=== PATIENT | male | born 1950 | race Hispanic/Latino ===

== ENCOUNTER 2018-09-10 10:00 | Emergency (ER) | payer MEDICARE ==
[2018-09-10 10:32] LABS: Basophils # (Auto) 0.1 K/mm3 (0.0-0.1); Basophils % (Auto) 0.8 % (0.0-1.8); Eosinophils # (Auto) 0.2 K/mm3 (0.0-0.4); Eosinophils % (Auto) 2.1 % (0.0-4.3); Hematocrit 31.9 % (35.5-45.6); Hemoglobin 10.2 gm/dl (11.8-15.2); Lymphocytes # (Auto) 1.2 K/mm3 (1.2-5.4); Lymphocytes % (Auto) 15.4 % (13.4-35.0); Mean Corpuscular HGB Conc 32 % (32-34); Mean Corpuscular Volume 73 fl (84-94); Monocytes # (Auto) 0.8 K/mm3 (0.0-0.8); Monocytes % (Auto) 10.5 % (0.0-7.3); Platelet Count 169 K/mm3 (140-440); Red Blood Count 4.36 M/mm3 (3.65-5.03)
[2018-09-10 10:38] LABS: Red Cell Distribution Width 20.9 % (13.2-15.2)
[2018-09-10 10:56] LABS: Alanine Aminotransferase 19 units/L (7-56); Albumin 3.6 g/dL (3.9-5); BUN/Creatinine Ratio 17; Blood Urea Nitrogen 15 mg/dL (9-20); Calcium 8.8 mg/dL (8.4-10.2); Hemolysis Index 6
--- NOTE | 2018-09-10 11:41 | Emergency Department Report ---
ED General Adult HPI - General Chief complaint: Abdominal Pain Stated complaint: STOMACH PAIN/BACK PAIN Time Seen by Provider: 09/10/18 10:49 Source: patient Mode of arrival: Wheelchair Limitations: No Limitations - History of Present Illness Initial comments: This is a 68 year old man who states he's never been to the emergency department for abdominal pain before. He states that he has been at [facility] for one week and "they just had psychiatrists there". He states that he was sent to [facility] by an emergency department in [facility] because "I had no where to live". He denies having any mental health problems, depression, suicidal ideation or taking any psychiatric medication. He states he's never had any abdominal surgery. He denies nausea vomiting or diarrhea. He is moving his bowels normally. He's had no fever or chills. He states the pain is sharp and intermittent and diffusely involving his abdomen without being able to identify a point of maximum intensity. He states that his symptoms are essentially unchanged for one week. He states that his pain is exacerbated by eating. -: Gradual, week(s) Location: abdomen Quality: sharp Consistency: intermittent Improves with: none Worsens with: eating Associated Symptoms: denies other symptoms, nausea/vomiting Treatments Prior to Arrival: none - Related Data Allergies Allergy/AdvReac Type Severity Reaction Status Date / Time No Known Allergies Allergy Unverified 09/10/18 10:05 ED Review of Systems ROS: Stated complaint: STOMACH PAIN/BACK PAIN Other details as noted in HPI Constitutional: denies: chills, fever Eyes: denies: eye pain, eye discharge, vision change ENT: denies: ear pain, throat pain Respiratory: denies: cough, shortness of breath, wheezing Cardiovascular: denies: chest pain, palpitations Endocrine: no symptoms reported Gastrointestinal: as per HPI, abdominal pain. denies: nausea, vomiting, diarrhea Genitourinary: denies: urgency, dysuria Musculoskeletal: denies: back pain, joint swelling, arthralgia Skin: denies: rash, lesions Neurological: denies: headache, weakness, paresthesias Psychiatric: denies: anxiety, depression Hematological/Lymphatic: denies: easy bleeding, easy bruising ED Past Medical Hx - Past Medical History Previous Medical History?: Yes Hx Hypertension: Yes Hx CVA: Yes (2003) Hx Heart Attack/AMI: Yes Hx Congestive Heart Failure: Yes Hx Diabetes: Yes Hx Deep Vein Thrombosis: Yes Hx Arthritis: Yes Hx COPD: Yes - Surgical History Past Surgical History?: Yes Hx Open Heart Surgery: Yes Additional Surgical History: right hip replacment. bilateral knee replacement. States fusion of lumbar spine 3 months ago. - Social History Smoking Status: Current Every Day Smoker Substance Use Type: None ED Physical Exam - General Limitations: No Limitations General appearance: alert, in no apparent distress - Head Head exam: Present: atraumatic, normocephalic - Eye Eye exam: Present: normal appearance. Absent: scleral icterus - ENT ENT exam: Present: mucous membranes moist - Neck Neck exam: Present: normal inspection - Respiratory Respiratory exam: Present: normal lung sounds bilaterally. Absent: respiratory distress - Cardiovascular Cardiovascular Exam: Present: regular rate, normal rhythm. Absent: systolic murmur, diastolic murmur, rubs, gallop - GI/Abdominal GI/Abdominal exam: Present: soft, normal bowel sounds. Absent: distended, tenderness, guarding, rebound, rigid - Rectal Rectal exam: Present: deferred - Extremities Exam Extremities exam: Present: normal inspection - Back Exam Back exam: Present: normal inspection. Absent: CVA tenderness (R), CVA tenderness (L) - Neurological Exam Neurological exam: Present: alert, oriented X3, CN II-XII intact. Absent: motor sensory deficit - Psychiatric Psychiatric exam: Present: normal affect, normal mood - Skin Skin exam: Present: warm, dry, intact, normal color. Absent: rash ED Course Vital Signs 09/10/18 09/10/18 10:06 12:58 Temperature 98.3 F Pulse Rate 85 80 Respiratory 18 18 Rate Blood Pressure 122/68 Blood Pressure 115/63 [Left] O2 Sat by Pulse 97 96 Oximetry - Reevaluation(s) Reevaluation #1: Discussed with case management. manager part states she will look into the patient's situation. 09/10/18 11:46 Reevaluation #2: Patient was seen by case management. He did not have any appreciable abdominal pain here his exam was benign. He is released to a [facility]. 09/10/18 16:03 ED Medical Decision Making - Lab Data Result diagrams: 09/10/18 10:23 09/10/18 10:23 Laboratory Results - last 24 hr 09/10/18 09/10/18 09/10/18 10:12 10:23 10:23 WBC 7.7 RBC 4.36 Hgb 10.2 L Hct 31.9 L MCV 73 L MCH 23 L MCHC 32 RDW 20.9 H Plt Count 169 Lymph % (Auto) 15.4 [place] % (Auto) 10.5 H Eos % (Auto) 2.1 Baso % (Auto) 0.8 Lymph # 1.2 [place] # 0.8 Eos # 0.2 Baso # 0.1 Seg Neutrophils % 71.2 H Seg Neutrophils # 5.5 Sodium 140 Potassium 4.4 Chloride 102.4 Carbon Dioxide 25 Anion Gap 17 BUN 15 Creatinine 0.9 Estimated GFR > 60 BUN/Creatinine Ratio 17 Glucose 125 H POC Glucose 127 H Calcium 8.8 Total Bilirubin 0.40 AST 18 ALT 19 Alkaline Phosphatase 91 Total Protein 7.3 Albumin 3.6 L Albumin/Globulin Ratio 1.0 Lipase 25 Critical care attestation.: If time is entered above; I have spent that time in minutes in the direct care of this critically ill patient, excluding procedure time. ED Disposition Clinical Impression: Abdominal pain Qualifiers: Abdominal location: unspecified location Qualified Code(s): R10.9 - Unspecified abdominal pain Disposition: DC-01 TO HOME OR SELFCARE Is pt being admited?: No Does the pt Need Aspirin: No Condition: Stable Instructions: Abdominal Pain (ED) Additional Instructions: Return to the emergency department any acute change or problems. Referrals: FIDELINA PRATT MD [Primary Care Provider] - 3-5 Days [facility] [Provider Group] - 3-5 Days Time of Disposition: 16:03
[2018-09-10 16:03] LABS: Bilirubin,Urine NEG (Negative); Blood,Urine NEG (Negative); Color,Urine Yellow (Yellow); Protein,Urine <15 mg/dL mg/dL (Negative); WBC,Urine < 1.0 /HPF (0.0-6.0)
[2018-09-10 16:04] VITALS: BP 118/70
== END 2018-09-10 16:27 | disposition home or self-care (01) ==
LOC: ED 10:00
DX: R10.9 Unspecified abdominal pain (principal); I11.0 Hypertensive heart disease with heart failure; I50.9 Heart failure, unspecified; E11.9 Type 2 diabetes mellitus without complications; M19.90 Unspecified osteoarthritis, unspecified site; J44.9 Chronic obstructive pulmonary disease, unspecified; F17.200 Nicotine dependence, unspecified, uncomplicated; Z86.73 Personal history of transient ischemic attack (TIA), and cerebral infarction without residual deficits; Z86.718 Personal history of other venous thrombosis and embolism
CPT/HCPCS: 36415; 80053; 81001; 82962; 83690; 85025

== ENCOUNTER 2018-09-30 14:18 | Emergency (ER) | payer MEDICARE ==
[2018-09-30] MEDS ORDERED: NORCO 10/325 PO ONE (14:55)
[2018-09-30] MEDS ORDERED: ZOFRAN ODT PO ONE (14:55)
[2018-09-30] MEDS ORDERED: PROVENTIL IH ONE (14:56)
[2018-09-30] MEDS ORDERED: ATROVENT IH ONE (14:56)
[2018-09-30] MEDS ORDERED: SOLU-Medrol IV ONE (14:57)
--- NOTE | 2018-09-30 15:07 | Emergency Department Report ---
ED General Adult HPI - General Chief complaint: Dyspnea/Respdistress Stated complaint: CAESAR Time Seen by Provider: 09/30/18 14:47 Source: EMS Mode of arrival: Stretcher Limitations: No Limitations - History of Present Illness Initial comments: Patient presents to emergency department with chief complaint of increased shortness of breath over the last 4 days. Patient has a history of congestive heart failure and COPD. Patient also complains of worsening left hip pain that now radiates into his left leg. Patient states she's had this left hip pain for quite some time and denies any injury or trauma. Patient also denies chest pain, jaw pain, headache. -: Gradual Radiation: non-radiation Severity scale (0 -10): 0 Consistency: constant Improves with: none Worsens with: none Associated Symptoms: denies other symptoms Treatments Prior to Arrival: none - Related Data Previous Rx's Medication Instructions Recorded Last Taken Type ALBUTEROL Inhaler (OR & NICU) 2 puff IH Q4HR PRN #1 inhalation 09/30/18 Unknown Rx [ProAir HFA Inhaler] Azithromycin [Zithromax Z-ADAL] 250 mg PO DAILY #6 tablet 09/30/18 Unknown Rx Benzonatate [Tessalon Perles] 100 mg PO Q8HR PRN #20 capsule 09/30/18 Unknown Rx predniSONE [Deltasone] 20 mg PO DAILY #15 tablet 09/30/18 Unknown Rx traMADol [Ultram] 50 mg PO Q6HR PRN #24 tablet 09/30/18 Unknown Rx Allergies Allergy/AdvReac Type Severity Reaction Status Date / Time No Known Allergies Allergy Verified 09/30/18 14:34 ED Review of Systems ROS: Stated complaint: CAESAR Other details as noted in HPI Comment: All other systems reviewed and negative Constitutional: denies: chills, fever Eyes: denies: eye pain, eye discharge, vision change ENT: denies: ear pain, throat pain Respiratory: shortness of breath. denies: cough, wheezing Cardiovascular: denies: chest pain, palpitations Endocrine: no symptoms reported Gastrointestinal: denies: abdominal pain, nausea, diarrhea Genitourinary: denies: urgency, dysuria Musculoskeletal: denies: back pain, joint swelling, arthralgia Skin: denies: rash, lesions Neurological: denies: headache, weakness, paresthesias Psychiatric: denies: anxiety, depression Hematological/Lymphatic: denies: easy bleeding, easy bruising ED Past Medical Hx - Past Medical History Previous Medical History?: Yes Hx Hypertension: Yes Hx CVA: Yes (2003) Hx Heart Attack/AMI: Yes Hx Congestive Heart Failure: Yes Hx Diabetes: Yes Hx Deep Vein Thrombosis: Yes Hx Arthritis: Yes Hx COPD: Yes - Surgical History Past Surgical History?: Yes Hx Open Heart Surgery: Yes Additional Surgical History: right hip replacment. bilateral knee replacement. States fusion of lumbar spine 3 months ago. - Social History Smoking Status: Former Smoker Substance Use Type: None - Medications Home Medications: Home Medications Medication Instructions Recorded Confirmed Last Taken Type ALBUTEROL Inhaler (OR & NICU) 2 puff IH Q4HR PRN #1 inhalation 09/30/18 Unknown Rx [ProAir HFA Inhaler] Azithromycin [Zithromax Z-ADAL] 250 mg PO DAILY #6 tablet 09/30/18 Unknown Rx Benzonatate [Tessalon Perles] 100 mg PO Q8HR PRN #20 capsule 09/30/18 Unknown Rx predniSONE [Deltasone] 20 mg PO DAILY #15 tablet 09/30/18 Unknown Rx traMADol [Ultram] 50 mg PO Q6HR PRN #24 tablet 09/30/18 Unknown Rx ED Physical Exam - General Limitations: No Limitations General appearance: alert, in no apparent distress - Head Head exam: Present: atraumatic, normocephalic - Eye Eye exam: Present: normal appearance, PERRL, EOMI - ENT ENT exam: Present: mucous membranes moist - Neck Neck exam: Present: normal inspection - Respiratory Respiratory exam: Present: normal lung sounds bilaterally, wheezes. Absent: respiratory distress, rales, rhonchi - Cardiovascular Cardiovascular Exam: Present: regular rate, normal rhythm. Absent: systolic murmur, diastolic murmur, rubs, gallop - GI/Abdominal GI/Abdominal exam: Present: soft, normal bowel sounds. Absent: distended, tenderness - Rectal Rectal exam: Present: deferred - Extremities Exam Extremities exam: Present: normal inspection - Back Exam Back exam: Present: normal inspection - Neurological Exam Neurological exam: Present: alert, oriented X3, CN II-XII intact. Absent: motor sensory deficit - Psychiatric Psychiatric exam: Present: normal affect, normal mood - Skin Skin exam: Present: warm, dry, intact, normal color. Absent: rash ED Course Vital Signs 09/30/18 14:30 Temperature 97.6 F Pulse Rate 16 L Respiratory 16 Rate Blood Pressure 118/52 O2 Sat by Pulse 97 Oximetry ED Medical Decision Making - Lab Data Result diagrams: 09/30/18 15:01 09/30/18 15:01 Lab Results 09/30/18 09/30/18 Range/Units 15:01 15:01 WBC 6.9 (4.5-11.0) K/mm3 RBC 4.47 (3.65-5.03) M/mm3 Hgb 10.3 L (11.8-15.2) gm/dl Hct 32.1 L (35.5-45.6) % MCV 72 L (84-94) fl MCH 23 L (28-32) pg MCHC 32 (32-34) % RDW 21.4 H (13.2-15.2) % Plt Count 215 (140-440) K/mm3 Lymph % (Auto) 25.2 (13.4-35.0) % [place] % (Auto) 10.6 H (0.0-7.3) % Eos % (Auto) 1.1 (0.0-4.3) % Baso % (Auto) 0.7 (0.0-1.8) % Lymph # 1.7 (1.2-5.4) K/mm3 [place] # 0.7 (0.0-0.8) K/mm3 Eos # 0.1 (0.0-0.4) K/mm3 Baso # 0.0 (0.0-0.1) K/mm3 Seg Neutrophils % 62.4 (40.0-70.0) % Seg Neutrophils # 4.3 (1.8-7.7) K/mm3 Sodium 141 (137-145) mmol/L Potassium 3.5 L (3.6-5.0) mmol/L Chloride 103.4 (98-107) mmol/L Carbon Dioxide 24 (22-30) mmol/L Anion Gap 17 mmol/L BUN 20 (9-20) mg/dL Creatinine 1.0 (0.8-1.5) mg/dL Estimated GFR > 60 ml/min BUN/Creatinine Ratio 20 % Glucose 181 H (75-100) mg/dL Calcium 8.6 (8.4-10.2) mg/dL Total Bilirubin 0.30 (0.1-1.2) mg/dL AST 11 (5-40) units/L ALT 9 (7-56) units/L Alkaline Phosphatase 96 (35-129) units/L NT-Pro-B Natriuret Pep 2076 H (0-900) pg/mL Total Protein 7.3 (6.3-8.2) g/dL Albumin 3.7 L (3.9-5) g/dL Albumin/Globulin Ratio 1.0 % - Radiology Data Radiology results: report reviewed Critical Care Time: Yes Critical care time in (mins) excluding proc time.: 35 Critical care attestation.: If time is entered above; I have spent that time in minutes in the direct care of this critically ill patient, excluding procedure time. ED Disposition Clinical Impression: COPD exacerbation, CHF (congestive heart failure), Hip pain Disposition: TO HOME OR SELFCARE Is pt being admited?: No Does the pt Need Aspirin: No Condition: Stable Instructions: Chronic Obstructive Pulmonary Disease (ED), Heart Failure (ED) Additional Instructions: return if worse Referrals: PRIMARY MD TATIANA [Primary Care Provider] - 3-5 Days FIDELINA PRATT MD [Staff Physician] - 3-5 Days [facility] [Provider Group] - 3-5 Days [facility] [Provider Group] - 3-5 Days Time of Disposition: 16:35
--- NOTE | 2018-09-30 15:37 | XRay Report ---
PORTABLE CHEST INDICATION: Shortness of breath. COMPARISON: None similar. FINDINGS: Portable, frontal chest radiograph demonstrates normal cardiomediastinal silhouette. Post CABG changes. Mild aortic knob calcifications. Prominent/slight increased markings throughout both lungs. Biapical scarring/pleural thickening as well. No pleural effusions or CHF. Spinal spondylosis. Lumbar fusion hardware noted. CONCLUSION: No definite acute chest process with post CABG changes and nonspecific interstitial prominence, as described. Please also correlate clinically and with more remote chest imaging, if available. Thank you for the opportunity to participate in this patient's care.
--- NOTE | 2018-09-30 15:40 | XRay Report ---
PELVIS RADIOGRAPH INDICATION: Shortness of breath. COMPARISON: None similar at this institution. FINDINGS: Single, frontal pelvic radiograph demonstrates severe left hip joint space narrowing, greatest superiorly with adjacent sclerosis and subchondral cysts. Few surgical clips about the left hip also noted. Right hip replacement. Partially imaged lower lumbar fusion hardware. Extensive atherosclerotic vascular calcifications and right proximal thigh arterial stent. Intact SI joints. Nonobstructive bowel gas pattern. CONCLUSION: No acute pelvic radiographic abnormality with right hip and lower lumbar hardware and severe left hip osteoarthritis noted with few other findings, as above. Thank you for the opportunity to participate in this patient's care.
[2018-09-30 15:44] LABS: Basophils % (Auto) 0.7 % (0.0-1.8); Eosinophils # (Auto) 0.1 K/mm3 (0.0-0.4); Eosinophils % (Auto) 1.1 % (0.0-4.3); Hematocrit 32.1 % (35.5-45.6); Hemoglobin 10.3 gm/dl (11.8-15.2); Lymphocytes # (Auto) 1.7 K/mm3 (1.2-5.4); Lymphocytes % (Auto) 25.2 % (13.4-35.0); Mean Corpuscular HGB Conc 32 % (32-34); Mean Corpuscular Volume 72 fl (84-94); Monocytes # (Auto) 0.7 K/mm3 (0.0-0.8); Monocytes % (Auto) 10.6 % (0.0-7.3); Platelet Count 215 K/mm3 (140-440); Red Blood Count 4.47 M/mm3 (3.65-5.03)
[2018-09-30 16:01] LABS: Alanine Aminotransferase 9 units/L (7-56); Albumin 3.7 g/dL (3.9-5); BUN/Creatinine Ratio 20; Blood Urea Nitrogen 20 mg/dL (9-20); Calcium 8.6 mg/dL (8.4-10.2); Hemolysis Index 2
[2018-09-30 16:03] LABS: Red Cell Distribution Width 21.4 % (13.2-15.2)
[2018-09-30] MEDS ORDERED: LASIX IV ONE (16:32)
[2018-09-30 17:39] VITALS: BP 110/52
== END 2018-09-30 17:37 | disposition home or self-care (01) ==
LOC: ED 14:18
DX: J44.1 Chronic obstructive pulmonary disease with (acute) exacerbation (principal); I50.9 Heart failure, unspecified; M25.552 Pain in left hip; I11.0 Hypertensive heart disease with heart failure; I25.2 Old myocardial infarction; E11.9 Type 2 diabetes mellitus without complications; M19.90 Unspecified osteoarthritis, unspecified site; Z87.891 Personal history of nicotine dependence
CPT/HCPCS: 36415; 71045; 72170; 80053; 83880; 85025; 94640; 96374; 96375; 99291; J1940; J2930; Q0162

== ENCOUNTER 2018-10-02 06:51 | Inpatient (IN) | payer MEDICARE ==
[2018-10-02] MEDS ORDERED: DIPRIVAN 10 MG/ML 1,000 MG/100 ML BOTTLE IV ONE ×3 (07:04→15:50)
[2018-10-02] MEDS ORDERED: VASELINE LIP THERAPY TP PRN (07:05)
[2018-10-02] MEDS ORDERED: ARTIFICIAL TEARS OPHTH OINT OU PRN (07:05)
[2018-10-02] MEDS ORDERED: LASIX IV ONE (07:08)
--- NOTE | 2018-10-02 07:19 | Emergency Department Report ---
ED Shortness of Breath HPI - General Chief Complaint: Dyspnea/Respdistress Stated Complaint: CAESAR Time Seen by Provider: 10/02/18 07:05 Source: patient, EMS Mode of arrival: Stretcher Limitations: Physical Limitation - History of Present Illness Initial Comments: Mr. Brown is a 68 yo male with hx of COPD, chronic systolic CHF, CVA, atrial fibrillation, iron deficiency anemia and CAD s/p CABG who presents with severe respiratory distress. Hx obtained from EMS. Patient unable to give hx due to severe work of breathing and lethargy. Patient did appear to affirm that he has been on a ventilator on previous occasion. According to EMS, room air saturation 60%. Difficult to oxygenate even with CPAP. Patient received albuterol, Solu-Medrol and magnesium en route. Mr. Brown lives in retirement house. He has unfilled prescription from recent ED visit 2 days ago. Documentation Provided by EMS from [facility]. listed Dr. Mehran Quinn Medications Listed from Clinic Form Albuterol Apixaban (Eliquis) Symbicort DSS Metformin Metoprolol Ropinirole Cam Murrieta MD Complaint: shortness of breath -: Sudden, This morning Severity: severe Known History Of: COPD, congestive heart failure - Related Data Previous Rx's Medication Instructions Recorded Last Taken Type ALBUTEROL Inhaler (OR & NICU) 2 puff IH Q4HR PRN #1 inhalation 09/30/18 Unknown Rx [ProAir HFA Inhaler] Azithromycin [Zithromax Z-ADAL] 250 mg PO DAILY #6 tablet 09/30/18 Unknown Rx Benzonatate [Tessalon Perles] 100 mg PO Q8HR PRN #20 capsule 09/30/18 Unknown Rx predniSONE [Deltasone] 20 mg PO DAILY #15 tablet 09/30/18 Unknown Rx traMADol [Ultram] 50 mg PO Q6HR PRN #24 tablet 09/30/18 Unknown Rx Allergies Allergy/AdvReac Type Severity Reaction Status Date / Time No Known Allergies Allergy Verified 09/30/18 14:34 ED Review of Systems ROS: Stated complaint: CAESAR Other details as noted in HPI Comment: Unobtainable due to pts medical conditions (severe work of breathing, lethargy) ED Past Medical Hx - Past Medical History Previous Medical History?: Yes Hx Hypertension: Yes Hx CVA: Yes (2003) Hx Heart Attack/AMI: Yes Hx Congestive Heart Failure: Yes Hx Diabetes: Yes Hx Deep Vein Thrombosis: Yes Hx Arthritis: Yes Hx COPD: Yes - Surgical History Hx Open Heart Surgery: Yes Additional Surgical History: right hip replacment. bilateral knee replacement. States fusion of lumbar spine 3 months ago. - Social History Smoking Status: Unknown if ever smoked Other Social History: Unable to obtain - Medications Home Medications: Home Medications Medication Instructions Recorded Confirmed Last Taken Type ALBUTEROL Inhaler (OR & NICU) 2 puff IH Q4HR PRN #1 inhalation 09/30/18 Unknown Rx [ProAir HFA Inhaler] Azithromycin [Zithromax Z-ADAL] 250 mg PO DAILY #6 tablet 09/30/18 Unknown Rx Benzonatate [Tessalon Perles] 100 mg PO Q8HR PRN #20 capsule 09/30/18 Unknown Rx predniSONE [Deltasone] 20 mg PO DAILY #15 tablet 09/30/18 Unknown Rx traMADol [Ultram] 50 mg PO Q6HR PRN #24 tablet 09/30/18 Unknown Rx ED Physical Exam - General Limitations: Physical Limitation General appearance: lethargic, in distress, other (does not make eye contact, severe work of breathing) - Head Head exam: Present: atraumatic, normocephalic - Eye Eye exam: Absent: scleral icterus, conjunctival injection Pupils: Present: normal accommodation - ENT ENT exam: Present: mucous membranes dry, other (no oropharyngeal lesions or exudate) - Neck Neck exam: Present: full ROM. Absent: meningismus - Respiratory Respiratory exam: Present: respiratory distress, rales, accessory muscle use, decreased breath sounds, prolonged expiratory - Cardiovascular Cardiovascular Exam: Present: tachycardia, irregular rhythm, other (sternotomy scar present). Absent: systolic murmur, diastolic murmur - GI/Abdominal GI/Abdominal exam: Present: soft, other (abdominal retractions). Absent: distended, tenderness, guarding - Extremities Exam Extremities exam: Present: normal inspection - Neurological Exam Neurological exam: Present: other (lethargic speaking one-two word sentences) - Psychiatric Psychiatric exam: Present: other (lethargic) - Skin Skin exam: Present: pallor ED Course Vital Signs 10/02/18 10/02/18 10/02/18 06:52 07:00 07:06 Pulse Rate 106 H 105 H 88 Respiratory 31 H 22 20 Rate Blood Pressure 162/92 O2 Sat by Pulse 80 L 100 90 Oximetry 10/02/18 10/02/18 10/02/18 07:16 07:30 07:36 Pulse Rate 101 H 99 H 112 H Respiratory 28 H 22 Rate Blood Pressure 166/85 151/82 166/85 O2 Sat by Pulse 88 100 100 Oximetry 10/02/18 10/02/18 07:46 08:00 Pulse Rate 106 H 96 H Respiratory 29 H 31 H Rate Blood Pressure 164/102 173/92 O2 Sat by Pulse 99 98 Oximetry - Intubation Time Out Performed: Yes Sedative: Etomidate Mg Given: 20 Paralytic: Succinylcholine Mg Given: 150 Laryngoscope: Roxy Size: 4 ET Tube Size: 8 Tube Secured Depth (cm): 22 Tube Secured Location: lips Tube Placement Confirmation: visualized tube passing t, equal breath sounds bilat, no breath sounds over epi, confirmation by capnometr Patient Tolerated Procedure: well Intubation Complications: none ED Medical Decision Making - Lab Data Result diagrams: 10/02/18 07:20 10/02/18 07:13 - EKG Data 10/02/18 08:37 EKG obtained 0833 atrial fibrillation RVR rate 100 bpm left axis deviation no ST elevation lateral T wave inversions in 1 and aVL Q waves in inferior leads - Radiology Data Radiology results: report reviewed, image reviewed interpreted by me: Suspect RLL infiltrate with venous changes upon my review - Medical Decision Making Mr. Brown presented to the emergency Department severe respiratory distress. While respiratory therapy has applied BiPAP for preoxygenation I spoke to EMS at the bedside. Upon arrival with CPAP oxygen saturation 80%. With noninvasive positive pressure ventilation, 100% oxygen saturation was achieved. Patient was intubated without complication. Patient was given furosemide on arrival. 1. Acute respiratory failure with profound hypoxemia suspect COPD to be the predominant process. I also suspect superimposed pneumonia. Elevated WBC 19K present today rapidly increased from 6.9K 2 days ago, unknown recent steroid use. zosyn/levaquin provided in ED 2. Acute Systolic heart failure with elevated BNP, likely contributory process, IV furosemide provided 3. Rapid Atrial Fibrillation RVR due to critical illness, HR 105-115 bpm, with hypertension, no need for urgent treatment at this time Admitted to hospitalist service. I discussed case with Dr. Flores. Dr. Ortiz will be admitting physician. Critical Care Time: Yes Critical care time in (mins) excluding proc time.: 60 Critical care attestation.: If time is entered above; I have spent that time in minutes in the direct care of this critically ill patient, excluding procedure time. 60 minutes of critical care time excluding procedures were used in the care of the patient. Patient required multiple assessments and interventions. I reviewed the electronic medical record. I spoke with consultants involved in the care of the patient. ED Disposition Clinical Impression: Acute respiratory failure with hypoxia, HCAP (healthcare-associated pneumonia), COPD with acute exacerbation, Acute systolic (congestive) heart failure, Atrial fibrillation with rapid ventricular response Disposition: OP ADMIT IP TO THIS HOSP Is pt being admited?: Yes Does the pt Need Aspirin: No Condition: Stable
[2018-10-02] MEDS: DIPRIVAN 10 MG/ML 1,000 MG/100 ML BOTTLE IV SCH (07:20)
[2018-10-02] MEDS ORDERED: QUELICIN IV ONE (07:23)
[2018-10-02] MEDS ORDERED: AMIDATE IV ONE (07:23)
[2018-10-02 07:46] LABS: Hematocrit 35.7 % (35.5-45.6); Hemoglobin 10.9 gm/dl (11.8-15.2); Mean Corpuscular HGB Conc 31 % (32-34); Mean Corpuscular Volume 75 fl (84-94); Platelet Count 277 K/mm3 (140-440); Red Blood Count 4.79 M/mm3 (3.65-5.03)
[2018-10-02 07:57] LABS: INR 1.11 (0.87-1.13)
[2018-10-02 08:00] LABS: Alanine Aminotransferase 11 units/L (7-56); Albumin 3.9 g/dL (3.9-5); BUN/Creatinine Ratio 20; Blood Urea Nitrogen 20 mg/dL (9-20); Calcium 8.4 mg/dL (8.4-10.2); Hemolysis Index 20
[2018-10-02] MEDS ORDERED: DIPRIVAN 10 MG/ML 1,000 MG/100 ML BOTTLE IV SCH (08:00)
[2018-10-02 08:02] LABS: Red Cell Distribution Width 21.7 % (13.2-15.2)
--- NOTE | 2018-10-02 08:12 | XRay Report ---
AP CHEST: HISTORY: Endotracheal tube placement Compared to 09/30/18. The endotracheal tube terminates 4 cm superior to the mylene. Advanced underlying emphysematous changes are suspected. Previous CABG changes are also noted. Moderate cardiomegaly and pulmonary venous congestion are present. No large pleural fluid collection or pneumothorax. IMPRESSION: Adequate placement of the endotracheal tube. Emphysema. Moderate cardiomegaly and pulmonary venous congestion.
[2018-10-02] MEDS ORDERED: LEVAQUIN 750MG/150ML 750 MG/150 ML BAG IV ONE ×2 (08:26→12:05)
[2018-10-02] MEDS ORDERED: ZOSYN/NS 4.5GM/100ML 4.5 GM/100 ML VIAL IV ONE ×2 (08:26→10:01)
--- NOTE | 2018-10-02 08:37 | History and Physical Report ---
History of Present Illness Date of examination: 10/02/18 Date of admission: 10/02/18 Chief complaint: shortness of breath History of present illness: Patient is a 68-year-old male with past medical history from records shows COPD, chronic systolic CHF, CVA, atrial fibrillation, iron deficiency anemia and CAD s/p CABG who presents with severe respiratory distress. Patient was noted to be lethargic with severe increased work of breathing and was intubated in the ER and placed on mechanical ventilation. Review of records is also off HPI. The record shows that the patient has been in the ED about 2 days prior to this visit. He also had affirm that he has been on mechanical ventilation on previous occasions for currently follows at the [facility]. The ED documentation the medication list reveals the patient also lives in a alf house. On arrival he was noted to have a saturation of 60% and was difficult to oxygenate with CPAP despite Solu-Medrol and magnesium given enroute and mechanical ventilation in the ED. Medications Listed from Clinic Form Albuterol Apixaban (Eliquis) Symbicort DSS Metformin Metoprolol Ropinirole Senna Spiriva Past History Past Medical History: CAD, COPD, hypertension Past Surgical History: CABG Social history: full code Family history: no significant family history Medications and Allergies Allergies Allergy/AdvReac Type Severity Reaction Status Date / Time No Known Allergies Allergy Verified 09/30/18 14:34 Home Medications Medication Instructions Recorded Confirmed Last Taken Type ALBUTEROL Inhaler (OR & NICU) 2 puff IH Q4HR PRN #1 inhalation 09/30/18 Unknown Rx [ProAir HFA Inhaler] Azithromycin [Zithromax Z-ADAL] 250 mg PO DAILY #6 tablet 09/30/18 Unknown Rx Benzonatate [Tessalon Perles] 100 mg PO Q8HR PRN #20 capsule 09/30/18 Unknown Rx predniSONE [Deltasone] 20 mg PO DAILY #15 tablet 09/30/18 Unknown Rx traMADol [Ultram] 50 mg PO Q6HR PRN #24 tablet 09/30/18 Unknown Rx Active Meds: Active Medications Hydrophilic Ointment (Vaseline Lip Therapy) 1 applic TP Q2HR PRN PRN Reason: Dry Lips Propofol (Diprivan 10 Mg/Ml) 1,000 mg in 100 mls @ 2.439 mls/hr IV TITR KIANNA; Protocol Last Admin: 10/02/18 07:20 Dose: 15 mcg/kg/min, 7.317 mls/hr Documented by: Levofloxacin/Dextrose (Levaquin 750mg/150ml) 750 mg in 150 mls @ 100 mls/hr IV ONCE ONE Stop: 10/02/18 09:55 Piperacillin Sod/Tazobactam Sod (Zosyn/Ns 4.5gm/100ml) 4.5 gm in 100 mls @ 200 mls/hr IV ONCE ONE Stop: 10/02/18 08:55 Multi-Ingred Cream/Lotion/Oil/Oint (Artificial Tears Ophth Oint) 1 applic OU Q4HR PRN PRN Reason: Dry Eye(s) Review of Systems ROS unobtainable: due to endotracheal tube, due to mental status All systems: negative Exam - Physical Exam Narrative exam: VITAL SIGNS: Reviewed. GENERAL: The patient appeared well nourished and normally developed in mild to moderate distress. Vital signs as documented. HEAD: No signs of head trauma. EYES: Pupils are equal. Extraocular motions intact. EARS: Hearing grossly intact. MOUTH: ETT in place, otherwise no other visible pathology noted NECK: No adenopathy, no JVD. CHEST: Chest with Diminished breath sounds bilaterally. CARDIAC: Regular rate and rhythm. S1 and S2, without murmurs, gallops, or rubs. VASCULAR: No Edema. Peripheral pulses normal and equal in all extremities. ABDOMEN: Soft, without detectable tenderness. No sign of distention. No rebound or guarding, and no masses palpated. Bowel Sounds normal. MUSCULOSKELETAL: Good range of motion of all major joints. Extremities without clubbing, cyanosis or edema. NEUROLOGIC: unable to access SKIN: No rash or lesions. - Constitutional Vitals: Temp Pulse Resp BP Pulse Ox 96 H 31 H 173/92 98 10/02/18 08:00 10/02/18 08:00 10/02/18 08:00 10/02/18 08:00 Results - Labs CBC & Chem 7: 10/03/18 04:13 10/03/18 04:13 Labs: Laboratory Last Values WBC 19.7 K/mm3 (4.5-11.0) H 10/02/18 07:20 RBC 4.79 M/mm3 (3.65-5.03) 10/02/18 07:20 Hgb 10.9 gm/dl (11.8-15.2) L 10/02/18 07:20 Hct 35.7 % (35.5-45.6) 10/02/18 07:20 MCV 75 fl (84-94) L 10/02/18 07:20 MCH 23 pg (28-32) L 10/02/18 07:20 MCHC 31 % (32-34) L 10/02/18 07:20 RDW 21.7 % (13.2-15.2) H 10/02/18 07:20 Plt Count 277 K/mm3 (140-440) 10/02/18 07:20 Lymph # [employer] 10/02/18 07:20 PT 15.0 Sec. (12.2-14.9) H 10/02/18 07:22 INR 1.11 (0.87-1.13) 10/02/18 07:22 Sodium 138 mmol/L (137-145) 10/02/18 07:13 Potassium 5.2 mmol/L (3.6-5.0) H D 10/02/18 07:13 Chloride 101.0 mmol/L (98-107) 10/02/18 07:13 Carbon Dioxide 19 mmol/L (22-30) L 10/02/18 07:13 Anion Gap 23 mmol/L 10/02/18 07:13 BUN 20 mg/dL (9-20) 10/02/18 07:13 Creatinine 1.0 mg/dL (0.8-1.5) 10/02/18 07:13 Estimated GFR > 60 ml/min 10/02/18 07:13 BUN/Creatinine Ratio 20 % 10/02/18 07:13 Glucose 340 mg/dL (75-100) H 10/02/18 07:13 Calcium 8.4 mg/dL (8.4-10.2) 10/02/18 07:13 Total Bilirubin 0.50 mg/dL (0.1-1.2) 10/02/18 07:13 AST 20 units/L (5-40) 10/02/18 07:13 ALT 11 units/L (7-56) 10/02/18 07:13 Alkaline Phosphatase 100 units/L (35-129) 10/02/18 07:13 Troponin T < 0.010 ng/mL (0.00-0.029) 10/02/18 07:13 NT-Pro-B Natriuret Pep 3102 pg/mL (0-900) H 10/02/18 07:13 Total Protein 7.8 g/dL (6.3-8.2) 10/02/18 07:13 Albumin 3.9 g/dL (3.9-5) 10/02/18 07:13 Albumin/Globulin Ratio 1.0 % 10/02/18 07:13 - Imaging and Cardiology Chest x-ray: image reviewed (pneumonia) Assessment and Plan Assessment and plan: Patient is a 68-year-old male with past medical history from records shows COPD, chronic systolic CHF, CVA, atrial fibrillation, iron deficiency anemia and CAD s/p CABG who presents with severe respiratory distress. Patient was noted to be lethargic with severe increased work of breathing and was intubated in the ER and placed on mechanical ventilation. Review of records is also off HPI. The record shows that the patient has been in the ED about 2 days prior to this visit. He also had affirm that he has been on mechanical ventilation on previous occasions for currently follows at the [facility]. The ED documentation the medication list reveals the patient also lives in a alf house. On arrival he was noted to have a saturation of 60% and was difficult to oxygenate with CPAP despite Solu-Medrol and magnesium given enroute and mechanical ventilation in the ED. Acute Respiratory failure with Hypoxia ON Mechanical ventilation Hypertensive urgency Acute Systolic Congestive heart failure-Precluding fluids admisitration Sepsis-POA secondary PNA Pneumonia -presume gram negative. COPD with acute exacerbation secondary to above Atrial Fibrillation Leukocytosis Hyperkalemia DM with Hyperglycemia Plan Admit to ICU Sepsis Protocol [employer]ing [employer] and cardiology consult Hold further diuretic till above configuration consultant evaluation and also patient at high risk of shock syndrome with underlying infectious process Blood cultures Continue for HAP. IF no clear resolution will request ID support DVT/GI prophy Discussed with Nursing to obtain med Rec No family present. The high probability of a clinically significant, sudden or life threatening deterioration of the [CARDIAC, PULMONARY] system(s) required my full and direct attention, intervention and personal management. The aggregate critical care time was [75] minutes. This time is in addition to time spent performing reported procedures but includes the following: [X] Data Review and interpretation [X] Patient assessment and monitoring of vital signs [X] Documentation [X] Medication orders and management Advance Directives: Yes Plan of care discussed with patient/family: Yes
[2018-10-02] MEDS ORDERED: D50W (25GM) Syringe IV PRN (08:41)
[2018-10-02] MEDS ORDERED: PROVENTIL IH PRN (08:41)
[2018-10-02] MEDS ORDERED: SODIUM CHLORIDE FLUSH SYRINGE 10 ML IV PRN (08:41)
[2018-10-02] MEDS ORDERED: VANCOMYCIN PHARMACY TO DOSE IV SCH (09:00)
[2018-10-02] MEDS ORDERED: VANCOMYCIN 1,750 MG in NACL 0.9% 500 ML 500 ML IV ONE (09:30)
[2018-10-02 09:37] LABS: Band Neutrophils # (Manual) 0.2 K/mm3; Basophils % (Manual) 0 % (0.0-1.8); Eosinophils % (Manual) 0 % (0.0-4.3); Total Cells Counted 100
[2018-10-02 09:38] LABS: Anisocytosis 2+; Hypochromasia 1+; Ovalocytes 1+; Platelet Estimate Consistent w Auto
[2018-10-02 09:56] LABS: Bacteria,Urine 1+ /HPF (Negative); Bilirubin,Urine NEG (Negative); Blood,Urine NEG (Negative); Color,Urine Straw (Yellow); Urobilinogen,Urine < 2.0 mg/dL (<2.0)
[2018-10-02] MEDS: SODIUM CHLORIDE FLUSH SYRINGE 10 ML IV SCH ×2 (10:44→22:57)
--- NOTE | 2018-10-02 11:11 | Consultation ---
History of Present Illness Consult date: 10/02/18 Requesting physician: DWIGHT HERNANDEZ Consult reason: atrial fibrillation History of present illness: The pt is a 68 yo male who presented from longterm house with severe respiratory distress. The pt is intubated and sedated with no family members at bedside on evaluation and thus HPI obtained per the chart. Pt has reported history of COPD, HF, CVA, atrial fibrillation, iron deficiency anemia and CAD s/p CABG. Hx obtained from EMS. Upon initial arrival to ED, patient unable to give hx due to severe work of breathing and lethargy, pt did appear to affirm that he has been on a ventilator on previous occasion. According to EMS, room air saturation 60%. Upon arrival with CPAP oxygen saturation 80%. Pt was subsequently intubated in ED. Pt was found to be in AFib RVR on arrival. Pt in AFib with CVR on evaluation. Past History Past Medical History: atrial fib, CAD, COPD, heart failure, stroke Past Surgical History: CABG Medications and Allergies Allergies Allergy/AdvReac Type Severity Reaction Status Date / Time No Known Allergies Allergy Verified 09/30/18 14:34 Home Medications Medication Instructions Recorded Confirmed Last Taken Type ALBUTEROL Inhaler (OR & NICU) 2 puff IH Q4HR PRN #1 inhalation 09/30/18 Unknown Rx [ProAir HFA Inhaler] Azithromycin [Zithromax Z-ADAL] 250 mg PO DAILY #6 tablet 09/30/18 Unknown Rx Benzonatate [Tessalon Perles] 100 mg PO Q8HR PRN #20 capsule 09/30/18 Unknown Rx predniSONE [Deltasone] 20 mg PO DAILY #15 tablet 09/30/18 Unknown Rx traMADol [Ultram] 50 mg PO Q6HR PRN #24 tablet 09/30/18 Unknown Rx Active Meds: Active Medications Albuterol (Proventil) 2.5 mg IH Q3HRT PRN PRN Reason: Shortness Of Breath Albuterol/Ipratropium (Duoneb *Not For Prn Use*) 1 ampul IH Q6HRT KIANNA Dextrose (D50w (25gm) Syringe) 50 ml IV PRN PRN PRN Reason: Hypoglycemia Hydrophilic Ointment (Vaseline Lip Therapy) 1 applic TP Q2HR PRN PRN Reason: Dry Lips Propofol (Diprivan 10 Mg/Ml) 1,000 mg in 100 mls @ 2.439 mls/hr IV TITR KIANNA; Protocol Last Admin: 10/02/18 07:20 Dose: 15 mcg/kg/min, 7.317 mls/hr Documented by: Cefepime HCl (Maxipime/Ns 2 Gm/100 Ml) 2 gm in 100 mls @ 200 mls/hr IV Q8HR KIANNA; Protocol Multi-Ingred Cream/Lotion/Oil/Oint (Artificial Tears Ophth Oint) 1 applic OU Q4HR PRN PRN Reason: Dry Eye(s) Senna (Senokot) 8.6 mg PO BID KIANNA Sodium Chloride (Sodium Chloride Flush Syringe 10 Ml) 10 ml IV BID KIANNA Last Admin: 10/02/18 10:44 Dose: 10 ml Documented by: Sodium Chloride (Sodium Chloride Flush Syringe 10 Ml) 10 ml IV PRN PRN PRN Reason: LINE FLUSH Review of Systems ROS unobtainable: due to endotracheal tube, due to mental status Physical Examination Vital Signs Pulse Resp Pulse Ox 106 H 31 H 80 L 10/02/18 06:52 10/02/18 06:52 10/02/18 06:52 General appearance: other (intubated, sedated ) Neck: Positive: neck supple Cardiac: Positive: irregularly irregular, S1/S2 Lungs: Positive: Decreased Breath Sounds, Ventilated Respirations Neuro: Positive: Other (intubated, sedated) Skin: Negative: Rash Extremities: Absent: edema Results 10/02/18 07:20 10/02/18 07:13 Cardiac Enzymes 10/02/18 Range/Units 07:13 AST 20 (5-40) units/L Coagulation 10/02/18 Range/Units 07:22 PT 15.0 H (12.2-14.9) Sec. INR 1.11 (0.87-1.13) CBC 10/02/18 Range/Units 07:20 WBC 19.7 H (4.5-11.0) K/mm3 RBC 4.79 (3.65-5.03) M/mm3 Hgb 10.9 L (11.8-15.2) gm/dl Hct 35.7 (35.5-45.6) % Plt Count 277 (140-440) K/mm3 Lymph # [employer]aining Specialist Comprehensive Metabolic Panel 10/02/18 Range/Units 07:13 Sodium 138 (137-145) mmol/L Potassium 5.2 H D (3.6-5.0) mmol/L Chloride 101.0 (98-107) mmol/L Carbon Dioxide 19 L (22-30) mmol/L BUN 20 (9-20) mg/dL Creatinine 1.0 (0.8-1.5) mg/dL Glucose 340 H (75-100) mg/dL Calcium 8.4 (8.4-10.2) mg/dL AST 20 (5-40) units/L ALT 11 (7-56) units/L Alkaline Phosphatase 100 (35-129) units/L Total Protein 7.8 (6.3-8.2) g/dL Albumin 3.9 (3.9-5) g/dL - Imaging and Cardiology Echo: pending EKG: report reviewed, image reviewed EKG interpretations - Telemetry EKG Rhythm: Atrial Fibrillation - EKG Supraventricular dysrhythmia: atrial fibrillation Assessment and Plan Pt currently in AFib with HR 90s - 100s. Optimize BP and HR - initiate IV lopressor 5mg TID. Convert to PO medications once enteral intake is resumed. In regards to systemic AC, pt appears frail and lives in a longterm house. He may not be a good candidate for oil heaterman systemic AC for AFib. Will attempt to readdress with pt and/or pt's family members during hospitalization. Can consider heparin gtt in the interim if no contraindication. Initiate scheduled IV lasix. Obtain echo. The patient has been seen in conjunction with Dr. Keller who agrees with the assessment and plan of care. - Patient Problems (1) Acute respiratory failure Current Visit: Yes Status: Acute (2) Atrial fibrillation with rapid ventricular response Current Visit: Yes Status: Acute (3) Acute heart failure Current Visit: Yes Status: Acute (4) COPD with acute exacerbation Current Visit: Yes Status: Acute (5) Leukocytosis Current Visit: Yes Status: Acute (6) CAD (coronary artery disease) Current Visit: Yes Status: Chronic (7) S/P CABG (coronary artery bypass graft) Current Visit: Yes Status: Chronic
[2018-10-02] MEDS: fentaNYL DRIP Premix 2,000 MCG/100 ML BAG IV SCH (13:45)
[2018-10-02] MEDS ORDERED: fentaNYL DRIP Premix 2,000 MCG/100 ML BAG IV ONE ×2 (13:53→19:17)
[2018-10-02] MEDS ORDERED: SUBLIMAZE IV PRN (15:32)
[2018-10-02] MEDS ORDERED: SUBLIMAZE ONE ×2 (16:20→17:11)
[2018-10-02] MEDS ORDERED: DUONEB *Not for PRN Use IH ONE (16:21)
[2018-10-02] MEDS: DUONEB *Not for PRN Use IH SCH ×2 (16:22→19:19)
[2018-10-02] MEDS: SENOKOT PO SCH ×2 (17:12→22:55)
--- NOTE | 2018-10-02 18:44 | Consultation ---
History of Present Illness Consult date: 10/02/18 Requesting physician: DWIGHT HERNANDEZ Reason for consult: COPD, other (Acute Hypoxenmic Resp Failure on MVS) History of present illness: PULMONARY/CCM CONSULT NOTE (Full dictation # [id number]) Please see dictated notes for full details Past History Past Medical History: atrial fib, CAD, COPD, heart failure, stroke Past Surgical History: CABG Medications and Allergies Allergies Allergy/AdvReac Type Severity Reaction Status Date / Time No Known Allergies Allergy Verified 09/30/18 14:34 Home Medications Medication Instructions Recorded Confirmed Last Taken Type ALBUTEROL Inhaler (OR & NICU) 2 puff IH Q4HR PRN #1 inhalation 09/30/18 Unknown Rx [ProAir HFA Inhaler] Azithromycin [Zithromax Z-ADAL] 250 mg PO DAILY #6 tablet 09/30/18 Unknown Rx Benzonatate [Tessalon Perles] 100 mg PO Q8HR PRN #20 capsule 09/30/18 Unknown Rx predniSONE [Deltasone] 20 mg PO DAILY #15 tablet 09/30/18 Unknown Rx traMADol [Ultram] 50 mg PO Q6HR PRN #24 tablet 09/30/18 Unknown Rx Active Meds: Active Medications Albuterol (Proventil) 2.5 mg IH Q3HRT PRN PRN Reason: Shortness Of Breath Albuterol/Ipratropium (Duoneb *Not For Prn Use*) 1 ampul IH Q6HRT KIANNA Last Admin: 10/02/18 16:22 Dose: 1 ampul Documented by: Dextrose (D50w (25gm) Syringe) 50 ml IV PRN PRN PRN Reason: Hypoglycemia Fentanyl (Sublimaze) 50 mcg IV Q10MIN PRN PRN Reason: ANALGESIA Last Admin: 10/02/18 16:21 Dose: 50 mcg Documented by: Furosemide (Lasix) 20 mg IV 0600,1800 KIANNA Hydrophilic Ointment (Vaseline Lip Therapy) 1 applic TP Q2HR PRN PRN Reason: Dry Lips Propofol (Diprivan 10 Mg/Ml) 1,000 mg in 100 mls @ 2.439 mls/hr IV TITR KIANNA; Protocol Last Admin: 10/02/18 07:20 Dose: 15 mcg/kg/min, 7.317 mls/hr Documented by: Cefepime HCl (Maxipime/Ns 2 Gm/100 Ml) 2 gm in 100 mls @ 200 mls/hr IV Q8HR [facility]; Protocol Fentanyl Citrate (Fentanyl Drip Premix) 2,000 mcg in 100 mls @ 4.065 mls/hr IV TITR [facility]; Protocol Last Titration: 10/02/18 16:25 Dose: 3 mcg/kg/hr, 12.195 mls/hr Documented by: Vancomycin HCl 1,250 mg/ (Sodium Chloride) 275 mls @ 166.667 mls/hr IV Q12H [facility] Metoprolol Tartrate (Lopressor) 5 mg IV TID [facility] Multi-Ingred Cream/Lotion/Oil/Oint (Artificial Tears Ophth Oint) 1 applic OU Q4HR PRN PRN Reason: Dry Eye(s) Senna (Senokot) 8.6 mg PO BID [facility] Last Admin: 10/02/18 17:12 Dose: Not Given Documented by: Sodium Chloride (Sodium Chloride Flush Syringe 10 Ml) 10 ml IV BID [facility] Last Admin: 10/02/18 10:44 Dose: 10 ml Documented by: Sodium Chloride (Sodium Chloride Flush Syringe 10 Ml) 10 ml IV PRN PRN PRN Reason: LINE FLUSH Physical Examination Vital signs: Vital Signs Pulse Resp Pulse Ox 106 H 31 H 80 L 10/02/18 06:52 10/02/18 06:52 10/02/18 06:52 Results - Laboratory Findings CBC and BMP: 10/02/18 07:20 10/02/18 07:13 ABG POC ABG pH 7.254 (7.35-7.45) L 10/02/18 12:28 POC ABG pCO2 54.3 (35-45) H 10/02/18 12:28 POC ABG pO2 196 (80-105) H 10/02/18 12:28 POC ABG HCO3 24.0 10/02/18 12:28 POC ABG Total CO2 26 10/02/18 12:28 POC ABG O2 Sat 100 10/02/18 12:28 PT/INR, D-dimer PT 15.0 Sec. (12.2-14.9) H 10/02/18 07:22 INR 1.11 (0.87-1.13) 10/02/18 07:22 Abnormal lab findings: Abnormal Labs 10/02/18 10/02/18 10/02/18 07:13 07:20 07:22 WBC 19.7 H Hgb 10.9 L MCV 75 L MCH 23 L MCHC 31 L RDW 21.7 H Seg Neutrophils # Man 13.2 H Monocytes # (Manual) 1.2 H PT 15.0 H POC ABG pH POC ABG pCO2 POC ABG pO2 Potassium 5.2 H D Carbon Dioxide 19 L Glucose 340 H Lactic Acid NT-Pro-B Natriuret Pep 3102 H 10/02/18 10/02/18 10/02/18 08:32 09:26 12:28 WBC Hgb MCV MCH MCHC RDW Seg Neutrophils # Man Monocytes # (Manual) PT POC ABG pH 7.201 L 7.254 L POC ABG pCO2 61.2 H 54.3 H POC ABG pO2 150 H 196 H Potassium Carbon Dioxide Glucose Lactic Acid 3.00 H* NT-Pro-B Natriuret Pep
[2018-10-02] MEDS: LOPRESSOR IV SCH ×2 (20:22→21:37)
[2018-10-02] MEDS: LASIX IV SCH (20:32)
[2018-10-02] MEDS ORDERED: LASIX ONE ×3 (20:32→20:52)
[2018-10-02] MEDS: MAXIPIME/NS 2 GM/100 ML 2 GM/100 ML BAG IV SCH (22:30)
[2018-10-02] MEDS ORDERED: SEROquel 50 MG, SEROquel 100 MG PO SCH (23:00)
[2018-10-02] MEDS ORDERED: NACL 0.9% 1000 ML 1,000 ML IV SCH (23:00)
--- NOTE | 2018-10-03 00:01 | Consultation ---
PULMONARY CRITICAL CARE CONSULTATION NOTE CONSULTING PHYSICIAN: Lex Ortiz MD REASON FOR CONSULTATION: Acute hypoxemic respiratory failure, on mechanical ventilator support, acute chronic obstructive pulmonary disease exacerbation. CHIEF COMPLAINT AND HISTORY OF PRESENT ILLNESS: As follows, the patient is a 68-year-old male with past medical history significant in this context both for diagnoses of chronic obstructive lung disease, but also chronic systolic congestive heart failure, who presented to the Emergency Room with severe respiratory distress. He was unable to give a history due to his increased work of breathing. EMS, when they got to his apartment, found his room air oxygen saturations at about 60%. They tried to oxygenate him with CPAP, really did not improve much. He received albuterol, Solu-Medrol, magnesium en route. He reportedly lives in a senior living house and there is a question of medication noncompliance as he had some ____ prescriptions from a recent Emergency Room visit. Emergency Room physician, after evaluation, realized appropriately that the patient required endotracheal intubation and this was done. We are asked to assist with management. When I stopped by to see him, he had also gone into atrial fibrillation with rapid ventricular response. He was on propofol at about 10 mcg per minute, but he was also on fentanyl at 3 mcg/kg per hour, but was still easily agitated. I do not have any history of vomiting or overt aspiration. It is unclear if the patient complained of any chest pains at initial evaluation. This really is as much of the history of presentation as I have. Also, his tobacco use/abuse history is unknown. PAST MEDICAL HISTORY: According to the records, chronic obstructive lung disease, congestive heart failure, cerebrovascular accident, atrial fibrillation, iron deficiency anemia, coronary artery disease. PAST SURGICAL HISTORY: He has had coronary artery bypass graft in the past. MEDICATIONS: He was on at the time I stopped by to see him were reviewed. Pertinent medications included the following: DuoNeb nebulizer treatments nebulized q. 6 hours, cefepime 2 g IV 8 hours, fentanyl drip as mentioned above, Lasix 20 mg IV b.i.d., metoprolol 5 mg IV t.i.d. scheduled, propofol at the drip mentioned above, senna 8.6 mg p.o. b.i.d., and vancomycin 1.25 grams IV q.12 hours. ALLERGIES: No known drug allergies. DIET: Thin gentleman, acute weight loss or gain history is unknown. FAMILY AND SOCIAL HISTORY: Resident of a senior living house. Alcohol, tobacco, or illicit drug use or abuse history is unknown. FAMILY HISTORY: Family history unfortunately is unknown. REVIEW OF SYSTEMS: Review of systems is unobtainable secondary to the patient's medical and mental condition. Since he has been here, no gross hematochezia or melena. No gross hematuria, no hematemesis, no bloody tracheal secretions, no witnessed seizures. Review of systems otherwise is unobtainable or as in body of the history above. PHYSICAL EXAMINATION: VITAL SIGNS: On examination, at presentation in the Emergency Room, the first temperature I see on him was from about 3:00 p.m. today 96.3 degrees Fahrenheit. At that time, his pulse at presentation was 106, respiratory rate was 31 and blood pressure 162/92, O2 sats were 80%. Inspired oxygen concentration was not recorded. At the time that I stopped by to see him, his O2 sats were around 97% that was on the assist control mode of ventilation, tidal volumes at 450, rate I believe was 22, and PEEP was 6 with FiO2 of 75%. GENERAL: He is an elderly looking male, normocephalic, atraumatic, on the mechanical ventilator, intermittently agitated with mild to moderately increased respiratory effort even on the mechanical ventilator. HEENT: Examination of the head, eyes, ears, nose and throat, he is anicteric. No conjunctival erythema. Oropharynx is moist. He has endotracheal tube placed, taped in place around 23 cm at the lips. NECK: No gross jugular venous distention, no thyromegaly. Grossly, no palpable lymph nodes in the supraclavicular or submandibular lymph node chains. LUNGS: Auscultation of both lung kenney, diminished bilateral breath sounds, significantly prolonged expiratory phase, basilar rhonchi and faint expiratory wheezing. HEART: Heart sounds 1 and 2 are heard. Irregular rate and rhythm at the time of my evaluation without rubs or murmurs. ABDOMEN: Soft, full, bowel sounds are positive, nontender. No palpable hepatosplenomegaly. EXTREMITIES: Without overt digital clubbing or cyanosis. No pedal edema. Dorsalis pedis pulses are palpable bilaterally. NEUROLOGIC: Pupils are equal, round, about 2 mm, sluggishly reactive to light. Extraocular muscles and movements could not be assessed. He had spontaneous movements to all 4 extremities. SKIN: The skin was of normal turgor without overt cellulitis or rash in the areas I inspected LABORATORY DATA AND RADIOGRAPHIC STUDIES: From my review are as follows: Admission white cell count 19,700, hemoglobin 10.9, hematocrit 35.7, platelet count 277, no band forms reported. INR was 1.11. Arterial blood gas at presentation showed a pH of 7.20, pCO2 of 61 and a pO2 of 150 that was on 75% FiO2 and then another next gas I have is 7.25 with a pCO2 of 54 and pO2 of 196 that was on 50% FiO2. Serum sodium is 138, potassium 5.2, chloride 101, bicarbonate 19, BUN 20, creatinine 1.0, glucose 340. Lactic acid level was elevated at 3.0. Liver function tests were essentially within normal limits. BNP was elevated at 3102. Urinalysis was unremarkable. TSH is within normal limits. Microbiology studies: Two sets of blood cultures, tracheal aspirate, no growth to date. Chest x-ray was done. It shows chronic looking increased interstitial markings. It is severely rotated to the left, possible right lower lobe infiltrate, possible left mid lung infiltrate and median sternotomy wires in place and then gross cardiomegaly. Echocardiogram has also been done. I am able to review the report on the echocardiogram, essentially ejection fraction 25-30% with diastolic dysfunction. No mention of right ventricular systolic pressures. ASSESSMENT: 1. Acute likely on chronic hypoxemic and hypercapnic respiratory failure. 2. Acute chronic obstructive pulmonary disease exacerbation. 3. Acute congestive heart failure exacerbation. 4. History of cerebrovascular accident. 5. Atrial fibrillation with rapid ventricular response. 6. Anemia, iron deficiency. 7. Coronary artery disease. 8. Leukocytosis. 9. Hypokalemia, mild. 10. Hyperglycemia. 11. Lactic acidosis. 12. Elevated serum BNP. PLAN: I do feel that the chest x-ray picture is certainly compatible with pulmonary edema, but also I cannot rule out an occult pneumonia, atypical pneumonia, possibly even an aspiration event. From a respiratory standpoint, we will keep him on full mechanical ventilatory support. In the short time, I will increase the set minute ventilation. I will increase his rate to 30 with a plan to repeat ABGs and begin weaning him soon. We will continue DuoNeb treatments or short-acting bronchodilators as ordered. I will, however, go ahead and add long-acting bronchodilators as well as inhaled corticosteroids. I will hold on systemic steroids at this point. We will continue broad spectrum antibiotic therapy. I will get a CRP level and continue to trend the lactic acid level to nozzle cement sprayer helper antibiotic de-escalation and clinical decision making. We will continue diuresis, keeping an eye on his BUN and creatinine as well as his electrolytes. Magnesium level is within normal limits. I will be putting him on gastrointestinal prophylaxis, especially in this gentleman on full anticoagulation. We will be continuing his Xarelto. I see no contraindication to the Xarelto at this point. There is a possibility of venous thromboembolic event as a cause of this decompensation; however, the Xarelto treatment would be appropriate. If Cardiology has no intention to resume Xarelto, I will get a stat D-dimer and do a limited venosus thromboembolic disease workup. I will try and get by without contrast administration. I will get D-dimers and lower extremity Dopplers. Flu and pneumonia vaccination will be addressed per protocol. Oxygen will be weaned to keep sats greater than or equal to about 89% acutely. Thank you very much for the consult. We will follow along. We will make further recommendations as picture progresses/becomes clearer. He is critically ill, at high risk of deterioration in the respiratory and cardiovascular systems including risk of . At this time, I spent about 35-40 minutes of critical care with him without overlap and excluding any procedural time that may be necessary. JOB# [id number] LEONOR/COLIN KAUR
[2018-10-03] MEDS: MAXIPIME/NS 2 GM/100 ML 2 GM/100 ML BAG IV SCH ×4 (00:11→21:20)
[2018-10-03] MEDS: PULMICORT IH SCH ×3 (00:12→20:32)
[2018-10-03] MEDS: BROVANA NEBU IH SCH ×3 (00:12→20:32)
[2018-10-03] MEDS: fentaNYL DRIP Premix 2,000 MCG/100 ML BAG IV SCH ×2 (01:33→14:30)
[2018-10-03] MEDS: DIPRIVAN 10 MG/ML 1,000 MG/100 ML BOTTLE IV SCH ×2 (01:36→17:18)
[2018-10-03] MEDS: DUONEB *Not for PRN Use IH SCH ×4 (02:28→20:32)
[2018-10-03] MEDS: VANCOMYCIN 1,250 MG in NACL 0.9% 250ML 250 ML IV SCH ×2 (03:30→14:29)
[2018-10-03 05:15] LABS: Basophils % (Auto) 0.3 % (0.0-1.8); Hematocrit 34.5 % (35.5-45.6); Hemoglobin 10.6 gm/dl (11.8-15.2); Lymphocytes # (Auto) 0.8 K/mm3 (1.2-5.4); Mean Corpuscular HGB Conc 31 % (32-34); Mean Corpuscular Volume 74 fl (84-94); Monocytes # (Auto) 1.4 K/mm3 (0.0-0.8); Monocytes % (Auto) 10.6 % (0.0-7.3); Platelet Count 134 K/mm3 (140-440); Red Blood Count 4.64 M/mm3 (3.65-5.03)
[2018-10-03 05:18] LABS: Red Cell Distribution Width 21.3 % (13.2-15.2)
[2018-10-03 05:26] LABS: BUN/Creatinine Ratio 26; Blood Urea Nitrogen 29 mg/dL (9-20); Calcium 8.3 mg/dL (8.4-10.2); Hemolysis Index 29
--- NOTE | 2018-10-03 06:13 | XRay Report ---
FINAL REPORT PROCEDURE: XR CHEST 1V AP TECHNIQUE: Chest radiograph anteroposterior view. CPT 57464 HISTORY: follow up respiratory failure COMPARISON: No prior studies are available for comparison. FINDINGS: Heart: Normal. Mediastinum/Vessels: Normal. Lungs/Pleural space: There is moderate COPD. There are mild fibrotic changes. There are no acute infi ltrates.. Bony thorax: No acute osseous abnormality. Life support devices: Endotracheal tube is in the mid trachea. NG tube is in the stomach. IMPRESSION: The heart size is normal. There is moderate COPD. There are mild fibrotic changes. There are no acute infiltrates.. Endotracheal tube is in the mid trachea. NG tube is in the stomach.
[2018-10-03] MEDS: LASIX IV SCH ×2 (06:23→17:16)
[2018-10-03] MEDS: LOPRESSOR IV SCH ×3 (08:00→21:31)
--- NOTE | 2018-10-03 09:02 | Progress Note ---
Assessment and Plan Assessment and plan: Patient is a 68-year-old male with past medical history from records shows COPD, chronic systolic CHF, CVA, atrial fibrillation, iron deficiency anemia and CAD s/p CABG who presents with severe respiratory distress. Patient was noted to be lethargic with severe increased work of breathing and was intubated in the ER and placed on mechanical ventilation. Review of records is also off HPI. The record shows that the patient has been in the ED about 2 days prior to this visit. He also had affirm that he has been on mechanical ventilation on previous occasions for currently follows at the [facility]. The ED documentation the medication list reveals the patient also lives in a [facility] house. On arrival he was noted to have a saturation of 60% and was difficult to oxygenate with CPAP despite Solu-Medrol and magnesium given enroute and mechanical ventilation in the ED. Acute Respiratory failure with Hypoxia ON Mechanical ventilation Hypertensive urgency Acute Systolic Congestive heart failure with possible combined diastolic dysfunction-Precluding fluids administration Sepsis-POA secondary PNA Acute Bronchitis. CT scan not showing any infiltrates. COPD with acute exacerbation secondary to above Thrombocytopenia Cardiomyopathy with EF OF 25-30% Atrial Fibrillation Leukocytosis Hyperkalemia DM with Hyperglycemia Subjective Plan Continue supportive care Hypothermia still persist, Will continue warming blanket SCD. send HIT antibodies. 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 IF no clear resolution will request ID support DVT/GI prophy Discussed with Nursing to obtain med Rec No family present. The high probability of a clinically significant, sudden or life threatening deterioration of the [CARDIAC, PULMONARY] system(s) required my full and direct attention, intervention and personal management. The aggregate critical care time was [35] minutes. This time is in addition to time spent performing reported procedures but includes the following: [X] Data Review and interpretation [X] Patient assessment and monitoring of vital signs [X] Documentation [X] Medication orders and management History Interval history: Patient seen and examined, still with some shortness of breath and irregular heart beat, but reports some improvement. No other adverse event reported Hospitalist Physical - Physical exam Narrative exam: VITAL SIGNS: Reviewed. GENERAL: The patient appeared well nourished and normally developed in mild distress. Morbidly obese. Vital signs as documented. HEAD: No signs of head trauma. EYES: Pupils are equal. Extraocular motions intact. EARS: Hearing grossly intact. MOUTH: ETT in place, otherwise no other visible pathology noted NECK: No adenopathy, no JVD. CHEST: Chest with Diminished breath sounds bilaterally. CARDIAC: Regular rate and rhythm. S1 and S2, without murmurs, gallops, or rubs. VASCULAR: No Edema. Peripheral pulses normal and equal in all extremities. ABDOMEN: Soft, without detectable tenderness. No sign of distention. No rebound or guarding, and no masses palpated. Bowel Sounds normal. MUSCULOSKELETAL: Good range of motion of all major joints. Extremities without clubbing, cyanosis or edema. NEUROLOGIC: unable to access SKIN: No rash or lesions. - Constitutional Vitals: Temp Pulse Resp BP Pulse Ox 96.8 F L 72 28 H 91/61 99 10/03/18 08:00 10/03/18 08:30 10/03/18 08:30 10/03/18 08:30 10/03/18 08:30 General appearance: Present: other (intubated, sedated ) Results - Labs CBC & Chem 7: 10/03/18 04:13 10/03/18 04:13 Labs: Laboratory Last Values WBC 13.6 K/mm3 (4.5-11.0) H 10/03/18 04:13 RBC 4.64 M/mm3 (3.65-5.03) 10/03/18 04:13 Hgb 10.6 gm/dl (11.8-15.2) L 10/03/18 04:13 Hct 34.5 % (35.5-45.6) L 10/03/18 04:13 MCV 74 fl (84-94) L 10/03/18 04:13 MCH 23 pg (28-32) L 10/03/18 04:13 MCHC 31 % (32-34) L 10/03/18 04:13 RDW 21.3 % (13.2-15.2) H 10/03/18 04:13 Plt Count 134 K/mm3 (140-440) L 10/03/18 04:13 Lymph % (Auto) 6.0 % (13.4-35.0) L 10/03/18 04:13 [place] % (Auto) 10.6 % (0.0-7.3) H 10/03/18 04:13 Eos % (Auto) 0.0 % (0.0-4.3) 10/03/18 04:13 Baso % (Auto) 0.3 % (0.0-1.8) 10/03/18 04:13 Lymph # 0.8 K/mm3 (1.2-5.4) L 10/03/18 04:13 [place] # 1.4 K/mm3 (0.0-0.8) H 10/03/18 04:13 Eos # 0.0 K/mm3 (0.0-0.4) 10/03/18 04:13 Baso # 0.0 K/mm3 (0.0-0.1) 10/03/18 04:13 Add Manual Diff Complete 10/02/18 07:20 Total Counted 100 10/02/18 07:20 Seg Neutrophils % 83.1 % (40.0-70.0) H 10/03/18 04:13 Seg Neuts % (Manual) 67.0 % (40.0-70.0) 10/02/18 07:20 Band Neutrophils % 1.0 % 10/02/18 07:20 Lymphocytes % (Manual) 26.0 % (13.4-35.0) 10/02/18 07:20 Reactive Lymphs % (Man) 0 % 10/02/18 07:20 Monocytes % (Manual) 6.0 % (0.0-7.3) 10/02/18 07:20 Eosinophils % (Manual) 0 % (0.0-4.3) 10/02/18 07:20 Basophils % (Manual) 0 % (0.0-1.8) 10/02/18 07:20 Metamyelocytes % 0 % 10/02/18 07:20 Myelocytes % 0 % 10/02/18 07:20 Promyelocytes % 0 % 10/02/18 07:20 Blast Cells % 0 % 10/02/18 07:20 Nucleated RBC % Not Reportable 10/02/18 07:20 Seg Neutrophils # 11.3 K/mm3 (1.8-7.7) H 10/03/18 04:13 Seg Neutrophils # Man 13.2 K/mm3 (1.8-7.7) H 10/02/18 07:20 Band Neutrophils # 0.2 K/mm3 10/02/18 07:20 Lymphocytes # (Manual) 5.1 K/mm3 (1.2-5.4) 10/02/18 07:20 Abs React Lymphs (Man) 0.0 K/mm3 10/02/18 07:20 Monocytes # (Manual) 1.2 K/mm3 (0.0-0.8) H 10/02/18 07:20 Eosinophils # (Manual) 0.0 K/mm3 (0.0-0.4) 10/02/18 07:20 Basophils # (Manual) 0.0 K/mm3 (0.0-0.1) 10/02/18 07:20 Metamyelocytes # 0.0 K/mm3 10/02/18 07:20 Myelocytes # 0.0 K/mm3 10/02/18 07:20 Promyelocytes # 0.0 K/mm3 10/02/18 07:20 Blast Cells # 0.0 K/mm3 10/02/18 07:20 WBC Morphology Not Reportable 10/02/18 07:20 Hypersegmented Neuts Not Reportable 10/02/18 07:20 Hyposegmented Neuts Not Reportable 10/02/18 07:20 Hypogranular Neuts Not Reportable 10/02/18 07:20 Smudge Cells Not Reportable 10/02/18 07:20 Toxic Granulation Not Reportable 10/02/18 07:20 Toxic Vacuolation Not Reportable 10/02/18 07:20 Dohle Bodies Not Reportable 10/02/18 07:20 Pelger-Huet Anomaly Not Reportable 10/02/18 07:20 Markie Rods Not Reportable 10/02/18 07:20 Platelet Estimate Consistent w auto 10/02/18 07:20 Clumped Platelets Not Reportable 10/02/18 07:20 Plt Clumps, EDTA Not Reportable 10/02/18 07:20 Large Platelets Not Reportable 10/02/18 07:20 Giant Platelets Not Reportable 10/02/18 07:20 Platelet Satelliting Not Reportable 10/02/18 07:20 Plt Morphology Comment Not Reportable 10/02/18 07:20 RBC Morphology Not Reportable 10/02/18 07:20 Dimorphic RBCs Not Reportable 10/02/18 07:20 Polychromasia Not Reportable 10/02/18 07:20 Hypochromasia 1+ 10/02/18 07:20 Poikilocytosis Not Reportable 10/02/18 07:20 Anisocytosis 2+ 10/02/18 07:20 Microcytosis 2+ 10/02/18 07:20 Macrocytosis Not Reportable 10/02/18 07:20 Spherocytes Not Reportable 10/02/18 07:20 Pappenheimer Bodies Not Reportable 10/02/18 07:20 Sickle Cells Not Reportable 10/02/18 07:20 Target Cells Not Reportable 10/02/18 07:20 Tear Drop Cells Not Reportable 10/02/18 07:20 Ovalocytes 1+ 10/02/18 07:20 Helmet Cells Not Reportable 10/02/18 07:20 Triana-Bingen Bodies Not Reportable 10/02/18 07:20 [place] Rings Not Reportable 10/02/18 07:20 Sabin Cells Not Reportable 10/02/18 07:20 Bite Cells Not Reportable 10/02/18 07:20 Crenated Cell Not Reportable 10/02/18 07:20 Elliptocytes Not Reportable 10/02/18 07:20 Acanthocytes (Spur) Not Reportable 10/02/18 07:20 Rouleaux Not Reportable 10/02/18 07:20 Hemoglobin C Crystals Not Reportable 10/02/18 07:20 Schistocytes Not Reportable 10/02/18 07:20 Malaria parasites Not Reportable 10/02/18 07:20 Nicholas Bodies Not Reportable 10/02/18 07:20 Hem Pathologist Commnt No 10/02/18 07:20 PT 15.0 Sec. (12.2-14.9) H 10/02/18 07:22 INR 1.11 (0.87-1.13) 10/02/18 07:22 D-Dimer 1039.91 ng/mlDDU (0-234) H 10/02/18 21:01 POC ABG pH 7.314 (7.35-7.45) L 10/03/18 05:47 POC ABG pCO2 45.9 (35-45) H 10/03/18 05:47 POC ABG pO2 80 (80-105) 10/03/18 05:47 POC ABG HCO3 23.3 10/03/18 05:47 POC ABG Total CO2 25 10/03/18 05:47 POC ABG O2 Sat 94 10/03/18 05:47 POC ABG Base Excess -3 10/03/18 05:47 FiO2 30 % 10/03/18 05:47 Sodium 136 mmol/L (137-145) L 10/03/18 04:13 Potassium 5.0 mmol/L (3.6-5.0) 10/03/18 04:13 Chloride 101.6 mmol/L (98-107) 10/03/18 04:13 Carbon Dioxide 18 mmol/L (22-30) L 10/03/18 04:13 Anion Gap 21 mmol/L 10/03/18 04:13 BUN 29 mg/dL (9-20) H 10/03/18 04:13 Creatinine 1.1 mg/dL (0.8-1.5) 10/03/18 04:13 Estimated GFR > 60 ml/min 10/03/18 04:13 BUN/Creatinine Ratio 26 % 10/03/18 04:13 Glucose 168 mg/dL (75-100) H 10/03/18 04:13 POC Glucose 182 (70-105) H 10/03/18 04:47 Lactic Acid 2.60 mmol/L (0.7-2.0) H* 10/03/18 04:13 Calcium 8.3 mg/dL (8.4-10.2) L 10/03/18 04:13 Magnesium 2.30 mg/dL (1.7-2.3) 10/02/18 18:04 Total Bilirubin 0.50 mg/dL (0.1-1.2) 10/02/18 07:13 AST 20 units/L (5-40) 10/02/18 07:13 ALT 11 units/L (7-56) 10/02/18 07:13 Alkaline Phosphatase 100 units/L (35-129) 10/02/18 07:13 Troponin T < 0.010 ng/mL (0.00-0.029) 10/02/18 07:13 C-Reactive Protein 3.40 mg/dL (0.00-1.30) H 10/02/18 21:01 NT-Pro-B Natriuret Pep 3102 pg/mL (0-900) H 10/02/18 07:13 Total Protein 7.8 g/dL (6.3-8.2) 10/02/18 07:13 Albumin 3.9 g/dL (3.9-5) 10/02/18 07:13 Albumin/Globulin Ratio 1.0 % 10/02/18 07:13 TSH 0.417 mlU/mL (0.270-4.200) 10/02/18 18:04 Free T4 0.92 ng/dL (0.76-1.46) 10/02/18 18:04 Urine Color Straw (Yellow) 10/02/18 09:12 Urine Turbidity Clear (Clear) 10/02/18 09:12 Urine pH 5.0 (5.0-7.0) 10/02/18 09:12 Ur Specific [place] 1.006 (1.003-1.030) 10/02/18 09:12 Urine Protein 30 mg/dl mg/dL (Negative) 10/02/18 09:12 Urine Glucose (UA) 50 mg/dL (Negative) 10/02/18 09:12 Urine Ketones Neg mg/dL (Negative) 10/02/18 09:12 Urine Blood Neg (Negative) 10/02/18 09:12 Urine Nitrite Neg (Negative) 10/02/18 09:12 Urine Bilirubin Neg (Negative) 10/02/18 09:12 Urine Urobilinogen < 2.0 mg/dL (<2.0) 10/02/18 09:12 Ur Leukocyte Esterase Neg (Negative) 10/02/18 09:12 Urine WBC (Auto) 2.0 /HPF (0.0-6.0) 10/02/18 09:12 Urine RBC (Auto) 2.0 /HPF (0.0-6.0) 10/02/18 09:12 Urine Bacteria (Auto) 1+ /HPF (Negative) 10/02/18 09:12 Urine Yeast (Budding) Few /HPF 10/02/18 09:12 Blood Type A NEGATIVE 10/02/18 08:51 Antibody Screen Negative 10/02/18 08:51
--- NOTE | 2018-10-03 10:32 | Progress Note ---
Assessment and Plan hr better bp borderline r/o hit - Patient Problems (1) Acute respiratory failure with hypoxia Current Visit: Yes Status: Acute (2) Atrial fibrillation with rapid ventricular response Current Visit: Yes Status: Acute (3) COPD with acute exacerbation Current Visit: Yes Status: Acute (4) HCAP (healthcare-associated pneumonia) Current Visit: Yes Status: Acute (5) Leukocytosis Current Visit: Yes Status: Acute (6) CAD (coronary artery disease) Current Visit: Yes Status: Chronic (7) S/P CABG (coronary artery bypass graft) Current Visit: Yes Status: Chronic Subjective Date of service: 10/03/18 Interval history: intubated/sedated Objective Vital Signs Temp Pulse Pulse Resp Resp BP Pulse Ox 10/03/18 08:30 72 28 H 91/61 99 10/03/18 08:21 69 30 H 104/68 98 10/03/18 08:11 86 24 95/63 98 10/03/18 08:00 96.8 F L 77 30 H 95/63 97 10/03/18 07:52 78 30 H 10/03/18 07:51 80 30 H 105/65 98 10/03/18 07:47 75 30 H 10/03/18 07:41 78 14 105/66 95 10/03/18 07:30 78 25 H 105/66 95 10/03/18 07:21 70 23 114/65 95 10/03/18 07:19 80 98 10/03/18 07:10 74 21 118/89 10/03/18 07:01 77 13 118/89 96 10/03/18 06:51 62 27 H 95/64 98 10/03/18 06:41 72 19 97/67 100 10/03/18 06:30 79 21 97/67 97 10/03/18 06:21 79 25 H 94/64 98 10/03/18 06:11 68 20 107/62 99 10/03/18 06:00 74 21 107/62 98 10/03/18 05:51 80 13 112/69 100 10/03/18 05:41 77 24 109/60 98 10/03/18 05:31 76 14 109/60 99 10/03/18 05:21 79 19 106/66 98 10/03/18 05:11 75 19 108/67 99 10/03/18 05:00 76 15 108/67 98 10/03/18 04:51 75 20 111/64 97 10/03/18 04:41 73 12 107/69 98 10/03/18 04:30 76 11 L 107/69 10/03/18 04:21 81 11 L 110/66 98 10/03/18 04:11 75 13 104/67 99 10/03/18 04:00 70 24 104/67 98 10/03/18 03:51 74 13 107/64 96 10/03/18 03:41 67 19 101/63 97 10/03/18 03:30 73 16 101/63 96 10/03/18 03:21 67 20 97/63 96 10/03/18 03:11 75 17 122/73 97 10/03/18 03:01 74 11 L 122/73 90 10/03/18 02:51 62 24 97/63 96 10/03/18 02:41 62 30 H 105/60 97 10/03/18 02:36 66 31 H 10/03/18 02:30 63 24 105/60 96 10/03/18 02:29 65 33 H 10/03/18 02:25 98.4 F 10/03/18 02:21 65 30 H 98/66 97 10/03/18 02:11 67 22 98/64 96 10/03/18 02:00 70 24 98/64 98 10/03/18 01:51 63 24 99/60 98 10/03/18 01:41 72 30 H 99/60 97 10/03/18 01:30 61 31 H 99/60 97 10/03/18 01:21 61 30 H 93/64 98 10/03/18 01:11 63 30 H 92/66 97 10/03/18 01:00 72 30 H 92/66 97 10/03/18 00:51 67 30 H 94/64 97 10/03/18 00:41 67 30 H 90/60 97 10/03/18 00:30 70 30 H 90/60 97 10/03/18 00:21 80 30 H 90/55 96 10/03/18 00:11 72 30 H 80/57 96 10/03/18 00:05 72 30 H 80/57 96 10/03/18 00:00 73 30 H 80/57 96 10/02/18 23:59 66 100 10/02/18 23:51 70 30 H 84/55 96 10/02/18 23:49 68 30 H 90/55 96 10/02/18 23:41 68 30 H 84/55 96 10/02/18 23:30 76 30 H 84/55 97 10/02/18 23:23 97.8 F 10/02/18 23:21 73 30 H 113/73 99 10/02/18 23:11 63 30 H 94/53 95 10/02/18 23:01 72 30 H 94/53 96 10/02/18 22:51 71 14 128/69 99 10/02/18 22:41 75 23 102/69 99 10/02/18 22:30 72 30 H 102/69 98 10/02/18 22:21 62 30 H 93/66 98 10/02/18 22:11 64 30 H 89/59 98 10/02/18 22:00 71 30 H 89/59 95 10/02/18 21:51 70 30 H 93/66 96 10/02/18 21:45 32 H 10/02/18 21:40 68 24 101/75 94 10/02/18 21:30 73 13 80/53 95 10/02/18 21:21 69 30 H 64/43 94 10/02/18 21:15 70 30 H 93 10/02/18 21:06 73 30 H 121/68 95 10/02/18 21:00 97.5 F L 10/02/18 20:31 71 30 H 112/69 99 10/02/18 20:15 64 30 H 112/69 100 10/02/18 20:00 66 30 H 112/69 100 10/02/18 19:45 56 L 29 H 95/62 100 10/02/18 19:31 66 30 H 95/62 100 10/02/18 19:19 68 96 10/02/18 19:15 69 30 H 95/62 100 10/02/18 19:00 64 30 H 95/62 100 10/02/18 18:45 66 30 H 90/59 99 10/02/18 18:31 62 30 H 90/59 99 10/02/18 18:15 64 30 H 90/59 100 10/02/18 18:00 65 30 H 90/59 100 10/02/18 17:45 68 30 H 101/65 100 10/02/18 17:31 66 30 H 128/67 100 10/02/18 17:15 68 30 H 128/67 100 10/02/18 17:00 67 17 101/65 100 10/02/18 16:45 58 L 30 H 122/79 100 10/02/18 16:31 60 30 H 95/55 100 10/02/18 16:24 66 30 H 10/02/18 16:15 74 18 95/55 97 10/02/18 16:01 76 22 122/79 100 10/02/18 16:00 74 95/55 100 10/02/18 15:45 63 21 95/55 100 10/02/18 15:35 96.3 F L 10/02/18 15:30 71 18 86/54 100 10/02/18 15:15 72 18 104/59 100 10/02/18 15:00 72 23 93/52 100 10/02/18 14:45 88 30 H 131/74 100 10/02/18 14:31 83 27 H 105/61 100 10/02/18 14:15 85 26 H 105/61 100 10/02/18 14:00 88 26 H 131/74 100 10/02/18 13:45 87 16 108/65 99 10/02/18 13:31 100 H 33 H 120/73 100 10/02/18 13:15 93 H 21 111/67 100 10/02/18 13:00 94 H 27 H 111/67 100 10/02/18 12:45 94 H 30 H 119/60 10/02/18 12:31 97 H 25 H 115/58 100 10/02/18 12:28 84 115/58 100 10/02/18 12:15 95 H 17 107/60 100 10/02/18 12:00 80 26 H 107/60 97 10/02/18 11:45 96 H 27 H 98/63 99 10/02/18 11:31 90 29 H 85/52 99 10/02/18 11:15 83 25 H 111/72 99 10/02/18 11:01 103 H 21 90/60 99 10/02/18 10:45 87 31 H 80/51 99 - Physical Examination HEENT: Positive: PERRL, Normocephaly, Mucus Membranes Moist Neck: Positive: neck supple Neuro: Positive: Other (intubated, sedated) Skin: Negative: Rash Extremities: Absent: edema - Labs and Meds CBC 10/03/18 Range/Units 04:13 WBC 13.6 H (4.5-11.0) K/mm3 RBC 4.64 (3.65-5.03) M/mm3 Hgb 10.6 L (11.8-15.2) gm/dl Hct 34.5 L (35.5-45.6) % Plt Count 134 L (140-440) K/mm3 Lymph # 0.8 L (1.2-5.4) K/mm3 [place] # 1.4 H (0.0-0.8) K/mm3 Eos # 0.0 (0.0-0.4) K/mm3 Baso # 0.0 (0.0-0.1) K/mm3 Comprehensive Metabolic Panel 10/03/18 Range/Units 04:13 Sodium 136 L (137-145) mmol/L Potassium 5.0 (3.6-5.0) mmol/L Chloride 101.6 (98-107) mmol/L Carbon Dioxide 18 L (22-30) mmol/L BUN 29 H (9-20) mg/dL Creatinine 1.1 (0.8-1.5) mg/dL Glucose 168 H (75-100) mg/dL Calcium 8.3 L (8.4-10.2) mg/dL - Imaging and Cardiology EKG: report reviewed, image reviewed Echo: pending
[2018-10-03] MEDS ORDERED: AMIDATE IV ONE (11:00)
[2018-10-03] MEDS ORDERED: QUELICIN ONE (11:00)
[2018-10-03] MEDS: SENOKOT PO SCH ×2 (11:03→21:32)
[2018-10-03] MEDS: SODIUM CHLORIDE FLUSH SYRINGE 10 ML IV SCH ×2 (11:05→21:20)
--- NOTE | 2018-10-03 11:37 | Vascular Lab Report ---
FINAL REPORT EXAM: VL VENOUS DUPLEX LE BILAT HISTORY: pain swelling TECHNIQUE: Grayscale and color and spectral Doppler ultrasound imaging of the bilateral lower extrem ities was performed for the purposes of assessing for deep venous thrombosis. PRIORS: None. FINDINGS: No evidence of deep venous thrombosis is seen within the common femoral through the posterior tibial and peroneal veins. Normal compression and color flow is seen throughout the venous system of the jason ateral lower extremities. Normal augmentation. IMPRESSION: Negative for bilateral lower extremity deep venous thrombosis.
[2018-10-03] MEDS ORDERED: SODIUM BICARBONATE FEEDTUBE PRN (13:03)
[2018-10-03] MEDS ORDERED: SIMPLE SYRUP FEEDTUBE PRN ×2 (13:03)
[2018-10-03] MEDS ORDERED: PANCREAZE DR 10,500 UNIT FEEDTUBE PRN (13:03)
--- NOTE | 2018-10-03 14:21 | Progress Note ---
Assessment and Plan Acute likely on chronic hypoxemic and hypercapnic respiratory failure. Acute chronic obstructive pulmonary disease exacerbation. Acute congestive heart failure exacerbation. History of cerebrovascular accident. Atrial fibrillation with rapid ventricular response. Anemia, iron deficiency. Coronary artery disease. Leukocytosis. Hypokalemia, mild. Hyperglycemia. Lactic acidosis. Elevated serum BNP. - IVNS @ 75 mls/hr X 2 kliters for IVVD & pre-renal azotemia - continue supplemental oxygen to keep sats > 90% - continue bronchodilators with pulmonary hygiene per RT - VAP bundle addressed - reduced set rate to 25/min - repeat ABG after a few hours - continue empiric Cefipime and Vancomycin - growing gram negative rods - ID consult placed - daily SBT assessment - continue daily SAT's - begin enteral nutrition as tolerated - target sedation for RASS 0 to -1 - PT/OT/ROM exercises as tolerated - mobility protocol for pressure ulcer prophylaxis - continue GI & VTE prophylaxis - continue other care per attending / other consultants ...... re-evaluate in am & prn The high probability of a clinically significant, sudden or life threatening deterioration of the [cardiac & respiratory] system(s) required my full and direct attention, intervention and personal management. The aggregate critical care time was [35] minutes. This time is in addition to time spent performing reported procedures but includes the following: [x] Data Review and interpretation [x] Patient assessment and monitoring of vital signs [x] Documentation [x] Medication orders and management Subjective Date of service: 10/03/18 Principal diagnosis: Ac on Ch Hypoxemic Hypercapnic Resp failure; AECOPD; CHF exacerbation; Afib Interval history: Patient is seen today for: Acute likely on chronic hypoxemic and hypercapnic respiratory failure; Acute chronic obstructive pulmonary disease exacerbation; Acute congestive heart failure exacerbation; History of cerebrovascular accident; Atrial fibrillation with rapid ventricular response. Seen and examined at bedside; 24hour events reviewed; nursing and respiratory care staff consulted; no adverse overnight events reported to me; remains on MVS; required addition of Seroquel for agitation overnight; responded appropriately during SAT; no emesis or overt aspiration Objective Vital Signs - 12hr 10/03/18 10/03/18 10/03/18 02:21 02:25 02:29 Temperature 98.4 F Pulse Rate 65 Pulse Rate [ 65 Anterior Bilateral] Pulse Rate [ From Monitor] Respiratory 30 H Rate Respiratory 33 H Rate [Anterior Bilateral] Blood Pressure 98/66 O2 Sat by Pulse 97 Oximetry 10/03/18 10/03/18 10/03/18 02:30 02:36 02:41 Temperature Pulse Rate 63 62 Pulse Rate [ 66 Anterior Bilateral] Pulse Rate [ From Monitor] Respiratory 24 30 H Rate Respiratory 31 H Rate [Anterior Bilateral] Blood Pressure 105/60 105/60 O2 Sat by Pulse 96 97 Oximetry 10/03/18 10/03/18 10/03/18 02:51 03:01 03:11 Temperature Pulse Rate 62 74 75 Pulse Rate [ Anterior Bilateral] Pulse Rate [ From Monitor] Respiratory 24 11 L 17 Rate Respiratory Rate [Anterior Bilateral] Blood Pressure 97/63 122/73 122/73 O2 Sat by Pulse 96 90 97 Oximetry 10/03/18 10/03/18 10/03/18 03:21 03:30 03:41 Temperature Pulse Rate 67 73 67 Pulse Rate [ Anterior Bilateral] Pulse Rate [ From Monitor] Respiratory 20 16 19 Rate Respiratory Rate [Anterior Bilateral] Blood Pressure 97/63 101/63 101/63 O2 Sat by Pulse 96 96 97 Oximetry 10/03/18 10/03/18 10/03/18 03:51 04:00 04:11 Temperature Pulse Rate 74 70 75 Pulse Rate [ Anterior Bilateral] Pulse Rate [ From Monitor] Respiratory 13 24 13 Rate Respiratory Rate [Anterior Bilateral] Blood Pressure 107/64 104/67 104/67 O2 Sat by Pulse 96 98 99 Oximetry 10/03/18 10/03/18 10/03/18 04:21 04:30 04:41 Temperature Pulse Rate 81 76 73 Pulse Rate [ Anterior Bilateral] Pulse Rate [ From Monitor] Respiratory 11 L 11 L 12 Rate Respiratory Rate [Anterior Bilateral] Blood Pressure 110/66 107/69 107/69 O2 Sat by Pulse 98 98 Oximetry 10/03/18 10/03/18 10/03/18 04:51 05:00 05:11 Temperature Pulse Rate 75 76 75 Pulse Rate [ Anterior Bilateral] Pulse Rate [ From Monitor] Respiratory 20 15 19 Rate Respiratory Rate [Anterior Bilateral] Blood Pressure 111/64 108/67 108/67 O2 Sat by Pulse 97 98 99 Oximetry 10/03/18 10/03/18 10/03/18 05:21 05:31 05:41 Temperature Pulse Rate 79 76 77 Pulse Rate [ Anterior Bilateral] Pulse Rate [ From Monitor] Respiratory 19 14 24 Rate Respiratory Rate [Anterior Bilateral] Blood Pressure 106/66 109/60 109/60 O2 Sat by Pulse 98 99 98 Oximetry 10/03/18 10/03/18 10/03/18 05:51 06:00 06:11 Temperature Pulse Rate 80 74 68 Pulse Rate [ Anterior Bilateral] Pulse Rate [ From Monitor] Respiratory 13 21 20 Rate Respiratory Rate [Anterior Bilateral] Blood Pressure 112/69 107/62 107/62 O2 Sat by Pulse 100 98 99 Oximetry 10/03/18 10/03/18 10/03/18 06:21 06:30 06:41 Temperature Pulse Rate 79 79 72 Pulse Rate [ Anterior Bilateral] Pulse Rate [ From Monitor] Respiratory 25 H 21 19 Rate Respiratory Rate [Anterior Bilateral] Blood Pressure 94/64 97/67 97/67 O2 Sat by Pulse 98 97 100 Oximetry 10/03/18 10/03/18 10/03/18 06:51 07:01 07:10 Temperature Pulse Rate 62 77 74 Pulse Rate [ Anterior Bilateral] Pulse Rate [ From Monitor] Respiratory 27 H 13 21 Rate Respiratory Rate [Anterior Bilateral] Blood Pressure 95/64 118/89 118/89 O2 Sat by Pulse 98 96 Oximetry 10/03/18 10/03/18 10/03/18 07:19 07:21 07:30 Temperature Pulse Rate 80 70 78 Pulse Rate [ Anterior Bilateral] Pulse Rate [ From Monitor] Respiratory 23 25 H Rate Respiratory Rate [Anterior Bilateral] Blood Pressure 114/65 105/66 O2 Sat by Pulse 98 95 95 Oximetry 10/03/18 10/03/18 10/03/18 07:41 07:47 07:51 Temperature Pulse Rate 78 80 Pulse Rate [ 75 Anterior Bilateral] Pulse Rate [ From Monitor] Respiratory 14 30 H Rate Respiratory 30 H Rate [Anterior Bilateral] Blood Pressure 105/66 105/65 O2 Sat by Pulse 95 98 Oximetry 10/03/18 10/03/18 10/03/18 07:52 08:00 08:11 Temperature 96.8 F L Pulse Rate 74 86 Pulse Rate [ 78 Anterior Bilateral] Pulse Rate [ From Monitor] Respiratory 30 H 24 Rate Respiratory 30 H Rate [Anterior Bilateral] Blood Pressure 106/56 95/63 O2 Sat by Pulse 97 98 Oximetry 10/03/18 10/03/18 10/03/18 08:21 08:30 08:41 Temperature Pulse Rate 69 72 75 Pulse Rate [ Anterior Bilateral] Pulse Rate [ From Monitor] Respiratory 30 H 28 H 30 H Rate Respiratory Rate [Anterior Bilateral] Blood Pressure 104/68 91/61 91/61 O2 Sat by Pulse 98 99 98 Oximetry 10/03/18 10/03/18 10/03/18 08:51 09:00 09:11 Temperature Pulse Rate 75 79 91 H Pulse Rate [ Anterior Bilateral] Pulse Rate [ From Monitor] Respiratory 30 H 17 19 Rate Respiratory Rate [Anterior Bilateral] Blood Pressure 100/61 90/69 104/68 O2 Sat by Pulse 99 97 75 L Oximetry 10/03/18 10/03/18 10/03/18 09:21 09:31 09:41 Temperature Pulse Rate 73 86 84 Pulse Rate [ Anterior Bilateral] Pulse Rate [ From Monitor] Respiratory 27 H 17 14 Rate Respiratory Rate [Anterior Bilateral] Blood Pressure 98/74 105/78 105/78 O2 Sat by Pulse 97 96 96 Oximetry 10/03/18 10/03/18 10/03/18 09:51 10:00 10:11 Temperature Pulse Rate 70 76 82 Pulse Rate [ Anterior Bilateral] Pulse Rate [ From Monitor] Respiratory 28 H 30 H 30 H Rate Respiratory Rate [Anterior Bilateral] Blood Pressure 114/73 113/65 113/65 O2 Sat by Pulse 96 95 97 Oximetry 10/03/18 10/03/18 10/03/18 10:21 10:30 10:39 Temperature Pulse Rate 76 77 84 Pulse Rate [ Anterior Bilateral] Pulse Rate [ From Monitor] Respiratory 28 H 30 H Rate Respiratory Rate [Anterior Bilateral] Blood Pressure 106/58 103/63 O2 Sat by Pulse 97 97 96 Oximetry 10/03/18 10/03/18 10/03/18 10:41 10:51 11:00 Temperature Pulse Rate 79 88 77 Pulse Rate [ Anterior Bilateral] Pulse Rate [ From Monitor] Respiratory 30 H 19 30 H Rate Respiratory Rate [Anterior Bilateral] Blood Pressure 103/63 127/76 127/66 O2 Sat by Pulse 98 81 L 98 Oximetry 10/03/18 10/03/18 10/03/18 11:11 11:21 11:30 Temperature Pulse Rate 75 88 69 Pulse Rate [ Anterior Bilateral] Pulse Rate [ From Monitor] Respiratory 25 H 24 24 Rate Respiratory Rate [Anterior Bilateral] Blood Pressure 106/58 101/69 107/60 O2 Sat by Pulse 97 100 96 Oximetry 10/03/18 10/03/18 10/03/18 11:41 11:51 12:00 Temperature 97.4 F L Pulse Rate 85 87 79 Pulse Rate [ Anterior Bilateral] Pulse Rate [ 77 From Monitor] Respiratory 31 H 30 H 30 H Rate Respiratory Rate [Anterior Bilateral] Blood Pressure 107/60 103/64 100/65 O2 Sat by Pulse 95 97 97 Oximetry 10/03/18 10/03/18 10/03/18 12:11 12:21 12:30 Temperature Pulse Rate 82 81 78 Pulse Rate [ Anterior Bilateral] Pulse Rate [ From Monitor] Respiratory 30 H 30 H 29 H Rate Respiratory Rate [Anterior Bilateral] Blood Pressure 100/65 98/63 102/61 O2 Sat by Pulse 97 97 97 Oximetry 10/03/18 10/03/18 10/03/18 12:41 12:51 13:00 Temperature Pulse Rate 76 78 81 Pulse Rate [ Anterior Bilateral] Pulse Rate [ From Monitor] Respiratory 30 H 30 H 30 H Rate Respiratory Rate [Anterior Bilateral] Blood Pressure 98/63 95/56 103/65 O2 Sat by Pulse 98 98 98 Oximetry 10/03/18 10/03/18 10/03/18 13:11 13:14 13:20 Temperature Pulse Rate 79 Pulse Rate [ 85 88 Anterior Bilateral] Pulse Rate [ From Monitor] Respiratory 30 H Rate Respiratory 30 H 30 H Rate [Anterior Bilateral] Blood Pressure 103/65 O2 Sat by Pulse 98 Oximetry 10/03/18 10/03/18 13:21 13:30 Temperature Pulse Rate 79 87 Pulse Rate [ Anterior Bilateral] Pulse Rate [ From Monitor] Respiratory 30 H 30 H Rate Respiratory Rate [Anterior Bilateral] Blood Pressure 100/64 90/57 O2 Sat by Pulse 98 98 Oximetry Constitutional: appears uncomfortable, other (elderly looking CM, normocephalic and atraumatic with increased resp effort on MVS) Eyes: non-icteric ENT: oropharynx moist, other (ETT 23 cm KIEL) Neck: supple, no lymphadenopathy, no JVD Effort: mildly labored Ascultation: Bilateral: clear, diminished breath sounds, other (+ barrel chest) Percussion: Bilateral: not dull Cardiovascular: regular rate and rhythm Gastrointestinal: normoactive bowel sounds, soft, non-tender, non-distended Integumentary: normal, other (post CABG sternotomy scar) Extremities: no cyanosis, no edema, pink and warm, pulses normal, no ischemia or petechiae Neurologic: non-focal exam (grossly), pupils equal and round, unable to assess Psychiatric: other (sedated) CBC and BMP: 10/03/18 04:13 10/03/18 04:13 ABG, PT/INR, D-dimer: ABG POC ABG pH 7.314 (7.35-7.45) L 10/03/18 05:47 POC ABG pCO2 45.9 (35-45) H 10/03/18 05:47 POC ABG pO2 80 (80-105) 10/03/18 05:47 POC ABG HCO3 23.3 10/03/18 05:47 POC ABG Total CO2 25 10/03/18 05:47 POC ABG O2 Sat 94 10/03/18 05:47 PT/INR, D-dimer PT 15.0 Sec. (12.2-14.9) H 10/02/18 07:22 INR 1.11 (0.87-1.13) 10/02/18 07:22 D-Dimer 1039.91 ng/mlDDU (0-234) H 10/02/18 21:01 Abnormal lab findings: Abnormal Labs 10/02/18 10/02/18 10/02/18 07:13 07:20 07:22 WBC 19.7 H Hgb 10.9 L Hct MCV 75 L MCH 23 L MCHC 31 L RDW 21.7 H Plt Count Lymph % (Auto) [place] % (Auto) Lymph # [place] # Seg Neutrophils % Seg Neutrophils # Seg Neutrophils # Man 13.2 H Monocytes # (Manual) 1.2 H PT 15.0 H D-Dimer POC ABG pH POC ABG pCO2 POC ABG pO2 Sodium Potassium 5.2 H D Carbon Dioxide 19 L BUN Glucose 340 H POC Glucose Lactic Acid Calcium C-Reactive Protein NT-Pro-B Natriuret Pep 3102 H 10/02/18 10/02/18 10/02/18 08:32 09:26 12:28 WBC Hgb Hct MCV MCH MCHC RDW Plt Count Lymph % (Auto) [place] % (Auto) Lymph # [place] # Seg Neutrophils % Seg Neutrophils # Seg Neutrophils # Man Monocytes # (Manual) PT D-Dimer POC ABG pH 7.201 L 7.254 L POC ABG pCO2 61.2 H 54.3 H POC ABG pO2 150 H 196 H Sodium Potassium Carbon Dioxide BUN Glucose POC Glucose Lactic Acid 3.00 H* Calcium C-Reactive Protein NT-Pro-B Natriuret Pep 10/02/18 10/02/18 10/02/18 20:43 21:01 21:01 WBC Hgb Hct MCV MCH MCHC RDW Plt Count Lymph % (Auto) [place] % (Auto) Lymph # [place] # Seg Neutrophils % Seg Neutrophils # Seg Neutrophils # Man Monocytes # (Manual) PT D-Dimer 1039.91 H POC ABG pH 7.307 L POC ABG pCO2 45.6 H POC ABG pO2 107 H Sodium Potassium Carbon Dioxide BUN Glucose POC Glucose Lactic Acid Calcium C-Reactive Protein 3.40 H NT-Pro-B Natriuret Pep 10/02/18 10/03/18 10/03/18 21:01 00:14 04:13 WBC 13.6 H Hgb 10.6 L Hct 34.5 L MCV 74 L MCH 23 L MCHC 31 L RDW 21.3 H Plt Count 134 L Lymph % (Auto) 6.0 L [place] % (Auto) 10.6 H Lymph # 0.8 L [place] # 1.4 H Seg Neutrophils % 83.1 H Seg Neutrophils # 11.3 H Seg Neutrophils # Man Monocytes # (Manual) PT D-Dimer POC ABG pH POC ABG pCO2 POC ABG pO2 Sodium Potassium Carbon Dioxide BUN Glucose POC Glucose 164 H Lactic Acid 2.80 H* Calcium C-Reactive Protein NT-Pro-B Natriuret Pep 10/03/18 10/03/18 10/03/18 04:13 04:13 04:47 WBC Hgb Hct MCV MCH MCHC RDW Plt Count Lymph % (Auto) [place] % (Auto) Lymph # [place] # Seg Neutrophils % Seg Neutrophils # Seg Neutrophils # Man Monocytes # (Manual) PT D-Dimer POC ABG pH POC ABG pCO2 POC ABG pO2 Sodium 136 L Potassium Carbon Dioxide 18 L BUN 29 H Glucose 168 H POC Glucose 182 H Lactic Acid 2.60 H* Calcium 8.3 L C-Reactive Protein NT-Pro-B Natriuret Pep 10/03/18 10/03/18 05:47 11:39 WBC Hgb Hct MCV MCH MCHC RDW Plt Count Lymph % (Auto) [place] % (Auto) Lymph # [place] # Seg Neutrophils % Seg Neutrophils # Seg Neutrophils # Man Monocytes # (Manual) PT D-Dimer POC ABG pH 7.314 L POC ABG pCO2 45.9 H POC ABG pO2 Sodium Potassium Carbon Dioxide BUN Glucose POC Glucose 134 H Lactic Acid Calcium C-Reactive Protein NT-Pro-B Natriuret Pep Chest x-ray: image reviewed Allied health notes reviewed: nursing
[2018-10-03] MEDS: NACL 0.9% 1000 ML 1,000 ML IV SCH (17:17)
[2018-10-04] MEDS: fentaNYL DRIP Premix 2,000 MCG/100 ML BAG IV SCH (00:38)
[2018-10-04] MEDS: DUONEB *Not for PRN Use IH SCH ×4 (02:30→20:32)
[2018-10-04] MEDS: DIPRIVAN 10 MG/ML 1,000 MG/100 ML BOTTLE IV SCH ×2 (02:36→20:37)
[2018-10-04] MEDS: VANCOMYCIN 1,250 MG in NACL 0.9% 250ML 250 ML IV SCH ×2 (03:00→14:19)
[2018-10-04] MEDS: MAXIPIME/NS 2 GM/100 ML 2 GM/100 ML BAG IV SCH ×3 (05:20→21:24)
[2018-10-04] MEDS: LASIX IV SCH ×2 (05:22→17:57)
[2018-10-04] MEDS: BROVANA NEBU IH SCH ×2 (07:50→20:32)
[2018-10-04] MEDS: PULMICORT IH SCH ×2 (07:50→20:32)
[2018-10-04 10:10] LABS: Hematocrit 28.7 % (35.5-45.6); Hemoglobin 9.1 gm/dl (11.8-15.2); Red Blood Count 3.98 M/mm3 (3.65-5.03)
[2018-10-04 10:11] LABS: Mean Platelet Volume 9.3 fl (6-12); Red Cell Distribution Width 21.6 % (13.2-15.2)
[2018-10-04] MEDS: SENOKOT PO SCH ×2 (10:23→21:24)
[2018-10-04] MEDS: SODIUM CHLORIDE FLUSH SYRINGE 10 ML IV SCH ×2 (10:23→21:24)
[2018-10-04] MEDS: LOPRESSOR IV SCH ×3 (10:24→20:12)
[2018-10-04] MEDS: NACL 0.9% 1000 ML 1,000 ML IV SCH (10:32)
[2018-10-04 10:36] LABS: BUN/Creatinine Ratio 29; Blood Urea Nitrogen 26 mg/dL (9-20); Calcium 8.2 mg/dL (8.4-10.2); Hemolysis Index 3
--- NOTE | 2018-10-04 10:39 | XRay Report ---
FINAL REPORT EXAM: XR CHEST 1V AP HISTORY: follow up respiratory failure TECHNIQUE: Frontal chest x-ray. PRIORS: Chest x-ray October 02, 2018. FINDINGS: Stable cardiomegaly. Aortic calcifications. Surgical artifacts are unchanged. Prominent bilateral pulmonary markings with patchy airspace opacities. No pneumothorax. No significan t consolidation. No effusion. There are no suspicious osseous lesions. Endotracheal tube tip is approximately 5.1 cm above the mylene. Satisfactory. Enteric tube tip extends into stomach. IMPRESSION: Stable cardiomegaly. Pulmonary markings may represent acute pneumonitis, pulmonary vascular congestion with some edema, or pneumonia. Overall similar to prior.
--- NOTE | 2018-10-04 11:34 | Progress Note ---
Assessment and Plan hr better bp borderline cont iv lasix r/o hit - Patient Problems (1) Acute respiratory failure with hypoxia Current Visit: Yes Status: Acute (2) Atrial fibrillation with rapid ventricular response Current Visit: Yes Status: Acute (3) COPD with acute exacerbation Current Visit: Yes Status: Acute (4) HCAP (healthcare-associated pneumonia) Current Visit: Yes Status: Acute (5) Leukocytosis Current Visit: Yes Status: Acute (6) CAD (coronary artery disease) Current Visit: Yes Status: Chronic (7) S/P CABG (coronary artery bypass graft) Current Visit: Yes Status: Chronic Subjective Date of service: 10/04/18 Principal diagnosis: Ac on Ch Hypoxemic Hypercapnic Resp failure; AECOPD; CHF exacerbation; Afib Interval history: intubated/sedated Objective Vital Signs Temp Pulse Pulse Pulse Pulse Pulse Resp 10/04/18 11:21 97 H 16 10/04/18 11:11 98 H 16 10/04/18 11:01 93 H 16 10/04/18 10:51 95 H 15 10/04/18 10:41 87 14 10/04/18 10:31 80 18 10/04/18 10:24 90 10/04/18 10:21 94 H 21 10/04/18 10:11 92 H 14 10/04/18 10:00 92 H 16 10/04/18 09:51 88 16 10/04/18 09:41 88 21 10/04/18 09:31 86 22 10/04/18 09:21 91 H 14 10/04/18 09:11 86 16 10/04/18 09:01 90 22 10/04/18 08:51 98 H 21 10/04/18 08:41 87 18 10/04/18 08:31 100 H 19 10/04/18 08:21 85 13 10/04/18 08:11 89 13 10/04/18 08:00 98.5 F 90 88 88 13 10/04/18 07:51 94 H 13 10/04/18 07:50 87 10/04/18 07:41 79 14 10/04/18 07:30 77 14 10/04/18 07:21 89 14 10/04/18 07:11 79 12 10/04/18 07:01 83 11 L 10/04/18 06:51 81 12 10/04/18 06:41 72 14 10/04/18 06:30 76 11 L 10/04/18 06:21 82 13 10/04/18 06:11 86 13 10/04/18 06:00 83 12 10/04/18 05:51 79 13 10/04/18 05:48 79 10/04/18 05:41 82 23 10/04/18 05:30 78 22 10/04/18 05:21 83 26 H 10/04/18 05:11 74 26 H 10/04/18 05:01 86 23 10/04/18 04:51 78 24 10/04/18 04:41 95 H 12 10/04/18 04:39 82 10/04/18 04:30 78 25 H 10/04/18 04:21 81 23 10/04/18 04:11 77 23 10/04/18 04:00 87 86 24 10/04/18 03:51 81 23 10/04/18 03:41 79 13 10/04/18 03:31 99.8 F H 10/04/18 03:30 94 H 26 H 10/04/18 03:21 82 21 10/04/18 03:11 85 21 10/04/18 03:00 80 24 10/04/18 02:51 83 25 H 10/04/18 02:50 83 10/04/18 02:41 81 25 H 10/04/18 02:38 86 10/04/18 02:31 80 14 10/04/18 02:21 82 25 H 10/04/18 02:11 84 24 10/04/18 02:00 86 87 23 10/04/18 01:51 88 25 H 10/04/18 01:41 89 22 10/04/18 01:30 83 17 10/04/18 01:21 84 21 10/04/18 01:10 75 25 H 10/04/18 01:00 88 25 H 10/04/18 00:51 82 25 H 10/04/18 00:41 94 H 25 H 10/04/18 00:30 85 25 H 10/04/18 00:21 83 25 H 10/04/18 00:11 84 26 H 10/04/18 00:00 76 86 25 H 10/03/18 23:51 84 25 H 10/03/18 23:41 85 22 10/03/18 23:37 98.4 F 10/03/18 23:30 93 H 17 10/03/18 23:21 87 22 10/03/18 23:11 77 24 10/03/18 23:05 75 25 H 10/03/18 23:00 80 25 H 10/03/18 22:51 78 25 H 10/03/18 22:41 75 25 H 10/03/18 22:30 79 26 H 10/03/18 22:21 82 25 H 10/03/18 22:11 79 25 H 10/03/18 22:00 81 25 H 10/03/18 21:51 78 25 H 10/03/18 21:41 73 25 H 10/03/18 21:31 85 10/03/18 21:30 89 19 10/03/18 21:21 83 25 H 10/03/18 21:11 77 23 10/03/18 21:00 83 25 H 10/03/18 20:51 80 16 10/03/18 20:50 88 10/03/18 20:41 81 21 10/03/18 20:32 85 84 84 84 10/03/18 20:30 81 23 10/03/18 20:21 76 23 10/03/18 20:11 87 21 10/03/18 20:00 98.6 F 91 H 86 23 10/03/18 19:51 94 H 14 10/03/18 19:41 80 19 10/03/18 19:30 82 17 10/03/18 19:21 72 18 10/03/18 19:10 82 20 10/03/18 19:00 82 21 10/03/18 18:51 77 19 10/03/18 18:41 89 16 10/03/18 18:30 82 21 10/03/18 18:21 86 14 10/03/18 18:11 86 12 10/03/18 18:00 53 L 23 10/03/18 17:51 72 22 10/03/18 17:41 79 23 10/03/18 17:30 74 23 10/03/18 17:21 71 25 H 10/03/18 17:15 68 10/03/18 17:11 77 26 H 10/03/18 17:00 71 26 H 10/03/18 16:51 62 22 10/03/18 16:41 71 23 10/03/18 16:30 64 20 10/03/18 16:21 74 19 10/03/18 16:11 67 30 H 10/03/18 16:00 96.8 F L 72 31 H 10/03/18 15:51 71 31 H 10/03/18 15:41 63 30 H 10/03/18 15:30 61 30 H 10/03/18 15:25 90 10/03/18 15:21 68 30 H 10/03/18 15:11 72 30 H 10/03/18 15:00 81 31 H 10/03/18 14:51 67 30 H 10/03/18 14:41 80 30 H 10/03/18 14:31 74 10/03/18 14:30 80 30 H 10/03/18 14:21 76 30 H 10/03/18 14:11 77 30 H 10/03/18 14:00 72 30 H 10/03/18 13:51 78 30 H 10/03/18 13:41 73 30 H 10/03/18 13:30 87 30 H 10/03/18 13:21 79 30 H 10/03/18 13:20 88 10/03/18 13:14 85 10/03/18 13:11 79 30 H 10/03/18 13:00 81 30 H 10/03/18 12:51 78 30 H 10/03/18 12:41 76 30 H 10/03/18 12:30 78 29 H 10/03/18 12:21 81 30 H 10/03/18 12:11 82 30 H 10/03/18 12:00 97.4 F L 79 77 30 H 10/03/18 11:51 87 30 H 10/03/18 11:41 85 31 H Resp Resp Resp BP Pulse Ox 10/04/18 11:21 115/58 91 10/04/18 11:11 116/59 91 10/04/18 11:01 116/59 90 10/04/18 10:51 109/62 90 10/04/18 10:41 128/57 90 10/04/18 10:31 128/57 91 10/04/18 10:24 129/64 10/04/18 10:21 121/68 91 10/04/18 10:11 121/61 90 10/04/18 10:00 121/61 91 10/04/18 09:51 145/68 90 10/04/18 09:41 130/74 89 10/04/18 09:31 130/74 91 10/04/18 09:21 129/64 90 10/04/18 09:11 131/77 89 10/04/18 09:01 131/77 94 10/04/18 08:51 123/72 10/04/18 08:41 141/78 10/04/18 08:31 141/78 94 10/04/18 08:21 108/59 92 10/04/18 08:11 102/57 92 10/04/18 08:00 16 100/57 96 10/04/18 07:51 100/57 97 10/04/18 07:50 14 10/04/18 07:41 107/56 98 10/04/18 07:30 107/56 98 10/04/18 07:21 101/57 97 10/04/18 07:11 115/60 98 10/04/18 07:01 115/60 92 10/04/18 06:51 114/62 90 10/04/18 06:41 114/62 92 10/04/18 06:30 114/62 91 10/04/18 06:21 108/61 90 10/04/18 06:11 106/63 91 10/04/18 06:00 106/63 92 10/04/18 05:51 98/56 92 10/04/18 05:48 107/46 92 10/04/18 05:41 98/56 93 10/04/18 05:30 98/56 93 10/04/18 05:21 102/55 94 10/04/18 05:11 96/55 94 10/04/18 05:01 96/55 94 10/04/18 04:51 106/59 95 10/04/18 04:41 106/57 99 10/04/18 04:39 98/56 93 10/04/18 04:30 106/57 92 10/04/18 04:21 106/59 94 10/04/18 04:11 111/65 92 10/04/18 04:00 111/65 92 10/04/18 03:51 115/70 91 10/04/18 03:41 99/60 93 10/04/18 03:31 10/04/18 03:30 99/60 94 10/04/18 03:21 109/58 93 10/04/18 03:11 102/58 94 10/04/18 03:00 102/58 94 10/04/18 02:51 121/74 95 10/04/18 02:50 27 H 10/04/18 02:41 115/68 95 10/04/18 02:38 25 H 10/04/18 02:31 115/68 94 10/04/18 02:21 106/63 96 10/04/18 02:11 99/66 96 10/04/18 02:00 99/66 94 10/04/18 01:51 108/65 96 10/04/18 01:41 100/63 97 10/04/18 01:30 100/63 95 10/04/18 01:21 103/59 96 10/04/18 01:10 113/60 92 10/04/18 01:00 99/52 92 10/04/18 00:51 113/60 93 10/04/18 00:41 103/58 93 10/04/18 00:30 103/58 93 10/04/18 00:21 103/67 93 10/04/18 00:11 111/63 93 10/04/18 00:00 115/68 98 10/03/18 23:51 101/60 91 10/03/18 23:41 99/63 91 10/03/18 23:37 10/03/18 23:30 99/63 91 10/03/18 23:21 100/64 93 10/03/18 23:11 108/63 98 10/03/18 23:05 108/63 98 10/03/18 23:00 108/63 99 10/03/18 22:51 100/61 98 10/03/18 22:41 98/62 97 10/03/18 22:30 98/62 97 10/03/18 22:21 99/63 97 10/03/18 22:11 105/57 97 10/03/18 22:00 105/57 96 10/03/18 21:51 99/56 95 10/03/18 21:41 113/57 94 10/03/18 21:31 113/57 10/03/18 21:30 113/57 96 02/23/19 21:21 109/67 97 02/23/19 21:11 103/61 96 10/03/18 21:00 110/63 96 10/03/18 20:51 126/90 100 10/03/18 20:50 25 H 10/03/18 20:41 126/74 100 10/03/18 20:32 25 H 24 24 103/61 99 10/03/18 20:30 103/61 97 10/03/18 20:21 105/65 97 10/03/18 20:11 119/68 97 10/03/18 20:00 126/74 97 10/03/18 19:51 119/68 88 10/03/18 19:41 103/63 98 10/03/18 19:30 103/63 98 10/03/18 19:21 99 10/03/18 19:10 120/67 99 10/03/18 19:00 120/67 99 10/03/18 18:51 124/64 98 10/03/18 18:41 124/64 98 10/03/18 18:30 124/64 99 10/03/18 18:21 122/72 100 10/03/18 18:11 115/66 99 10/03/18 18:00 115/66 99 10/03/18 17:51 106/61 100 10/03/18 17:41 104/67 100 10/03/18 17:30 104/67 100 10/03/18 17:21 109/61 100 10/03/18 17:15 100 10/03/18 17:11 102/59 100 10/03/18 17:00 102/59 100 10/03/18 16:51 92/61 100 10/03/18 16:41 103/57 100 10/03/18 16:30 103/57 100 10/03/18 16:21 104/60 100 10/03/18 16:11 97/64 100 10/03/18 16:00 97/64 100 10/03/18 15:51 97/64 100 10/03/18 15:41 98/58 99 10/03/18 15:30 97/56 98 10/03/18 15:25 97 10/03/18 15:21 98/58 100 10/03/18 15:11 107/71 98 10/03/18 15:00 107/71 99 10/03/18 14:51 107/63 99 10/03/18 14:41 99/66 99 10/03/18 14:31 99/66 10/03/18 14:30 99/66 99 10/03/18 14:21 97/63 99 10/03/18 14:11 98/62 98 10/03/18 14:00 98/62 99 10/03/18 13:51 99/65 98 10/03/18 13:41 90/57 99 10/03/18 13:30 90/57 98 10/03/18 13:21 100/64 98 10/03/18 13:20 30 H 10/03/18 13:14 30 H 10/03/18 13:11 103/65 98 10/03/18 13:00 103/65 98 10/03/18 12:51 95/56 98 10/03/18 12:41 98/63 98 10/03/18 12:30 102/61 97 10/03/18 12:21 98/63 97 10/03/18 12:11 100/65 97 10/03/18 12:00 100/65 97 10/03/18 11:51 103/64 97 10/03/18 11:41 107/60 95 - Physical Examination HEENT: Positive: PERRL, Normocephaly, Mucus Membranes Moist Neck: Positive: neck supple Neuro: Positive: Other (intubated, sedated) Skin: Negative: Rash Extremities: Absent: edema - Labs and Meds CBC 10/04/18 Range/Units 08:04 WBC 10.0 (4.5-11.0) K/mm3 RBC 3.98 (3.65-5.03) M/mm3 Hgb 9.1 L (11.8-15.2) gm/dl Hct 28.7 L (35.5-45.6) % Plt Count 126 L (140-440) K/mm3 Comprehensive Metabolic Panel 10/04/18 Range/Units 08:04 Sodium 141 (137-145) mmol/L Potassium 3.7 D (3.6-5.0) mmol/L Chloride 103.6 (98-107) mmol/L Carbon Dioxide 24 (22-30) mmol/L BUN 26 H (9-20) mg/dL Creatinine 0.9 (0.8-1.5) mg/dL Glucose 167 H (75-100) mg/dL Calcium 8.2 L (8.4-10.2) mg/dL - Imaging and Cardiology EKG: report reviewed, image reviewed Echo: pending - Allied health notes Allied health notes reviewed: nursing
--- NOTE | 2018-10-04 12:18 | Progress Note ---
Assessment and Plan Assessment and plan: Patient is a 68-year-old male with past medical history from records shows COPD, chronic systolic CHF, CVA, atrial fibrillation, iron deficiency anemia and CAD s/p CABG who presents with severe respiratory distress. Patient was noted to be lethargic with severe increased work of breathing and was intubated in the ER and placed on mechanical ventilation. Review of records is also off HPI. The record shows that the patient has been in the ED about 2 days prior to this visit. He also had affirm that he has been on mechanical ventilation on previous occasions for currently follows at the [facility]. The ED documentation the medication list reveals the patient also lives in a alf house. On arrival he was noted to have a saturation of 60% and was difficult to oxygenate with CPAP despite Solu-Medrol and magnesium given enroute and mechanical ventilation in the ED. Acute Respiratory failure with Hypoxia ON Mechanical ventilation Hypertensive urgency Acute Systolic Congestive heart failure with possible combined diastolic dysfunction-Precluding fluids administration Sepsis-POA secondary PNA Acute Bronchitis. CT scan not showing any infiltrates. COPD with acute exacerbation secondary to above Thrombocytopenia Cardiomyopathy with EF OF 25-30% Atrial Fibrillation Leukocytosis Hyperkalemia DM with Hyperglycemia Subjective Plan Continue supportive care Hypothermia still persist, Will continue warming blanket SCD. send HIT antibodies. 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 IF no clear resolution will request ID support DVT/GI prophy Discussed with Nursing to obtain med Rec No family present. The high probability of a clinically significant, sudden or life threatening deterioration of the [CARDIAC, PULMONARY] system(s) required my full and direct attention, intervention and personal management. The aggregate critical care time was [35] minutes. This time is in addition to time spent performing reported procedures but includes the following: [X] Data Review and interpretation [X] Patient assessment and monitoring of vital signs [X] Documentation [X] Medication orders and management History Interval history: Patient seen and examined, still with some shortness of breath and irregular heart beat, but reports some improvement. No other adverse event reported Hospitalist Physical - Physical exam Narrative exam: VITAL SIGNS: Reviewed. GENERAL: The patient appeared well nourished and normally developed in mild distress. Morbidly obese. Vital signs as documented. HEAD: No signs of head trauma. EYES: Pupils are equal. Extraocular motions intact. EARS: Hearing grossly intact. MOUTH: ETT in place, otherwise no other visible pathology noted NECK: No adenopathy, no JVD. CHEST: Chest with Diminished breath sounds bilaterally. CARDIAC: Regular rate and rhythm. S1 and S2, without murmurs, gallops, or rubs. VASCULAR: No Edema. Peripheral pulses normal and equal in all extremities. ABDOMEN: Soft, without detectable tenderness. No sign of distention. No rebound or guarding, and no masses palpated. Bowel Sounds normal. MUSCULOSKELETAL: Good range of motion of all major joints. Extremities without clubbing, cyanosis or edema. NEUROLOGIC: unable to access SKIN: No rash or lesions. - Constitutional Vitals: Temp Pulse Resp BP Pulse Ox 98.5 F 88 16 121/73 91 10/04/18 12:00 10/04/18 12:11 10/04/18 12:11 10/04/18 12:11 10/04/18 12:11 General appearance: Present: other (intubated, sedated ) Results - Labs CBC & Chem 7: 10/04/18 08:04 10/04/18 08:04 Labs: Laboratory Last Values WBC 10.0 K/mm3 (4.5-11.0) 10/04/18 08:04 RBC 3.98 M/mm3 (3.65-5.03) 10/04/18 08:04 Hgb 9.1 gm/dl (11.8-15.2) L 10/04/18 08:04 Hct 28.7 % (35.5-45.6) L 10/04/18 08:04 MCV 72 fl (84-94) L 10/04/18 08:04 MCH 23 pg (28-32) L 10/04/18 08:04 MCHC 32 % (32-34) 10/04/18 08:04 RDW 21.6 % (13.2-15.2) H 10/04/18 08:04 Plt Count 126 K/mm3 (140-440) L 10/04/18 08:04 Lymph % (Auto) 6.0 % (13.4-35.0) L 10/03/18 04:13 [place] % (Auto) 10.6 % (0.0-7.3) H 10/03/18 04:13 Eos % (Auto) 0.0 % (0.0-4.3) 10/03/18 04:13 Baso % (Auto) 0.3 % (0.0-1.8) 10/03/18 04:13 Lymph # 0.8 K/mm3 (1.2-5.4) L 10/03/18 04:13 [place] # 1.4 K/mm3 (0.0-0.8) H 10/03/18 04:13 Eos # 0.0 K/mm3 (0.0-0.4) 10/03/18 04:13 Baso # 0.0 K/mm3 (0.0-0.1) 10/03/18 04:13 Add Manual Diff Complete 10/02/18 07:20 Total Counted 100 10/02/18 07:20 Seg Neutrophils % 83.1 % (40.0-70.0) H 10/03/18 04:13 Seg Neuts % (Manual) 67.0 % (40.0-70.0) 10/02/18 07:20 Band Neutrophils % 1.0 % 10/02/18 07:20 Lymphocytes % (Manual) 26.0 % (13.4-35.0) 10/02/18 07:20 Reactive Lymphs % (Man) 0 % 10/02/18 07:20 Monocytes % (Manual) 6.0 % (0.0-7.3) 10/02/18 07:20 Eosinophils % (Manual) 0 % (0.0-4.3) 10/02/18 07:20 Basophils % (Manual) 0 % (0.0-1.8) 10/02/18 07:20 Metamyelocytes % 0 % 10/02/18 07:20 Myelocytes % 0 % 10/02/18 07:20 Promyelocytes % 0 % 10/02/18 07:20 Blast Cells % 0 % 10/02/18 07:20 Nucleated RBC % Not Reportable 10/02/18 07:20 Seg Neutrophils # 11.3 K/mm3 (1.8-7.7) H 10/03/18 04:13 Seg Neutrophils # Man 13.2 K/mm3 (1.8-7.7) H 10/02/18 07:20 Band Neutrophils # 0.2 K/mm3 10/02/18 07:20 Lymphocytes # (Manual) 5.1 K/mm3 (1.2-5.4) 10/02/18 07:20 Abs React Lymphs (Man) 0.0 K/mm3 10/02/18 07:20 Monocytes # (Manual) 1.2 K/mm3 (0.0-0.8) H 10/02/18 07:20 Eosinophils # (Manual) 0.0 K/mm3 (0.0-0.4) 10/02/18 07:20 Basophils # (Manual) 0.0 K/mm3 (0.0-0.1) 10/02/18 07:20 Metamyelocytes # 0.0 K/mm3 10/02/18 07:20 Myelocytes # 0.0 K/mm3 10/02/18 07:20 Promyelocytes # 0.0 K/mm3 10/02/18 07:20 Blast Cells # 0.0 K/mm3 10/02/18 07:20 WBC Morphology Not Reportable 10/02/18 07:20 Hypersegmented Neuts Not Reportable 10/02/18 07:20 Hyposegmented Neuts Not Reportable 10/02/18 07:20 Hypogranular Neuts Not Reportable 10/02/18 07:20 Smudge Cells Not Reportable 10/02/18 07:20 Toxic Granulation Not Reportable 10/02/18 07:20 Toxic Vacuolation Not Reportable 10/02/18 07:20 Dohle Bodies Not Reportable 10/02/18 07:20 Pelger-Huet Anomaly Not Reportable 10/02/18 07:20 Markie Rods Not Reportable 10/02/18 07:20 Platelet Estimate Consistent w auto 10/02/18 07:20 Clumped Platelets Not Reportable 10/02/18 07:20 Plt Clumps, EDTA Not Reportable 10/02/18 07:20 Large Platelets Not Reportable 10/02/18 07:20 Giant Platelets Not Reportable 10/02/18 07:20 Platelet Satelliting Not Reportable 10/02/18 07:20 Plt Morphology Comment Not Reportable 10/02/18 07:20 RBC Morphology Not Reportable 10/02/18 07:20 Dimorphic RBCs Not Reportable 10/02/18 07:20 Polychromasia Not Reportable 10/02/18 07:20 Hypochromasia 1+ 10/02/18 07:20 Poikilocytosis Not Reportable 10/02/18 07:20 Anisocytosis 2+ 10/02/18 07:20 Microcytosis 2+ 10/02/18 07:20 Macrocytosis Not Reportable 10/02/18 07:20 Spherocytes Not Reportable 10/02/18 07:20 Pappenheimer Bodies Not Reportable 10/02/18 07:20 Sickle Cells Not Reportable 10/02/18 07:20 Target Cells Not Reportable 10/02/18 07:20 Tear Drop Cells Not Reportable 10/02/18 07:20 Ovalocytes 1+ 10/02/18 07:20 Helmet Cells Not Reportable 10/02/18 07:20 [place] Bodies Not Reportable 10/02/18 07:20 [place] Rings Not Reportable 10/02/18 07:20 [place] Cells Not Reportable 10/02/18 07:20 Bite Cells Not Reportable 10/02/18 07:20 Crenated Cell Not Reportable 10/02/18 07:20 Elliptocytes Not Reportable 10/02/18 07:20 Acanthocytes (Spur) Not Reportable 10/02/18 07:20 Rouleaux Not Reportable 10/02/18 07:20 Hemoglobin C Crystals Not Reportable 10/02/18 07:20 Schistocytes Not Reportable 10/02/18 07:20 Malaria parasites Not Reportable 10/02/18 07:20 [place] Bodies Not Reportable 10/02/18 07:20 Hem Pathologist Commnt No 10/02/18 07:20 PT 15.0 Sec. (12.2-14.9) H 10/02/18 07:22 INR 1.11 (0.87-1.13) 10/02/18 07:22 D-Dimer 1039.91 ng/mlDDU (0-234) H 10/02/18 21:01 POC ABG pH 7.387 (7.35-7.45) 10/04/18 05:44 POC ABG pCO2 41.1 (35-45) 10/04/18 05:44 POC ABG pO2 68 (80-105) L 10/04/18 05:44 POC ABG HCO3 24.7 10/04/18 05:44 POC ABG Total CO2 26 10/04/18 05:44 POC ABG O2 Sat 93 10/04/18 05:44 POC ABG Base Excess 0 10/04/18 05:44 FiO2 30 % 10/04/18 05:44 Sodium 141 mmol/L (137-145) 10/04/18 08:04 Potassium 3.7 mmol/L (3.6-5.0) D 10/04/18 08:04 Chloride 103.6 mmol/L (98-107) 10/04/18 08:04 Carbon Dioxide 24 mmol/L (22-30) 10/04/18 08:04 Anion Gap 17 mmol/L 10/04/18 08:04 BUN 26 mg/dL (9-20) H 10/04/18 08:04 Creatinine 0.9 mg/dL (0.8-1.5) 10/04/18 08:04 Estimated GFR > 60 ml/min 10/04/18 08:04 BUN/Creatinine Ratio 29 % 10/04/18 08:04 Glucose 167 mg/dL (75-100) H 10/04/18 08:04 POC Glucose 176 (70-105) H 10/04/18 11:56 Lactic Acid 2.60 mmol/L (0.7-2.0) H* 10/03/18 04:13 Calcium 8.2 mg/dL (8.4-10.2) L 10/04/18 08:04 Magnesium 2.30 mg/dL (1.7-2.3) 10/02/18 18:04 Total Bilirubin 0.50 mg/dL (0.1-1.2) 10/02/18 07:13 AST 20 units/L (5-40) 10/02/18 07:13 ALT 11 units/L (7-56) 10/02/18 07:13 Alkaline Phosphatase 100 units/L (35-129) 10/02/18 07:13 Troponin T < 0.010 ng/mL (0.00-0.029) 10/02/18 07:13 C-Reactive Protein 3.40 mg/dL (0.00-1.30) H 10/02/18 21:01 NT-Pro-B Natriuret Pep 3102 pg/mL (0-900) H 10/02/18 07:13 Total Protein 7.8 g/dL (6.3-8.2) 10/02/18 07:13 Albumin 3.9 g/dL (3.9-5) 10/02/18 07:13 Albumin/Globulin Ratio 1.0 % 10/02/18 07:13 TSH 0.417 mlU/mL (0.270-4.200) 10/02/18 18:04 Free T4 0.92 ng/dL (0.76-1.46) 10/02/18 18:04 Urine Color Straw (Yellow) 10/02/18 09:12 Urine Turbidity Clear (Clear) 10/02/18 09:12 Urine pH 5.0 (5.0-7.0) 10/02/18 09:12 Ur Specific [place] 1.006 (1.003-1.030) 10/02/18 09:12 Urine Protein 30 mg/dl mg/dL (Negative) 10/02/18 09:12 Urine Glucose (UA) 50 mg/dL (Negative) 10/02/18 09:12 Urine Ketones Neg mg/dL (Negative) 10/02/18 09:12 Urine Blood Neg (Negative) 10/02/18 09:12 Urine Nitrite Neg (Negative) 10/02/18 09:12 Urine Bilirubin Neg (Negative) 10/02/18 09:12 Urine Urobilinogen < 2.0 mg/dL (<2.0) 10/02/18 09:12 Ur Leukocyte Esterase Neg (Negative) 10/02/18 09:12 Urine WBC (Auto) 2.0 /HPF (0.0-6.0) 10/02/18 09:12 Urine RBC (Auto) 2.0 /HPF (0.0-6.0) 10/02/18 09:12 Urine Bacteria (Auto) 1+ /HPF (Negative) 10/02/18 09:12 Urine Yeast (Budding) Few /HPF 10/02/18 09:12 Blood Type A NEGATIVE 10/02/18 08:51 Antibody Screen Negative 10/02/18 08:51 Nutrition/Malnutrition Assess - Dietary Evaluation Nutrition/Malnutrition Findings: Nutrition Notes Start: 10/03/18 12:55 Freq: Status: Active Protocol: Document 10/03/18 12:55 CARMINE (Rec: 10/03/18 13:03 CARMINE [facility]- [email or web address]) Nutrition Notes Need for Assessment generated from: MD Order Initial or Follow up Assessment Current Diagnosis COPD Coronary Artery Disease Diabetes Sepsis Hypertension Heart Failure Respiratory Failure Stroke Other Pertinent Diagnosis Pneu Current Diet No diet ordered Labs/Tests BUN 29 BG 168 Pertinent Medications Lasix, Propofol at 7.317ml/hr (provides 193 kcal from fat), Senokot, NS at 50ml/hr Height 6 ft 2 in Weight 85 kg [place] Body Weight (kg) 86.36 BMI 24.0 Weight Status Appropriate Subjective/Other Information RD consulted to evaluate nutritional intake and TF. Pt on vent support. Burn Absent Trauma Absent #1 Nutrition Diagnosis Inadequate oral intake Etiology mech ventilation As Evidenced by Signs and Symptoms pt NPO Is patient on ventilator? Yes Is Patient Ambulatory and/or Out of Bed No [facility] 2020.400 Calculation Used for Recommendations [facility] Additional Notes Pro needs 1.2-2g/k-170g/ day Fluid needs per MD. Nutrition Intervention Nutrition Support: Vital AF 1.2 at 70ml/hr with 100ml water flush q4h. Kcal 2,016 Protein (gm) 1,266 Carbohydrates (gm) 186 Fat (gm) 91 Fluid (mL) 1,362 Fiber (gm) 9 Goal #1 TF tolerance Goal #2 TF to meet 80-100% energy and pro needs Anticipated Discharge Needs: Unable to identify at this time Follow-Up By: 10/05/18 Additional Comments F/U: new TF, vent status, propofol
--- NOTE | 2018-10-04 16:17 | Progress Note ---
Assessment and Plan Acute likely on chronic hypoxemic and hypercapnic respiratory failure. Acute chronic obstructive pulmonary disease exacerbation. Acute congestive heart failure exacerbation. History of cerebrovascular accident. Atrial fibrillation with rapid ventricular response. Anemia, iron deficiency. Coronary artery disease. Leukocytosis. Hypokalemia, mild. Hyperglycemia. Lactic acidosis. Elevated serum BNP. - complete IVNS @ 75 mls/hr X 2 liters for IVVD & pre-renal azotemia - continue SBT but reduce Psupp to 10 - tentative extubation in am if passes SBT - continue supplemental oxygen to keep sats > 90% - continue bronchodilators with pulmonary hygiene per RT - VAP bundle addressed - reduced set rate to 12/min - repeat ABG after a few hours - continue empiric Cefipime and Vancomycin - growing gram negative rods - ID consult placed - continue daily SAT's - begin enteral nutrition as tolerated - target sedation for RASS 0 to -1 - PT/OT/ROM exercises as tolerated - mobility protocol for pressure ulcer prophylaxis - continue GI & VTE prophylaxis - continue other care per attending / other consultants ...... re-evaluate in am & prn The high probability of a clinically significant, sudden or life threatening deterioration of the [cardiac & respiratory] system(s) required my full and direct attention, intervention and personal management. The aggregate critical care time was [32] minutes. This time is in addition to time spent performing reported procedures but includes the following: [x] Data Review and interpretation [x] Patient assessment and monitoring of vital signs [x] Documentation [x] Medication orders and management Subjective Date of service: 10/04/18 Principal diagnosis: Ac on Ch Hypoxemic Hypercapnic Resp failure; AECOPD; CHF exacerbation; Afib Interval history: Patient is seen today for: Acute likely on chronic hypoxemic and hypercapnic respiratory failure; Acute chronic obstructive pulmonary disease exacerbation; Acute congestive heart failure exacerbation; History of cerebrovascular accident; Atrial fibrillation with rapid ventricular response. Seen and examined at bedside; 24hour events reviewed; nursing and respiratory c are staff consulted; no adverse overnight events reported to me; remains on MVS; tolerating PSV trial well; more coherent; no emesis or overt aspiration; no N/V/F/C Objective Vital Signs - 12hr 10/04/18 10/04/18 10/04/18 04:21 04:30 04:39 Temperature Pulse Rate 81 78 82 Pulse Rate [ Anterior Bilateral] Pulse Rate [ From Monitor] Respiratory 23 25 H Rate Respiratory Rate [Anterior Bilateral] Blood Pressure 106/59 106/57 98/56 O2 Sat by Pulse 94 92 93 Oximetry 10/04/18 10/04/18 10/04/18 04:41 04:51 05:01 Temperature Pulse Rate 95 H 78 86 Pulse Rate [ Anterior Bilateral] Pulse Rate [ From Monitor] Respiratory 12 24 23 Rate Respiratory Rate [Anterior Bilateral] Blood Pressure 106/57 106/59 96/55 O2 Sat by Pulse 99 95 94 Oximetry 10/04/18 10/04/18 10/04/18 05:11 05:21 05:30 Temperature Pulse Rate 74 83 78 Pulse Rate [ Anterior Bilateral] Pulse Rate [ From Monitor] Respiratory 26 H 26 H 22 Rate Respiratory Rate [Anterior Bilateral] Blood Pressure 96/55 102/55 98/56 O2 Sat by Pulse 94 94 93 Oximetry 10/04/18 10/04/18 10/04/18 05:41 05:48 05:51 Temperature Pulse Rate 82 79 79 Pulse Rate [ Anterior Bilateral] Pulse Rate [ From Monitor] Respiratory 23 13 Rate Respiratory Rate [Anterior Bilateral] Blood Pressure 98/56 107/46 98/56 O2 Sat by Pulse 93 92 92 Oximetry 10/04/18 10/04/18 10/04/18 06:00 06:11 06:21 Temperature Pulse Rate 83 86 82 Pulse Rate [ Anterior Bilateral] Pulse Rate [ From Monitor] Respiratory 12 13 13 Rate Respiratory Rate [Anterior Bilateral] Blood Pressure 106/63 106/63 108/61 O2 Sat by Pulse 92 91 90 Oximetry 10/04/18 10/04/18 10/04/18 06:30 06:41 06:51 Temperature Pulse Rate 76 72 81 Pulse Rate [ Anterior Bilateral] Pulse Rate [ From Monitor] Respiratory 11 L 14 12 Rate Respiratory Rate [Anterior Bilateral] Blood Pressure 114/62 114/62 114/62 O2 Sat by Pulse 91 92 90 Oximetry 10/04/18 10/04/18 10/04/18 07:01 07:11 07:21 Temperature Pulse Rate 83 79 89 Pulse Rate [ Anterior Bilateral] Pulse Rate [ From Monitor] Respiratory 11 L 12 14 Rate Respiratory Rate [Anterior Bilateral] Blood Pressure 115/60 115/60 101/57 O2 Sat by Pulse 92 98 97 Oximetry 10/04/18 10/04/18 10/04/18 07:30 07:41 07:50 Temperature Pulse Rate 77 79 Pulse Rate [ 87 Anterior Bilateral] Pulse Rate [ From Monitor] Respiratory 14 14 Rate Respiratory 14 Rate [Anterior Bilateral] Blood Pressure 107/56 107/56 O2 Sat by Pulse 98 98 Oximetry 10/04/18 10/04/18 10/04/18 07:51 08:00 08:11 Temperature 98.5 F Pulse Rate 94 H 90 89 Pulse Rate [ 88 Anterior Bilateral] Pulse Rate [ 88 From Monitor] Respiratory 13 13 13 Rate Respiratory 16 Rate [Anterior Bilateral] Blood Pressure 100/57 100/57 102/57 O2 Sat by Pulse 97 96 92 Oximetry 10/04/18 10/04/18 10/04/18 08:21 08:31 08:41 Temperature Pulse Rate 85 100 H 87 Pulse Rate [ Anterior Bilateral] Pulse Rate [ From Monitor] Respiratory 13 19 18 Rate Respiratory Rate [Anterior Bilateral] Blood Pressure 108/59 141/78 141/78 O2 Sat by Pulse 92 94 Oximetry 10/04/18 10/04/18 10/04/18 08:51 09:01 09:11 Temperature Pulse Rate 98 H 90 86 Pulse Rate [ Anterior Bilateral] Pulse Rate [ From Monitor] Respiratory 21 22 16 Rate Respiratory Rate [Anterior Bilateral] Blood Pressure 123/72 131/77 131/77 O2 Sat by Pulse 94 89 Oximetry 10/04/18 10/04/18 10/04/18 09:21 09:31 09:41 Temperature Pulse Rate 91 H 86 88 Pulse Rate [ Anterior Bilateral] Pulse Rate [ From Monitor] Respiratory 14 22 21 Rate Respiratory Rate [Anterior Bilateral] Blood Pressure 129/64 130/74 130/74 O2 Sat by Pulse 90 91 89 Oximetry 10/04/18 10/04/18 10/04/18 09:51 10:00 10:11 Temperature Pulse Rate 88 92 H 92 H Pulse Rate [ Anterior Bilateral] Pulse Rate [ From Monitor] Respiratory 16 16 14 Rate Respiratory Rate [Anterior Bilateral] Blood Pressure 145/68 121/61 121/61 O2 Sat by Pulse 90 91 90 Oximetry 10/04/18 10/04/18 10/04/18 10:21 10:24 10:31 Temperature Pulse Rate 94 H 90 80 Pulse Rate [ Anterior Bilateral] Pulse Rate [ From Monitor] Respiratory 21 18 Rate Respiratory Rate [Anterior Bilateral] Blood Pressure 121/68 129/64 128/57 O2 Sat by Pulse 91 91 Oximetry 10/04/18 10/04/18 10/04/18 10:41 10:51 11:01 Temperature Pulse Rate 87 95 H 93 H Pulse Rate [ Anterior Bilateral] Pulse Rate [ From Monitor] Respiratory 14 15 16 Rate Respiratory Rate [Anterior Bilateral] Blood Pressure 128/57 109/62 116/59 O2 Sat by Pulse 90 90 90 Oximetry 10/04/18 10/04/18 10/04/18 11:11 11:21 11:30 Temperature Pulse Rate 98 H 97 H 88 Pulse Rate [ Anterior Bilateral] Pulse Rate [ From Monitor] Respiratory 16 16 17 Rate Respiratory Rate [Anterior Bilateral] Blood Pressure 116/59 115/58 112/60 O2 Sat by Pulse 91 91 91 Oximetry 10/04/18 10/04/18 10/04/18 11:41 11:51 12:00 Temperature 98.5 F Pulse Rate 90 90 89 Pulse Rate [ Anterior Bilateral] Pulse Rate [ From Monitor] Respiratory 15 18 18 Rate Respiratory Rate [Anterior Bilateral] Blood Pressure 112/60 121/63 121/73 O2 Sat by Pulse 92 93 91 Oximetry 10/04/18 10/04/18 10/04/18 12:11 12:21 12:30 Temperature Pulse Rate 88 97 H 88 Pulse Rate [ Anterior Bilateral] Pulse Rate [ From Monitor] Respiratory 16 15 17 Rate Respiratory Rate [Anterior Bilateral] Blood Pressure 121/73 120/63 125/62 O2 Sat by Pulse 91 92 90 Oximetry 10/04/18 10/04/18 10/04/18 12:36 12:41 12:51 Temperature Pulse Rate 93 H 88 89 Pulse Rate [ Anterior Bilateral] Pulse Rate [ From Monitor] Respiratory 16 16 Rate Respiratory Rate [Anterior Bilateral] Blood Pressure 120/68 125/62 127/60 O2 Sat by Pulse 92 91 91 Oximetry 10/04/18 10/04/18 10/04/18 13:01 13:11 13:21 Temperature Pulse Rate 91 H 97 H 92 H Pulse Rate [ Anterior Bilateral] Pulse Rate [ From Monitor] Respiratory 19 20 17 Rate Respiratory Rate [Anterior Bilateral] Blood Pressure 129/64 129/64 137/63 O2 Sat by Pulse 92 92 92 Oximetry 10/04/18 10/04/18 10/04/18 13:30 13:41 13:51 Temperature Pulse Rate 93 H 89 89 Pulse Rate [ Anterior Bilateral] Pulse Rate [ From Monitor] Respiratory 18 18 19 Rate Respiratory Rate [Anterior Bilateral] Blood Pressure 120/68 137/63 117/63 O2 Sat by Pulse 90 90 90 Oximetry 10/04/18 10/04/18 10/04/18 14:00 14:11 14:20 Temperature Pulse Rate 94 H 84 95 H Pulse Rate [ Anterior Bilateral] Pulse Rate [ From Monitor] Respiratory 19 18 Rate Respiratory Rate [Anterior Bilateral] Blood Pressure 120/64 120/68 117/66 O2 Sat by Pulse 90 91 Oximetry Constitutional: appears uncomfortable, other (elderly looking CM, normocephalic and atraumatic with increased resp effort on MVS) Eyes: non-icteric ENT: oropharynx moist, other (ETT 23 cm KIEL) Neck: supple, no lymphadenopathy, no JVD, other (no thyromegaly) Effort: mildly labored Ascultation: Bilateral: clear, diminished breath sounds, other (+ barrel chest) Percussion: Bilateral: not dull Cardiovascular: regular rate and rhythm Gastrointestinal: normoactive bowel sounds, soft, non-tender, non-distended Integumentary: normal, other (post CABG sternotomy scar) Extremities: no cyanosis, no edema, pink and warm, pulses normal, no ischemia or petechiae Neurologic: non-focal exam (grossly), pupils equal and round, unable to assess Psychiatric: other (sedated) CBC and BMP: 10/04/18 08:04 10/04/18 08:04 ABG, PT/INR, D-dimer: ABG POC ABG pH 7.462 (7.35-7.45) H 10/04/18 13:21 POC ABG pCO2 33.5 (35-45) L 10/04/18 13:21 POC ABG pO2 59 (80-105) L 10/04/18 13:21 POC ABG HCO3 23.9 10/04/18 13:21 POC ABG Total CO2 25 10/04/18 13:21 POC ABG O2 Sat 92 10/04/18 13:21 PT/INR, D-dimer PT 15.0 Sec. (12.2-14.9) H 10/02/18 07:22 INR 1.11 (0.87-1.13) 10/02/18 07:22 D-Dimer 1039.91 ng/mlDDU (0-234) H 10/02/18 21:01 Abnormal lab findings: Abnormal Labs 10/02/18 10/02/18 10/02/18 07:13 07:20 07:22 WBC 19.7 H Hgb 10.9 L Hct MCV 75 L MCH 23 L MCHC 31 L RDW 21.7 H Plt Count Lymph % (Auto) [place] % (Auto) Lymph # [place] # Seg Neutrophils % Seg Neutrophils # Seg Neutrophils # Man 13.2 H Monocytes # (Manual) 1.2 H PT 15.0 H D-Dimer POC ABG pH POC ABG pCO2 POC ABG pO2 Sodium Potassium 5.2 H D Carbon Dioxide 19 L BUN Glucose 340 H POC Glucose Lactic Acid Calcium C-Reactive Protein NT-Pro-B Natriuret Pep 3102 H 10/02/18 10/02/18 10/02/18 08:32 09:26 12:28 WBC Hgb Hct MCV MCH MCHC RDW Plt Count Lymph % (Auto) [place] % (Auto) Lymph # [place] # Seg Neutrophils % Seg Neutrophils # Seg Neutrophils # Man Monocytes # (Manual) PT D-Dimer POC ABG pH 7.201 L 7.254 L POC ABG pCO2 61.2 H 54.3 H POC ABG pO2 150 H 196 H Sodium Potassium Carbon Dioxide BUN Glucose POC Glucose Lactic Acid 3.00 H* Calcium C-Reactive Protein NT-Pro-B Natriuret Pep 10/02/18 10/02/18 10/02/18 20:43 21:01 21:01 WBC Hgb Hct MCV MCH MCHC RDW Plt Count Lymph % (Auto) [place] % (Auto) Lymph # [place] # Seg Neutrophils % Seg Neutrophils # Seg Neutrophils # Man Monocytes # (Manual) PT D-Dimer 1039.91 H POC ABG pH 7.307 L POC ABG pCO2 45.6 H POC ABG pO2 107 H Sodium Potassium Carbon Dioxide BUN Glucose POC Glucose Lactic Acid Calcium C-Reactive Protein 3.40 H NT-Pro-B Natriuret Pep 10/02/18 10/03/18 10/03/18 21:01 00:14 04:13 WBC 13.6 H Hgb 10.6 L Hct 34.5 L MCV 74 L MCH 23 L MCHC 31 L RDW 21.3 H Plt Count 134 L Lymph % (Auto) 6.0 L [place] % (Auto) 10.6 H Lymph # 0.8 L [place] # 1.4 H Seg Neutrophils % 83.1 H Seg Neutrophils # 11.3 H Seg Neutrophils # Man Monocytes # (Manual) PT D-Dimer POC ABG pH POC ABG pCO2 POC ABG pO2 Sodium Potassium Carbon Dioxide BUN Glucose POC Glucose 164 H Lactic Acid 2.80 H* Calcium C-Reactive Protein NT-Pro-B Natriuret Pep 10/03/18 10/03/18 10/03/18 04:13 04:13 04:47 WBC Hgb Hct MCV MCH MCHC RDW Plt Count Lymph % (Auto) [place] % (Auto) Lymph # [place] # Seg Neutrophils % Seg Neutrophils # Seg Neutrophils # Man Monocytes # (Manual) PT D-Dimer POC ABG pH POC ABG pCO2 POC ABG pO2 Sodium 136 L Potassium Carbon Dioxide 18 L BUN 29 H Glucose 168 H POC Glucose 182 H Lactic Acid 2.60 H* Calcium 8.3 L C-Reactive Protein NT-Pro-B Natriuret Pep 10/03/18 10/03/18 10/03/18 05:47 11:39 16:56 WBC Hgb Hct MCV MCH MCHC RDW Plt Count Lymph % (Auto) [place] % (Auto) Lymph # [place] # Seg Neutrophils % Seg Neutrophils # Seg Neutrophils # Man Monocytes # (Manual) PT D-Dimer POC ABG pH 7.314 L POC ABG pCO2 45.9 H POC ABG pO2 Sodium Potassium Carbon Dioxide BUN Glucose POC Glucose 134 H 118 H Lactic Acid Calcium C-Reactive Protein NT-Pro-B Natriuret Pep 10/03/18 10/04/18 10/04/18 23:13 05:20 05:44 WBC Hgb Hct MCV MCH MCHC RDW Plt Count Lymph % (Auto) [place] % (Auto) Lymph # [place] # Seg Neutrophils % Seg Neutrophils # Seg Neutrophils # Man Monocytes # (Manual) PT D-Dimer POC ABG pH POC ABG pCO2 POC ABG pO2 68 L Sodium Potassium Carbon Dioxide BUN Glucose POC Glucose 129 H 166 H Lactic Acid Calcium C-Reactive Protein NT-Pro-B Natriuret Pep 10/04/18 10/04/18 10/04/18 08:04 08:04 11:56 WBC Hgb 9.1 L Hct 28.7 L MCV 72 L MCH 23 L MCHC RDW 21.6 H Plt Count 126 L Lymph % (Auto) [place] % (Auto) Lymph # [place] # Seg Neutrophils % Seg Neutrophils # Seg Neutrophils # Man Monocytes # (Manual) PT D-Dimer POC ABG pH POC ABG pCO2 POC ABG pO2 Sodium Potassium Carbon Dioxide BUN 26 H Glucose 167 H POC Glucose 176 H Lactic Acid Calcium 8.2 L C-Reactive Protein NT-Pro-B Natriuret Pep 10/04/18 13:21 WBC Hgb Hct MCV MCH MCHC RDW Plt Count Lymph % (Auto) [place] % (Auto) Lymph # [place] # Seg Neutrophils % Seg Neutrophils # Seg Neutrophils # Man Monocytes # (Manual) PT D-Dimer POC ABG pH 7.462 H POC ABG pCO2 33.5 L POC ABG pO2 59 L Sodium Potassium Carbon Dioxide BUN Glucose POC Glucose Lactic Acid Calcium C-Reactive Protein NT-Pro-B Natriuret Pep Allied health notes reviewed: nursing
[2018-10-04] MEDS: HumaLOG SUB-Q SCH (17:56)
[2018-10-05] MEDS: HumaLOG SUB-Q SCH ×4 (00:21→18:42)
[2018-10-05] MEDS: VANCOMYCIN 1,250 MG in NACL 0.9% 250ML 250 ML IV SCH ×2 (01:37→14:42)
[2018-10-05] MEDS: fentaNYL DRIP Premix 2,000 MCG/100 ML BAG IV SCH (01:38)
[2018-10-05] MEDS: DUONEB *Not for PRN Use IH SCH ×4 (04:47→21:27)
--- NOTE | 2018-10-05 05:16 | XRay Report ---
FINAL REPORT PROCEDURE: XR CHEST 1V AP TECHNIQUE: Chest radiograph anteroposterior view. CPT 70110 HISTORY: follow up respiratory failure COMPARISON: 10/04/2018 FINDINGS: Heart: Normal. Mediastinum/Vessels: Normal. Lungs/Pleural space: Lungs are expanded. There is a nodular opacity at the right lung base not presen t previously which could be an infiltrate. There is no pleural effusion or pneumothorax.. Bony thorax: No acute osseous abnormality. Life support devices: The NG tube is in the stomach. Endotracheal tube is approximately 1 centimeter above the mylene.. IMPRESSION: The heart size is normal.. Lungs are expanded. There is a nodular opacity at the right lung base not present previously which co uld be an infiltrate. There is no pleural effusion or pneumothorax.. The NG tube is in the stomach. Endotracheal tube is approximately 1 centimeter above the mylene..
[2018-10-05] MEDS: LASIX IV SCH ×2 (05:49→18:42)
[2018-10-05] MEDS: BROVANA NEBU IH SCH ×3 (07:27→21:28)
[2018-10-05] MEDS: PULMICORT IH SCH ×2 (07:27→21:27)
[2018-10-05] MEDS: MAXIPIME/NS 2 GM/100 ML 2 GM/100 ML BAG IV SCH ×2 (08:19→14:42)
[2018-10-05] MEDS: LOPRESSOR IV SCH ×2 (09:15→14:42)
[2018-10-05] MEDS: PEPCID PO SCH ×2 (10:04→22:15)
[2018-10-05] MEDS: SENOKOT PO SCH ×2 (10:04→22:10)
[2018-10-05] MEDS: SODIUM CHLORIDE FLUSH SYRINGE 10 ML IV SCH ×2 (10:05→22:00)
--- NOTE | 2018-10-05 14:21 | Progress Note ---
Assessment and Plan Pt currently in AFib with CVR. D/c IV lopressor and convert to PO lopressor and lisinopril as enteral intake has been resumed. In regards to systemic AC, pt appears frail and lives in a fpc house. He may not be a good candidate for senior care systemic AC for AFib. Will attempt to readdress with pt and/or pt's family members during hospitalization. H&H and plt count noted to be trending downwards. Consider hematology and/or GI consultation per primary. Can consider heparin gtt or full dosage lovenox in the interim if no contraindication. The patient has been seen in conjunction with Dr. Wakefield who agrees with the assessment and plan of care. - Patient Problems (1) Acute respiratory failure Current Visit: Yes Status: Acute (2) Atrial fibrillation with rapid ventricular response Current Visit: Yes Status: Acute (3) Acute HFrEF (heart failure with reduced ejection fraction) Current Visit: Yes Status: Acute (4) Cardiomyopathy Current Visit: Yes Status: Chronic (5) COPD with acute exacerbation Current Visit: Yes Status: Acute (6) Pneumonia Current Visit: Yes Status: Suspected (7) CAD (coronary artery disease) Current Visit: Yes Status: Chronic (8) S/P CABG (coronary artery bypass graft) Current Visit: Yes Status: Chronic (9) Anemia Current Visit: Yes Status: Acute (10) Thrombocytopenia Current Visit: Yes Status: Acute Subjective Date of service: 10/05/18 Principal diagnosis: Ac on Ch Hypoxemic Hypercapnic Resp failure; AECOPD; CHF exacerbation; Afib Interval history: pt resting in bed, remains intubated, alert, in AFib on tele with HR in 90s. Objective Last Vital Signs Temp 99.0 F 10/05/18 04:00 Pulse 75 10/05/18 09:15 Resp 23 10/05/18 08:21 BP 135/62 10/05/18 09:15 Pulse Ox 92 10/05/18 08:21 - Physical Examination General: Other (intubated, alert) HEENT: Positive: PERRL, Normocephaly, Mucus Membranes Moist Neck: Positive: neck supple Cardiac: Positive: irregularly irregular, S1/S2 Lungs: Positive: Decreased Breath Sounds, Ventilated Respirations Neuro: Positive: Other (intubated, alert) Skin: Negative: Rash Extremities: Absent: edema - Imaging and Cardiology EKG: report reviewed, image reviewed Echo: report reviewed (09/2018: EF 25-30%, abnormal diastolic function, trace MR. ) - Telemetry EKG Rhythm: Atrial Fibrillation - Allied health notes Allied health notes reviewed: nursing
--- NOTE | 2018-10-05 14:30 | Progress Note ---
Assessment and Plan Acute likely on chronic hypoxemic and hypercapnic respiratory failure. Acute chronic obstructive pulmonary disease exacerbation. Acute congestive heart failure exacerbation. History of cerebrovascular accident. Atrial fibrillation with rapid ventricular response. Anemia, iron deficiency. Coronary artery disease. Leukocytosis. Hypokalemia, mild. Hyperglycemia. Lactic acidosis. Elevated serum BNP. - extubate - schedule BIPAP 12/6 qhs - continue supplemental oxygen to keep sats > 90% - continue bronchodilators with pulmonary hygiene per RT - continue empiric Cefipime and Vancomycin - growing MDRO PSAR - ID consult placed - ST evaluation post-extubation - PT/OT/ROM exercises as tolerated - mobility protocol for pressure ulcer prophylaxis - continue GI & VTE prophylaxis - continue other care per attending / other consultants ...... re-evaluate in am & prn The high probability of a clinically significant, sudden or life threatening deterioration of the [cardiac & respiratory] system(s) required my full and direct attention, intervention and personal management. The aggregate critical care time was [35] minutes. This time is in addition to time spent performing reported procedures but includes the following: [x] Data Review and interpretation [x] Patient assessment and monitoring of vital signs [x] Documentation [x] Medication orders and management Subjective Date of service: 10/05/18 Principal diagnosis: Ac on Ch Hypoxemic Hypercapnic Resp failure; AECOPD; CHF exacerbation; Afib Interval history: Patient is seen today for: Acute likely on chronic hypoxemic and hypercapnic respiratory failure; Acute chronic obstructive pulmonary disease exacerbation; Acute congestive heart failure exacerbation; History of cerebrovascular accident; Atrial fibrillation with rapid ventricular response. Seen and examined at bedside; 24hour events reviewed; nursing and respiratory care staff consulted; no adverse overnight events reported to me; remains on MVS; tolerating SBT very well; alert; denies acute chest pains; No N/V/F/C Objective Vital Signs - 12hr 10/05/18 10/05/18 10/05/18 02:31 02:40 02:51 Temperature Pulse Rate 92 H 88 92 H Pulse Rate [ Anterior Bilateral] Pulse Rate [ Bilateral] Pulse Rate [ From Monitor] Respiratory 28 H 29 H 26 H Rate Respiratory Rate [Anterior Bilateral] Respiratory Rate [Bilateral ] Blood Pressure 109/57 109/57 109/57 O2 Sat by Pulse 95 94 95 Oximetry 10/05/18 10/05/18 10/05/18 03:00 03:11 03:21 Temperature Pulse Rate 88 88 90 Pulse Rate [ Anterior Bilateral] Pulse Rate [ Bilateral] Pulse Rate [ From Monitor] Respiratory 26 H 26 H 26 H Rate Respiratory Rate [Anterior Bilateral] Respiratory Rate [Bilateral ] Blood Pressure 110/56 110/56 103/61 O2 Sat by Pulse 94 93 92 Oximetry 10/05/18 10/05/18 10/05/18 03:31 03:41 03:51 Temperature Pulse Rate 95 H 90 89 Pulse Rate [ Anterior Bilateral] Pulse Rate [ Bilateral] Pulse Rate [ From Monitor] Respiratory 27 H 25 H 25 H Rate Respiratory Rate [Anterior Bilateral] Respiratory Rate [Bilateral ] Blood Pressure 106/56 106/56 114/61 O2 Sat by Pulse 92 92 92 Oximetry 10/05/18 10/05/18 10/05/18 04:00 04:11 04:21 Temperature 99.0 F Pulse Rate 95 H 83 94 H Pulse Rate [ Anterior Bilateral] Pulse Rate [ Bilateral] Pulse Rate [ 98 H From Monitor] Respiratory 23 24 22 Rate Respiratory Rate [Anterior Bilateral] Respiratory Rate [Bilateral ] Blood Pressure 112/58 112/58 102/61 O2 Sat by Pulse 93 93 94 Oximetry 10/05/18 10/05/18 10/05/18 04:31 04:40 04:41 Temperature Pulse Rate 83 87 81 Pulse Rate [ 87 Anterior Bilateral] Pulse Rate [ Bilateral] Pulse Rate [ From Monitor] Respiratory 25 H 24 Rate Respiratory 23 Rate [Anterior Bilateral] Respiratory Rate [Bilateral ] Blood Pressure 113/53 113/53 O2 Sat by Pulse 93 95 93 Oximetry 10/05/18 10/05/18 10/05/18 04:50 04:51 05:01 Temperature Pulse Rate 82 100 H Pulse Rate [ 90 Anterior Bilateral] Pulse Rate [ Bilateral] Pulse Rate [ From Monitor] Respiratory 24 23 Rate Respiratory 20 Rate [Anterior Bilateral] Respiratory Rate [Bilateral ] Blood Pressure 109/62 170/85 O2 Sat by Pulse 100 98 Oximetry 10/05/18 10/05/18 10/05/18 05:11 05:21 05:31 Temperature Pulse Rate 91 H 83 86 Pulse Rate [ Anterior Bilateral] Pulse Rate [ Bilateral] Pulse Rate [ From Monitor] Respiratory 29 H 28 H 31 H Rate Respiratory Rate [Anterior Bilateral] Respiratory Rate [Bilateral ] Blood Pressure 148/74 138/64 140/68 O2 Sat by Pulse 93 92 93 Oximetry 10/05/18 10/05/18 10/05/18 05:41 05:51 06:00 Temperature Pulse Rate 89 85 94 H Pulse Rate [ Anterior Bilateral] Pulse Rate [ Bilateral] Pulse Rate [ From Monitor] Respiratory 28 H 30 H 30 H Rate Respiratory Rate [Anterior Bilateral] Respiratory Rate [Bilateral ] Blood Pressure 148/74 134/69 126/71 O2 Sat by Pulse 93 94 94 Oximetry 10/05/18 10/05/18 10/05/18 06:11 06:21 06:30 Temperature Pulse Rate 86 89 88 Pulse Rate [ Anterior Bilateral] Pulse Rate [ Bilateral] Pulse Rate [ From Monitor] Respiratory 30 H 28 H 27 H Rate Respiratory Rate [Anterior Bilateral] Respiratory Rate [Bilateral ] Blood Pressure 140/68 142/70 135/71 O2 Sat by Pulse 94 94 94 Oximetry 10/05/18 10/05/18 10/05/18 06:41 06:51 07:01 Temperature Pulse Rate 97 H 91 H 100 H Pulse Rate [ Anterior Bilateral] Pulse Rate [ Bilateral] Pulse Rate [ From Monitor] Respiratory 27 H 29 H 32 H Rate Respiratory Rate [Anterior Bilateral] Respiratory Rate [Bilateral ] Blood Pressure 135/71 129/66 150/82 O2 Sat by Pulse 94 94 97 Oximetry 10/05/18 10/05/18 10/05/18 07:11 07:21 07:28 Temperature Pulse Rate 90 87 Pulse Rate [ 88 Anterior Bilateral] Pulse Rate [ 90 Bilateral] Pulse Rate [ From Monitor] Respiratory 28 H 28 H Rate Respiratory 16 Rate [Anterior Bilateral] Respiratory 16 Rate [Bilateral ] Blood Pressure 142/70 141/79 O2 Sat by Pulse 94 94 Oximetry 10/05/18 10/05/18 10/05/18 07:30 07:41 07:51 Temperature Pulse Rate 82 83 87 Pulse Rate [ Anterior Bilateral] Pulse Rate [ Bilateral] Pulse Rate [ From Monitor] Respiratory 25 H 25 H 28 H Rate Respiratory Rate [Anterior Bilateral] Respiratory Rate [Bilateral ] Blood Pressure 131/67 141/79 121/67 O2 Sat by Pulse 99 99 95 Oximetry 10/05/18 10/05/18 10/05/18 08:00 08:11 08:21 Temperature Pulse Rate 75 90 75 Pulse Rate [ Anterior Bilateral] Pulse Rate [ Bilateral] Pulse Rate [ 81 From Monitor] Respiratory 28 H 26 H 23 Rate Respiratory Rate [Anterior Bilateral] Respiratory Rate [Bilateral ] Blood Pressure 104/74 122/64 104/74 O2 Sat by Pulse 96 93 92 Oximetry 10/05/18 09:15 Temperature Pulse Rate 75 Pulse Rate [ Anterior Bilateral] Pulse Rate [ Bilateral] Pulse Rate [ From Monitor] Respiratory Rate Respiratory Rate [Anterior Bilateral] Respiratory Rate [Bilateral ] Blood Pressure 135/62 O2 Sat by Pulse Oximetry Constitutional: appears uncomfortable, other (elderly looking CM, normocephalic and atraumatic with increased resp effort on MVS) Eyes: non-icteric ENT: oropharynx moist, other (ETT 23 cm KIEL) Neck: supple, no lymphadenopathy, no JVD, other (no thyromegaly) Effort: mildly labored Ascultation: Bilateral: clear, diminished breath sounds, other (+ barrel chest) Percussion: Bilateral: not dull Cardiovascular: regular rate and rhythm Gastrointestinal: normoactive bowel sounds, soft, non-tender, non-distended Integumentary: normal, other (post CABG sternotomy scar) Extremities: no cyanosis, no edema, pink and warm, pulses normal, no ischemia or petechiae Neurologic: non-focal exam (grossly), pupils equal and round, unable to assess Psychiatric: other (sedated) CBC and BMP: 10/04/18 08:04 10/04/18 08:04 ABG, PT/INR, D-dimer: ABG POC ABG pH 7.462 (7.35-7.45) H 10/05/18 12:06 POC ABG pCO2 35.8 (35-45) 10/05/18 12:06 POC ABG pO2 66 (80-105) L 10/05/18 12:06 POC ABG HCO3 25.6 10/05/18 12:06 POC ABG Total CO2 27 10/05/18 12:06 POC ABG O2 Sat 94 10/05/18 12:06 PT/INR, D-dimer PT 15.0 Sec. (12.2-14.9) H 10/02/18 07:22 INR 1.11 (0.87-1.13) 10/02/18 07:22 D-Dimer 1039.91 ng/mlDDU (0-234) H 10/02/18 21:01 Abnormal lab findings: Abnormal Labs 10/02/18 10/02/18 10/02/18 07:13 07:20 07:22 WBC 19.7 H Hgb 10.9 L Hct MCV 75 L MCH 23 L MCHC 31 L RDW 21.7 H Plt Count Lymph % (Auto) [place] % (Auto) Lymph # [place] # Seg Neutrophils % Seg Neutrophils # Seg Neutrophils # Man 13.2 H Monocytes # (Manual) 1.2 H PT 15.0 H D-Dimer POC ABG pH POC ABG pCO2 POC ABG pO2 Sodium Potassium 5.2 H D Carbon Dioxide 19 L BUN Glucose 340 H POC Glucose Lactic Acid Calcium C-Reactive Protein NT-Pro-B Natriuret Pep 3102 H 10/02/18 10/02/18 10/02/18 08:32 09:26 12:28 WBC Hgb Hct MCV MCH MCHC RDW Plt Count Lymph % (Auto) [place] % (Auto) Lymph # [place] # Seg Neutrophils % Seg Neutrophils # Seg Neutrophils # Man Monocytes # (Manual) PT D-Dimer POC ABG pH 7.201 L 7.254 L POC ABG pCO2 61.2 H 54.3 H POC ABG pO2 150 H 196 H Sodium Potassium Carbon Dioxide BUN Glucose POC Glucose Lactic Acid 3.00 H* Calcium C-Reactive Protein NT-Pro-B Natriuret Pep 10/02/18 10/02/18 10/02/18 20:43 21:01 21:01 WBC Hgb Hct MCV MCH MCHC RDW Plt Count Lymph % (Auto) [place] % (Auto) Lymph # [place] # Seg Neutrophils % Seg Neutrophils # Seg Neutrophils # Man Monocytes # (Manual) PT D-Dimer 1039.91 H POC ABG pH 7.307 L POC ABG pCO2 45.6 H POC ABG pO2 107 H Sodium Potassium Carbon Dioxide BUN Glucose POC Glucose Lactic Acid Calcium C-Reactive Protein 3.40 H NT-Pro-B Natriuret Pep 10/02/18 10/03/18 10/03/18 21:01 00:14 04:13 WBC 13.6 H Hgb 10.6 L Hct 34.5 L MCV 74 L MCH 23 L MCHC 31 L RDW 21.3 H Plt Count 134 L Lymph % (Auto) 6.0 L [place] % (Auto) 10.6 H Lymph # 0.8 L [place] # 1.4 H Seg Neutrophils % 83.1 H Seg Neutrophils # 11.3 H Seg Neutrophils # Man Monocytes # (Manual) PT D-Dimer POC ABG pH POC ABG pCO2 POC ABG pO2 Sodium Potassium Carbon Dioxide BUN Glucose POC Glucose 164 H Lactic Acid 2.80 H* Calcium C-Reactive Protein NT-Pro-B Natriuret Pep 10/03/18 10/03/18 10/03/18 04:13 04:13 04:47 WBC Hgb Hct MCV MCH MCHC RDW Plt Count Lymph % (Auto) [place] % (Auto) Lymph # [place] # Seg Neutrophils % Seg Neutrophils # Seg Neutrophils # Man Monocytes # (Manual) PT D-Dimer POC ABG pH POC ABG pCO2 POC ABG pO2 Sodium 136 L Potassium Carbon Dioxide 18 L BUN 29 H Glucose 168 H POC Glucose 182 H Lactic Acid 2.60 H* Calcium 8.3 L C-Reactive Protein NT-Pro-B Natriuret Pep 10/03/18 10/03/18 10/03/18 05:47 11:39 16:56 WBC Hgb Hct MCV MCH MCHC RDW Plt Count Lymph % (Auto) [place] % (Auto) Lymph # [place] # Seg Neutrophils % Seg Neutrophils # Seg Neutrophils # Man Monocytes # (Manual) PT D-Dimer POC ABG pH 7.314 L POC ABG pCO2 45.9 H POC ABG pO2 Sodium Potassium Carbon Dioxide BUN Glucose POC Glucose 134 H 118 H Lactic Acid Calcium C-Reactive Protein NT-Pro-B Natriuret Pep 10/03/18 10/04/18 10/04/18 23:13 05:20 05:44 WBC Hgb Hct MCV MCH MCHC RDW Plt Count Lymph % (Auto) [place] % (Auto) Lymph # [place] # Seg Neutrophils % Seg Neutrophils # Seg Neutrophils # Man Monocytes # (Manual) PT D-Dimer POC ABG pH POC ABG pCO2 POC ABG pO2 68 L Sodium Potassium Carbon Dioxide BUN Glucose POC Glucose 129 H 166 H Lactic Acid Calcium C-Reactive Protein NT-Pro-B Natriuret Pep 10/04/18 10/04/18 10/04/18 08:04 08:04 11:56 WBC Hgb 9.1 L Hct 28.7 L MCV 72 L MCH 23 L MCHC RDW 21.6 H Plt Count 126 L Lymph % (Auto) [place] % (Auto) Lymph # [place] # Seg Neutrophils % Seg Neutrophils # Seg Neutrophils # Man Monocytes # (Manual) PT D-Dimer POC ABG pH POC ABG pCO2 POC ABG pO2 Sodium Potassium Carbon Dioxide BUN 26 H Glucose 167 H POC Glucose 176 H Lactic Acid Calcium 8.2 L C-Reactive Protein NT-Pro-B Natriuret Pep 10/04/18 10/04/18 10/05/18 13:21 17:12 00:02 WBC Hgb Hct MCV MCH MCHC RDW Plt Count Lymph % (Auto) [place] % (Auto) Lymph # [place] # Seg Neutrophils % Seg Neutrophils # Seg Neutrophils # Man Monocytes # (Manual) PT D-Dimer POC ABG pH 7.462 H POC ABG pCO2 33.5 L POC ABG pO2 59 L Sodium Potassium Carbon Dioxide BUN Glucose POC Glucose 164 H 211 H Lactic Acid Calcium C-Reactive Protein NT-Pro-B Natriuret Pep 10/05/18 10/05/18 10/05/18 05:13 12:06 12:11 WBC Hgb Hct MCV MCH MCHC RDW Plt Count Lymph % (Auto) [place] % (Auto) Lymph # [place] # Seg Neutrophils % Seg Neutrophils # Seg Neutrophils # Man Monocytes # (Manual) PT D-Dimer POC ABG pH 7.462 H POC ABG pCO2 POC ABG pO2 66 L Sodium Potassium Carbon Dioxide BUN Glucose POC Glucose 190 H 185 H Lactic Acid Calcium C-Reactive Protein NT-Pro-B Natriuret Pep Allied health notes reviewed: nursing
--- NOTE | 2018-10-05 14:39 | Progress Note ---
Assessment and Plan Assessment and plan: Patient is a 68-year-old male with past medical history from records shows COPD, chronic systolic CHF, CVA, atrial fibrillation, iron deficiency anemia and CAD s/p CABG who presents with severe respiratory distress. Patient was noted to be lethargic with severe increased work of breathing and was intubated in the ER and placed on mechanical ventilation. Review of records is also off HPI. The record shows that the patient has been in the ED about 2 days prior to this visit. He also had affirm that he has been on mechanical ventilation on previous occasions for currently follows at the [facility]. The ED documentation the medication list reveals the patient also lives in a senior care house. On arrival he was noted to have a saturation of 60% and was difficult to oxygenate with CPAP despite Solu-Medrol and magnesium given enroute and mechanical ventilation in the ED. * Patient was intubated and placed on mechanical ventilation * Repeated ABG shows improvement and hypercapnia * X-ray was consistent with COPD also showed a right upper lobe nodular opacity * Echocardiogram revealed an EF of 20-25% with abnormal left ventricular diastolic function also observed * Cardiology acknowledged patient was in atrial fibrillation IV Lopressor was converted to by mouth Lopressor and lisinopril following extubation. Assessment the patient is frail and lives in a senior care house and is not a good candidate for long-term anticoagulation and will discuss with her family for this. Acute Respiratory failure with Hypoxia/hypercapneia ON Mechanical ventilation Hypertensive urgency Acute Systolic Congestive heart failure with possible combined diastolic dysfunction-Precluding fluids administration Sepsis-POA secondary PNA Acute Bronchitis. CT scan not showing any infiltrates. COPD with acute exacerbation secondary to above Thrombocytopenia Cardiomyopathy with EF OF 25-30% s/p CABG Atrial Fibrillation with RVR Leukocytosis Hyperkalemia DM with Hyperglycemia Iron deficiency anemia History of CVA Plan Continue supportive care Patient successfully extubated Blood cultures growing in to drug-resistant pseudomonas aeruginosa. Patient on isolation. ID consult SCD. send HIT antibodies results still pending. 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 IF no clear resolution will request ID support DVT/GI prophy Discussed with Nursing to obtain med Rec No family present. The high probability of a clinically significant, sudden or life threatening deterioration of the [CARDIAC, PULMONARY] system(s) required my full and direct attention, intervention and personal management. The aggregate critical care time was [35] minutes. This time is in addition to time spent performing reported procedures but includes the following: [X] Data Review and interpretation [X] Patient assessment and monitoring of vital signs [X] Documentation [X] Medication orders and management History Interval history: Patient seen and examined, was successfully extubated this afternoon to nasal cannula. A little bit agitated but following commands. Hospitalist Physical - Physical exam Narrative exam: VITAL SIGNS: Reviewed. GENERAL: The patient appeared well nourished and normally developed in mild distress. Morbidly obese. Vital signs as documented. HEAD: No signs of head trauma. EYES: Pupils are equal. Extraocular motions intact. EARS: Hearing grossly intact. MOUTH: Normal in appearance no acute pathology noted NECK: No adenopathy, no JVD. CHEST: Chest with Diminished breath sounds bilaterally. CARDIAC: Regular rate and rhythm. S1 and S2, without murmurs, gallops, or rubs. VASCULAR: No Edema. Peripheral pulses normal and equal in all extremities. ABDOMEN: Soft, without detectable tenderness. No sign of distention. No rebound or guarding, and no masses palpated. Bowel Sounds normal. MUSCULOSKELETAL: Good range of motion of all major joints. Extremities without clubbing, cyanosis or edema. NEUROLOGIC: Awake oriented moving all extremities. SKIN: No rash or lesions. - Constitutional Vitals: Temp Pulse Resp BP Pulse Ox 99.0 F 75 23 135/62 92 10/05/18 04:00 10/05/18 09:15 10/05/18 08:21 10/05/18 09:15 10/05/18 08:21 General appearance: Present: other (intubated, sedated ) Results - Labs CBC & Chem 7: 10/04/18 08:04 10/04/18 08:04 Labs: Laboratory Last Values WBC 10.0 K/mm3 (4.5-11.0) 10/04/18 08:04 RBC 3.98 M/mm3 (3.65-5.03) 10/04/18 08:04 Hgb 9.1 gm/dl (11.8-15.2) L 10/04/18 08:04 Hct 28.7 % (35.5-45.6) L 10/04/18 08:04 MCV 72 fl (84-94) L 10/04/18 08:04 MCH 23 pg (28-32) L 10/04/18 08:04 MCHC 32 % (32-34) 10/04/18 08:04 RDW 21.6 % (13.2-15.2) H 10/04/18 08:04 Plt Count 126 K/mm3 (140-440) L 10/04/18 08:04 Lymph % (Auto) 6.0 % (13.4-35.0) L 10/03/18 04:13 [place] % (Auto) 10.6 % (0.0-7.3) H 10/03/18 04:13 Eos % (Auto) 0.0 % (0.0-4.3) 10/03/18 04:13 Baso % (Auto) 0.3 % (0.0-1.8) 10/03/18 04:13 Lymph # 0.8 K/mm3 (1.2-5.4) L 10/03/18 04:13 [place] # 1.4 K/mm3 (0.0-0.8) H 10/03/18 04:13 Eos # 0.0 K/mm3 (0.0-0.4) 10/03/18 04:13 Baso # 0.0 K/mm3 (0.0-0.1) 10/03/18 04:13 Add Manual Diff Complete 10/02/18 07:20 Total Counted 100 10/02/18 07:20 Seg Neutrophils % 83.1 % (40.0-70.0) H 10/03/18 04:13 Seg Neuts % (Manual) 67.0 % (40.0-70.0) 10/02/18 07:20 Band Neutrophils % 1.0 % 10/02/18 07:20 Lymphocytes % (Manual) 26.0 % (13.4-35.0) 10/02/18 07:20 Reactive Lymphs % (Man) 0 % 10/02/18 07:20 Monocytes % (Manual) 6.0 % (0.0-7.3) 10/02/18 07:20 Eosinophils % (Manual) 0 % (0.0-4.3) 10/02/18 07:20 Basophils % (Manual) 0 % (0.0-1.8) 10/02/18 07:20 Metamyelocytes % 0 % 10/02/18 07:20 Myelocytes % 0 % 10/02/18 07:20 Promyelocytes % 0 % 10/02/18 07:20 Blast Cells % 0 % 10/02/18 07:20 Nucleated RBC % Not Reportable 10/02/18 07:20 Seg Neutrophils # 11.3 K/mm3 (1.8-7.7) H 10/03/18 04:13 Seg Neutrophils # Man 13.2 K/mm3 (1.8-7.7) H 10/02/18 07:20 Band Neutrophils # 0.2 K/mm3 10/02/18 07:20 Lymphocytes # (Manual) 5.1 K/mm3 (1.2-5.4) 10/02/18 07:20 Abs React Lymphs (Man) 0.0 K/mm3 10/02/18 07:20 Monocytes # (Manual) 1.2 K/mm3 (0.0-0.8) H 10/02/18 07:20 Eosinophils # (Manual) 0.0 K/mm3 (0.0-0.4) 10/02/18 07:20 Basophils # (Manual) 0.0 K/mm3 (0.0-0.1) 10/02/18 07:20 Metamyelocytes # 0.0 K/mm3 10/02/18 07:20 Myelocytes # 0.0 K/mm3 10/02/18 07:20 Promyelocytes # 0.0 K/mm3 10/02/18 07:20 Blast Cells # 0.0 K/mm3 10/02/18 07:20 WBC Morphology Not Reportable 10/02/18 07:20 Hypersegmented Neuts Not Reportable 10/02/18 07:20 Hyposegmented Neuts Not Reportable 10/02/18 07:20 Hypogranular Neuts Not Reportable 10/02/18 07:20 Smudge Cells Not Reportable 10/02/18 07:20 Toxic Granulation Not Reportable 10/02/18 07:20 Toxic Vacuolation Not Reportable 10/02/18 07:20 Dohle Bodies Not Reportable 10/02/18 07:20 Pelger-Huet Anomaly Not Reportable 10/02/18 07:20 Markie Rods Not Reportable 10/02/18 07:20 Platelet Estimate Consistent w auto 10/02/18 07:20 Clumped Platelets Not Reportable 10/02/18 07:20 Plt Clumps, EDTA Not Reportable 10/02/18 07:20 Large Platelets Not Reportable 10/02/18 07:20 Giant Platelets Not Reportable 10/02/18 07:20 Platelet Satelliting Not Reportable 10/02/18 07:20 Plt Morphology Comment Not Reportable 10/02/18 07:20 RBC Morphology Not Reportable 10/02/18 07:20 Dimorphic RBCs Not Reportable 10/02/18 07:20 Polychromasia Not Reportable 10/02/18 07:20 Hypochromasia 1+ 10/02/18 07:20 Poikilocytosis Not Reportable 10/02/18 07:20 Anisocytosis 2+ 10/02/18 07:20 Microcytosis 2+ 10/02/18 07:20 Macrocytosis Not Reportable 10/02/18 07:20 Spherocytes Not Reportable 10/02/18 07:20 Pappenheimer Bodies Not Reportable 10/02/18 07:20 Sickle Cells Not Reportable 10/02/18 07:20 Target Cells Not Reportable 10/02/18 07:20 Tear Drop Cells Not Reportable 10/02/18 07:20 Ovalocytes 1+ 10/02/18 07:20 Helmet Cells Not Reportable 10/02/18 07:20 [place] Bodies Not Reportable 10/02/18 07:20 [place] Rings Not Reportable 10/02/18 07:20 [place] Cells Not Reportable 10/02/18 07:20 Bite Cells Not Reportable 10/02/18 07:20 Crenated Cell Not Reportable 10/02/18 07:20 Elliptocytes Not Reportable 10/02/18 07:20 Acanthocytes (Spur) Not Reportable 10/02/18 07:20 Rouleaux Not Reportable 10/02/18 07:20 Hemoglobin C Crystals Not Reportable 10/02/18 07:20 Schistocytes Not Reportable 10/02/18 07:20 Malaria parasites Not Reportable 10/02/18 07:20 Nicholas Bodies Not Reportable 10/02/18 07:20 Hem Pathologist Commnt No 10/02/18 07:20 PT 15.0 Sec. (12.2-14.9) H 10/02/18 07:22 INR 1.11 (0.87-1.13) 10/02/18 07:22 D-Dimer 1039.91 ng/mlDDU (0-234) H 10/02/18 21:01 POC ABG pH 7.462 (7.35-7.45) H 10/05/18 12:06 POC ABG pCO2 35.8 (35-45) 10/05/18 12:06 POC ABG pO2 66 (80-105) L 10/05/18 12:06 POC ABG HCO3 25.6 10/05/18 12:06 POC ABG Total CO2 27 10/05/18 12:06 POC ABG O2 Sat 94 10/05/18 12:06 POC ABG Base Excess 2 10/05/18 12:06 FiO2 30 % 10/05/18 12:06 Sodium 141 mmol/L (137-145) 10/04/18 08:04 Potassium 3.7 mmol/L (3.6-5.0) D 10/04/18 08:04 Chloride 103.6 mmol/L (98-107) 10/04/18 08:04 Carbon Dioxide 24 mmol/L (22-30) 10/04/18 08:04 Anion Gap 17 mmol/L 10/04/18 08:04 BUN 26 mg/dL (9-20) H 10/04/18 08:04 Creatinine 0.9 mg/dL (0.8-1.5) 10/04/18 08:04 Estimated GFR > 60 ml/min 10/04/18 08:04 BUN/Creatinine Ratio 29 % 10/04/18 08:04 Glucose 167 mg/dL (75-100) H 10/04/18 08:04 POC Glucose 185 (70-105) H 10/05/18 12:11 Lactic Acid 2.60 mmol/L (0.7-2.0) H* 10/03/18 04:13 Calcium 8.2 mg/dL (8.4-10.2) L 10/04/18 08:04 Magnesium 2.30 mg/dL (1.7-2.3) 10/02/18 18:04 Total Bilirubin 0.50 mg/dL (0.1-1.2) 10/02/18 07:13 AST 20 units/L (5-40) 10/02/18 07:13 ALT 11 units/L (7-56) 10/02/18 07:13 Alkaline Phosphatase 100 units/L (35-129) 10/02/18 07:13 Troponin T < 0.010 ng/mL (0.00-0.029) 10/02/18 07:13 C-Reactive Protein 3.40 mg/dL (0.00-1.30) H 10/02/18 21:01 NT-Pro-B Natriuret Pep 3102 pg/mL (0-900) H 10/02/18 07:13 Total Protein 7.8 g/dL (6.3-8.2) 10/02/18 07:13 Albumin 3.9 g/dL (3.9-5) 10/02/18 07:13 Albumin/Globulin Ratio 1.0 % 10/02/18 07:13 TSH 0.417 mlU/mL (0.270-4.200) 10/02/18 18:04 Free T4 0.92 ng/dL (0.76-1.46) 10/02/18 18:04 Urine Color Straw (Yellow) 10/02/18 09:12 Urine Turbidity Clear (Clear) 10/02/18 09:12 Urine pH 5.0 (5.0-7.0) 10/02/18 09:12 Ur Specific [place] 1.006 (1.003-1.030) 10/02/18 09:12 Urine Protein 30 mg/dl mg/dL (Negative) 10/02/18 09:12 Urine Glucose (UA) 50 mg/dL (Negative) 10/02/18 09:12 Urine Ketones Neg mg/dL (Negative) 10/02/18 09:12 Urine Blood Neg (Negative) 10/02/18 09:12 Urine Nitrite Neg (Negative) 10/02/18 09:12 Urine Bilirubin Neg (Negative) 10/02/18 09:12 Urine Urobilinogen < 2.0 mg/dL (<2.0) 10/02/18 09:12 Ur Leukocyte Esterase Neg (Negative) 10/02/18 09:12 Urine WBC (Auto) 2.0 /HPF (0.0-6.0) 10/02/18 09:12 Urine RBC (Auto) 2.0 /HPF (0.0-6.0) 10/02/18 09:12 Urine Bacteria (Auto) 1+ /HPF (Negative) 10/02/18 09:12 Urine Yeast (Budding) Few /HPF 10/02/18 09:12 Blood Type A NEGATIVE 10/02/18 08:51 Antibody Screen Negative 10/02/18 08:51 Nutrition/Malnutrition Assess - Dietary Evaluation Nutrition/Malnutrition Findings: Nutrition Notes Start: 10/03/18 12:55 Freq: Status: Active Protocol: Document 10/05/18 11:35 [facility] (Rec: 10/05/18 11:41 [facility] [id number]) Nutrition Notes Initial or Follow up Reassessment Current Diagnosis COPD Sepsis Respiratory Failure Current Diet TF - Vital AF 1.2 at 70ml/hr Labs/Tests Reviewed Pertinent Medications Reviewed Height 6 ft 2 in Weight 76.7 kg [place] Body Weight (kg) 86.36 BMI 21.7 Weight change and time frame Current wt obtained from bed scale Weight Status Underweight Subjective/Other Information Observed Vital High Protein infusing at 50ml/hr. RN informed of correct TF and promptly switched formulas. No propofol infusing at time of visit (10:23). Pt remains on vent support. Percent of energy/protein needs met: 62% energy 100% pro Burn Absent Trauma Absent #1 Nutrition Diagnosis Inadequate oral intake Diagnosis Progress(for reassessment Continues documentation) Is patient on ventilator? Yes Is Patient Ambulatory and/or Out of Bed No REE-([facility]-confined to bed) 1921.896 Kcal/Kg value to use for calculation 29 Approximate Energy Requirements Using 2224 kcal/Kg Additional Notes Pro needs 1.2-2g/k-153g/ day Fluid needs 1ml/kcal Nutrition Intervention Nutrition Support: Vital AF 1.2 at 70ml/hr with 100ml water flush q4h. Kcal 2,016 Protein (gm) 1,266 Carbohydrates (gm) 186 Fat (gm) 91 Fluid (mL) 1,362 Fiber (gm) 9 Goal #1 TF tolerance Goal #2 TF to meet 90-100% energy and pro needs Goal #3 Wt maintenance Follow-Up By: 10/07/18 Additional Comments F/U: TF goal rate, vent status
[2018-10-05] MEDS: LOPRESSOR PO SCH (22:15)
[2018-10-06] MEDS: VANCOMYCIN 1,250 MG in NACL 0.9% 250ML 250 ML IV SCH (02:10)
[2018-10-06] MEDS: DUONEB *Not for PRN Use IH SCH ×3 (02:16→14:57)
[2018-10-06] MEDS: MAXIPIME/NS 2 GM/100 ML 2 GM/100 ML BAG IV SCH ×4 (04:41→22:00)
[2018-10-06 05:40] LABS: Hematocrit 30.5 % (35.5-45.6); Hemoglobin 9.8 gm/dl (11.8-15.2); Mean Corpuscular HGB Conc 32 % (32-34); Mean Corpuscular Volume 73 fl (84-94); Platelet Count 148 K/mm3 (140-440); Red Blood Count 4.19 M/mm3 (3.65-5.03)
[2018-10-06 05:59] LABS: BUN/Creatinine Ratio 30; Blood Urea Nitrogen 21 mg/dL (9-20); Calcium 8.6 mg/dL (8.4-10.2); Hemolysis Index 110
[2018-10-06] MEDS: HumaLOG SUB-Q SCH ×5 (06:08→21:20)
[2018-10-06] MEDS: LASIX IV SCH (06:15)
[2018-10-06] MEDS: BROVANA NEBU IH SCH (07:28)
[2018-10-06] MEDS: PULMICORT IH SCH (07:28)
--- NOTE | 2018-10-06 07:56 | XRay Report ---
AP CHEST: HISTORY: Followup respiratory failure Mild improvement in pulmonary venous congestion and heart size is demonstrated since yesterday's exam. Severe underlying emphysematous changes are noted. No evidence for pneumonia, large mass, pleural effusion or pneumothorax. IMPRESSION: Mild improvement in congestive changes as described. Severe emphysema.
[2018-10-06] MEDS ORDERED: POTASSIUM CHLORIDE FEEDTUBE ONE (08:00)
[2018-10-06] MEDS: LOPRESSOR PO SCH ×3 (08:06→21:03)
--- NOTE | 2018-10-06 09:32 | Progress Note ---
Assessment and Plan Assessment and plan: Patient is a 68-year-old male with past medical history from records shows COPD, chronic systolic CHF, CVA, atrial fibrillation, iron deficiency anemia and CAD s/p CABG who presents with severe respiratory distress. Patient was noted to be lethargic with severe increased work of breathing and was intubated in the ER and placed on mechanical ventilation. Review of records is also off HPI. The record shows that the patient has been in the ED about 2 days prior to this visit. He also had affirm that he has been on mechanical ventilation on previous occasions for currently follows at the [facility]. The ED documentation the medication list reveals the patient also lives [place] a detention house. On arrival he was noted to have a saturation of 60% and was difficult to oxygenate with CPAP despite Solu-Medrol and magnesium given enroute and mechanical ventilation in the ED. * Patient was intubated and placed on mechanical ventilation * Repeated ABG shows improvement and hypercapnia * X-ray was consistent with COPD also showed a right upper lobe nodular opacity * Echocardiogram revealed an EF of 20-25% with abnormal left ventricular diastolic function also observed * Cardiology acknowledged patient was in atrial fibrillation IV Lopressor was converted to by mouth Lopressor and lisinopril following extubation. Assessment the patient is frail and lives in a detention house and is not a good candidate for long-term anticoagulation and will discuss with her family for this. Acute Respiratory failure with Hypoxia/hypercapneia ON Mechanical ventilation, now extubated Hypertensive urgency Acute Systolic Congestive heart failure with possible combined diastolic dysfunction-Precluding fluids administration Sepsis-POA secondary PNA Acute Bronchitis. CT scan not showing any infiltrates. COPD with acute exacerbation secondary to above Thrombocytopenia Cardiomyopathy with EF OF 25-30% s/p CABG Atrial Fibrillation with RVR Leukocytosis Hyperkalemia DM with Hyperglycemia Iron deficiency anemia History of CVA Plan Continue supportive care Patient successfully extubated Blood cultures growing in to drug-resistant pseudomonas aeruginosa. Patient on isolation. ID consulted SCD. send HIT antibodies results still pending. Continue abx protocol Judicious use of lasix considering low BP Sepsis Protocol Assistant [employer] and cardiology consult INPUT NOTED Blood cultures NO GROWTH SO FAR DVT/GI prophylaxis No family present. The high probability of a clinically significant, sudden or life threatening deterioration of the [CARDIAC, PULMONARY] system(s) required my full and direct attention, intervention and personal management. The aggregate critical care time was [35] minutes. This time is in addition to time spent performing reported procedures but includes the following: [X] Data Review and interpretation [X] Patient assessment and monitoring of vital signs [X] Documentation [X] Medication orders and management Hospitalist Physical - Physical exam Narrative exam: GEN: Not in acute distress, lying in bed HEENT: Normocephalic, atraumatic, Neck: supple, No JVD Lungs: Clear to auscultation bilaterally, no crackles or wheeze Heart:S1 and S2 irreg, irreg, no rubs or gallop, Abd:soft, non tender, non distended, normal bowel sounds Ext: No edema, no clubbing or cyanosis Neuro: Lethargic, cannot give history - Constitutional Vitals: Temp Pulse Resp BP Pulse Ox 98.8 F 87 29 H 95/49 93 10/06/18 03:02 10/06/18 08:01 10/06/18 08:01 10/06/18 08:01 10/06/18 08:01 Results - Labs CBC & Chem 7: 10/06/18 04:19 10/06/18 04:19 Labs: Laboratory Last Values WBC 7.8 K/mm3 (4.5-11.0) 10/06/18 04:19 RBC 4.19 M/mm3 (3.65-5.03) 10/06/18 04:19 Hgb 9.8 gm/dl (11.8-15.2) L 10/06/18 04:19 Hct 30.5 % (35.5-45.6) L 10/06/18 04:19 MCV 73 fl (84-94) L 10/06/18 04:19 MCH 23 pg (28-32) L 10/06/18 04:19 MCHC 32 % (32-34) 10/06/18 04:19 RDW 21.0 % (13.2-15.2) H 10/06/18 04:19 Plt Count 148 K/mm3 (140-440) 10/06/18 04:19 Lymph % (Auto) 6.0 % (13.4-35.0) L 10/03/18 04:13 Bath % (Auto) 10.6 % (0.0-7.3) H 10/03/18 04:13 Eos % (Auto) 0.0 % (0.0-4.3) 10/03/18 04:13 Baso % (Auto) 0.3 % (0.0-1.8) 10/03/18 04:13 Lymph # 0.8 K/mm3 (1.2-5.4) L 10/03/18 04:13 Bath # 1.4 K/mm3 (0.0-0.8) H 10/03/18 04:13 Eos # 0.0 K/mm3 (0.0-0.4) 10/03/18 04:13 Baso # 0.0 K/mm3 (0.0-0.1) 10/03/18 04:13 Add Manual Diff Complete 10/02/18 07:20 Total Counted 100 10/02/18 07:20 Seg Neutrophils % 83.1 % (40.0-70.0) H 10/03/18 04:13 Seg Neuts % (Manual) 67.0 % (40.0-70.0) 10/02/18 07:20 Band Neutrophils % 1.0 % 10/02/18 07:20 Lymphocytes % (Manual) 26.0 % (13.4-35.0) 10/02/18 07:20 Reactive Lymphs % (Man) 0 % 10/02/18 07:20 Monocytes % (Manual) 6.0 % (0.0-7.3) 10/02/18 07:20 Eosinophils % (Manual) 0 % (0.0-4.3) 10/02/18 07:20 Basophils % (Manual) 0 % (0.0-1.8) 10/02/18 07:20 Metamyelocytes % 0 % 10/02/18 07:20 Myelocytes % 0 % 10/02/18 07:20 Promyelocytes % 0 % 10/02/18 07:20 Blast Cells % 0 % 10/02/18 07:20 Nucleated RBC % Not Reportable 10/02/18 07:20 Seg Neutrophils # 11.3 K/mm3 (1.8-7.7) H 10/03/18 04:13 Seg Neutrophils # Man 13.2 K/mm3 (1.8-7.7) H 10/02/18 07:20 Band Neutrophils # 0.2 K/mm3 10/02/18 07:20 Lymphocytes # (Manual) 5.1 K/mm3 (1.2-5.4) 10/02/18 07:20 Abs React Lymphs (Man) 0.0 K/mm3 10/02/18 07:20 Monocytes # (Manual) 1.2 K/mm3 (0.0-0.8) H 10/02/18 07:20 Eosinophils # (Manual) 0.0 K/mm3 (0.0-0.4) 10/02/18 07:20 Basophils # (Manual) 0.0 K/mm3 (0.0-0.1) 10/02/18 07:20 Metamyelocytes # 0.0 K/mm3 10/02/18 07:20 Myelocytes # 0.0 K/mm3 10/02/18 07:20 Promyelocytes # 0.0 K/mm3 10/02/18 07:20 Blast Cells # 0.0 K/mm3 10/02/18 07:20 WBC Morphology Not Reportable 10/02/18 07:20 Hypersegmented Neuts Not Reportable 10/02/18 07:20 Hyposegmented Neuts Not Reportable 10/02/18 07:20 Hypogranular Neuts Not Reportable 10/02/18 07:20 Smudge Cells Not Reportable 10/02/18 07:20 Toxic Granulation Not Reportable 10/02/18 07:20 Toxic Vacuolation Not Reportable 10/02/18 07:20 Dohle Bodies Not Reportable 10/02/18 07:20 Pelger-Huet Anomaly Not Reportable 10/02/18 07:20 Markie Rods Not Reportable 10/02/18 07:20 Platelet Estimate Consistent w auto 10/02/18 07:20 Clumped Platelets Not Reportable 10/02/18 07:20 Plt Clumps, EDTA Not Reportable 10/02/18 07:20 Large Platelets Not Reportable 10/02/18 07:20 Giant Platelets Not Reportable 10/02/18 07:20 Platelet Satelliting Not Reportable 10/02/18 07:20 Plt Morphology Comment Not Reportable 10/02/18 07:20 RBC Morphology Not Reportable 10/02/18 07:20 Dimorphic RBCs Not Reportable 10/02/18 07:20 Polychromasia Not Reportable 10/02/18 07:20 Hypochromasia 1+ 10/02/18 07:20 Poikilocytosis Not Reportable 10/02/18 07:20 Anisocytosis 2+ 10/02/18 07:20 Microcytosis 2+ 10/02/18 07:20 Macrocytosis Not Reportable 10/02/18 07:20 Spherocytes Not Reportable 10/02/18 07:20 Pappenheimer Bodies Not Reportable 10/02/18 07:20 Sickle Cells Not Reportable 10/02/18 07:20 Target Cells Not Reportable 10/02/18 07:20 Tear Drop Cells Not Reportable 10/02/18 07:20 Ovalocytes 1+ 10/02/18 07:20 Helmet Cells Not Reportable 10/02/18 07:20 [place] Bodies Not Reportable 10/02/18 07:20 Alton Rings Not Reportable 10/02/18 07:20 Anabela Cells Not Reportable 10/02/18 07:20 Bite Cells Not Reportable 10/02/18 07:20 Crenated Cell Not Reportable 10/02/18 07:20 Elliptocytes Not Reportable 10/02/18 07:20 Acanthocytes (Spur) Not Reportable 10/02/18 07:20 Rouleaux Not Reportable 10/02/18 07:20 Hemoglobin C Crystals Not Reportable 10/02/18 07:20 Schistocytes Not Reportable 10/02/18 07:20 Malaria parasites Not Reportable 10/02/18 07:20 Nicholas Bodies Not Reportable 10/02/18 07:20 Hem Pathologist Commnt No 10/02/18 07:20 PT 15.0 Sec. (12.2-14.9) H 10/02/18 07:22 INR 1.11 (0.87-1.13) 10/02/18 07:22 D-Dimer 1039.91 ng/mlDDU (0-234) H 10/02/18 21:01 POC ABG pH 7.462 (7.35-7.45) H 10/05/18 12:06 POC ABG pCO2 35.8 (35-45) 10/05/18 12:06 POC ABG pO2 66 (80-105) L 10/05/18 12:06 POC ABG HCO3 25.6 10/05/18 12:06 POC ABG Total CO2 27 10/05/18 12:06 POC ABG O2 Sat 94 10/05/18 12:06 POC ABG Base Excess 2 10/05/18 12:06 FiO2 30 % 10/05/18 12:06 Sodium 142 mmol/L (137-145) 10/06/18 04:19 Potassium 3.4 mmol/L (3.6-5.0) L 10/06/18 04:19 Chloride 103.8 mmol/L (98-107) 10/06/18 04:19 Carbon Dioxide 25 mmol/L (22-30) 10/06/18 04:19 Anion Gap 17 mmol/L 10/06/18 04:19 BUN 21 mg/dL (9-20) H 10/06/18 04:19 Creatinine 0.7 mg/dL (0.8-1.5) L 10/06/18 04:19 Estimated GFR > 60 ml/min 10/06/18 04:19 BUN/Creatinine Ratio 30 % 10/06/18 04:19 Glucose 133 mg/dL (75-100) H 10/06/18 04:19 POC Glucose 135 (70-105) H 10/06/18 05:00 Lactic Acid 2.60 mmol/L (0.7-2.0) H* 10/03/18 04:13 Calcium 8.6 mg/dL (8.4-10.2) 10/06/18 04:19 Magnesium 2.30 mg/dL (1.7-2.3) 10/02/18 18:04 Total Bilirubin 0.50 mg/dL (0.1-1.2) 10/02/18 07:13 AST 20 units/L (5-40) 10/02/18 07:13 ALT 11 units/L (7-56) 10/02/18 07:13 Alkaline Phosphatase 100 units/L (35-129) 10/02/18 07:13 Troponin T < 0.010 ng/mL (0.00-0.029) 10/02/18 07:13 C-Reactive Protein 3.40 mg/dL (0.00-1.30) H 10/02/18 21:01 NT-Pro-B Natriuret Pep 3102 pg/mL (0-900) H 10/02/18 07:13 Total Protein 7.8 g/dL (6.3-8.2) 10/02/18 07:13 Albumin 3.9 g/dL (3.9-5) 10/02/18 07:13 Albumin/Globulin Ratio 1.0 % 10/02/18 07:13 TSH 0.417 mlU/mL (0.270-4.200) 10/02/18 18:04 Free T4 0.92 ng/dL (0.76-1.46) 10/02/18 18:04 Urine Color Straw (Yellow) 10/02/18 09:12 Urine Turbidity Clear (Clear) 10/02/18 09:12 Urine pH 5.0 (5.0-7.0) 10/02/18 09:12 Ur Specific Palmer 1.006 (1.003-1.030) 10/02/18 09:12 Urine Protein 30 mg/dl mg/dL (Negative) 10/02/18 09:12 Urine Glucose (UA) 50 mg/dL (Negative) 10/02/18 09:12 Urine Ketones Neg mg/dL (Negative) 10/02/18 09:12 Urine Blood Neg (Negative) 10/02/18 09:12 Urine Nitrite Neg (Negative) 10/02/18 09:12 Urine Bilirubin Neg (Negative) 10/02/18 09:12 Urine Urobilinogen < 2.0 mg/dL (<2.0) 10/02/18 09:12 Ur Leukocyte Esterase Neg (Negative) 10/02/18 09:12 Urine WBC (Auto) 2.0 /HPF (0.0-6.0) 10/02/18 09:12 Urine RBC (Auto) 2.0 /HPF (0.0-6.0) 10/02/18 09:12 Urine Bacteria (Auto) 1+ /HPF (Negative) 10/02/18 09:12 Urine Yeast (Budding) Few /HPF 10/02/18 09:12 Blood Type A NEGATIVE 10/02/18 08:51 Antibody Screen Negative 10/02/18 08:51 Nutrition/Malnutrition Assess - Dietary Evaluation Nutrition/Malnutrition Findings: Nutrition Notes Start: 10/03/18 12:55 Freq: Status: Active Protocol: Document 10/05/18 11:35 CARMINE (Rec: 10/05/18 11:41 NJPATRICK SRW- [email or web address]) Nutrition Notes Initial or Follow up Reassessment Current Diagnosis COPD Sepsis Respiratory Failure Current Diet TF - Vital AF 1.2 at 70ml/hr Labs/Tests Reviewed Pertinent Medications Reviewed Height 6 ft 2 in Weight 76.7 kg [place] Body Weight (kg) 86.36 BMI 21.7 Weight change and time frame Current wt obtained from bed scale Weight Status Underweight Subjective/Other Information Observed Vital High Protein infusing at 50ml/hr. RN informed of correct TF and promptly switched formulas. No propofol infusing at time of visit (10:23). Pt remains on vent support. Percent of energy/protein needs met: 62% energy 100% pro Burn Absent Trauma Absent #1 Nutrition Diagnosis Inadequate oral intake Diagnosis Progress(for reassessment Continues documentation) Is patient on ventilator? Yes Is Patient Ambulatory and/or Out of Bed No REE-([place]-confined to bed) 1921.896 Kcal/Kg value to use for calculation 29 Approximate Energy Requirements Using 2224 kcal/Kg Additional Notes Pro needs 1.2-2g/k-153g/ day Fluid needs 1ml/kcal Nutrition Intervention Nutrition Support: Vital AF 1.2 at 70ml/hr with 100ml water flush q4h. Kcal 2,016 Protein (gm) 1,266 Carbohydrates (gm) 186 Fat (gm) 91 Fluid (mL) 1,362 Fiber (gm) 9 Goal #1 TF tolerance Goal #2 TF to meet 90-100% energy and pro needs Goal #3 Wt maintenance Follow-Up By: 10/07/18 Additional Comments F/U: TF goal rate, vent status
--- NOTE | 2018-10-06 09:43 | Consultation ---
History of Present Illness - Reason for Consult Consult date: 10/06/18 acute resp failure Requesting physician: PEEWEE MCINTOSH - History of Present Illness 68 y/o male with history of COPD, chronic systolic CHF, CVA, atrial fibrillation, anemia and CAD s/p CAB; admitted on 09/30/2018 due to worsening respiratory distress and AMS / lethargy. Patient has been in the ED about 2 days prior to this admission. Patient reports he has been with worsening SOB for 2 weeks. He reports coughing up, however he cannot give details of history as he was just extubated. Denies N/V/D, chest pain. In the ED, temp 97.6, HR 68, BP 118/52, R 16, O2 saturation 60%. WBC 19.7. Hg 10.9, pat 272. lactate 3. Creat 1. LFTs normal. BNP 3102. CRP 3.4. UA neg. In the ED he had difficult to oxygenate with CPAP despite Solu-Medrol and magnesium given enroute, requiring intubation. Blood culture 10/02/2018 negative. Tracheal asp 10/02/2018 showed Pseudomonas MDR sensitive to cefepime, resistant to FQ, AG and aztreonam. CXR initially with severe emphysema and no infiltrates, but r epeat CXR showed bilateral pneumonitis. Review of Systems: limited due to confusion General: no fever, chills, nightsweats, unintentional weight change, or change in appetite Cutaneous: no rash, pruritus Head: no headaches or injury Eyes: no changes in vision, eye pain, double vision Ears: no ear pain, ear discharge, ringing or hearing loss Nose: no nose bleeding, stuffiness Mouth & throat: no bleeding gums, no horseness, no dental problems, or swollen glands Neck: no pain, node enlargement/lumps, tyroid enlargement or tenderness Respiratory: +cough, +SOB, wheezing, sputum, hemoptysis, pleuritic chest pain Cardiovascular: no chest pain, leg edema, cyanosis, RICE, orthopnea Musculoskeletal: no decreased joint motion, bone or joint pain, joint swelling, muscle aches Gastrointestinal: no nausea, vomiting, hematemesis, diarrhea, constipation, melena, bright red blood in stools, fecal incontinence, jaundice Genitourinary/Reproductive: no frequent urination, dysuria, hematuria, incontinence Neurogical: no seizures, no headaches, no weakness, no paresthesias, no loss of speech or vision; no memory loss, no vertigo, no tremors, no numbness Psychiatric: stable mood; no excessive anxiety, sadness or moodiness Past History Past Medical History: CAD, COPD, hypertension Past Surgical History: CABG Social history: full code Family history: no significant family history Medications and Allergies Allergies Allergy/AdvReac Type Severity Reaction Status Date / Time No Known Allergies Allergy Verified 09/30/18 14:34 Home Medications Medication Instructions Recorded Confirmed Last Taken Type ALBUTEROL Inhaler (OR & NICU) 2 puff IH Q4HR PRN #1 inhalation 09/30/18 Unknown Rx [ProAir HFA Inhaler] Azithromycin [Zithromax Z-ADAL] 250 mg PO DAILY #6 tablet 09/30/18 Unknown Rx Benzonatate [Tessalon Perles] 100 mg PO Q8HR PRN #20 capsule 09/30/18 Unknown Rx predniSONE [Deltasone] 20 mg PO DAILY #15 tablet 09/30/18 Unknown Rx traMADol [Ultram] 50 mg PO Q6HR PRN #24 tablet 09/30/18 Unknown Rx Active Meds: Active Medications Albuterol (Proventil) 2.5 mg IH Q3HRT PRN PRN Reason: Shortness Of Breath Albuterol/Ipratropium (Duoneb *Not For Prn Use*) 1 ampul IH Q6HRT [facility] Last Admin: 10/06/18 07:28 Dose: Not Given Documented by: Arformoterol Tartrate (Brovana Nebu) 15 mcg IH Q12HRT [facility] Last Admin: 10/06/18 07:28 Dose: Not Given Documented by: Budesonide (Pulmicort) 0.5 mg IH Q12HRT [facility] Last Admin: 10/06/18 07:28 Dose: Not Given Documented by: Dextrose (D50w (25gm) Syringe) 50 ml IV PRN PRN PRN Reason: Hypoglycemia Famotidine (Pepcid) 20 mg PO BID [facility] Last Admin: 10/05/18 22:15 Dose: 20 mg Documented by: Furosemide (Lasix) 20 mg IV 0600,1800 [facility] Last Admin: 10/06/18 06:15 Dose: 20 mg Documented by: Hydrophilic Ointment (Vaseline Lip Therapy) 1 applic TP Q2HR PRN PRN Reason: Dry Lips Cefepime HCl (Maxipime/Ns 2 Gm/100 Ml) 2 gm in 100 mls @ 200 mls/hr IV Q8HR [facility]; Protocol Last Admin: 10/06/18 06:12 Dose: 200 mls/hr Documented by: Vancomycin HCl 1,250 mg/ (Sodium Chloride) 275 mls @ 166.667 mls/hr IV Q12H [facility] Last Admin: 10/06/18 02:10 Dose: 166.667 mls/hr Documented by: Insulin Human Lispro (Humalog) 0 unit SUB-Q ACHS [facility]; Protocol Lisinopril (Zestril) 20 mg PO QDAY [facility] Metoprolol Tartrate (Lopressor) 25 mg PO TID [facility] Last Admin: 10/05/18 22:15 Dose: 25 mg Documented by: Multi-Ingred Cream/Lotion/Oil/Oint (Artificial Tears Ophth Oint) 1 applic OU Q4HR PRN PRN Reason: Dry Eye(s) Quetiapine Fumarate (Seroquel) 100 mg PO BID [facility] Last Admin: 10/05/18 22:15 Dose: 100 mg Documented by: Quetiapine Fumarate (Seroquel) 50 mg PO BID [facility] Last Admin: 10/05/18 22:15 Dose: 50 mg Documented by: Senna (Senokot) 8.6 mg PO BID [facility] Last Admin: 10/05/18 22:10 Dose: 8.6 mg Documented by: Sodium Chloride (Sodium Chloride Flush Syringe 10 Ml) 10 ml IV BID [facility] Last Admin: 10/05/18 22:00 Dose: 10 ml Documented by: Sodium Chloride (Sodium Chloride Flush Syringe 10 Ml) 10 ml IV PRN PRN PRN Reason: LINE FLUSH Physical Examination - Physical Exam Narrative exam: [facility] - Constitutional Vitals: Vital Signs Temp Pulse Resp BP Pulse Ox 98.8 F 87 29 H 95/49 93 10/06/18 03:02 10/06/18 08:01 10/06/18 08:01 10/06/18 08:01 10/06/18 08:01 Temperature -Last 24 Hours Temperature 98.8 F Temperature 98.3 F Temperature 99.2 F Temperature 99.6 F Temperature 99.1 F Results - Labs CBC & Chem 7: 10/06/18 04:19 10/06/18 04:19 Labs: Abnormal lab results 10/05/18 10/05/18 10/05/18 Range/Units 12:06 12:11 18:13 Hgb (11.8-15.2) gm/dl Hct (35.5-45.6) % MCV (84-94) fl MCH (28-32) pg RDW (13.2-15.2) % POC ABG pH 7.462 H (7.35-7.45) POC ABG pO2 66 L (80-105) Potassium (3.6-5.0) mmol/L BUN (9-20) mg/dL Creatinine (0.8-1.5) mg/dL Glucose (75-100) mg/dL POC Glucose 185 H 177 H (70-105) 10/05/18 10/06/18 10/06/18 Range/Units 23:49 04:19 04:19 Hgb 9.8 L (11.8-15.2) gm/dl Hct 30.5 L (35.5-45.6) % MCV 73 L (84-94) fl MCH 23 L (28-32) pg RDW 21.0 H (13.2-15.2) % POC ABG pH (7.35-7.45) POC ABG pO2 (80-105) Potassium 3.4 L (3.6-5.0) mmol/L BUN 21 H (9-20) mg/dL Creatinine 0.7 L (0.8-1.5) mg/dL Glucose 133 H (75-100) mg/dL POC Glucose 192 H (70-105) 10/06/18 Range/Units 05:00 Hgb (11.8-15.2) gm/dl Hct (35.5-45.6) % MCV (84-94) fl MCH (28-32) pg RDW (13.2-15.2) % POC ABG pH (7.35-7.45) POC ABG pO2 (80-105) Potassium (3.6-5.0) mmol/L BUN (9-20) mg/dL Creatinine (0.8-1.5) mg/dL Glucose (75-100) mg/dL POC Glucose 135 H (70-105) Assessment and Plan Cultures: Blood culture 10/02/2018 negative Tracheal asp 10/02/2018 Pseudomonas MDR sensitive to cefepime, resistant to FQ, AG and aztreonam. Urine culture 10/02/2018 no growth Assessment: 68 y/o male with history of COPD, chronic systolic CHF, CVA, atrial fibrillation, anemia and CAD s/p CAB; admitted on 09/30/2018 due to worsening respiratory distress and AMS / lethargy: 1) SIRS versus Sepsis: present on admission with leukocytosis and elevated lactate; likely from COPD exacerbation with presumed pneumonia +/- heart failure. CRP 3.4. UA neg. Blood cultures negative so far. 2) COPD exacerbation with presumed pneumonia: CXR initially with severe emphysema and no infiltrates, but repeat CXR showed bilateral pneumonitis. 3) Acute on chronic respiratory failure: from COPD/pneumonia/CHF, extubated 4) Acute encephalopathy: improving Recommendations: - contact isolation due to MDR Pseudomonas - Chest CT eval for consolidation/mass - continue cefepime 2 gm IV q8h D5 - will do probably 2-3 weeks IV cefepime depending of CT results Will follow. Alie Becker MD Infectious Diseases [employer] [facility] M [phone] O [phone]
[2018-10-06] MEDS: SENOKOT PO SCH ×2 (09:58→21:03)
[2018-10-06] MEDS: PEPCID PO SCH ×2 (09:59→21:04)
[2018-10-06] MEDS ORDERED: ZESTRIL PO SCH (10:00)
[2018-10-06] MEDS: SODIUM CHLORIDE FLUSH SYRINGE 10 ML IV SCH ×2 (10:00→21:04)
--- NOTE | 2018-10-06 11:44 | Progress Note ---
Assessment and Plan Acute likely on chronic hypoxemic and hypercapnic respiratory failure. Acute chronic obstructive pulmonary disease exacerbation. Acute congestive heart failure exacerbation. History of cerebrovascular accident. Atrial fibrillation with rapid ventricular response. Anemia, iron deficiency. Coronary artery disease. Leukocytosis. Hypokalemia, mild. Hyperglycemia. Lactic acidosis. Elevated serum BNP. - bolus 250 mls IVNS over 1 hour re: CHF - reduce lisinopril to 5mg qd - reduce metoprolol to 12.5 mg bid - reduce lasik to 20 mg qd - continue scheduled BIPAP 07/16 qhs - change CT chest with IV contrast to CTA to also evaluate for P.E. - Add incentive spirometry - continue supplemental oxygen to keep sats > 90% - continue bronchodilators with pulmonary hygiene per RT - continue AB's and de-escalate per ID recs (input appreciated) - continue aspiration precautions - PT/OT/ROM exercises as tolerated - mobility protocol for pressure ulcer prophylaxis - continue GI & VTE prophylaxis - continue other care per attending / other consultants ...... re-evaluate in am & prn The high probability of a clinically significant, sudden or life threatening deterioration of the [cardiac & respiratory] system(s) required my full and direct attention, intervention and personal management. The aggregate critical care time was [32] minutes. This time is in addition to time spent performing reported procedures but includes the following: [x] Data Review and interpretation [x] Patient assessment and monitoring of vital signs [x] Documentation [x] Medication orders and management Subjective Date of service: 10/06/18 Principal diagnosis: Ac on Ch Hypoxemic Hypercapnic Resp failure; AECOPD; CHF exacerbation; Afib Interval history: Patient is seen today for: Acute likely on chronic hypoxemic and hypercapnic respiratory failure; Acute chronic obstructive pulmonary disease exacerbation; Acute congestive heart failure exacerbation; History of cerebrovascular accident; Atrial fibrillation with rapid ventricular response. Seen and examined at bedside; 24hour events reviewed; nursing and respiratory care staff consulted; no adverse overnight events reported to me; resting peacefully in bed; MAP's running low; denies acute chest pains or palpitations; tolerating extubation well so far; No N/V/F/C Objective Vital Signs - 12hr 10/05/18 10/05/18 10/06/18 23:41 23:51 00:01 Temperature Pulse Rate 93 H 101 H 105 H Respiratory 32 H 30 H 20 Rate Blood Pressure 112/61 107/59 94/61 O2 Sat by Pulse Oximetry 10/06/18 10/06/18 10/06/18 00:11 00:21 00:31 Temperature Pulse Rate 107 H 99 H 96 H Respiratory 27 H 30 H 26 H Rate Blood Pressure 94/61 95/54 105/60 O2 Sat by Pulse Oximetry 10/06/18 10/06/18 10/06/18 00:41 00:51 01:01 Temperature Pulse Rate 93 H 99 H 107 H Respiratory 30 H 35 H 21 Rate Blood Pressure 105/60 106/48 119/61 O2 Sat by Pulse Oximetry 10/06/18 10/06/18 10/06/18 01:11 01:21 01:30 Temperature Pulse Rate 99 H 103 H 104 H Respiratory 35 H 33 H 36 H Rate Blood Pressure 119/61 113/61 111/57 O2 Sat by Pulse Oximetry 10/06/18 10/06/18 10/06/18 01:41 01:51 02:00 Temperature Pulse Rate 108 H 100 H 100 H Respiratory 26 H 34 H 38 H Rate Blood Pressure 111/57 115/62 104/68 O2 Sat by Pulse Oximetry 10/06/18 10/06/18 10/06/18 02:11 02:17 02:21 Temperature Pulse Rate 104 H 101 H 96 H Respiratory 15 35 H 30 H Rate Blood Pressure 104/68 102/68 97/62 O2 Sat by Pulse 93 Oximetry 10/06/18 10/06/18 10/06/18 02:31 02:41 02:51 Temperature Pulse Rate 99 H 94 H 93 H Respiratory 29 H 25 H 19 Rate Blood Pressure 116/63 97/62 102/69 O2 Sat by Pulse Oximetry 10/06/18 10/06/18 10/06/18 03:01 03:02 03:11 Temperature 98.8 F Pulse Rate 100 H 95 H Respiratory 26 H 25 H Rate Blood Pressure 110/71 110/71 O2 Sat by Pulse Oximetry 10/06/18 10/06/18 10/06/18 03:21 03:31 03:40 Temperature Pulse Rate 96 H 89 101 H Respiratory 28 H 30 H 28 H Rate Blood Pressure 76/38 88/36 97/62 O2 Sat by Pulse Oximetry 10/06/18 10/06/18 10/06/18 03:51 04:00 04:10 Temperature Pulse Rate 97 H 96 H 91 H Respiratory 27 H 29 H 25 H Rate Blood Pressure 94/47 94/50 94/50 O2 Sat by Pulse Oximetry 10/06/18 10/06/18 10/06/18 04:21 04:31 04:41 Temperature Pulse Rate 97 H 89 93 H Respiratory 28 H 24 31 H Rate Blood Pressure 86/49 87/47 86/49 O2 Sat by Pulse Oximetry 10/06/18 10/06/18 10/06/18 04:51 05:00 05:11 Temperature Pulse Rate 84 95 H 85 Respiratory 29 H 28 H 25 H Rate Blood Pressure 83/47 92/49 86/50 O2 Sat by Pulse Oximetry 10/06/18 10/06/18 10/06/18 05:21 05:30 05:41 Temperature Pulse Rate 78 92 H 87 Respiratory 26 H 25 H 24 Rate Blood Pressure 85/37 79/42 96/48 O2 Sat by Pulse Oximetry 10/06/18 10/06/18 10/06/18 05:51 06:00 06:11 Temperature Pulse Rate 88 83 84 Respiratory 23 26 H 25 H Rate Blood Pressure 82/50 88/52 82/50 O2 Sat by Pulse Oximetry 10/06/18 10/06/18 10/06/18 06:21 06:31 06:41 Temperature Pulse Rate 90 83 87 Respiratory 26 H 24 20 Rate Blood Pressure 105/50 97/46 97/46 O2 Sat by Pulse Oximetry 10/06/18 10/06/18 10/06/18 06:51 07:01 07:11 Temperature Pulse Rate 87 82 77 Respiratory 25 H 25 H 25 H Rate Blood Pressure 97/35 85/37 97/35 O2 Sat by Pulse Oximetry 10/06/18 10/06/18 10/06/18 07:21 07:27 07:31 Temperature Pulse Rate 83 81 Respiratory 24 27 H Rate Blood Pressure 80/45 76/37 O2 Sat by Pulse 96 99 Oximetry 10/06/18 10/06/18 10/06/18 07:41 07:51 08:01 Temperature Pulse Rate 87 87 87 Respiratory 29 H 20 29 H Rate Blood Pressure 76/37 90/39 95/49 O2 Sat by Pulse 94 93 93 Oximetry 10/06/18 10/06/18 09:59 10:00 Temperature Pulse Rate 88 99 H Respiratory Rate Blood Pressure 83/41 90/39 O2 Sat by Pulse Oximetry Constitutional: appears uncomfortable, other (elderly looking CM, normocephalic and atraumatic with increased resp effort on MVS) Eyes: non-icteric ENT: oropharynx moist Neck: supple, no lymphadenopathy, no JVD, other (no thyromegaly) Effort: mildly labored Ascultation: Bilateral: diminished breath sounds, rhonchi, other (+ barrel chest) Percussion: Bilateral: not dull Cardiovascular: regular rate and rhythm Gastrointestinal: normoactive bowel sounds, soft, non-tender, non-distended Integumentary: normal, other (post CABG sternotomy scar) Extremities: no cyanosis, no edema, pink and warm, pulses normal, no ischemia or petechiae Neurologic: normal mental status, non-focal exam (grossly), pupils equal and round, CN II-XII normal, motor strength normal and Psychiatric: mood appropriate, affect normal CBC and BMP: 10/06/18 04:19 10/06/18 04:19 ABG, PT/INR, D-dimer: ABG POC ABG pH 7.462 (7.35-7.45) H 10/05/18 12:06 POC ABG pCO2 35.8 (35-45) 10/05/18 12:06 POC ABG pO2 66 (80-105) L 10/05/18 12:06 POC ABG HCO3 25.6 10/05/18 12:06 POC ABG Total CO2 27 10/05/18 12:06 POC ABG O2 Sat 94 10/05/18 12:06 PT/INR, D-dimer PT 15.0 Sec. (12.2-14.9) H 10/02/18 07:22 INR 1.11 (0.87-1.13) 10/02/18 07:22 D-Dimer 1039.91 ng/mlDDU (0-234) H 10/02/18 21:01 Abnormal lab findings: Abnormal Labs 10/02/18 10/02/18 10/02/18 07:13 07:20 07:22 WBC 19.7 H Hgb 10.9 L Hct MCV 75 L MCH 23 L MCHC 31 L RDW 21.7 H Plt Count Lymph % (Auto) [place] % (Auto) Lymph # [place] # Seg Neutrophils % Seg Neutrophils # Seg Neutrophils # Man 13.2 H Monocytes # (Manual) 1.2 H PT 15.0 H D-Dimer POC ABG pH POC ABG pCO2 POC ABG pO2 Sodium Potassium 5.2 H D Carbon Dioxide 19 L BUN Creatinine Glucose 340 H POC Glucose Lactic Acid Calcium C-Reactive Protein NT-Pro-B Natriuret Pep 3102 H 10/02/18 10/02/18 10/02/18 08:32 09:26 12:28 WBC Hgb Hct MCV MCH MCHC RDW Plt Count Lymph % (Auto) [place] % (Auto) Lymph # [place] # Seg Neutrophils % Seg Neutrophils # Seg Neutrophils # Man Monocytes # (Manual) PT D-Dimer POC ABG pH 7.201 L 7.254 L POC ABG pCO2 61.2 H 54.3 H POC ABG pO2 150 H 196 H Sodium Potassium Carbon Dioxide BUN Creatinine Glucose POC Glucose Lactic Acid 3.00 H* Calcium C-Reactive Protein NT-Pro-B Natriuret Pep 10/02/18 10/02/18 10/02/18 20:43 21:01 21:01 WBC Hgb Hct MCV MCH MCHC RDW Plt Count Lymph % (Auto) [place] % (Auto) Lymph # [place] # Seg Neutrophils % Seg Neutrophils # Seg Neutrophils # Man Monocytes # (Manual) PT D-Dimer 1039.91 H POC ABG pH 7.307 L POC ABG pCO2 45.6 H POC ABG pO2 107 H Sodium Potassium Carbon Dioxide BUN Creatinine Glucose POC Glucose Lactic Acid Calcium C-Reactive Protein 3.40 H NT-Pro-B Natriuret Pep 10/02/18 10/03/18 10/03/18 21:01 00:14 04:13 WBC 13.6 H Hgb 10.6 L Hct 34.5 L MCV 74 L MCH 23 L MCHC 31 L RDW 21.3 H Plt Count 134 L Lymph % (Auto) 6.0 L [place] % (Auto) 10.6 H Lymph # 0.8 L [place] # 1.4 H Seg Neutrophils % 83.1 H Seg Neutrophils # 11.3 H Seg Neutrophils # Man Monocytes # (Manual) PT D-Dimer POC ABG pH POC ABG pCO2 POC ABG pO2 Sodium Potassium Carbon Dioxide BUN Creatinine Glucose POC Glucose 164 H Lactic Acid 2.80 H* Calcium C-Reactive Protein NT-Pro-B Natriuret Pep 10/03/18 10/03/1810/03/19 04:13 04:13 04:47 WBC Hgb Hct MCV MCH MCHC RDW Plt Count Lymph % (Auto) [place] % (Auto) Lymph # [place] # Seg Neutrophils % Seg Neutrophils # Seg Neutrophils # Man Monocytes # (Manual) PT D-Dimer POC ABG pH POC ABG pCO2 POC ABG pO2 Sodium 136 L Potassium Carbon Dioxide 18 L BUN 29 H Creatinine Glucose 168 H POC Glucose 182 H Lactic Acid 2.60 H* Calcium 8.3 L C-Reactive Protein NT-Pro-B Natriuret Pep 10/03/18 10/03/18 10/03/18 05:47 11:39 16:56 WBC Hgb Hct MCV MCH MCHC RDW Plt Count Lymph % (Auto) [place] % (Auto) Lymph # [place] # Seg Neutrophils % Seg Neutrophils # Seg Neutrophils # Man Monocytes # (Manual) PT D-Dimer POC ABG pH 7.314 L POC ABG pCO2 45.9 H POC ABG pO2 Sodium Potassium Carbon Dioxide BUN Creatinine Glucose POC Glucose 134 H 118 H Lactic Acid Calcium C-Reactive Protein NT-Pro-B Natriuret Pep 10/03/18 10/04/18 10/04/18 23:13 05:20 05:44 WBC Hgb Hct MCV MCH MCHC RDW Plt Count Lymph % (Auto) [place] % (Auto) Lymph # [place] # Seg Neutrophils % Seg Neutrophils # Seg Neutrophils # Man Monocytes # (Manual) PT D-Dimer POC ABG pH POC ABG pCO2 POC ABG pO2 68 L Sodium Potassium Carbon Dioxide BUN Creatinine Glucose POC Glucose 129 H 166 H Lactic Acid Calcium C-Reactive Protein NT-Pro-B Natriuret Pep 10/04/18 10/04/18 10/04/18 08:04 08:04 11:56 WBC Hgb 9.1 L Hct 28.7 L MCV 72 L MCH 23 L MCHC RDW 21.6 H Plt Count 126 L Lymph % (Auto) [place] % (Auto) Lymph # [place] # Seg Neutrophils % Seg Neutrophils # Seg Neutrophils # Man Monocytes # (Manual) PT D-Dimer POC ABG pH POC ABG pCO2 POC ABG pO2 Sodium Potassium Carbon Dioxide BUN 26 H Creatinine Glucose 167 H POC Glucose 176 H Lactic Acid Calcium 8.2 L C-Reactive Protein NT-Pro-B Natriuret Pep 02/24/19 02/24/19 02/25/19 13:21 17:12 00:02 WBC Hgb Hct MCV MCH MCHC RDW Plt Count Lymph % (Auto) [place] % (Auto) Lymph # [place] # Seg Neutrophils % Seg Neutrophils # Seg Neutrophils # Man Monocytes # (Manual) PT D-Dimer POC ABG pH 7.462 H POC ABG pCO2 33.5 L POC ABG pO2 59 L Sodium Potassium Carbon Dioxide BUN Creatinine Glucose POC Glucose 164 H 211 H Lactic Acid Calcium C-Reactive Protein NT-Pro-B Natriuret Pep 10/05/18 10/05/18 10/05/18 05:13 12:06 12:11 WBC Hgb Hct MCV MCH MCHC RDW Plt Count Lymph % (Auto) [place] % (Auto) Lymph # [place] # Seg Neutrophils % Seg Neutrophils # Seg Neutrophils # Man Monocytes # (Manual) PT D-Dimer POC ABG pH 7.462 H POC ABG pCO2 POC ABG pO2 66 L Sodium Potassium Carbon Dioxide BUN Creatinine Glucose POC Glucose 190 H 185 H Lactic Acid Calcium C-Reactive Protein NT-Pro-B Natriuret Pep 10/05/18 10/05/18 10/06/18 18:13 23:49 04:19 WBC Hgb 9.8 L Hct 30.5 L MCV 73 L MCH 23 L MCHC RDW 21.0 H Plt Count Lymph % (Auto) [place] % (Auto) Lymph # [place] # Seg Neutrophils % Seg Neutrophils # Seg Neutrophils # Man Monocytes # (Manual) PT D-Dimer POC ABG pH POC ABG pCO2 POC ABG pO2 Sodium Potassium Carbon Dioxide BUN Creatinine Glucose POC Glucose 177 H 192 H Lactic Acid Calcium C-Reactive Protein NT-Pro-B Natriuret Pep 10/06/18 10/06/18 04:19 05:00 WBC Hgb Hct MCV MCH MCHC RDW Plt Count Lymph % (Auto) [place] % (Auto) Lymph # [place] # Seg Neutrophils % Seg Neutrophils # Seg Neutrophils # Man Monocytes # (Manual) PT D-Dimer POC ABG pH POC ABG pCO2 POC ABG pO2 Sodium Potassium 3.4 L Carbon Dioxide BUN 21 H Creatinine 0.7 L Glucose 133 H POC Glucose 135 H Lactic Acid Calcium C-Reactive Protein NT-Pro-B Natriuret Pep Chest x-ray: image reviewed (chronic looking interstitial markings +/- occult pneumonia) Allied health notes reviewed: nursing
--- NOTE | 2018-10-06 13:09 | Progress Note ---
Assessment and Plan Pt currently in AFib with CVR. Cont current cardiac regimen. In regards to systemic AC, pt appears frail and lives in a correction house. 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 Will attempt to readdress with pt and/or pt's family members during hospitalization. Pt noted to have anemia and thrombocytopenia. Consider hematology and/or GI consultation per primary. Can consider heparin gtt or full dosage lovenox in the interim if no contraindication. The patient has been seen in conjunction with Dr. Wakefield who agrees with the assessment and plan of care. - Patient Problems (1) Acute respiratory failure Current Visit: Yes Status: Acute (2) Atrial fibrillation with rapid ventricular response Current Visit: Yes Status: Acute (3) Acute HFrEF (heart failure with reduced ejection fraction) Current Visit: Yes Status: Acute (4) Cardiomyopathy Current Visit: Yes Status: Chronic (5) COPD with acute exacerbation Current Visit: Yes Status: Acute (6) Pneumonia Current Visit: Yes Status: Suspected (7) CAD (coronary artery disease) Current Visit: Yes Status: Chronic (8) S/P CABG (coronary artery bypass graft) Current Visit: Yes Status: Chronic (9) Anemia Current Visit: Yes Status: Acute (10) Thrombocytopenia Current Visit: Yes Status: Acute Subjective Date of service: 10/06/18 Principal diagnosis: Ac on Ch Hypoxemic Hypercapnic Resp failure; AECOPD; CHF exacerbation; Afib Interval history: pt resting in bed, has been extubated, lethargic. in AFib on tele with HR in 90s. Objective Last Vital Signs Temp 98.8 F 10/06/18 03:02 Pulse 99 H 10/06/18 10:00 Resp 29 H 10/06/18 08:01 BP 90/39 10/06/18 10:00 Pulse Ox 93 10/06/18 08:01 - Physical Examination General: No Apparent Distress HEENT: Positive: PERRL, Normocephaly, Mucus Membranes Moist Neck: Positive: neck supple Cardiac: Positive: irregularly irregular, S1/S2 Lungs: Positive: Decreased Breath Sounds Neuro: Positive: Grossly Intact Abdomen: Negative: Tender Skin: Negative: Rash Extremities: Absent: edema - Labs and Meds CBC 10/06/18 Range/Units 04:19 WBC 7.8 (4.5-11.0) K/mm3 RBC 4.19 (3.65-5.03) M/mm3 Hgb 9.8 L (11.8-15.2) gm/dl Hct 30.5 L (35.5-45.6) % Plt Count 148 (140-440) K/mm3 Comprehensive Metabolic Panel 10/06/18 Range/Units 04:19 Sodium 142 (137-145) mmol/L Potassium 3.4 L (3.6-5.0) mmol/L Chloride 103.8 (98-107) mmol/L Carbon Dioxide 25 (22-30) mmol/L BUN 21 H (9-20) mg/dL Creatinine 0.7 L (0.8-1.5) mg/dL Glucose 133 H (75-100) mg/dL Calcium 8.6 (8.4-10.2) mg/dL - Imaging and Cardiology EKG: report reviewed, image reviewed Echo: report reviewed (09/2018: EF 25-30%, abnormal diastolic function, trace MR. ) - Allied health notes Allied health notes reviewed: nursing
[2018-10-06] MEDS ORDERED: NACL 0.9% 250ML 250 ML IV ONE (13:30)
[2018-10-06 16:58] LABS: Heparin-Induced Platelet Antib Negative (Negative); Unfractionated Heparin Negative (Negative)
--- NOTE | 2018-10-07 02:08 | Cat Scan Report ---
FINAL REPORT PROCEDURE: CT ANGIO CHEST TECHNIQUE: Computerized tomographic angiography of the chest was performed after the IV injection of iodinated nonionic contrast including image processing. The image data was postprocessed using 2-dim ensional multiplanar reformatted (MPR) and 3-dimensional (MIP and/or volume rendered) techniques. HISTORY: hypoxemia; pneumonia COMPARISON: No prior studies are available for comparison. FINDINGS: Heart and pericardium: Heart size is normal. There is extensive coronary artery atherosclerosis.. Thoracic aorta: Moderate atherosclerosis of the aorta. No aneurysm.. Pulmonary vasculature: There is no evidence of pulmonary arterial emboli.. Lymph nodes: Lymph nodes in the mediastinum measure up to 12 millimeters.. Lungs: Moderate infiltrates identified in both lower lungs. This is more prominent on the right. Mild bilateral effusions. Central airway is patent.. Pleural space: Mild bilateral effusions. No pneumothorax. Musculoskeletal structures: Moderate degenerative changes of the spine. Patient previous midline ster notomy.. Upper abdominal structures: No significant abnormality. IMPRESSION: There is no evidence of pulmonary arterial emboli. Bilateral lower lung infiltrates are identified, this is more pronounced on the right. Mild bilateral effusions.
[2018-10-07] MEDS: MAXIPIME/NS 2 GM/100 ML 2 GM/100 ML BAG IV SCH ×3 (06:35→21:28)
[2018-10-07] MEDS: DUONEB *Not for PRN Use IH SCH ×3 (07:52→20:30)
[2018-10-07] MEDS: BROVANA NEBU IH SCH ×2 (07:53→20:24)
[2018-10-07] MEDS: PULMICORT IH SCH ×2 (07:53→20:24)
[2018-10-07] MEDS: HumaLOG SUB-Q SCH ×4 (08:30→21:28)
--- NOTE | 2018-10-07 09:42 | Progress Note ---
Assessment and Plan Assessment and plan: Patient is a 68-year-old male with past medical history from records shows COPD, chronic systolic CHF, CVA, atrial fibrillation, iron deficiency anemia and CAD s/p CABG who presents with severe respiratory distress. Patient was noted to be lethargic with severe increased work of breathing and was intubated in the ER and placed on mechanical ventilation. Review of records is also off HPI. The record shows that the patient has been in the ED about 2 days prior to this visit. He also had affirm that he has been on mechanical ventilation on previous occasions for currently follows at the [facility]. The ED documentation the medication list reveals the patient also lives in a detention house. On arrival he was noted to have a saturation of 60% and was difficult to oxygenate with CPAP despite Solu-Medrol and magnesium given enroute and mechanical ventilation in the ED. * Patient was intubated and placed on mechanical ventilation * Repeated ABG shows improvement and hypercapnia * X-ray was consistent with COPD also showed a right upper lobe nodular opacity * Echocardiogram revealed an EF of 20-25% with abnormal left ventricular diastolic function also observed * Cardiology acknowledged patient was in atrial fibrillation IV Lopressor was converted to by mouth Lopressor and lisinopril following extubation. Assessment the patient is frail and lives in a detention house and is not a good candidate for long-term anticoagulation and will discuss with her family for this. Acute Respiratory failure with Hypoxia/hypercapneia ON Mechanical ventilation, now extubated Hypertensive urgency Acute Systolic Congestive heart failure with possible combined diastolic dysfunction-Precluding fluids administration Sepsis-POA secondary PNA Acute Bronchitis. CT scan not showing any infiltrates. COPD with acute exacerbation secondary to above Thrombocytopenia Cardiomyopathy with EF OF 25-30% s/p CABG Atrial Fibrillation with RVR Leukocytosis Hyperkalemia DM with Hyperglycemia Iron deficiency anemia History of CVA Plan Continue supportive care Patient successfully extubated Blood cultures growing in to drug-resistant pseudomonas aeruginosa. Patient on isolation. ID consulted SCD. send HIT antibodies results still pending. 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[employer] Supervisor and cardiology consult INPUT NOTED Blood cultures NO GROWTH SO FAR DVT/GI prophylaxis T History Interval history: feels better, No chest pain No SOB Hospitalist Physical - Physical exam Narrative exam: GEN: Not in acute distress, lying in bed HEENT: Normocephalic, atraumatic, Neck: supple, No JVD Lungs: Clear to auscultation bilaterally, no crackles or wheeze Heart:S1 and S2 irreg, irreg, no rubs or gallop, Abd:soft, non tender, non distended, normal bowel sounds Ext: No edema, no clubbing or cyanosis Neuro: awake,alert,oriented, no focal signs - Constitutional Vitals: Temp Pulse Resp BP Pulse Ox 99.9 F H 97 H 35 H 119/77 93 10/07/18 04:00 10/07/18 08:00 10/07/18 08:00 10/07/18 08:00 10/07/18 08:00 General appearance: Present: other (intubated, sedated ) Results - Labs CBC & Chem 7: 10/06/18 04:19 10/06/18 04:19 Labs: Laboratory Last Values WBC 7.8 K/mm3 (4.5-11.0) 10/06/18 04:19 RBC 4.19 M/mm3 (3.65-5.03) 10/06/18 04:19 Hgb 9.8 gm/dl (11.8-15.2) L 10/06/18 04:19 Hct 30.5 % (35.5-45.6) L 10/06/18 04:19 MCV 73 fl (84-94) L 10/06/18 04:19 MCH 23 pg (28-32) L 10/06/18 04:19 MCHC 32 % (32-34) 10/06/18 04:19 RDW 21.0 % (13.2-15.2) H 10/06/18 04:19 Plt Count 148 K/mm3 (140-440) 10/06/18 04:19 Lymph % (Auto) 6.0 % (13.4-35.0) L 10/03/18 04:13 [place] % (Auto) 10.6 % (0.0-7.3) H 10/03/18 04:13 Eos % (Auto) 0.0 % (0.0-4.3) 10/03/18 04:13 Baso % (Auto) 0.3 % (0.0-1.8) 10/03/18 04:13 Lymph # 0.8 K/mm3 (1.2-5.4) L 10/03/18 04:13 [place] # 1.4 K/mm3 (0.0-0.8) H 10/03/18 04:13 Eos # 0.0 K/mm3 (0.0-0.4) 10/03/18 04:13 Baso # 0.0 K/mm3 (0.0-0.1) 10/03/18 04:13 Add Manual Diff Complete 10/02/18 07:20 Total Counted 100 10/02/18 07:20 Seg Neutrophils % 83.1 % (40.0-70.0) H 10/03/18 04:13 Seg Neuts % (Manual) 67.0 % (40.0-70.0) 10/02/18 07:20 Band Neutrophils % 1.0 % 10/02/18 07:20 Lymphocytes % (Manual) 26.0 % (13.4-35.0) 10/02/18 07:20 Reactive Lymphs % (Man) 0 % 10/02/18 07:20 Monocytes % (Manual) 6.0 % (0.0-7.3) 10/02/18 07:20 Eosinophils % (Manual) 0 % (0.0-4.3) 10/02/18 07:20 Basophils % (Manual) 0 % (0.0-1.8) 10/02/18 07:20 Metamyelocytes % 0 % 10/02/18 07:20 Myelocytes % 0 % 10/02/18 07:20 Promyelocytes % 0 % 10/02/18 07:20 Blast Cells % 0 % 10/02/18 07:20 Nucleated RBC % Not Reportable 10/02/18 07:20 Seg Neutrophils # 11.3 K/mm3 (1.8-7.7) H 10/03/18 04:13 Seg Neutrophils # Man 13.2 K/mm3 (1.8-7.7) H 10/02/18 07:20 Band Neutrophils # 0.2 K/mm3 10/02/18 07:20 Lymphocytes # (Manual) 5.1 K/mm3 (1.2-5.4) 10/02/18 07:20 Abs React Lymphs (Man) 0.0 K/mm3 10/02/18 07:20 Monocytes # (Manual) 1.2 K/mm3 (0.0-0.8) H 10/02/18 07:20 Eosinophils # (Manual) 0.0 K/mm3 (0.0-0.4) 10/02/18 07:20 Basophils # (Manual) 0.0 K/mm3 (0.0-0.1) 10/02/18 07:20 Metamyelocytes # 0.0 K/mm3 10/02/18 07:20 Myelocytes # 0.0 K/mm3 10/02/18 07:20 Promyelocytes # 0.0 K/mm3 10/02/18 07:20 Blast Cells # 0.0 K/mm3 10/02/18 07:20 WBC Morphology Not Reportable 10/02/18 07:20 Hypersegmented Neuts Not Reportable 10/02/18 07:20 Hyposegmented Neuts Not Reportable 10/02/18 07:20 Hypogranular Neuts Not Reportable 10/02/18 07:20 Smudge Cells Not Reportable 10/02/18 07:20 Toxic Granulation Not Reportable 10/02/18 07:20 Toxic Vacuolation Not Reportable 10/02/18 07:20 Dohle Bodies Not Reportable 10/02/18 07:20 Pelger-Huet Anomaly Not Reportable 10/02/18 07:20 Markie Rods Not Reportable 10/02/18 07:20 Platelet Estimate Consistent w auto 10/02/18 07:20 Clumped Platelets Not Reportable 10/02/18 07:20 Plt Clumps, EDTA Not Reportable 10/02/18 07:20 Large Platelets Not Reportable 10/02/18 07:20 Giant Platelets Not Reportable 10/02/18 07:20 Platelet Satelliting Not Reportable 10/02/18 07:20 Plt Morphology Comment Not Reportable 10/02/18 07:20 RBC Morphology Not Reportable 10/02/18 07:20 Dimorphic RBCs Not Reportable 10/02/18 07:20 Polychromasia Not Reportable 10/02/18 07:20 Hypochromasia 1+ 10/02/18 07:20 Poikilocytosis Not Reportable 10/02/18 07:20 Anisocytosis 2+ 10/02/18 07:20 Microcytosis 2+ 10/02/18 07:20 Macrocytosis Not Reportable 10/02/18 07:20 Spherocytes Not Reportable 10/02/18 07:20 Pappenheimer Bodies Not Reportable 10/02/18 07:20 Sickle Cells Not Reportable 10/02/18 07:20 Target Cells Not Reportable 10/02/18 07:20 Tear Drop Cells Not Reportable 10/02/18 07:20 Ovalocytes 1+ 10/02/18 07:20 Helmet Cells Not Reportable 10/02/18 07:20 [place] Bodies Not Reportable 10/02/18 07:20 [place] Rings Not Reportable 10/02/18 07:20 [place] Cells Not Reportable 10/02/18 07:20 Bite Cells Not Reportable 10/02/18 07:20 Crenated Cell Not Reportable 10/02/18 07:20 Elliptocytes Not Reportable 10/02/18 07:20 Acanthocytes (Spur) Not Reportable 10/02/18 07:20 Rouleaux Not Reportable 10/02/18 07:20 Hemoglobin C Crystals Not Reportable 10/02/18 07:20 Schistocytes Not Reportable 10/02/18 07:20 Malaria parasites Not Reportable 10/02/18 07:20 [place] Bodies Not Reportable 10/02/18 07:20 Hem Pathologist Commnt No 10/02/18 07:20 PT 15.0 Sec. (12.2-14.9) H 10/02/18 07:22 INR 1.11 (0.87-1.13) 10/02/18 07:22 D-Dimer 1039.91 ng/mlDDU (0-234) H 10/02/18 21:01 Heparin Anti-Xa, Unfract Negative (Negative) 10/03/18 09:36 POC ABG pH 7.462 (7.35-7.45) H 10/05/18 12:06 POC ABG pCO2 35.8 (35-45) 10/05/18 12:06 POC ABG pO2 66 (80-105) L 10/05/18 12:06 POC ABG HCO3 25.6 10/05/18 12:06 POC ABG Total CO2 27 10/05/18 12:06 POC ABG O2 Sat 94 10/05/18 12:06 POC ABG Base Excess 2 10/05/18 12:06 FiO2 30 % 10/05/18 12:06 Sodium 142 mmol/L (137-145) 10/06/18 04:19 Potassium 3.4 mmol/L (3.6-5.0) L 10/06/18 04:19 Chloride 103.8 mmol/L (98-107) 10/06/18 04:19 Carbon Dioxide 25 mmol/L (22-30) 10/06/18 04:19 Anion Gap 17 mmol/L 10/06/18 04:19 BUN 21 mg/dL (9-20) H 10/06/18 04:19 Creatinine 0.7 mg/dL (0.8-1.5) L 10/06/18 04:19 Estimated GFR > 60 ml/min 10/06/18 04:19 BUN/Creatinine Ratio 30 % 10/06/18 04:19 Glucose 133 mg/dL (75-100) H 10/06/18 04:19 POC Glucose 308 (70-105) H 10/06/18 21:13 Lactic Acid 2.60 mmol/L (0.7-2.0) H* 10/03/18 04:13 Calcium 8.6 mg/dL (8.4-10.2) 10/06/18 04:19 Magnesium 2.30 mg/dL (1.7-2.3) 10/02/18 18:04 Total Bilirubin 0.50 mg/dL (0.1-1.2) 10/02/18 07:13 AST 20 units/L (5-40) 10/02/18 07:13 ALT 11 units/L (7-56) 10/02/18 07:13 Alkaline Phosphatase 100 units/L (35-129) 10/02/18 07:13 Troponin T < 0.010 ng/mL (0.00-0.029) 10/02/18 07:13 C-Reactive Protein 3.40 mg/dL (0.00-1.30) H 10/02/18 21:01 NT-Pro-B Natriuret Pep 3102 pg/mL (0-900) H 10/02/18 07:13 Total Protein 7.8 g/dL (6.3-8.2) 10/02/18 07:13 Albumin 3.9 g/dL (3.9-5) 10/02/18 07:13 Albumin/Globulin Ratio 1.0 % 10/02/18 07:13 TSH 0.417 mlU/mL (0.270-4.200) 10/02/18 18:04 Free T4 0.92 ng/dL (0.76-1.46) 10/02/18 18:04 Urine Color Straw (Yellow) 10/02/18 09:12 Urine Turbidity Clear (Clear) 10/02/18 09:12 Urine pH 5.0 (5.0-7.0) 10/02/18 09:12 Ur Specific [place] 1.006 (1.003-1.030) 10/02/18 09:12 Urine Protein 30 mg/dl mg/dL (Negative) 10/02/18 09:12 Urine Glucose (UA) 50 mg/dL (Negative) 10/02/18 09:12 Urine Ketones Neg mg/dL (Negative) 10/02/18 09:12 Urine Blood Neg (Negative) 10/02/18 09:12 Urine Nitrite Neg (Negative) 10/02/18 09:12 Urine Bilirubin Neg (Negative) 10/02/18 09:12 Urine Urobilinogen < 2.0 mg/dL (<2.0) 10/02/18 09:12 Ur Leukocyte Esterase Neg (Negative) 10/02/18 09:12 Urine WBC (Auto) 2.0 /HPF (0.0-6.0) 10/02/18 09:12 Urine RBC (Auto) 2.0 /HPF (0.0-6.0) 10/02/18 09:12 Urine Bacteria (Auto) 1+ /HPF (Negative) 10/02/18 09:12 Urine Yeast (Budding) Few /HPF 10/02/18 09:12 Heparin-induced Plt Ab Negative (Negative) 10/03/18 09:36 UF Heparin High Dose 0 % Release 10/03/18 09:36 JULES UFH Low Dose 0.1 0 % Release 10/03/18 09:36 JULES UFH Low Dose 0.5 0 % Release 10/03/18 09:36 Blood Type A NEGATIVE 10/02/18 08:51 Antibody Screen Negative 10/02/18 08:51 Nutrition/Malnutrition Assess - Dietary Evaluation Nutrition/Malnutrition Findings: Nutrition Notes Start: 10/03/18 12:55 Freq: Status: Active Protocol: Document 10/05/18 11:35 NHALL (Rec: 10/05/18 11:41 [facility]- [email or web address]) Nutrition Notes Initial or Follow up Reassessment Current Diagnosis COPD Sepsis Respiratory Failure Current Diet TF - Vital AF 1.2 at 70ml/hr Labs/Tests Reviewed Pertinent Medications Reviewed Height 6 ft 2 in Weight 76.7 kg [place] Body Weight (kg) 86.36 BMI 21.7 Weight change and time frame Current wt obtained from bed scale Weight Status Underweight Subjective/Other Information Observed Vital High Protein infusing at 50ml/hr. RN informed of correct TF and promptly switched formulas. No propofol infusing at time of visit (10:23). Pt remains on vent support. Percent of energy/protein needs met: 62% energy 100% pro Burn Absent Trauma Absent #1 Nutrition Diagnosis Inadequate oral intake Diagnosis Progress(for reassessment Continues documentation) Is patient on ventilator? Yes Is Patient Ambulatory and/or Out of Bed No REE-([facility]-confined to bed) 1921.896 Kcal/Kg value to use for calculation 29 Approximate Energy Requirements Using 2224 kcal/Kg Additional Notes Pro needs 1.2-2g/k-153g/ day Fluid needs 1ml/kcal Nutrition Intervention Nutrition Support: Vital AF 1.2 at 70ml/hr with 100ml water flush q4h. Kcal 2,016 Protein (gm) 1,266 Carbohydrates (gm) 186 Fat (gm) 91 Fluid (mL) 1,362 Fiber (gm) 9 Goal #1 TF tolerance Goal #2 TF to meet 90-100% energy and pro needs Goal #3 Wt maintenance Follow-Up By: 10/07/18 Additional Comments F/U: TF goal rate, vent status
[2018-10-07] MEDS: LASIX PO SCH (11:02)
[2018-10-07] MEDS: PEPCID PO SCH ×2 (11:03→21:28)
[2018-10-07] MEDS: SENOKOT PO SCH ×2 (11:03→21:24)
[2018-10-07] MEDS: SODIUM CHLORIDE FLUSH SYRINGE 10 ML IV SCH ×2 (11:05→21:28)
[2018-10-07] MEDS: ZESTRIL PO SCH (11:05)
[2018-10-07] MEDS: LOPRESSOR PO SCH ×2 (11:06→21:24)
--- NOTE | 2018-10-07 11:46 | Progress Note ---
Assessment and Plan Pt currently in AFib with CVR. Cont current cardiac regimen. Pt is more alert today. He denies any prior history of AFib and has not required systemic AC in the past to his knowledge. Systemic AC in regards to atrial fibrillation is recommended. Indications, potential risks and benefits of systemic AC reviewed with pt and he is agreeable. Pt noted to have anemia and thrombocytopenia. If no contraindications, recommend Eliquis 5mg BID. Will plan for lexiscan MPI stress test in AM in setting of CMP and apparently new AFib. NPO after MN. The patient has been seen in conjunction with Dr. Wakefield who agrees with the assessment and plan of care. - Patient Problems (1) Acute respiratory failure Current Visit: Yes Status: Acute (2) Atrial fibrillation with rapid ventricular response Current Visit: Yes Status: Acute (3) Acute HFrEF (heart failure with reduced ejection fraction) Current Visit: Yes Status: Acute (4) Cardiomyopathy Current Visit: Yes Status: Chronic (5) COPD with acute exacerbation Current Visit: Yes Status: Acute (6) Pneumonia Current Visit: Yes Status: Suspected (7) CAD (coronary artery disease) Current Visit: Yes Status: Chronic (8) S/P CABG (coronary artery bypass graft) Current Visit: Yes Status: Chronic (9) Anemia Current Visit: Yes Status: Acute (10) Thrombocytopenia Current Visit: Yes Status: Acute Subjective Date of service: 10/07/18 Principal diagnosis: Ac on Ch Hypoxemic Hypercapnic Resp failure; AECOPD; CHF exacerbation; Afib Interval history: pt resting in bed, more alert today, no current complaints. in AFib on tele with CVR. Objective Last Vital Signs Temp 98.7 F 10/07/18 08:00 Pulse 96 H 10/07/18 11:06 Resp 35 H 10/07/18 08:00 BP 111/53 10/07/18 11:06 Pulse Ox 93 10/07/18 08:00 - Physical Examination General: No Apparent Distress HEENT: Positive: PERRL, Normocephaly, Mucus Membranes Moist Neck: Positive: neck supple Cardiac: Positive: irregularly irregular, S1/S2 Lungs: Positive: Decreased Breath Sounds Neuro: Positive: Grossly Intact Abdomen: Negative: Tender Skin: Negative: Rash Extremities: Absent: edema - Imaging and Cardiology EKG: report reviewed, image reviewed Echo: report reviewed (09/2018: EF 25-30%, abnormal diastolic function, trace MR. ) - Allied health notes Allied health notes reviewed: nursing
--- NOTE | 2018-10-07 16:14 | Progress Note ---
Assessment and Plan Acute Respiratory failure with Hypoxia/hypercapnea s/p MVS Hypertensive urgency Acute Systolic Congestive heart failure with possible combined diastolic dysfunction Sepsis COPD with acute exacerbation Thrombocytopenia, improved Cardiomyopathy with EF OF 25-30% s/p CABG Atrial Fibrillation with RVR Leukocytosis Hyperkalemia DM with Hyperglycemia Iron deficiency anemia History of CVA -Continue with supplemental oxygen to keep O2 sats 88-90% -Bronchodilators -VTE prophylaxis( SCDs) -PT/OT -Heart failure measures -Glycemic control to keep blood glucose 140-180mg/dL -Complete antibiotics per ID recommendations -Scheduled for stress testing -Bowel regimen -Aspiration precautions -Needs GI evaluation--colonoscopy/upper GI endoscopy prior to full anticoagulation since he has a microcytic anemia -Send stolol for FOBT Subjective Date of service: 10/07/18 Principal diagnosis: Ac on Ch Hypoxemic Hypercapnic Resp failure; AECOPD; CHF exacerbation; Afib Interval history: Patient is seen today for: Acute on chronic hypoxemic and hypercapnic respiratory failure; Acute chronic obstructive pulmonary disease exacerbation; Acute congestive heart failure exacerbation; History of cerebrovascular accident; Atrial fibrillation with rapid ventricular response. Seen and examined at bedside; 24hour events reviewed; nursing and respiratory care staff consulted; no adverse overnight events reported to me; resting peacefully in bed; denies acute chest pains or palpitations;No N/V/F/C; has ongoing shortness of breath, continues to require suppleental oxygen at 3L/min. Had constipation, one bowel movement this afternoon Objective Vital Signs - 12hr 10/07/18 10/07/18 10/07/18 05:01 06:00 07:00 Temperature Pulse Rate 89 89 91 H Pulse Rate [ Anterior Bilateral] Pulse Rate [ From Monitor] Respiratory 35 H 34 H 33 H Rate Respiratory Rate [Anterior Bilateral] Blood Pressure 101/50 107/62 105/68 O2 Sat by Pulse 96 94 97 Oximetry 10/07/18 10/07/18 10/07/18 07:54 07:55 08:00 Temperature 98.7 F Pulse Rate 97 H Pulse Rate [ 90 Anterior Bilateral] Pulse Rate [ 88 From Monitor] Respiratory 16 Rate Respiratory 31 H Rate [Anterior Bilateral] Blood Pressure 119/77 O2 Sat by Pulse 94 94 Oximetry 10/07/18 10/07/18 10/07/18 09:01 10:00 11:01 Temperature Pulse Rate 103 H 93 H 100 H Pulse Rate [ Anterior Bilateral] Pulse Rate [ From Monitor] Respiratory 28 H 35 H 20 Rate Respiratory Rate [Anterior Bilateral] Blood Pressure 116/58 107/59 111/67 O2 Sat by Pulse 93 93 98 Oximetry 10/07/18 10/07/18 10/07/18 11:05 11:06 12:00 Temperature 98.4 F Pulse Rate 91 H 96 H Pulse Rate [ Anterior Bilateral] Pulse Rate [ 89 From Monitor] Respiratory 15 Rate Respiratory Rate [Anterior Bilateral] Blood Pressure 111/53 111/53 O2 Sat by Pulse 95 Oximetry 10/07/18 10/07/18 10/07/18 12:01 14:00 15:17 Temperature Pulse Rate 94 H Pulse Rate [ 81 92 H Anterior Bilateral] Pulse Rate [ From Monitor] Respiratory 39 H Rate Respiratory 22 27 H Rate [Anterior Bilateral] Blood Pressure 107/62 O2 Sat by Pulse 97 Oximetry Constitutional: appears uncomfortable, other (elderly looking CM, normocephalic and atraumatic with increased resp effort) Eyes: non-icteric ENT: oropharynx moist Neck: supple, no lymphadenopathy, no JVD, other (no thyromegaly) Effort: mildly labored Ascultation: Bilateral: clear, diminished breath sounds, rhonchi, other (+ barrel chest) Percussion: Bilateral: not dull Cardiovascular: irregular rhythm, other (S1,S2) Gastrointestinal: normoactive bowel sounds, soft, non-tender, non-distended Integumentary: normal, other (post CABG sternotomy scar) Extremities: no cyanosis, no edema, pink and warm, pulses normal, no ischemia or petechiae Neurologic: normal mental status, non-focal exam (grossly), pupils equal and round, motor strength normal and Psychiatric: mood appropriate, affect normal CBC and BMP: 10/06/18 04:19 10/06/18 04:19 ABG, PT/INR, D-dimer: ABG POC ABG pH 7.462 (7.35-7.45) H 10/05/18 12:06 POC ABG pCO2 35.8 (35-45) 10/05/18 12:06 POC ABG pO2 66 (80-105) L 10/05/18 12:06 POC ABG HCO3 25.6 10/05/18 12:06 POC ABG Total CO2 27 10/05/18 12:06 POC ABG O2 Sat 94 10/05/18 12:06 PT/INR, D-dimer PT 15.0 Sec. (12.2-14.9) H 10/02/18 07:22 INR 1.11 (0.87-1.13) 10/02/18 07:22 D-Dimer 1039.91 ng/mlDDU (0-234) H 10/02/18 21:01 Abnormal lab findings: Abnormal Labs 10/02/18 10/02/18 10/02/18 07:13 07:20 07:22 WBC 19.7 H Hgb 10.9 L Hct MCV 75 L MCH 23 L MCHC 31 L RDW 21.7 H Plt Count Lymph % (Auto) [place] % (Auto) Lymph # [place] # Seg Neutrophils % Seg Neutrophils # Seg Neutrophils # Man 13.2 H Monocytes # (Manual) 1.2 H PT 15.0 H D-Dimer POC ABG pH POC ABG pCO2 POC ABG pO2 Sodium Potassium 5.2 H D Carbon Dioxide 19 L BUN Creatinine Glucose 340 H POC Glucose Lactic Acid Calcium C-Reactive Protein NT-Pro-B Natriuret Pep 3102 H 10/02/18 10/02/18 10/02/18 08:32 09:26 12:28 WBC Hgb Hct MCV MCH MCHC RDW Plt Count Lymph % (Auto) [place] % (Auto) Lymph # [place] # Seg Neutrophils % Seg Neutrophils # Seg Neutrophils # Man Monocytes # (Manual) PT D-Dimer POC ABG pH 7.201 L 7.254 L POC ABG pCO2 61.2 H 54.3 H POC ABG pO2 150 H 196 H Sodium Potassium Carbon Dioxide BUN Creatinine Glucose POC Glucose Lactic Acid 3.00 H* Calcium C-Reactive Protein NT-Pro-B Natriuret Pep 10/02/18 10/02/18 10/02/18 20:43 21:01 21:01 WBC Hgb Hct MCV MCH MCHC RDW Plt Count Lymph % (Auto) [place] % (Auto) Lymph # [place] # Seg Neutrophils % Seg Neutrophils # Seg Neutrophils # Man Monocytes # (Manual) PT D-Dimer 1039.91 H POC ABG pH 7.307 L POC ABG pCO2 45.6 H POC ABG pO2 107 H Sodium Potassium Carbon Dioxide BUN Creatinine Glucose POC Glucose Lactic Acid Calcium C-Reactive Protein 3.40 H NT-Pro-B Natriuret Pep 10/02/18 10/03/18 10/03/18 21:01 00:14 04:13 WBC 13.6 H Hgb 10.6 L Hct 34.5 L MCV 74 L MCH 23 L MCHC 31 L RDW 21.3 H Plt Count 134 L Lymph % (Auto) 6.0 L [place] % (Auto) 10.6 H Lymph # 0.8 L [place] # 1.4 H Seg Neutrophils % 83.1 H Seg Neutrophils # 11.3 H Seg Neutrophils # Man Monocytes # (Manual) PT D-Dimer POC ABG pH POC ABG pCO2 POC ABG pO2 Sodium Potassium Carbon Dioxide BUN Creatinine Glucose POC Glucose 164 H Lactic Acid 2.80 H* Calcium C-Reactive Protein NT-Pro-B Natriuret Pep 10/03/18 10/03/18 10/03/18 04:13 04:13 04:47 WBC Hgb Hct MCV MCH MCHC RDW Plt Count Lymph % (Auto) [place] % (Auto) Lymph # [place] # Seg Neutrophils % Seg Neutrophils # Seg Neutrophils # Man Monocytes # (Manual) PT D-Dimer POC ABG pH POC ABG pCO2 POC ABG pO2 Sodium 136 L Potassium Carbon Dioxide 18 L BUN 29 H Creatinine Glucose 168 H POC Glucose 182 H Lactic Acid 2.60 H* Calcium 8.3 L C-Reactive Protein NT-Pro-B Natriuret Pep 10/03/18 10/03/18 10/03/18 05:47 11:39 16:56 WBC Hgb Hct MCV MCH MCHC RDW Plt Count Lymph % (Auto) [place] % (Auto) Lymph # [place] # Seg Neutrophils % Seg Neutrophils # Seg Neutrophils # Man Monocytes # (Manual) PT D-Dimer POC ABG pH 7.314 L POC ABG pCO2 45.9 H POC ABG pO2 Sodium Potassium Carbon Dioxide BUN Creatinine Glucose POC Glucose 134 H 118 H Lactic Acid Calcium C-Reactive Protein NT-Pro-B Natriuret Pep 10/03/18 10/04/18 10/04/18 23:13 05:20 05:44 WBC Hgb Hct MCV MCH MCHC RDW Plt Count Lymph % (Auto) [place] % (Auto) Lymph # [place] # Seg Neutrophils % Seg Neutrophils # Seg Neutrophils # Man Monocytes # (Manual) PT D-Dimer POC ABG pH POC ABG pCO2 POC ABG pO2 68 L Sodium Potassium Carbon Dioxide BUN Creatinine Glucose POC Glucose 129 H 166 H Lactic Acid Calcium C-Reactive Protein NT-Pro-B Natriuret Pep 10/04/18 10/04/18 10/04/18 08:04 08:04 11:56 WBC Hgb 9.1 L Hct 28.7 L MCV 72 L MCH 23 L MCHC RDW 21.6 H Plt Count 126 L Lymph % (Auto) [place] % (Auto) Lymph # [place] # Seg Neutrophils % Seg Neutrophils # Seg Neutrophils # Man Monocytes # (Manual) PT D-Dimer POC ABG pH POC ABG pCO2 POC ABG pO2 Sodium Potassium Carbon Dioxide BUN 26 H Creatinine Glucose 167 H POC Glucose 176 H Lactic Acid Calcium 8.2 L C-Reactive Protein NT-Pro-B Natriuret Pep 10/04/18 10/04/18 10/05/18 13:21 17:12 00:02 WBC Hgb Hct MCV MCH MCHC RDW Plt Count Lymph % (Auto) [place] % (Auto) Lymph # [place] # Seg Neutrophils % Seg Neutrophils # Seg Neutrophils # Man Monocytes # (Manual) PT D-Dimer POC ABG pH 7.462 H POC ABG pCO2 33.5 L POC ABG pO2 59 L Sodium Potassium Carbon Dioxide BUN Creatinine Glucose POC Glucose 164 H 211 H Lactic Acid Calcium C-Reactive Protein NT-Pro-B Natriuret Pep 10/05/18 10/05/18 10/05/18 05:13 12:06 12:11 WBC Hgb Hct MCV MCH MCHC RDW Plt Count Lymph % (Auto) [place] % (Auto) Lymph # [place] # Seg Neutrophils % Seg Neutrophils # Seg Neutrophils # Man Monocytes # (Manual) PT D-Dimer POC ABG pH 7.462 H POC ABG pCO2 POC ABG pO2 66 L Sodium Potassium Carbon Dioxide BUN Creatinine Glucose POC Glucose 190 H 185 H Lactic Acid Calcium C-Reactive Protein NT-Pro-B Natriuret Pep 10/05/18 10/05/18 10/06/18 18:13 23:49 04:19 WBC Hgb 9.8 L Hct 30.5 L MCV 73 L MCH 23 L MCHC RDW 21.0 H Plt Count Lymph % (Auto) [place] % (Auto) Lymph # [place] # Seg Neutrophils % Seg Neutrophils # Seg Neutrophils # Man Monocytes # (Manual) PT D-Dimer POC ABG pH POC ABG pCO2 POC ABG pO2 Sodium Potassium Carbon Dioxide BUN Creatinine Glucose POC Glucose 177 H 192 H Lactic Acid Calcium C-Reactive Protein NT-Pro-B Natriuret Pep 10/06/18 10/06/18 10/06/18 04:19 05:00 12:05 WBC Hgb Hct MCV MCH MCHC RDW Plt Count Lymph % (Auto) [place] % (Auto) Lymph # [place] # Seg Neutrophils % Seg Neutrophils # Seg Neutrophils # Man Monocytes # (Manual) PT D-Dimer POC ABG pH POC ABG pCO2 POC ABG pO2 Sodium Potassium 3.4 L Carbon Dioxide BUN 21 H Creatinine 0.7 L Glucose 133 H POC Glucose 135 H 206 H Lactic Acid Calcium C-Reactive Protein NT-Pro-B Natriuret Pep 10/06/18 10/06/18 10/06/18 12:12 16:31 21:13 WBC Hgb Hct MCV MCH MCHC RDW Plt Count Lymph % (Auto) [place] % (Auto) Lymph # [place] # Seg Neutrophils % Seg Neutrophils # Seg Neutrophils # Man Monocytes # (Manual) PT D-Dimer POC ABG pH POC ABG pCO2 POC ABG pO2 Sodium Potassium Carbon Dioxide BUN Creatinine Glucose POC Glucose 216 H 141 H 308 H Lactic Acid Calcium C-Reactive Protein NT-Pro-B Natriuret Pep 10/07/18 11:32 WBC Hgb Hct MCV MCH MCHC RDW Plt Count Lymph % (Auto) [place] % (Auto) Lymph # [place] # Seg Neutrophils % Seg Neutrophils # Seg Neutrophils # Man Monocytes # (Manual) PT D-Dimer POC ABG pH POC ABG pCO2 POC ABG pO2 Sodium Potassium Carbon Dioxide BUN Creatinine Glucose POC Glucose 220 H Lactic Acid Calcium C-Reactive Protein NT-Pro-B Natriuret Pep Chest x-ray: image reviewed Allied health notes reviewed: nursing
--- NOTE | 2018-10-07 16:34 | Progress Note ---
Assessment and Plan Cultures: Blood culture 10/02/2018 negative Tracheal asp 10/02/2018 Pseudomonas MDR sensitive to cefepime, resistant to FQ, AG and aztreonam. Urine culture 10/02/2018 no growth Assessment: 68 y/o male with history of COPD, chronic systolic CHF, CVA, atrial fibrillation, anemia and CAD s/p CAB; admitted on 09/30/2018 due to worsening respiratory distress and AMS / lethargy: 1) SIRS versus Sepsis: Improved, still fevers; likely from COPD exacerbation with presumed pneumonia +/- heart failure. CRP 3.4. UA neg. Blood cultures negative so far. 2) COPD exacerbation with presumed pneumonia: CXR initially with severe emphysema and no infiltrates, but repeat CXR showed bilateral pneumonitis CT chest: No evidence of pulmonary arterial emboli. Bilateral lower lung infiltrates are identified, more pronounced on the right. Mild bilateral effusions. 3) Acute on chronic respiratory failure: from COPD/pneumonia/CHF, extubated 4) Acute encephalopathy: improving Recommendations: - contact isolation due to MDR Pseudomonas - continue cefepime 2 gm IV q8h D6 - will do probably 2-3 weeks IV cefepime, will place order with case management [facility] M: [phone] O:[phone] Subjective Date of service: 10/07/18 Principal diagnosis: Ac on Ch Hypoxemic Hypercapnic Resp failure; AECOPD; CHF exacerbation; Afib Interval history: Patient seen and examined. no acute distress observed. no family at bedside Objective - Exam Narrative Exam: Constitutional: Asleep, easily arousable . No acute distress Head, Ears, Nose: Normocephalic, atraumatic. External ears, nose normal Eyes: Conjunctivae/corneas clear. No icterus. No ptosis. Neck: Supple, no meningeal signs Oral: no thrush Cardiovascular: S1, S2 normal. Respiratory: Good air entry, clear to auscultation bilaterally GI: Soft, non-tender; bowel sounds normal. No peritoneal signs Musculoskeletal: No pedal edema, no cyanosis. Skin: No rash or abscess. Hem/Lymphatic: No palpable cervical or supraclavicular nodes. No lymphangitis Psych: asleep, easily arousable Neurological: Asleep, easily arousable - Constitutional Vitals: Vital Signs Temp Pulse Resp BP Pulse Ox 98.4 F 92 H 27 H 107/62 97 10/07/18 12:00 10/07/18 15:17 10/07/18 15:17 10/07/18 12:01 10/07/18 12:01 Temperature -Last 24 Hours Temperature 98.4 F Temperature 98.7 F Temperature 99.9 F Temperature 100.2 F Temperature 99.3 F - Labs CBC & Chem 7: 10/06/18 04:19 10/06/18 04:19 Labs: Abnormal lab results 10/06/18 10/07/18 Range/Units 21:13 11:32 POC Glucose 308 H 220 H (70-105)
[2018-10-08] MEDS: DUONEB *Not for PRN Use IH SCH ×6 (01:55→19:52)
[2018-10-08] MEDS: BROVANA NEBU IH SCH ×3 (01:56→19:14)
[2018-10-08] MEDS: PULMICORT IH SCH ×3 (01:56→19:14)
[2018-10-08] MEDS: HABITROL TD SCH ×2 (03:25→17:14)
[2018-10-08 04:50] LABS: Hematocrit 29.4 % (35.5-45.6); Hemoglobin 9.3 gm/dl (11.8-15.2); Mean Corpuscular HGB Conc 32 % (32-34); Mean Corpuscular Volume 72 fl (84-94); Platelet Count 147 K/mm3 (140-440); Red Blood Count 4.06 M/mm3 (3.65-5.03)
[2018-10-08 04:58] LABS: Red Cell Distribution Width 20.9 % (13.2-15.2)
[2018-10-08 05:11] LABS: BUN/Creatinine Ratio 30; Blood Urea Nitrogen 21 mg/dL (9-20); Hemolysis Index 31
[2018-10-08] MEDS: MAXIPIME/NS 2 GM/100 ML 2 GM/100 ML BAG IV SCH (06:35)
[2018-10-08] MEDS: HumaLOG SUB-Q SCH ×4 (07:30→21:16)
[2018-10-08] MEDS ORDERED: LEXISCAN IV ONE ×2 (08:53→09:46)
--- NOTE | 2018-10-08 09:49 | Progress Note ---
Assessment and Plan Acute Respiratory failure with Hypoxia/hypercapnea s/p MVS Hypertensive urgency Acute Systolic Congestive heart failure with possible combined diastolic dysfunction Sepsis COPD with acute exacerbation Thrombocytopenia, improved Cardiomyopathy with EF OF 25-30% s/p CABG Atrial Fibrillation with RVR Leukocytosis Hyperkalemia DM with Hyperglycemia Iron deficiency anemia History of CVA -Continue with supplemental oxygen to keep O2 sats 88-90% -Bronchodilators -VTE prophylaxis( SCDs) -PT/OT -Heart failure measures -Glycemic control to keep blood glucose 140-180mg/dL -Complete antibiotics per ID recommendations -Follow up stress testing results -Bowel regimen -Aspiration precautions -Needs GI evaluation--colonoscopy/upper GI endoscopy prior to full anticoagulation since he has a microcytic anemia Discussed with hospitalist service today -Send stool for FOBT -Out patient pulmonary follow up on discharge Subjective Date of service: 10/08/18 Principal diagnosis: Ac on Ch Hypoxemic Hypercapnic Resp failure; AECOPD; CHF exacerbation; Afib Interval history: Patient is seen today for: Acute on chronic hypoxemic and hypercapnic respiratory failure; Acute chronic obstructive pulmonary disease exacerbation; Acute congestive heart failure exacerbation; History of cerebrovascular accident; Atrial fibrillation with rapid ventricular response. Seen and examined at bedside; 24hour events reviewed; nursing and respiratory care staff consulted; no adverse overnight events reported to me; resting peace fully in bed; denies acute chest pains or palpitations;No N/V/F/C; has ongoing shortness of breath, continues to require supplemental oxygen at 3L/min.Stress test this morning as part of cardiac evaluation Objective Vital Signs - 12hr 10/07/18 10/07/18 10/07/18 22:00 23:01 23:58 Temperature Pulse Rate 94 H 89 79 Pulse Rate [ Anterior Bilateral] Pulse Rate [ From Monitor] Respiratory 38 H 31 H 18 Rate Respiratory Rate [Anterior Bilateral] Blood Pressure 116/67 116/67 99/50 O2 Sat by Pulse 91 88 Oximetry 10/08/18 10/08/18 10/08/18 00:00 00:01 00:11 Temperature 98.5 F Pulse Rate 81 81 Pulse Rate [ Anterior Bilateral] Pulse Rate [ 87 From Monitor] Respiratory 19 16 16 Rate Respiratory Rate [Anterior Bilateral] Blood Pressure 99/50 106/60 O2 Sat by Pulse 94 94 Oximetry 10/08/18 10/08/18 10/08/18 01:01 02:00 02:01 Temperature Pulse Rate 86 90 89 Pulse Rate [ Anterior Bilateral] Pulse Rate [ From Monitor] Respiratory 16 30 H 14 Rate Respiratory Rate [Anterior Bilateral] Blood Pressure 110/63 111/48 O2 Sat by Pulse 96 84 Oximetry 10/08/18 10/08/18 10/08/18 03:01 04:00 05:00 Temperature 98.4 F Pulse Rate 86 84 90 Pulse Rate [ Anterior Bilateral] Pulse Rate [ 74 From Monitor] Respiratory 22 18 17 Rate Respiratory Rate [Anterior Bilateral] Blood Pressure 111/48 96/48 118/75 O2 Sat by Pulse 96 94 89 Oximetry 10/08/18 10/08/18 10/08/18 06:00 07:38 07:48 Temperature Pulse Rate 94 H Pulse Rate [ 94 H 96 H Anterior Bilateral] Pulse Rate [ From Monitor] Respiratory 32 H Rate Respiratory 24 22 Rate [Anterior Bilateral] Blood Pressure 119/60 O2 Sat by Pulse 89 Oximetry 10/08/18 09:22 Temperature Pulse Rate Pulse Rate [ Anterior Bilateral] Pulse Rate [ From Monitor] Respiratory Rate Respiratory Rate [Anterior Bilateral] Blood Pressure O2 Sat by Pulse 95 Oximetry Constitutional: appears uncomfortable, other (elderly looking CM, normocephalic and atraumatic with increased resp effort) Eyes: non-icteric ENT: oropharynx moist Neck: supple, no lymphadenopathy, no JVD, other (no thyromegaly) Effort: mildly labored Ascultation: Bilateral: clear, diminished breath sounds, rhonchi, other (+ barrel chest) Percussion: Bilateral: not dull Cardiovascular: irregular rhythm, other (S1,S2) Gastrointestinal: normoactive bowel sounds, soft, non-tender, non-distended Integumentary: normal, other (post CABG sternotomy scar) Extremities: no cyanosis, no edema, pink and warm, pulses normal, no ischemia or petechiae Neurologic: normal mental status, non-focal exam (grossly), pupils equal and round, motor strength normal and Psychiatric: mood appropriate, affect normal CBC and BMP: 10/09/18 05:09 10/08/18 04:11 ABG, PT/INR, D-dimer: ABG POC ABG pH 7.462 (7.35-7.45) H 10/05/18 12:06 POC ABG pCO2 35.8 (35-45) 10/05/18 12:06 POC ABG pO2 66 (80-105) L 10/05/18 12:06 POC ABG HCO3 25.6 10/05/18 12:06 POC ABG Total CO2 27 10/05/18 12:06 POC ABG O2 Sat 94 10/05/18 12:06 PT/INR, D-dimer PT 15.0 Sec. (12.2-14.9) H 10/02/18 07:22 INR 1.11 (0.87-1.13) 10/02/18 07:22 D-Dimer 1039.91 ng/mlDDU (0-234) H 10/02/18 21:01 Abnormal lab findings: Abnormal Labs 10/02/18 10/02/18 10/02/18 07:13 07:20 07:22 WBC 19.7 H Hgb 10.9 L Hct MCV 75 L MCH 23 L MCHC 31 L RDW 21.7 H Plt Count Lymph % (Auto) [place] % (Auto) Lymph # [place] # Seg Neutrophils % Seg Neutrophils # Seg Neutrophils # Man 13.2 H Monocytes # (Manual) 1.2 H PT 15.0 H D-Dimer POC ABG pH POC ABG pCO2 POC ABG pO2 Sodium Potassium 5.2 H D Carbon Dioxide 19 L BUN Creatinine Glucose 340 H POC Glucose Lactic Acid Calcium C-Reactive Protein NT-Pro-B Natriuret Pep 3102 H 10/02/18 10/02/18 10/02/18 08:32 09:26 12:28 WBC Hgb Hct MCV MCH MCHC RDW Plt Count Lymph % (Auto) [place] % (Auto) Lymph # [place] # Seg Neutrophils % Seg Neutrophils # Seg Neutrophils # Man Monocytes # (Manual) PT D-Dimer POC ABG pH 7.201 L 7.254 L POC ABG pCO2 61.2 H 54.3 H POC ABG pO2 150 H 196 H Sodium Potassium Carbon Dioxide BUN Creatinine Glucose POC Glucose Lactic Acid 3.00 H* Calcium C-Reactive Protein NT-Pro-B Natriuret Pep 10/02/18 10/02/18 10/02/18 20:43 21:01 21:01 WBC Hgb Hct MCV MCH MCHC RDW Plt Count Lymph % (Auto) [place] % (Auto) Lymph # [place] # Seg Neutrophils % Seg Neutrophils # Seg Neutrophils # Man Monocytes # (Manual) PT D-Dimer 1039.91 H POC ABG pH 7.307 L POC ABG pCO2 45.6 H POC ABG pO2 107 H Sodium Potassium Carbon Dioxide BUN Creatinine Glucose POC Glucose Lactic Acid Calcium C-Reactive Protein 3.40 H NT-Pro-B Natriuret Pep 10/02/18 10/03/18 10/03/18 21:01 00:14 04:13 WBC 13.6 H Hgb 10.6 L Hct 34.5 L MCV 74 L MCH 23 L MCHC 31 L RDW 21.3 H Plt Count 134 L Lymph % (Auto) 6.0 L [place] % (Auto) 10.6 H Lymph # 0.8 L [place] # 1.4 H Seg Neutrophils % 83.1 H Seg Neutrophils # 11.3 H Seg Neutrophils # Man Monocytes # (Manual) PT D-Dimer POC ABG pH POC ABG pCO2 POC ABG pO2 Sodium Potassium Carbon Dioxide BUN Creatinine Glucose POC Glucose 164 H Lactic Acid 2.80 H* Calcium C-Reactive Protein NT-Pro-B Natriuret Pep 10/03/18 10/03/18 10/03/18 04:13 04:13 04:47 WBC Hgb Hct MCV MCH MCHC RDW Plt Count Lymph % (Auto) [place] % (Auto) Lymph # [place] # Seg Neutrophils % Seg Neutrophils # Seg Neutrophils # Man Monocytes # (Manual) PT D-Dimer POC ABG pH POC ABG pCO2 POC ABG pO2 Sodium 136 L Potassium Carbon Dioxide 18 L BUN 29 H Creatinine Glucose 168 H POC Glucose 182 H Lactic Acid 2.60 H* Calcium 8.3 L C-Reactive Protein NT-Pro-B Natriuret Pep 10/03/18 10/03/18 10/03/18 05:47 11:39 16:56 WBC Hgb Hct MCV MCH MCHC RDW Plt Count Lymph % (Auto) [place] % (Auto) Lymph # [place] # Seg Neutrophils % Seg Neutrophils # Seg Neutrophils # Man Monocytes # (Manual) PT D-Dimer POC ABG pH 7.314 L POC ABG pCO2 45.9 H POC ABG pO2 Sodium Potassium Carbon Dioxide BUN Creatinine Glucose POC Glucose 134 H 118 H Lactic Acid Calcium C-Reactive Protein NT-Pro-B Natriuret Pep 10/03/18 10/04/18 10/04/18 23:13 05:20 05:44 WBC Hgb Hct MCV MCH MCHC RDW Plt Count Lymph % (Auto) [place] % (Auto) Lymph # [place] # Seg Neutrophils % Seg Neutrophils # Seg Neutrophils # Man Monocytes # (Manual) PT D-Dimer POC ABG pH POC ABG pCO2 POC ABG pO2 68 L Sodium Potassium Carbon Dioxide BUN Creatinine Glucose POC Glucose 129 H 166 H Lactic Acid Calcium C-Reactive Protein NT-Pro-B Natriuret Pep 10/04/18 10/04/18 10/04/18 08:04 08:04 11:56 WBC Hgb 9.1 L Hct 28.7 L MCV 72 L MCH 23 L MCHC RDW 21.6 H Plt Count 126 L Lymph % (Auto) [place] % (Auto) Lymph # [place] # Seg Neutrophils % Seg Neutrophils # Seg Neutrophils # Man Monocytes # (Manual) PT D-Dimer POC ABG pH POC ABG pCO2 POC ABG pO2 Sodium Potassium Carbon Dioxide BUN 26 H Creatinine Glucose 167 H POC Glucose 176 H Lactic Acid Calcium 8.2 L C-Reactive Protein NT-Pro-B Natriuret Pep 10/04/18 10/04/18 10/05/18 13:21 17:12 00:02 WBC Hgb Hct MCV MCH MCHC RDW Plt Count Lymph % (Auto) [place] % (Auto) Lymph # [place] # Seg Neutrophils % Seg Neutrophils # Seg Neutrophils # Man Monocytes # (Manual) PT D-Dimer POC ABG pH 7.462 H POC ABG pCO2 33.5 L POC ABG pO2 59 L Sodium Potassium Carbon Dioxide BUN Creatinine Glucose POC Glucose 164 H 211 H Lactic Acid Calcium C-Reactive Protein NT-Pro-B Natriuret Pep 10/05/18 10/05/18 10/05/18 05:13 12:06 12:11 WBC Hgb Hct MCV MCH MCHC RDW Plt Count Lymph % (Auto) [place] % (Auto) Lymph # [place] # Seg Neutrophils % Seg Neutrophils # Seg Neutrophils # Man Monocytes # (Manual) PT D-Dimer POC ABG pH 7.462 H POC ABG pCO2 POC ABG pO2 66 L Sodium Potassium Carbon Dioxide BUN Creatinine Glucose POC Glucose 190 H 185 H Lactic Acid Calcium C-Reactive Protein NT-Pro-B Natriuret Pep 10/05/18 10/05/18 10/06/18 18:13 23:49 04:19 WBC Hgb 9.8 L Hct 30.5 L MCV 73 L MCH 23 L MCHC RDW 21.0 H Plt Count Lymph % (Auto) [place] % (Auto) Lymph # [place] # Seg Neutrophils % Seg Neutrophils # Seg Neutrophils # Man Monocytes # (Manual) PT D-Dimer POC ABG pH POC ABG pCO2 POC ABG pO2 Sodium Potassium Carbon Dioxide BUN Creatinine Glucose POC Glucose 177 H 192 H Lactic Acid Calcium C-Reactive Protein NT-Pro-B Natriuret Pep 10/06/18 10/06/18 10/06/18 04:19 05:00 12:05 WBC Hgb Hct MCV MCH MCHC RDW Plt Count Lymph % (Auto) [place] % (Auto) Lymph # [place] # Seg Neutrophils % Seg Neutrophils # Seg Neutrophils # Man Monocytes # (Manual) PT D-Dimer POC ABG pH POC ABG pCO2 POC ABG pO2 Sodium Potassium 3.4 L Carbon Dioxide BUN 21 H Creatinine 0.7 L Glucose 133 H POC Glucose 135 H 206 H Lactic Acid Calcium C-Reactive Protein NT-Pro-B Natriuret Pep 10/06/18 10/06/18 10/06/18 12:12 16:31 21:13 WBC Hgb Hct MCV MCH MCHC RDW Plt Count Lymph % (Auto) [place] % (Auto) Lymph # [place] # Seg Neutrophils % Seg Neutrophils # Seg Neutrophils # Man Monocytes # (Manual) PT D-Dimer POC ABG pH POC ABG pCO2 POC ABG pO2 Sodium Potassium Carbon Dioxide BUN Creatinine Glucose POC Glucose 216 H 141 H 308 H Lactic Acid Calcium C-Reactive Protein NT-Pro-B Natriuret Pep 10/07/18 10/07/18 10/08/18 08:37 11:32 04:11 WBC Hgb 9.3 L Hct 29.4 L MCV 72 L MCH 23 L MCHC RDW 20.9 H Plt Count Lymph % (Auto) [place] % (Auto) Lymph # [place] # Seg Neutrophils % Seg Neutrophils # Seg Neutrophils # Man Monocytes # (Manual) PT D-Dimer POC ABG pH POC ABG pCO2 POC ABG pO2 Sodium Potassium Carbon Dioxide BUN Creatinine Glucose POC Glucose 233 H 220 H Lactic Acid Calcium C-Reactive Protein NT-Pro-B Natriuret Pep 10/08/18 04:11 WBC Hgb Hct MCV MCH MCHC RDW Plt Count Lymph % (Auto) [place] % (Auto) Lymph # [place] # Seg Neutrophils % Seg Neutrophils # Seg Neutrophils # Man Monocytes # (Manual) PT D-Dimer POC ABG pH POC ABG pCO2 POC ABG pO2 Sodium Potassium 3.5 L Carbon Dioxide 21 L BUN 21 H Creatinine 0.7 L Glucose 123 H POC Glucose Lactic Acid Calcium 8.0 L C-Reactive Protein NT-Pro-B Natriuret Pep Allied health notes reviewed: nursing
--- NOTE | 2018-10-08 10:29 | Progress Note ---
Assessment and Plan Assessment and plan: Patient is a 68-year-old male with past medical history from records shows COPD, chronic systolic CHF, CVA, atrial fibrillation, iron deficiency anemia and CAD s/p CABG who presents with severe respiratory distress. Patient was noted to be lethargic with severe increased work of breathing and was intubated in the ER and placed on mechanical ventilation. Review of records is also off HPI. The record shows that the patient has been in the ED about 2 days prior to this visit. He also had affirm that he has been on mechanical ventilation on previous occasions for currently follows at the [facility]. The ED documentation the medication list reveals the patient also lives in a senior living house. On arrival he was noted to have a saturation of 60% and was difficult to oxygenate with CPAP despite Solu-Medrol and magnesium given enroute and mechanical ventilation in the ED. * Patient was intubated and placed on mechanical ventilation * Repeated ABG shows improvement and hypercapnia * X-ray was consistent with COPD also showed a right upper lobe nodular opacity * Echocardiogram revealed an EF of 20-25% with abnormal left ventricular diastolic function also observed * Cardiology acknowledged patient was in atrial fibrillation IV Lopressor was converted to by mouth Lopressor and lisinopril following extubation. Assessment the patient is frail and lives in a senior living house. Acute Respiratory failure with Hypoxia/hypercapneia ON Mechanical ventilation, now extubated Hypertensive urgency Acute Systolic Congestive heart failure with possible combined diastolic dysfunction-Precluding fluids administration Sepsis-POA secondary PNA Acute Bronchitis. CT scan not showing any infiltrates. COPD with acute exacerbation secondary to above Thrombocytopenia, resolved Cardiomyopathy with EF OF 25-30% s/p CABG Atrial Fibrillation with RVR Leukocytosis Hyperkalemia,resolved DM with Hyperglycemia Iron deficiency anemia History of CVA Plan Continue supportive care Patient successfully extubated Blood cultures growing in to drug-resistant pseudomonas aeruginosa. Patient on isolation. ID consulted SCD. HIT Antibodies neg. Continue abx protocol Judicious use of lasix considering low BP Sepsis Protocol [employer]ch[employer] Lead and cardiology consult INPUT NOTED Blood cultures NO GROWTH SO FAR DVT/GI prophylaxis Discussed with Pulm , GI, cardiology. Patient needs systemic anticoag for afib. For Endoscopy. T History Interval history: feels better, No chest pain No SOB Hospitalist Physical - Physical exam Narrative exam: GEN: Not in acute distress, lying in bed HEENT: Normocephalic, atraumatic, Neck: supple, No JVD Lungs: Clear to auscultation bilaterally, no crackles or wheeze Heart:S1 and S2 irreg, irreg, no rubs or gallop, Abd:soft, non tender, non distended, normal bowel sounds Ext: No edema, no clubbing or cyanosis Neuro: awake,alert,oriented, no focal signs - Constitutional Vitals: Temp Pulse Resp BP Pulse Ox 98.4 F 96 H 22 119/60 95 10/08/18 04:00 10/08/18 07:48 10/08/18 07:48 10/08/18 06:00 10/08/18 09:22 General appearance: Present: other (intubated, sedated ) Results - Labs CBC & Chem 7: 10/08/18 04:11 10/08/18 04:11 Labs: Laboratory Last Values WBC 7.0 K/mm3 (4.5-11.0) 10/08/18 04:11 RBC 4.06 M/mm3 (3.65-5.03) 10/08/18 04:11 Hgb 9.3 gm/dl (11.8-15.2) L 10/08/18 04:11 Hct 29.4 % (35.5-45.6) L 10/08/18 04:11 MCV 72 fl (84-94) L 10/08/18 04:11 MCH 23 pg (28-32) L 10/08/18 04:11 MCHC 32 % (32-34) 10/08/18 04:11 RDW 20.9 % (13.2-15.2) H 10/08/18 04:11 Plt Count 147 K/mm3 (140-440) 10/08/18 04:11 Lymph % (Auto) 6.0 % (13.4-35.0) L 10/03/18 04:13 [place] % (Auto) 10.6 % (0.0-7.3) H 10/03/18 04:13 Eos % (Auto) 0.0 % (0.0-4.3) 10/03/18 04:13 Baso % (Auto) 0.3 % (0.0-1.8) 10/03/18 04:13 Lymph # 0.8 K/mm3 (1.2-5.4) L 10/03/18 04:13 [place] # 1.4 K/mm3 (0.0-0.8) H 10/03/18 04:13 Eos # 0.0 K/mm3 (0.0-0.4) 10/03/18 04:13 Baso # 0.0 K/mm3 (0.0-0.1) 10/03/18 04:13 Add Manual Diff Complete 10/02/18 07:20 Total Counted 100 10/02/18 07:20 Seg Neutrophils % 83.1 % (40.0-70.0) H 10/03/18 04:13 Seg Neuts % (Manual) 67.0 % (40.0-70.0) 10/02/18 07:20 Band Neutrophils % 1.0 % 10/02/18 07:20 Lymphocytes % (Manual) 26.0 % (13.4-35.0) 10/02/18 07:20 Reactive Lymphs % (Man) 0 % 10/02/18 07:20 Monocytes % (Manual) 6.0 % (0.0-7.3) 10/02/18 07:20 Eosinophils % (Manual) 0 % (0.0-4.3) 10/02/18 07:20 Basophils % (Manual) 0 % (0.0-1.8) 10/02/18 07:20 Metamyelocytes % 0 % 10/02/18 07:20 Myelocytes % 0 % 10/02/18 07:20 Promyelocytes % 0 % 10/02/18 07:20 Blast Cells % 0 % 10/02/18 07:20 Nucleated RBC % Not Reportable 10/02/18 07:20 Seg Neutrophils # 11.3 K/mm3 (1.8-7.7) H 10/03/18 04:13 Seg Neutrophils # Man 13.2 K/mm3 (1.8-7.7) H 10/02/18 07:20 Band Neutrophils # 0.2 K/mm3 10/02/18 07:20 Lymphocytes # (Manual) 5.1 K/mm3 (1.2-5.4) 10/02/18 07:20 Abs React Lymphs (Man) 0.0 K/mm3 10/02/18 07:20 Monocytes # (Manual) 1.2 K/mm3 (0.0-0.8) H 10/02/18 07:20 Eosinophils # (Manual) 0.0 K/mm3 (0.0-0.4) 10/02/18 07:20 Basophils # (Manual) 0.0 K/mm3 (0.0-0.1) 10/02/18 07:20 Metamyelocytes # 0.0 K/mm3 10/02/18 07:20 Myelocytes # 0.0 K/mm3 10/02/18 07:20 Promyelocytes # 0.0 K/mm3 10/02/18 07:20 Blast Cells # 0.0 K/mm3 10/02/18 07:20 WBC Morphology Not Reportable 10/02/18 07:20 Hypersegmented Neuts Not Reportable 10/02/18 07:20 Hyposegmented Neuts Not Reportable 10/02/18 07:20 Hypogranular Neuts Not Reportable 10/02/18 07:20 Smudge Cells Not Reportable 10/02/18 07:20 Toxic Granulation Not Reportable 10/02/18 07:20 Toxic Vacuolation Not Reportable 10/02/18 07:20 Dohle Bodies Not Reportable 10/02/18 07:20 Pelger-Huet Anomaly Not Reportable 10/02/18 07:20 Markie Rods Not Reportable 10/02/18 07:20 Platelet Estimate Consistent w auto 10/02/18 07:20 Clumped Platelets Not Reportable 10/02/18 07:20 Plt Clumps, EDTA Not Reportable 10/02/18 07:20 Large Platelets Not Reportable 10/02/18 07:20 Giant Platelets Not Reportable 10/02/18 07:20 Platelet Satelliting Not Reportable 10/02/18 07:20 Plt Morphology Comment Not Reportable 10/02/18 07:20 RBC Morphology Not Reportable 10/02/18 07:20 Dimorphic RBCs Not Reportable 10/02/18 07:20 Polychromasia Not Reportable 10/02/18 07:20 Hypochromasia 1+ 10/02/18 07:20 Poikilocytosis Not Reportable 10/02/18 07:20 Anisocytosis 2+ 10/02/18 07:20 Microcytosis 2+ 10/02/18 07:20 Macrocytosis Not Reportable 10/02/18 07:20 Spherocytes Not Reportable 10/02/18 07:20 Pappenheimer Bodies Not Reportable 10/02/18 07:20 Sickle Cells Not Reportable 10/02/18 07:20 Target Cells Not Reportable 10/02/18 07:20 Tear Drop Cells Not Reportable 10/02/18 07:20 Ovalocytes 1+ 10/02/18 07:20 Helmet Cells Not Reportable 10/02/18 07:20 [place] Bodies Not Reportable 10/02/18 07:20 [place] Rings Not Reportable 10/02/18 07:20 [place] Cells Not Reportable 10/02/18 07:20 Bite Cells Not Reportable 10/02/18 07:20 Crenated Cell Not Reportable 10/02/18 07:20 Elliptocytes Not Reportable 10/02/18 07:20 Acanthocytes (Spur) Not Reportable 10/02/18 07:20 Rouleaux Not Reportable 10/02/18 07:20 Hemoglobin C Crystals Not Reportable 10/02/18 07:20 Schistocytes Not Reportable 10/02/18 07:20 Malaria parasites Not Reportable 10/02/18 07:20 [place] Bodies Not Reportable 10/02/18 07:20 Hem Pathologist Commnt No 10/02/18 07:20 PT 15.0 Sec. (12.2-14.9) H 10/02/18 07:22 INR 1.11 (0.87-1.13) 10/02/18 07:22 D-Dimer 1039.91 ng/mlDDU (0-234) H 10/02/18 21:01 Heparin Anti-Xa, Unfract Negative (Negative) 10/03/18 09:36 POC ABG pH 7.462 (7.35-7.45) H 10/05/18 12:06 POC ABG pCO2 35.8 (35-45) 10/05/18 12:06 POC ABG pO2 66 (80-105) L 10/05/18 12:06 POC ABG HCO3 25.6 10/05/18 12:06 POC ABG Total CO2 27 10/05/18 12:06 POC ABG O2 Sat 94 10/05/18 12:06 POC ABG Base Excess 2 10/05/18 12:06 FiO2 30 % 10/05/18 12:06 Sodium 142 mmol/L (137-145) 10/08/18 04:11 Potassium 3.5 mmol/L (3.6-5.0) L 10/08/18 04:11 Chloride 106.4 mmol/L (98-107) 10/08/18 04:11 Carbon Dioxide 21 mmol/L (22-30) L 10/08/18 04:11 Anion Gap 18 mmol/L 10/08/18 04:11 BUN 21 mg/dL (9-20) H 10/08/18 04:11 Creatinine 0.7 mg/dL (0.8-1.5) L 10/08/18 04:11 Estimated GFR > 60 ml/min 10/08/18 04:11 BUN/Creatinine Ratio 30 % 10/08/18 04:11 Glucose 123 mg/dL (75-100) H 10/08/18 04:11 POC Glucose 91 (70-105) 10/07/18 16:45 Lactic Acid 2.60 mmol/L (0.7-2.0) H* 10/03/18 04:13 Calcium 8.0 mg/dL (8.4-10.2) L 10/08/18 04:11 Magnesium 2.30 mg/dL (1.7-2.3) 10/02/18 18:04 Total Bilirubin 0.50 mg/dL (0.1-1.2) 10/02/18 07:13 AST 20 units/L (5-40) 10/02/18 07:13 ALT 11 units/L (7-56) 10/02/18 07:13 Alkaline Phosphatase 100 units/L (35-129) 10/02/18 07:13 Troponin T < 0.010 ng/mL (0.00-0.029) 10/02/18 07:13 C-Reactive Protein 3.40 mg/dL (0.00-1.30) H 10/02/18 21:01 NT-Pro-B Natriuret Pep 3102 pg/mL (0-900) H 10/02/18 07:13 Total Protein 7.8 g/dL (6.3-8.2) 10/02/18 07:13 Albumin 3.9 g/dL (3.9-5) 10/02/18 07:13 Albumin/Globulin Ratio 1.0 % 10/02/18 07:13 TSH 0.417 mlU/mL (0.270-4.200) 10/02/18 18:04 Free T4 0.92 ng/dL (0.76-1.46) 10/02/18 18:04 Urine Color Straw (Yellow) 10/02/18 09:12 Urine Turbidity Clear (Clear) 10/02/18 09:12 Urine pH 5.0 (5.0-7.0) 10/02/18 09:12 Ur Specific [place] 1.006 (1.003-1.030) 10/02/18 09:12 Urine Protein 30 mg/dl mg/dL (Negative) 10/02/18 09:12 Urine Glucose (UA) 50 mg/dL (Negative) 10/02/18 09:12 Urine Ketones Neg mg/dL (Negative) 10/02/18 09:12 Urine Blood Neg (Negative) 10/02/18 09:12 Urine Nitrite Neg (Negative) 10/02/18 09:12 Urine Bilirubin Neg (Negative) 10/02/18 09:12 Urine Urobilinogen < 2.0 mg/dL (<2.0) 10/02/18 09:12 Ur Leukocyte Esterase Neg (Negative) 10/02/18 09:12 Urine WBC (Auto) 2.0 /HPF (0.0-6.0) 10/02/18 09:12 Urine RBC (Auto) 2.0 /HPF (0.0-6.0) 10/02/18 09:12 Urine Bacteria (Auto) 1+ /HPF (Negative) 10/02/18 09:12 Urine Yeast (Budding) Few /HPF 10/02/18 09:12 Heparin-induced Plt Ab Negative (Negative) 10/03/18 09:36 UF Heparin High Dose 0 % Release 10/03/18 09:36 JULES UFH Low Dose 0.1 0 % Release 10/03/18 09:36 JULES UFH Low Dose 0.5 0 % Release 10/03/18 09:36 Urine Legionella Ag Not detected (Not Detected) 10/03/18 14:32 Blood Type A NEGATIVE 10/02/18 08:51 Antibody Screen Negative 10/02/18 08:51 Nutrition/Malnutrition Assess - Dietary Evaluation Nutrition/Malnutrition Findings: Nutrition Notes Start: 10/03/18 12:55 Freq: Status: Active Protocol: Document 10/07/18 12:04 SA (Rec: 10/07/18 13:12 SA [id number]) Co-Sign 10/07/18 12:04 OL Nutrition Notes Initial or Follow up Reassessment Current Diagnosis COPD Coronary Artery Disease Diabetes Sepsis Hypertension Heart Failure Respiratory Failure Stroke Other Pertinent Diagnosis Pneu Current Diet Consistent Carbohydrate Labs/Tests Reviewed Pertinent Medications Reviewed Height 6 ft 2 in Weight 76.7 kg [place] Body Weight (kg) 86.36 BMI 21.7 Subjective/Other Information Patient passed bedside swallow and was advanced to consistent CHO. Patient states appetite is normal. He reports eating 2/3 of his trays. Patient reports no N/V/ D. Patient states UBW being 185#. Patient showed interest in ONS. Percent of energy/protein needs met: 62%/65% Burn Absent Trauma Absent #1 Nutrition Diagnosis Inadequate oral intake Diagnosis Progress(for reassessment Continues documentation) Is patient on ventilator? No Is Patient Ambulatory and/or Out of Bed No REE-([facility]-confined to bed) 1921.896 Kcal/Kg value to use for calculation 29 Approximate Energy Requirements Using 2224 kcal/Kg Additional Notes Pro needs 1.2-2g/k-153g/ day Fluid needs 1ml/kcal Nutrition Intervention Change Diet Order: Continue Current Nutrition Support: D/C Add Supplement/Snack (indicate name/kcal Glucerna one daily /protein ) Provides kCal: 220 Provides Protein (gm) 10 Goal #1 Meet at least 80% of kcal and pro needs via PO and ONS intakes Goal #2 Wt maintenance Anticipated Discharge Needs: Consistent CHO Follow-Up By: 10/09/18 Additional Comments F/U: PO and ONS intakes
--- NOTE | 2018-10-08 12:49 | Progress Note ---
Assessment and Plan S/p lexiscan MPI stress test this AM which showed fixed defects, no significant ischemia. Systemic AC in regards to atrial fibrillation is recommended. Pt noted to have anemia and thrombocytopenia. If no contraindications, recommend Eliquis 5mg BID. GI w/u in progress, plans for endoscopy. Pt is currently at moderate cardiovascular risk for endoscopy. There are no immediate cardiac contraindications to proceeding with endoscopy at this time. The patient has been seen in conjunction with Dr. Wakefield who agrees with the assessment and plan of care. - Patient Problems (1) Acute respiratory failure Current Visit: Yes Status: Acute (2) Atrial fibrillation with rapid ventricular response Current Visit: Yes Status: Acute (3) Acute HFrEF (heart failure with reduced ejection fraction) Current Visit: Yes Status: Acute (4) Cardiomyopathy Current Visit: Yes Status: Chronic (5) COPD with acute exacerbation Current Visit: Yes Status: Acute (6) Pneumonia Current Visit: Yes Status: Suspected (7) CAD (coronary artery disease) Current Visit: Yes Status: Chronic (8) S/P CABG (coronary artery bypass graft) Current Visit: Yes Status: Chronic (9) Anemia Current Visit: Yes Status: Acute (10) Thrombocytopenia Current Visit: Yes Status: Acute Subjective Date of service: 10/08/18 Principal diagnosis: Ac on Ch Hypoxemic Hypercapnic Resp failure; AECOPD; CHF exacerbation; Afib Interval history: pt for stress test Objective Last Vital Signs Temp 98.4 F 10/08/18 04:00 Pulse 95 H 10/08/18 09:47 Resp 22 10/08/18 07:48 BP 120/57 10/08/18 09:47 Pulse Ox 95 10/08/18 09:22 - Physical Examination General: No Apparent Distress HEENT: Positive: PERRL, Normocephaly, Mucus Membranes Moist Neck: Positive: neck supple Cardiac: Positive: irregularly irregular, S1/S2 Lungs: Positive: Decreased Breath Sounds Neuro: Positive: Grossly Intact Abdomen: Negative: Tender Skin: Negative: Rash Extremities: Absent: edema - Labs and Meds CBC 10/08/18 Range/Units 04:11 WBC 7.0 (4.5-11.0) K/mm3 RBC 4.06 (3.65-5.03) M/mm3 Hgb 9.3 L (11.8-15.2) gm/dl Hct 29.4 L (35.5-45.6) % Plt Count 147 (140-440) K/mm3 Comprehensive Metabolic Panel 10/08/18 Range/Units 04:11 Sodium 142 (137-145) mmol/L Potassium 3.5 L (3.6-5.0) mmol/L Chloride 106.4 (98-107) mmol/L Carbon Dioxide 21 L (22-30) mmol/L BUN 21 H (9-20) mg/dL Creatinine 0.7 L (0.8-1.5) mg/dL Glucose 123 H (75-100) mg/dL Calcium 8.0 L (8.4-10.2) mg/dL - Imaging and Cardiology EKG: report reviewed, image reviewed Echo: report reviewed (09/2018: EF 25-30%, abnormal diastolic function, trace MR. ) - Allied health notes Allied health notes reviewed: nursing
--- NOTE | 2018-10-08 14:13 | Gastroenterology Consultation ---
<JANE CARPENTER - Last Filed: 10/08/18 15:46> History of Present Illness - Reason for Consult Consult date: 10/08/18 anemia Requesting physician: MEIR HANDLEY - History of Present Illness Patient is a 68 y/o male with PMH of COPD, CHF, CVA, Afib, CAD (s/p CABG), and iron deficiency anemia who presented to ED with respiratory distress and was admitted with acute respiratory failure likely from exacerbation of COPD with pneumonia (due to Pseudomonas MDR) +/- heart failure (s/p extubation). GI has been consulted for evaluation of anemia per cardiology request prior to starting on systemic AC for Afib. This afternoon patient was resting in bed w/o acute distress. No active signs of bleeding such as hematemesis, melena, or hem atochezia. Has no current abd pain but states he was having some abd discomfort associated with constipation which has now resolved after having a BM this am. Denies CP, SOB, wt loss, or diarrhea. Had a colonoscopy approximately 20 years ago that revealed multiple polyps per pt report. No previous EGD. No known Fhx of GI cancers. Past History Past Medical History: other (as per HPI) Past Surgical History: CABG, Other (jail house resident) Social history: full code Family history: no significant family history Medications and Allergies Allergies Allergy/AdvReac Type Severity Reaction Status Date / Time No Known Allergies Allergy Verified 09/30/18 14:34 Home Medications Medication Instructions Recorded Confirmed Last Taken Type ALBUTEROL Inhaler (OR & NICU) 2 puff IH Q4HR PRN #1 inhalation 09/30/18 Unknown Rx [ProAir HFA Inhaler] Azithromycin [Zithromax Z-ADAL] 250 mg PO DAILY #6 tablet 09/30/18 Unknown Rx Benzonatate [Tessalon Perles] 100 mg PO Q8HR PRN #20 capsule 09/30/18 Unknown Rx predniSONE [Deltasone] 20 mg PO DAILY #15 tablet 09/30/18 Unknown Rx traMADol [Ultram] 50 mg PO Q6HR PRN #24 tablet 09/30/18 Unknown Rx Active Meds: Active Medications Albuterol (Proventil) 2.5 mg IH Q3HRT PRN PRN Reason: Shortness Of Breath Albuterol/Ipratropium (Duoneb *Not For Prn Use*) 1 ampul IH Q6HRT [facility] Last Admin: 10/08/18 07:41 Dose: Not Given Documented by: Arformoterol Tartrate (Brovana Nebu) 15 mcg IH Q12HRT [facility] Last Admin: 10/08/18 07:38 Dose: 15 mcg Documented by: Budesonide (Pulmicort) 0.5 mg IH Q12HRT [facility] Last Admin: 10/08/18 07:38 Dose: 0.5 mg Documented by: Dextrose (D50w (25gm) Syringe) 50 ml IV PRN PRN PRN Reason: Hypoglycemia Famotidine (Pepcid) 20 mg PO BID [facility] Last Admin: 10/07/18 21:28 Dose: 20 mg Documented by: Furosemide (Lasix) 20 mg PO QAM [facility] Last Admin: 10/07/18 11:02 Dose: 20 mg Documented by: Hydrophilic Ointment (Vaseline Lip Therapy) 1 applic TP Q2HR PRN PRN Reason: Dry Lips Insulin Human Lispro (Humalog) 0 unit SUB-Q ACHS [facility]; Protocol Last Admin: 10/07/18 21:28 Dose: Not Given Documented by: Lisinopril (Zestril) 5 mg PO QDAY [facility] Last Admin: 10/07/18 11:05 Dose: 5 mg Documented by: Metoprolol Tartrate (Lopressor) 12.5 mg PO BID [facility] Last Admin: 10/07/18 21:24 Dose: 12.5 mg Documented by: Multi-Ingred Cream/Lotion/Oil/Oint (Artificial Tears Ophth Oint) 1 applic OU Q4HR PRN PRN Reason: Dry Eye(s) Nicotine (Habitrol) 14 mg TD QDAY [facility] Last Admin: 10/08/18 03:25 Dose: 14 mg Documented by: Quetiapine Fumarate (Seroquel) 100 mg PO BID [facility] Last Admin: 10/07/18 21:28 Dose: 100 mg Documented by: Quetiapine Fumarate (Seroquel) 50 mg PO BID [facility] Last Admin: 10/07/18 23:52 Dose: 50 mg Documented by: Senna (Senokot) 8.6 mg PO BID [facility] Last Admin: 10/07/18 21:24 Dose: 8.6 mg Documented by: Sodium Chloride (Sodium Chloride Flush Syringe 10 Ml) 10 ml IV BID [facility] Last Admin: 10/07/18 21:28 Dose: 10 ml Documented by: Sodium Chloride (Sodium Chloride Flush Syringe 10 Ml) 10 ml IV PRN PRN PRN Reason: LINE FLUSH medications reviewed/updated as required Review of Systems - Review of Systems All systems: negative Gastrointestinal: constipation (resolved), other (anemia), no abdominal pain, no nausea, no vomiting Exam - Constitutional Vital Signs: Temp Pulse Resp BP Pulse Ox 98.4 F 95 H 22 120/57 95 10/08/18 04:00 10/08/18 09:47 10/08/18 07:48 10/08/18 09:47 10/08/18 09:22 General appearance: no acute distress - Respiratory Respiratory: bilateral: diminished - Cardiovascular Rhythm: other (irregular) - Gastrointestinal General gastrointestinal: Present: soft, non-tender, non-distended, normal bowel sounds - Labs CBC & Chem 7: 10/08/18 04:11 10/08/18 04:11 Lab Results: Laboratory Results - last 24 hr 10/03/18 10/07/18 10/07/18 14:32 08:37 16:45 WBC RBC Hgb Hct MCV MCH MCHC RDW Plt Count Sodium Potassium Chloride Carbon Dioxide Anion Gap BUN Creatinine Estimated GFR BUN/Creatinine Ratio Glucose POC Glucose 233 H 91 Calcium Urine Legionella Ag Not detected 10/08/18 10/08/18 04:11 04:11 WBC 7.0 RBC 4.06 Hgb 9.3 L Hct 29.4 L MCV 72 L MCH 23 L MCHC 32 RDW 20.9 H Plt Count 147 Sodium 142 Potassium 3.5 L Chloride 106.4 Carbon Dioxide 21 L Anion Gap 18 BUN 21 H Creatinine 0.7 L Estimated GFR > 60 BUN/Creatinine Ratio 30 Glucose 123 H POC Glucose Calcium 8.0 L Urine Legionella Ag Assessment and Plan 1.anemia -stool occult pending -H/H 9.8/30.5-stable -continue to monitor H/H and transfuse as needed -no active signs of bleeding -last colonoscopy approximately 20 years ago that revealed multiple polyps per pt report -etiology unclear -will schedule for EGD/colonoscopy tomorrow for further evaluation given need for systemic AC for A-fib per cardiology -clear liquid diet now, then NPO after MN -iron studies and INR in am -continue PPI and supportive care -will follow <ELOISE BAKER - Last Filed: 10/08/18 19:13> Medications and Allergies Active Meds: Active Medications Albuterol (Proventil) 2.5 mg IH Q3HRT PRN PRN Reason: Shortness Of Breath Albuterol/Ipratropium (Duoneb *Not For Prn Use*) 1 ampul IH Q6HRT [facility] Last Admin: 10/08/18 14:42 Dose: 1 ampul Documented by: Arformoterol Tartrate (Brovana Nebu) 15 mcg IH Q12HRT [facility] Last Admin: 10/08/18 07:38 Dose: 15 mcg Documented by: Budesonide (Pulmicort) 0.5 mg IH Q12HRT [facility] Last Admin: 10/08/18 07:38 Dose: 0.5 mg Documented by: Dextrose (D50w (25gm) Syringe) 50 ml IV PRN PRN PRN Reason: Hypoglycemia Famotidine (Pepcid) 20 mg PO BID [facility] Last Admin: 10/08/18 17:15 Dose: 20 mg Documented by: Furosemide (Lasix) 20 mg PO QAM [facility] Last Admin: 10/08/18 17:15 Dose: 20 mg Documented by: Hydrophilic Ointment (Vaseline Lip Therapy) 1 applic TP Q2HR PRN PRN Reason: Dry Lips Insulin Human Lispro (Humalog) 0 unit SUB-Q [facility]; Protocol Last Admin: 10/08/18 17:11 Dose: 1 unit Documented by: Lisinopril (Zestril) 5 mg PO QDAY [facility] Last Admin: 10/08/18 17:18 Dose: 5 mg Documented by: Metoprolol Tartrate (Lopressor) 12.5 mg PO BID [facility] Last Admin: 10/08/18 17:19 Dose: 12.5 mg Documented by: Multi-Ingred Cream/Lotion/Oil/Oint (Artificial Tears Ophth Oint) 1 applic OU Q4HR PRN PRN Reason: Dry Eye(s) Nicotine (Habitrol) 14 mg TD QDAY [facility] Last Admin: 10/08/18 17:14 Dose: 14 mg Documented by: Pantoprazole Sodium (Protonix) 40 mg PO QDAY [facility] Quetiapine Fumarate (Seroquel) 100 mg PO BID [facility] Last Admin: 10/08/18 17:17 Dose: 100 mg Documented by: Quetiapine Fumarate (Seroquel) 50 mg PO BID [facility] Last Admin: 10/08/18 17:17 Dose: 50 mg Documented by: Cam (Arlyn) 8.6 mg PO BID [facility] Last Admin: 10/08/18 17:16 Dose: 8.6 mg Documented by: Sodium Chloride (Sodium Chloride Flush Syringe 10 Ml) 10 ml IV BID [facility] Last Admin: 10/08/18 17:19 Dose: 10 ml Documented by: Sodium Chloride (Sodium Chloride Flush Syringe 10 Ml) 10 ml IV PRN PRN PRN Reason: LINE FLUSH Exam - Constitutional Vital Signs: Temp Pulse Resp BP Pulse Ox 98.4 F 85 32 H 125/58 95 10/08/18 04:00 10/08/18 17:19 10/08/18 14:52 10/08/18 17:19 10/08/18 09:22 - Labs CBC & Chem 7: 10/08/18 04:11 10/08/18 04:11 Lab Results: Laboratory Results - last 24 hr 10/03/18 10/08/18 10/08/18 14:32 04:11 04:11 WBC 7.0 RBC 4.06 Hgb 9.3 L Hct 29.4 L MCV 72 L MCH 23 L MCHC 32 RDW 20.9 H Plt Count 147 Sodium 142 Potassium 3.5 L Chloride 106.4 Carbon Dioxide 21 L Anion Gap 18 BUN 21 H Creatinine 0.7 L Estimated GFR > 60 BUN/Creatinine Ratio 30 Glucose 123 H POC Glucose Calcium 8.0 L Urine Legionella Ag Not detected 10/08/18 16:20 WBC RBC Hgb Hct MCV MCH MCHC RDW Plt Count Sodium Potassium Chloride Carbon Dioxide Anion Gap BUN Creatinine Estimated GFR BUN/Creatinine Ratio Glucose POC Glucose 157 H Calcium Urine Legionella Ag Assessment and Plan Pt seen and examined. Agree with note above.
[2018-10-08] MEDS ORDERED: GOLYTELY PO ONE (14:14)
--- NOTE | 2018-10-08 14:52 | Progress Note ---
Assessment and Plan Cultures: Blood culture 10/02/2018 negative Tracheal asp 10/02/2018 Pseudomonas MDR sensitive to cefepime, resistant to FQ, AG and aztreonam. Urine culture 10/02/2018 no growth Assessment: 68 y/o male with history of COPD, chronic systolic CHF, CVA, atrial fibrillation, anemia and CAD s/p CAB; admitted on 09/30/2018 due to worsening respiratory distress and AMS / lethargy: 1) SIRS versus Sepsis: present on admission with leukocytosis and elevated lactate; likely from COPD exacerbation with presumed pneumonia +/- heart failure. CRP 3.4. UA neg. Blood cultures negative so far. 2) COPD exacerbation with presumed pneumonia: due to Pseudomonas MDR - CXR initially with severe emphysema and no infiltrates, but repeat CXR showed bilateral pneumonitis. - Legionella urine ag negative. - CT chest No evidence of pulmonary arterial emboli. Bilateral lower lung infiltrates are identified, more pronounced on the right. Mild bilateral effusions. 3) Acute on chronic respiratory failure: from COPD/pneumonia/CHF, extubated 4) Acute encephalopathy: improving 5) Afib / CHF - EF of 20-25% with abnormal left ventricular diastolic function also observed Recommendations: - contact isolation due to MDR Pseudomonas - continue cefepime 2 gm IV q8h D7 of 14 - at discharge will do cefepime 2 gm IV q8h until 10/15/2018 Will follow. Alie Becker MD Infectious Diseases House [employer] [facility] M [phone] O [phone] Subjective Date of service: 10/08/18 Principal diagnosis: Ac on Ch Hypoxemic Hypercapnic Resp failure; AECOPD; CHF exacerbation; Afib Interval history: Feels ok but c/o body aches. No fever x 24h. Objective - Exam Narrative Exam: General appearance:alert talking in NAD, conversant Eyes: anicteric sclerae, moist conjunctivae; no lid-lag; PERRLA HENT: Atraumatic; oropharynx clear with moist mucous membranes and no mucosal ulcerations/no oral thrush; normal hard and soft palate. Normal external ears. Neck: Trachea midline; supple, no thyromegaly or lymphadenopathy Lungs: jason distant BS CV: Irreg Abdomen: Soft, non-tender; no masses or hepatosplenomegaly Extremities: No peripheral edema or extremity lymphadenopathy Skin: Normal temperature, turgor and texture; no rash, ulcers or subcutaneous nodules Psych: no agitated verbal Neuro: alert moving all ext - Constitutional Vitals: Vital Signs Temp Pulse Resp BP Pulse Ox 98.4 F 80 22 120/57 95 10/08/18 04:00 10/08/18 14:42 10/08/18 14:42 10/08/18 09:47 10/08/18 09:22 Temperature -Last 24 Hours Temperature 98.4 F Temperature 98.5 F Temperature 98.1 F - Labs CBC & Chem 7: 10/08/18 04:11 10/08/18 04:11 Labs: Abnormal lab results 10/07/18 10/08/18 10/08/18 Range/Units 08:37 04:11 04:11 Hgb 9.3 L (11.8-15.2) gm/dl Hct 29.4 L (35.5-45.6) % MCV 72 L (84-94) fl MCH 23 L (28-32) pg RDW 20.9 H (13.2-15.2) % Potassium 3.5 L (3.6-5.0) mmol/L Carbon Dioxide 21 L (22-30) mmol/L BUN 21 H (9-20) mg/dL Creatinine 0.7 L (0.8-1.5) mg/dL Glucose 123 H (75-100) mg/dL POC Glucose 233 H (70-105) Calcium 8.0 L (8.4-10.2) mg/dL
[2018-10-08] MEDS: PEPCID PO SCH ×2 (17:15→21:17)
[2018-10-08] MEDS: LASIX PO SCH (17:15)
[2018-10-08] MEDS: SENOKOT PO SCH ×2 (17:16→21:18)
[2018-10-08] MEDS: ZESTRIL PO SCH (17:18)
[2018-10-08] MEDS: SODIUM CHLORIDE FLUSH SYRINGE 10 ML IV SCH (17:19)
[2018-10-08] MEDS: LOPRESSOR PO SCH ×2 (17:19→21:17)
--- NOTE | 2018-10-08 19:38 | Treadmill Report ---
CARDIAC IMAGING REPORT INDICATION FOR PROCEDURE: Congestive heart failure and coronary artery disease. DESCRIPTION OF PROCEDURE: Informed consent was obtained. Vasodilator stress was achieved with the intravenous administration of 0.4 mg of Lexiscan. Rest and stress nuclear cardiac imaging was performed following the intravenous administration of 10.23 and 30.61 mCi of technetium-99m Myoview respectively. Images were obtained per protocol. Gated SPECT imaging was not performed due to the presence of atrial fibrillation and a markedly irregular ventricular rate. Myocardial perfusion imaging demonstrates no significant cavity change between stress and rest. A large inferior and apical perfusion abnormality is present on the stress images. The defects are severe and essentially persistent. There is a minimal degree of reversibility in the apical territory. There is also a large severe persistent anterolateral perfusion defect. Nuclear cardiac imaging demonstrates evidence of prior inferior apical and anterolateral wall myocardial necrosis. A significant degree of ischemia is not seen. JOB# [id number] [place]
[2018-10-09] MEDS: DUONEB *Not for PRN Use IH SCH ×2 (02:43→07:48)
[2018-10-09 05:57] LABS: Basophils % (Auto) 0.6 % (0.0-1.8); Eosinophils # (Auto) 0.5 K/mm3 (0.0-0.4); Eosinophils % (Auto) 6.7 % (0.0-4.3); Hematocrit 28.6 % (35.5-45.6); Hemoglobin 9.1 gm/dl (11.8-15.2); Lymphocytes # (Auto) 1.6 K/mm3 (1.2-5.4); Lymphocytes % (Auto) 21.9 % (13.4-35.0); Mean Corpuscular HGB Conc 32 % (32-34); Mean Corpuscular Volume 71 fl (84-94); Monocytes # (Auto) 0.8 K/mm3 (0.0-0.8); Monocytes % (Auto) 10.2 % (0.0-7.3); Platelet Count 154 K/mm3 (140-440)
[2018-10-09 05:59] LABS: Red Cell Distribution Width 20.2 % (13.2-15.2)
[2018-10-09 06:10] LABS: INR 1.12 (0.87-1.13)
[2018-10-09 06:48] LABS: Iron 29 ug/dL (49-181); Total Iron Binding Capacity 240 mcg/dL (250-450)
[2018-10-09] MEDS: PULMICORT IH SCH (07:45)
[2018-10-09] MEDS: BROVANA NEBU IH SCH (07:45)
[2018-10-09] MEDS ORDERED: WATER FOR IRRIG STERILE IR ONE (08:45)
--- NOTE | 2018-10-09 09:16 | Progress Note ---
Assessment and Plan Assessment and plan: Patient is a 68-year-old male with past medical history from records shows COPD, chronic systolic CHF, CVA, atrial fibrillation, iron deficiency anemia and CAD s/p CABG who presents with severe respiratory distress. Patient was noted to be lethargic with severe increased work of breathing and was intubated in the ER and placed on mechanical ventilation. Review of records is also off HPI. The record shows that the patient has been in the ED about 2 days prior to this visit. He also had affirm that he has been on mechanical ventilation on previous occasions for currently follows at the [facility]. The ED documentation the medication list reveals the patient also lives in a custodial house. On arrival he was noted to have a saturation of 60% and was difficult to oxygenate with CPAP despite Solu-Medrol and magnesium given enroute and mechanical ventilation in the ED. * Patient was intubated and placed on mechanical ventilation * Repeated ABG shows improvement and hypercapnia * X-ray was consistent with COPD also showed a right upper lobe nodular opacity * Echocardiogram revealed an EF of 20-25% with abnormal left ventricular diastolic function also observed * Cardiology acknowledged patient was in atrial fibrillation IV Lopressor was converted to by mouth Lopressor and lisinopril following extubation. Assessment the patient is frail and lives in a custodial house. Acute Respiratory failure with Hypoxia/hypercapneia ON Mechanical ventilation, now extubated Hypertensive urgency Acute Systolic Congestive heart failure with possible combined diastolic dysfunction-Precluding fluids administration Sepsis-POA secondary PNA Acute Bronchitis. CT scan not showing any infiltrates. COPD with acute exacerbation secondary to above Thrombocytopenia, resolved Cardiomyopathy with EF OF 25-30% s/p CABG Atrial Fibrillation with RVR Leukocytosis Hyperkalemia,resolved DM with Hyperglycemia Iron deficiency anemia History of CVA Plan Continue supportive care Patient successfully extubated Blood cultures growing in to drug-resistant pseudomonas aeruginosa. Patient on isolation. ID consulted SCD. HIT Antibodies neg. Continue abx protocol Judicious use of lasix considering low BP Sepsis Protocol Silk Snapper and cardiology consult INPUT NOTED Blood cultures NO GROWTH SO FAR DVT/GI prophylaxis Discussed with Pulm , GI, cardiology. Patient needs systemic anticoag for afib. For Endoscopy today T History Interval history: feels better, No chest pain No SOB Hospitalist Physical - Physical exam Narrative exam: GEN: Not in acute distress, lying in bed HEENT: Normocephalic, atraumatic, Neck: supple, No JVD Lungs: Clear to auscultation bilaterally, no crackles or wheeze Heart:S1 and S2 irreg, irreg, no rubs or gallop, Abd:soft, non tender, non distended, normal bowel sounds Ext: No edema, no clubbing or cyanosis Neuro: awake,alert,oriented, no focal signs - Constitutional Vitals: Temp Pulse Resp BP Pulse Ox 98.5 F 75 28 H 118/58 95 10/09/18 04:00 10/09/18 07:46 10/09/18 07:46 10/09/18 05:01 10/09/18 07:47 General appearance: Present: other (intubated, sedated ) Results - Labs CBC & Chem 7: 10/09/18 05:09 10/08/18 04:11 Labs: Laboratory Last Values WBC 7.4 K/mm3 (4.5-11.0) 10/09/18 05:09 RBC 4.00 M/mm3 (3.65-5.03) 10/09/18 05:09 Hgb 9.1 gm/dl (11.8-15.2) L 10/09/18 05:09 Hct 28.6 % (35.5-45.6) L 10/09/18 05:09 MCV 71 fl (84-94) L 10/09/18 05:09 MCH 23 pg (28-32) L 10/09/18 05:09 MCHC 32 % (32-34) 10/09/18 05:09 RDW 20.2 % (13.2-15.2) H 10/09/18 05:09 Plt Count 154 K/mm3 (140-440) 10/09/18 05:09 Lymph % (Auto) 21.9 % (13.4-35.0) 10/09/18 05:09 [place] % (Auto) 10.2 % (0.0-7.3) H 10/09/18 05:09 Eos % (Auto) 6.7 % (0.0-4.3) H 10/09/18 05:09 Baso % (Auto) 0.6 % (0.0-1.8) 10/09/18 05:09 Lymph # 1.6 K/mm3 (1.2-5.4) 10/09/18 05:09 [place]ack[place] # 0.8 K/mm3 (0.0-0.8) 10/09/18 05:09 Eos # 0.5 K/mm3 (0.0-0.4) H 10/09/18 05:09 Baso # 0.0 K/mm3 (0.0-0.1) 10/09/18 05:09 Add Manual Diff Complete 10/02/18 07:20 Total Counted 100 10/02/18 07:20 Seg Neutrophils % 60.6 % (40.0-70.0) 10/09/18 05:09 Seg Neuts % (Manual) 67.0 % (40.0-70.0) 10/02/18 07:20 Band Neutrophils % 1.0 % 10/02/18 07:20 Lymphocytes % (Manual) 26.0 % (13.4-35.0) 10/02/18 07:20 Reactive Lymphs % (Man) 0 % 10/02/18 07:20 Monocytes % (Manual) 6.0 % (0.0-7.3) 10/02/18 07:20 Eosinophils % (Manual) 0 % (0.0-4.3) 10/02/18 07:20 Basophils % (Manual) 0 % (0.0-1.8) 10/02/18 07:20 Metamyelocytes % 0 % 10/02/18 07:20 Myelocytes % 0 % 10/02/18 07:20 Promyelocytes % 0 % 10/02/18 07:20 Blast Cells % 0 % 10/02/18 07:20 Nucleated RBC % Not Reportable 10/02/18 07:20 Seg Neutrophils # 4.5 K/mm3 (1.8-7.7) 10/09/18 05:09 Seg Neutrophils # Man 13.2 K/mm3 (1.8-7.7) H 10/02/18 07:20 Band Neutrophils # 0.2 K/mm3 10/02/18 07:20 Lymphocytes # (Manual) 5.1 K/mm3 (1.2-5.4) 10/02/18 07:20 Abs React Lymphs (Man) 0.0 K/mm3 10/02/18 07:20 Monocytes # (Manual) 1.2 K/mm3 (0.0-0.8) H 10/02/18 07:20 Eosinophils # (Manual) 0.0 K/mm3 (0.0-0.4) 10/02/18 07:20 Basophils # (Manual) 0.0 K/mm3 (0.0-0.1) 10/02/18 07:20 Metamyelocytes # 0.0 K/mm3 10/02/18 07:20 Myelocytes # 0.0 K/mm3 10/02/18 07:20 Promyelocytes # 0.0 K/mm3 10/02/18 07:20 Blast Cells # 0.0 K/mm3 10/02/18 07:20 WBC Morphology Not Reportable 10/02/18 07:20 Hypersegmented Neuts Not Reportable 10/02/18 07:20 Hyposegmented Neuts Not Reportable 10/02/18 07:20 Hypogranular Neuts Not Reportable 10/02/18 07:20 Smudge Cells Not Reportable 10/02/18 07:20 Toxic Granulation Not Reportable 10/02/18 07:20 Toxic Vacuolation Not Reportable 10/02/18 07:20 Dohle Bodies Not Reportable 10/02/18 07:20 Pelger-Huet Anomaly Not Reportable 10/02/18 07:20 Markie Rods Not Reportable 10/02/18 07:20 Platelet Estimate Consistent w auto 10/02/18 07:20 Clumped Platelets Not Reportable 10/02/18 07:20 Plt Clumps, EDTA Not Reportable 10/02/18 07:20 Large Platelets Not Reportable 10/02/18 07:20 Giant Platelets Not Reportable 10/02/18 07:20 Platelet Satelliting Not Reportable 10/02/18 07:20 Plt Morphology Comment Not Reportable 10/02/18 07:20 RBC Morphology Not Reportable 10/02/18 07:20 Dimorphic RBCs Not Reportable 10/02/18 07:20 Polychromasia Not Reportable 10/02/18 07:20 Hypochromasia 1+ 10/02/18 07:20 Poikilocytosis Not Reportable 10/02/18 07:20 Anisocytosis 2+ 10/02/18 07:20 Microcytosis 2+ 10/02/18 07:20 Macrocytosis Not Reportable 10/02/18 07:20 Spherocytes Not Reportable 10/02/18 07:20 Pappenheimer Bodies Not Reportable 10/02/18 07:20 Sickle Cells Not Reportable 10/02/18 07:20 Target Cells Not Reportable 10/02/18 07:20 Tear Drop Cells Not Reportable 10/02/18 07:20 Ovalocytes 1+ 10/02/18 07:20 Helmet Cells Not Reportable 10/02/18 07:20 [place] Bodies Not Reportable 10/02/18 07:20 [place] Rings Not Reportable 10/02/18 07:20 [place] Cells Not Reportable 10/02/18 07:20 Bite Cells Not Reportable 10/02/18 07:20 Crenated Cell Not Reportable 10/02/18 07:20 Elliptocytes Not Reportable 10/02/18 07:20 Acanthocytes (Spur) Not Reportable 10/02/18 07:20 Rouleaux Not Reportable 10/02/18 07:20 Hemoglobin C Crystals Not Reportable 10/02/18 07:20 Schistocytes Not Reportable 10/02/18 07:20 Malaria parasites Not Reportable 10/02/18 07:20 Nicholas Bodies Not Reportable 10/02/18 07:20 Hem Pathologist Commnt No 10/02/18 07:20 PT 15.1 Sec. (12.2-14.9) H 10/09/18 05:09 INR 1.12 (0.87-1.13) 10/09/18 05:09 D-Dimer 1039.91 ng/mlDDU (0-234) H 10/02/18 21:01 Heparin Anti-Xa, Unfract Negative (Negative) 10/03/18 09:36 POC ABG pH 7.462 (7.35-7.45) H 10/05/18 12:06 POC ABG pCO2 35.8 (35-45) 10/05/18 12:06 POC ABG pO2 66 (80-105) L 10/05/18 12:06 POC ABG HCO3 25.6 10/05/18 12:06 POC ABG Total CO2 27 10/05/18 12:06 POC ABG O2 Sat 94 10/05/18 12:06 POC ABG Base Excess 2 10/05/18 12:06 FiO2 30 % 10/05/18 12:06 Sodium 142 mmol/L (137-145) 10/08/18 04:11 Potassium 3.5 mmol/L (3.6-5.0) L 10/08/18 04:11 Chloride 106.4 mmol/L (98-107) 10/08/18 04:11 Carbon Dioxide 21 mmol/L (22-30) L 10/08/18 04:11 Anion Gap 18 mmol/L 10/08/18 04:11 BUN 21 mg/dL (9-20) H 10/08/18 04:11 Creatinine 0.7 mg/dL (0.8-1.5) L 10/08/18 04:11 Estimated GFR > 60 ml/min 10/08/18 04:11 BUN/Creatinine Ratio 30 % 10/08/18 04:11 Glucose 123 mg/dL (75-100) H 10/08/18 04:11 POC Glucose 120 (70-105) H 10/09/18 08:22 Lactic Acid 2.60 mmol/L (0.7-2.0) H* 10/03/18 04:13 Calcium 8.0 mg/dL (8.4-10.2) L 10/08/18 04:11 Magnesium 2.30 mg/dL (1.7-2.3) 10/02/18 18:04 Iron 29 ug/dL (49-181) L 10/09/18 05:09 TIBC 240 mcg/dL (250-450) L 10/09/18 05:09 Ferritin 124.9 ng/mL (13.0-400.0) 10/09/18 05:09 Total Bilirubin 0.50 mg/dL (0.1-1.2) 10/02/18 07:13 AST 20 units/L (5-40) 10/02/18 07:13 ALT 11 units/L (7-56) 10/02/18 07:13 Alkaline Phosphatase 100 units/L (35-129) 10/02/18 07:13 Troponin T < 0.010 ng/mL (0.00-0.029) 10/02/18 07:13 C-Reactive Protein 3.40 mg/dL (0.00-1.30) H 10/02/18 21:01 NT-Pro-B Natriuret Pep 3102 pg/mL (0-900) H 10/02/18 07:13 Total Protein 7.8 g/dL (6.3-8.2) 10/02/18 07:13 Albumin 3.9 g/dL (3.9-5) 10/02/18 07:13 Albumin/Globulin Ratio 1.0 % 10/02/18 07:13 TSH 0.417 mlU/mL (0.270-4.200) 10/02/18 18:04 Free T4 0.92 ng/dL (0.76-1.46) 10/02/18 18:04 Urine Color Straw (Yellow) 10/02/18 09:12 Urine Turbidity Clear (Clear) 10/02/18 09:12 Urine pH 5.0 (5.0-7.0) 10/02/18 09:12 Ur Specific [place] 1.006 (1.003-1.030) 10/02/18 09:12 Urine Protein 30 mg/dl mg/dL (Negative) 10/02/18 09:12 Urine Glucose (UA) 50 mg/dL (Negative) 10/02/18 09:12 Urine Ketones Neg mg/dL (Negative) 10/02/18 09:12 Urine Blood Neg (Negative) 10/02/18 09:12 Urine Nitrite Neg (Negative) 10/02/18 09:12 Urine Bilirubin Neg (Negative) 10/02/18 09:12 Urine Urobilinogen < 2.0 mg/dL (<2.0) 10/02/18 09:12 Ur Leukocyte Esterase Neg (Negative) 10/02/18 09:12 Urine WBC (Auto) 2.0 /HPF (0.0-6.0) 10/02/18 09:12 Urine RBC (Auto) 2.0 /HPF (0.0-6.0) 10/02/18 09:12 Urine Bacteria (Auto) 1+ /HPF (Negative) 10/02/18 09:12 Urine Yeast (Budding) Few /HPF 10/02/18 09:12 Heparin-induced Plt Ab Negative (Negative) 10/03/18 09:36 UF Heparin High Dose 0 % Release 10/03/18 09:36 JULES UFH Low Dose 0.1 0 % Release 10/03/18 09:36 JULES UFH Low Dose 0.5 0 % Release 10/03/18 09:36 Urine Legionella Ag Not detected (Not Detected) 10/03/18 14:32 Blood Type A NEGATIVE 10/02/18 08:51 Antibody Screen Negative 10/02/18 08:51 Nutrition/Malnutrition Assess - Dietary Evaluation Nutrition/Malnutrition Findings: Nutrition Notes Start: 10/03/18 12:55 Freq: Status: Active Protocol: Document 10/07/18 12:04 SA (Rec: 10/07/18 13:12 SA [id number]) Co-Sign 10/07/18 12:04 OL Nutrition Notes Initial or Follow up Reassessment Current Diagnosis COPD Coronary Artery Disease Diabetes Sepsis Hypertension Heart Failure Respiratory Failure Stroke Other Pertinent Diagnosis Pneu Current Diet Consistent Carbohydrate Labs/Tests Reviewed Pertinent Medications Reviewed Height 6 ft 2 in Weight 76.7 kg [place] Body Weight (kg) 86.36 BMI 21.7 Subjective/Other Information Patient passed bedside swallow and was advanced to consistent CHO. Patient states appetite is normal. He reports eating 2/3 of his trays. Patient reports no N/V/ D. Patient states UBW being 185#. Patient showed interest in ONS. Percent of energy/protein needs met: 62%/65% Burn Absent Trauma Absent #1 Nutrition Diagnosis Inadequate oral intake Diagnosis Progress(for reassessment Continues documentation) Is patient on ventilator? No Is Patient Ambulatory and/or Out of Bed No REE-([facility]-confined to bed) 1921.896 Kcal/Kg value to use for calculation 29 Approximate Energy Requirements Using 2224 kcal/Kg Additional Notes Pro needs 1.2-2g/k-153g/ day Fluid needs 1ml/kcal Nutrition Intervention Change Diet Order: Continue Current Nutrition Support: D/C Add Supplement/Snack (indicate name/kcal Glucerna one daily /protein ) Provides kCal: 220 Provides Protein (gm) 10 Goal #1 Meet at least 80% of kcal and pro needs via PO and ONS intakes Goal #2 Wt maintenance Anticipated Discharge Needs: Consistent CHO Follow-Up By: 10/09/18 Additional Comments F/U: PO and ONS intakes
[2018-10-09] MEDS: LOPRESSOR PO SCH ×2 (09:34→22:54)
[2018-10-09] MEDS: PROTONIX PO SCH (09:34)
[2018-10-09] MEDS: SENOKOT PO SCH ×2 (09:34→22:52)
[2018-10-09] MEDS: LASIX PO SCH (09:34)
[2018-10-09] MEDS: PEPCID PO SCH ×2 (09:34→22:54)
[2018-10-09] MEDS: SODIUM CHLORIDE FLUSH SYRINGE 10 ML IV SCH ×3 (09:37→22:55)
--- NOTE | 2018-10-09 09:46 | Progress Note ---
Assessment and Plan Acute Respiratory failure with Hypoxia/hypercapnea s/p MVS Hypertensive urgency Acute Systolic Congestive heart failure with possible combined diastolic dysfunction Sepsis COPD with acute exacerbation Thrombocytopenia, improved Cardiomyopathy with EF OF 25-30% s/p CABG Atrial Fibrillation with RVR Leukocytosis Hyperkalemia DM with Hyperglycemia Iron deficiency anemia History of CVA -Continue with supplemental oxygen to keep O2 sats 88-90% -Bronchodilators -VTE prophylaxis( SCDs) -PT/OT -Heart failure measures -Glycemic control to keep blood glucose 140-180mg/dL -Complete antibiotics per ID recommendations -Follow up stress testing results -Bowel regimen -Aspiration precautions -Needs GI evaluation--colonoscopy/upper GI endoscopy prior to full anticoagulation since he has a microcytic anemia Discussed with hospitalist service today -Send stool for FOBT -Out patient pulmonary follow up on discharge Subjective Date of service: 10/09/18 Principal diagnosis: Ac on Ch Hypoxemic Hypercapnic Resp failure; AECOPD; CHF exacerbation; Afib Interval history: Patient is seen today for: Acute on chronic hypoxemic and hypercapnic respiratory failure; Acute chronic obstructive pulmonary disease exacerbation; Acute congestive heart failure exacerbation; History of cerebrovascular accident; Atrial fibrillation with rapid ventricular response. Seen and examined at bedside; 24hour events reviewed; nursing and respiratory care staff consulted; no adverse overnight events reported to me; resting peace fully in bed; denies acute chest pains or palpitations;No N/V/F/C; has ongoing shortness of breath, continues to require supplemental oxygen at 3L/min.Stress test this morning as part of cardiac evaluation Objective Vital Signs - 12hr 10/08/18 10/08/18 10/08/18 22:00 22:45 23:00 Temperature Pulse Rate 82 86 80 Pulse Rate [ Anterior Bilateral] Pulse Rate [ From Monitor] Respiratory 24 21 26 H Rate Respiratory Rate [Anterior Bilateral] Blood Pressure 89/49 106/61 98/52 O2 Sat by Pulse 99 94 Oximetry 10/09/18 10/09/18 10/09/18 00:00 00:01 01:01 Temperature 98.1 F Pulse Rate 75 68 Pulse Rate [ Anterior Bilateral] Pulse Rate [ 89 From Monitor] Respiratory 21 13 30 H Rate Respiratory Rate [Anterior Bilateral] Blood Pressure 90/52 77/33 O2 Sat by Pulse 95 97 97 Oximetry 10/09/18 10/09/18 10/09/18 02:00 03:00 03:50 Temperature Pulse Rate 80 80 Pulse Rate [ Anterior Bilateral] Pulse Rate [ 89 From Monitor] Respiratory 16 22 21 Rate Respiratory Rate [Anterior Bilateral] Blood Pressure 94/48 119/46 O2 Sat by Pulse 96 92 94 Oximetry 10/09/18 10/09/18 10/09/18 04:00 05:01 07:45 Temperature 98.5 F Pulse Rate 79 83 Pulse Rate [ 75 Anterior Bilateral] Pulse Rate [ From Monitor] Respiratory 13 12 Rate Respiratory 32 H Rate [Anterior Bilateral] Blood Pressure 118/58 118/58 O2 Sat by Pulse 95 96 Oximetry 10/09/18 10/09/18 10/09/18 07:46 07:47 09:34 Temperature Pulse Rate 79 Pulse Rate [ 75 Anterior Bilateral] Pulse Rate [ From Monitor] Respiratory Rate Respiratory 28 H Rate [Anterior Bilateral] Blood Pressure 119/58 O2 Sat by Pulse 95 Oximetry Constitutional: appears uncomfortable, other (elderly looking CM, normocephalic and atraumatic with increased resp effort) Eyes: non-icteric ENT: oropharynx moist Neck: supple, no lymphadenopathy, no JVD, other (no thyromegaly) Effort: mildly labored Ascultation: Bilateral: clear, diminished breath sounds, rhonchi, other (+ barrel chest) Percussion: Bilateral: not dull Cardiovascular: irregular rhythm, other (S1,S2) Gastrointestinal: normoactive bowel sounds, soft, non-tender, non-distended Integumentary: normal, other (post CABG sternotomy scar) Extremities: no cyanosis, no edema, pink and warm, pulses normal, no ischemia or petechiae Neurologic: normal mental status, non-focal exam (grossly), pupils equal and round, motor strength normal and Psychiatric: mood appropriate, affect normal CBC and BMP: 10/09/18 05:09 10/08/18 04:11 ABG, PT/INR, D-dimer: ABG POC ABG pH 7.462 (7.35-7.45) H 10/05/18 12:06 POC ABG pCO2 35.8 (35-45) 10/05/18 12:06 POC ABG pO2 66 (80-105) L 10/05/18 12:06 POC ABG HCO3 25.6 10/05/18 12:06 POC ABG Total CO2 27 10/05/18 12:06 POC ABG O2 Sat 94 10/05/18 12:06 PT/INR, D-dimer PT 15.1 Sec. (12.2-14.9) H 10/09/18 05:09 INR 1.12 (0.87-1.13) 10/09/18 05:09 D-Dimer 1039.91 ng/mlDDU (0-234) H 10/02/18 21:01 Abnormal lab findings: Abnormal Labs 10/02/18 10/02/18 10/02/18 07:13 07:20 07:22 WBC 19.7 H Hgb 10.9 L Hct MCV 75 L MCH 23 L MCHC 31 L RDW 21.7 H Plt Count Lymph % (Auto) [place] % (Auto) Eos % (Auto) Lymph # [place] # Eos # Seg Neutrophils % Seg Neutrophils # Seg Neutrophils # Man 13.2 H Monocytes # (Manual) 1.2 H PT 15.0 H D-Dimer POC ABG pH POC ABG pCO2 POC ABG pO2 Sodium Potassium 5.2 H D Carbon Dioxide 19 L BUN Creatinine Glucose 340 H POC Glucose Lactic Acid Calcium Iron TIBC C-Reactive Protein NT-Pro-B Natriuret Pep 3102 H 10/02/18 10/02/18 10/02/18 08:32 09:26 12:28 WBC Hgb Hct MCV MCH MCHC RDW Plt Count Lymph % (Auto) [place] % (Auto) Eos % (Auto) Lymph # [place] # Eos # Seg Neutrophils % Seg Neutrophils # Seg Neutrophils # Man Monocytes # (Manual) PT D-Dimer POC ABG pH 7.201 L 7.254 L POC ABG pCO2 61.2 H 54.3 H POC ABG pO2 150 H 196 H Sodium Potassium Carbon Dioxide BUN Creatinine Glucose POC Glucose Lactic Acid 3.00 H* Calcium Iron TIBC C-Reactive Protein NT-Pro-B Natriuret Pep 10/02/18 10/02/18 10/02/18 20:43 21:01 21:01 WBC Hgb Hct MCV MCH MCHC RDW Plt Count Lymph % (Auto) [place] % (Auto) Eos % (Auto) Lymph # [place] # Eos # Seg Neutrophils % Seg Neutrophils # Seg Neutrophils # Man Monocytes # (Manual) PT D-Dimer 1039.91 H POC ABG pH 7.307 L POC ABG pCO2 45.6 H POC ABG pO2 107 H Sodium Potassium Carbon Dioxide BUN Creatinine Glucose POC Glucose Lactic Acid Calcium Iron TIBC C-Reactive Protein 3.40 H NT-Pro-B Natriuret Pep 10/02/18 10/03/18 10/03/18 21:01 00:14 04:13 WBC 13.6 H Hgb 10.6 L Hct 34.5 L MCV 74 L MCH 23 L MCHC 31 L RDW 21.3 H Plt Count 134 L Lymph % (Auto) 6.0 L [place] % (Auto) 10.6 H Eos % (Auto) Lymph # 0.8 L [place] # 1.4 H Eos # Seg Neutrophils % 83.1 H Seg Neutrophils # 11.3 H Seg Neutrophils # Man Monocytes # (Manual) PT D-Dimer POC ABG pH POC ABG pCO2 POC ABG pO2 Sodium Potassium Carbon Dioxide BUN Creatinine Glucose POC Glucose 164 H Lactic Acid 2.80 H* Calcium Iron TIBC C-Reactive Protein NT-Pro-B Natriuret Pep 10/03/18 10/03/18 10/03/18 04:13 04:13 04:47 WBC Hgb Hct MCV MCH MCHC RDW Plt Count Lymph % (Auto) [place] % (Auto) Eos % (Auto) Lymph # [place] # Eos # Seg Neutrophils % Seg Neutrophils # Seg Neutrophils # Man Monocytes # (Manual) PT D-Dimer POC ABG pH POC ABG pCO2 POC ABG pO2 Sodium 136 L Potassium Carbon Dioxide 18 L BUN 29 H Creatinine Glucose 168 H POC Glucose 182 H Lactic Acid 2.60 H* Calcium 8.3 L Iron TIBC C-Reactive Protein NT-Pro-B Natriuret Pep 10/03/18 10/03/18 10/03/18 05:47 11:39 16:56 WBC Hgb Hct MCV MCH MCHC RDW Plt Count Lymph % (Auto) [place] % (Auto) Eos % (Auto) Lymph # [place] # Eos # Seg Neutrophils % Seg Neutrophils # Seg Neutrophils # Man Monocytes # (Manual) PT D-Dimer POC ABG pH 7.314 L POC ABG pCO2 45.9 H POC ABG pO2 Sodium Potassium Carbon Dioxide BUN Creatinine Glucose POC Glucose 134 H 118 H Lactic Acid Calcium Iron TIBC C-Reactive Protein NT-Pro-B Natriuret Pep 10/03/18 10/04/18 10/04/18 23:13 05:20 05:44 WBC Hgb Hct MCV MCH MCHC RDW Plt Count Lymph % (Auto) [place] % (Auto) Eos % (Auto) Lymph # [place] # Eos # Seg Neutrophils % Seg Neutrophils # Seg Neutrophils # Man Monocytes # (Manual) PT D-Dimer POC ABG pH POC ABG pCO2 POC ABG pO2 68 L Sodium Potassium Carbon Dioxide BUN Creatinine Glucose POC Glucose 129 H 166 H Lactic Acid Calcium Iron TIBC C-Reactive Protein NT-Pro-B Natriuret Pep 10/04/18 10/04/18 10/04/18 08:04 08:04 11:56 WBC Hgb 9.1 L Hct 28.7 L MCV 72 L MCH 23 L MCHC RDW 21.6 H Plt Count 126 L Lymph % (Auto) [place] % (Auto) Eos % (Auto) Lymph # [place] # Eos # Seg Neutrophils % Seg Neutrophils # Seg Neutrophils # Man Monocytes # (Manual) PT D-Dimer POC ABG pH POC ABG pCO2 POC ABG pO2 Sodium Potassium Carbon Dioxide BUN 26 H Creatinine Glucose 167 H POC Glucose 176 H Lactic Acid Calcium 8.2 L Iron TIBC C-Reactive Protein NT-Pro-B Natriuret Pep 10/04/18 10/04/18 10/05/18 13:21 17:12 00:02 WBC Hgb Hct MCV MCH MCHC RDW Plt Count Lymph % (Auto) [place] % (Auto) Eos % (Auto) Lymph # [place] # Eos # Seg Neutrophils % Seg Neutrophils # Seg Neutrophils # Man Monocytes # (Manual) PT D-Dimer POC ABG pH 7.462 H POC ABG pCO2 33.5 L POC ABG pO2 59 L Sodium Potassium Carbon Dioxide BUN Creatinine Glucose POC Glucose 164 H 211 H Lactic Acid Calcium Iron TIBC C-Reactive Protein NT-Pro-B Natriuret Pep 10/05/18 10/05/18 10/05/18 05:13 12:06 12:11 WBC Hgb Hct MCV MCH MCHC RDW Plt Count Lymph % (Auto) [place] % (Auto) Eos % (Auto) Lymph # [place] # Eos # Seg Neutrophils % Seg Neutrophils # Seg Neutrophils # Man Monocytes # (Manual) PT D-Dimer POC ABG pH 7.462 H POC ABG pCO2 POC ABG pO2 66 L Sodium Potassium Carbon Dioxide BUN Creatinine Glucose POC Glucose 190 H 185 H Lactic Acid Calcium Iron TIBC C-Reactive Protein NT-Pro-B Natriuret Pep 10/05/18 10/05/1810/06/19 18:13 23:49 04:19 WBC Hgb 9.8 L Hct 30.5 L MCV 73 L MCH 23 L MCHC RDW 21.0 H Plt Count Lymph % (Auto) [place] % (Auto) Eos % (Auto) Lymph # [place] # Eos # Seg Neutrophils % Seg Neutrophils # Seg Neutrophils # Man Monocytes # (Manual) PT D-Dimer POC ABG pH POC ABG pCO2 POC ABG pO2 Sodium Potassium Carbon Dioxide BUN Creatinine Glucose POC Glucose 177 H 192 H Lactic Acid Calcium Iron TIBC C-Reactive Protein NT-Pro-B Natriuret Pep 10/06/18 10/06/18 10/06/18 04:19 05:00 12:05 WBC Hgb Hct MCV MCH MCHC RDW Plt Count Lymph % (Auto) [place] % (Auto) Eos % (Auto) Lymph # [place] # Eos # Seg Neutrophils % Seg Neutrophils # Seg Neutrophils # Man Monocytes # (Manual) PT D-Dimer POC ABG pH POC ABG pCO2 POC ABG pO2 Sodium Potassium 3.4 L Carbon Dioxide BUN 21 H Creatinine 0.7 L Glucose 133 H POC Glucose 135 H 206 H Lactic Acid Calcium Iron TIBC C-Reactive Protein NT-Pro-B Natriuret Pep 10/06/18 10/06/18 10/06/18 12:12 16:31 21:13 WBC Hgb Hct MCV MCH MCHC RDW Plt Count Lymph % (Auto) [place] % (Auto) Eos % (Auto) Lymph # [place] # Eos # Seg Neutrophils % Seg Neutrophils # Seg Neutrophils # Man Monocytes # (Manual) PT D-Dimer POC ABG pH POC ABG pCO2 POC ABG pO2 Sodium Potassium Carbon Dioxide BUN Creatinine Glucose POC Glucose 216 H 141 H 308 H Lactic Acid Calcium Iron TIBC C-Reactive Protein NT-Pro-B Natriuret Pep 10/07/18 10/07/18 10/08/18 08:37 11:32 04:11 WBC Hgb 9.3 L Hct 29.4 L MCV 72 L MCH 23 L MCHC RDW 20.9 H Plt Count Lymph % (Auto) [place] % (Auto) Eos % (Auto) Lymph # [place] # Eos # Seg Neutrophils % Seg Neutrophils # Seg Neutrophils # Man Monocytes # (Manual) PT D-Dimer POC ABG pH POC ABG pCO2 POC ABG pO2 Sodium Potassium Carbon Dioxide BUN Creatinine Glucose POC Glucose 233 H 220 H Lactic Acid Calcium Iron TIBC C-Reactive Protein NT-Pro-B Natriuret Pep 10/08/18 10/08/18 10/08/18 04:11 16:20 20:28 WBC Hgb Hct MCV MCH MCHC RDW Plt Count Lymph % (Auto) [place] % (Auto) Eos % (Auto) Lymph # [place] # Eos # Seg Neutrophils % Seg Neutrophils # Seg Neutrophils # Man Monocytes # (Manual) PT D-Dimer POC ABG pH POC ABG pCO2 POC ABG pO2 Sodium Potassium 3.5 L Carbon Dioxide 21 L BUN 21 H Creatinine 0.7 L Glucose 123 H POC Glucose 157 H 210 H Lactic Acid Calcium 8.0 L Iron TIBC C-Reactive Protein NT-Pro-B Natriuret Pep 10/09/18 10/09/18 10/09/18 05:09 05:09 05:09 WBC Hgb 9.1 L Hct 28.6 L MCV 71 L MCH 23 L MCHC RDW 20.2 H Plt Count Lymph % (Auto) [place] % (Auto) 10.2 H Eos % (Auto) 6.7 H Lymph # [place] # Eos # 0.5 H Seg Neutrophils % Seg Neutrophils # Seg Neutrophils # Man Monocytes # (Manual) PT 15.1 H D-Dimer POC ABG pH POC ABG pCO2 POC ABG pO2 Sodium Potassium Carbon Dioxide BUN Creatinine Glucose POC Glucose Lactic Acid Calcium Iron 29 L TIBC 240 L C-Reactive Protein NT-Pro-B Natriuret Pep 10/09/18 08:22 WBC Hgb Hct MCV MCH MCHC RDW Plt Count Lymph % (Auto) [place] % (Auto) Eos % (Auto) Lymph # [place] # Eos # Seg Neutrophils % Seg Neutrophils # Seg Neutrophils # Man Monocytes # (Manual) PT D-Dimer POC ABG pH POC ABG pCO2 POC ABG pO2 Sodium Potassium Carbon Dioxide BUN Creatinine Glucose POC Glucose 120 H Lactic Acid Calcium Iron TIBC C-Reactive Protein NT-Pro-B Natriuret Pep Allied health notes reviewed: nursing
[2018-10-09] MEDS: HABITROL TD SCH (10:00)
[2018-10-09] MEDS ORDERED: NACL 0.9% 1000 ML 1,000 ML IV SCH (10:00)
[2018-10-09] MEDS: ZESTRIL PO SCH (10:00)
--- NOTE | 2018-10-09 10:14 | Progress Note ---
Assessment and Plan Currently stable cardiac status. Pt for endoscopy today. Systemic AC in regards to atrial fibrillation is recommended. Pt noted to have anemia and thrombocytopenia. If no contraindications, recommend Eliquis 5mg BID. The patient has been seen in conjunction with Dr. Wakefield who agrees with the assessment and plan of care. - Patient Problems (1) Acute respiratory failure Current Visit: Yes Status: Acute (2) Atrial fibrillation with rapid ventricular response Current Visit: Yes Status: Acute (3) Acute HFrEF (heart failure with reduced ejection fraction) Current Visit: Yes Status: Acute (4) Cardiomyopathy Current Visit: Yes Status: Chronic (5) COPD with acute exacerbation Current Visit: Yes Status: Acute (6) Pneumonia Current Visit: Yes Status: Suspected (7) CAD (coronary artery disease) Current Visit: Yes Status: Chronic (8) S/P CABG (coronary artery bypass graft) Current Visit: Yes Status: Chronic (9) Anemia Current Visit: Yes Status: Acute (10) Thrombocytopenia Current Visit: Yes Status: Acute Subjective Date of service: 10/09/18 Principal diagnosis: Ac on Ch Hypoxemic Hypercapnic Resp failure; AECOPD; CHF exacerbation; Afib Interval history: pt resting in bed, no current cardiac complaints. in AFib with CVR. Objective Last Vital Signs Temp 98.5 F 10/09/18 04:00 Pulse 79 10/09/18 09:34 Resp 28 H 10/09/18 07:46 BP 119/58 10/09/18 09:34 Pulse Ox 95 10/09/18 07:47 - Physical Examination General: No Apparent Distress HEENT: Positive: PERRL, Normocephaly, Mucus Membranes Moist Neck: Positive: neck supple Cardiac: Positive: irregularly irregular, S1/S2 Lungs: Positive: Decreased Breath Sounds Neuro: Positive: Grossly Intact Abdomen: Negative: Tender Skin: Negative: Rash Extremities: Absent: edema - Labs and Meds Coagulation 10/09/18 Range/Units 05:09 PT 15.1 H (12.2-14.9) Sec. INR 1.12 (0.87-1.13) CBC 10/09/18 Range/Units 05:09 WBC 7.4 (4.5-11.0) K/mm3 RBC 4.00 (3.65-5.03) M/mm3 Hgb 9.1 L (11.8-15.2) gm/dl Hct 28.6 L (35.5-45.6) % Plt Count 154 (140-440) K/mm3 Lymph # 1.6 (1.2-5.4) K/mm3 [place] # 0.8 (0.0-0.8) K/mm3 Eos # 0.5 H (0.0-0.4) K/mm3 Baso # 0.0 (0.0-0.1) K/mm3 - Imaging and Cardiology EKG: report reviewed, image reviewed Echo: report reviewed (09/2018: EF 25-30%, abnormal diastolic function, trace MR. ) - Allied health notes Allied health notes reviewed: nursing
[2018-10-09] MEDS ORDERED: DIPRIVAN 10 MG/ML IV ONE ×2 (10:22→10:23)
[2018-10-09] MEDS ORDERED: XYLOCAINE 2% INFILTRATI ONE (10:23)
--- NOTE | 2018-10-09 10:28 | Anesthesia Consultation ---
Anesthesia Consult and Med Hx Date of service: 10/09/18 - Airway Anesthetic Teeth Evaluation: Edentulous ROM Head & Neck: Adequate Mental/Hyoid Distance: Adequate Mallampati Class: Class III Intubation Access Assessment: Possibly Difficult - Pre-Operative Health Status ASA Pre-Surgery Classification: ASA4 Proposed Anesthetic Plan: MAC - Pulmonary COPD: Yes Hx Pneumonia: Yes - Cardiovascular System Hx Hypertension: Yes Hx Heart Attack/AMI: Yes Hx Cardia Arrhythmia: Yes (Afiv with RVR) - Central Nervous System CVA: Yes - Hematic Hx Anemia: Yes - Additional Comments Anesthesia Medical History Comments: DM; EF 25-30%; H/H 91/28.6, PLT 154 - Cardiology requested colonoscopy to r/o sources of anemia before starting pt on anticoagulant medications.
--- NOTE | 2018-10-09 10:29 | Anesthesia Day of Surgery ---
Anesthesia Day of Surgery - Day of Surgery Patient Examined: Yes Patient H&P Reviewed: Yes Patient is NPO: Yes
--- NOTE | 2018-10-09 10:31 | Progress Note ---
Assessment and Plan Cultures: Blood culture 10/02/2018 negative Tracheal asp 10/02/2018 Pseudomonas MDR sensitive to cefepime, resistant to FQ, AG and aztreonam. Urine culture 10/02/2018 no growth Assessment: 68 y/o male with history of COPD, chronic systolic CHF, CVA, atrial fibrillation, anemia and CAD s/p CAB; admitted on 09/30/2018 due to worsening respiratory distress and AMS / lethargy: 1) SIRS versus Sepsis: present on admission with leukocytosis and elevated lactate; likely from COPD exacerbation with presumed pneumonia +/- heart failure. CRP 3.4. UA neg. Blood cultures negative so far. 2) COPD exacerbation with presumed pneumonia: due to Pseudomonas MDR - CXR initially with severe emphysema and no infiltrates, but repeat CXR showed bilateral pneumonitis. - Legionella urine ag negative. - CT chest No evidence of pulmonary arterial emboli. Bilateral lower lung infiltrates are identified, more pronounced on the right. Mild bilateral effusions. 3) Acute on chronic respiratory failure: from COPD/pneumonia/CHF, extubated 4) Acute encephalopathy: improving 5) Afib / CHF - EF of 20-25% with abnormal left ventricular diastolic function also observed Recommendations: - contact isolation due to MDR Pseudomonas - continue cefepime 2 gm IV q8h D8 of 14 - at discharge will do cefepime 2 gm IV q8h until 10/15/2018. 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 - for colonoscopy today. Will follow. Alie Becker MD Infectious Diseases [employer] [facility] ([facility]) M [phone] O [phone] Subjective Date of service: 10/09/18 Principal diagnosis: Ac on Ch Hypoxemic Hypercapnic Resp failure; AECOPD; CHF exacerbation; Afib Interval history: Feels better, drinking prep for colonoscopy. No fever x 24h. Objective - Exam Narrative Exam: General appearance:alert talking in NAD, conversant Eyes: anicteric sclerae, moist conjunctivae; no lid-lag; PERRLA HENT: Atraumatic; oropharynx clear with moist mucous membranes and no mucosal ulcerations/no oral thrush; normal hard and soft palate. Normal external ears. Neck: Trachea midline; supple, no thyromegaly or lymphadenopathy Lungs: jason distant BS CV: Irreg Abdomen: Soft, non-tender; no masses or hepatosplenomegaly Extremities: No peripheral edema or extremity lymphadenopathy Skin: Normal temperature, turgor and texture; no rash, ulcers or subcutaneous nodules Psych: no agitated verbal Neuro: alert moving all ext - Constitutional Vitals: Vital Signs Temp Pulse Resp BP Pulse Ox 98.5 F 79 28 H 119/58 95 10/09/18 04:00 10/09/18 09:34 10/09/18 07:46 10/09/18 09:34 10/09/18 07:47 Temperature -Last 24 Hours Temperature 98.5 F Temperature 98.1 F Temperature 98.1 F Temperature 99.1 F Temperature 98.8 F - Labs CBC & Chem 7: 10/09/18 05:09 10/08/18 04:11 Labs: Abnormal lab results 10/08/18 10/08/18 10/09/18 Range/Units 16:20 20:28 05:09 Hgb 9.1 L (11.8-15.2) gm/dl Hct 28.6 L (35.5-45.6) % MCV 71 L (84-94) fl MCH 23 L (28-32) pg RDW 20.2 H (13.2-15.2) % [place] % (Auto) 10.2 H (0.0-7.3) % Eos % (Auto) 6.7 H (0.0-4.3) % Eos # 0.5 H (0.0-0.4) K/mm3 PT (12.2-14.9) Sec. POC Glucose 157 H 210 H (70-105) Iron (49-181) ug/dL TIBC (250-450) mcg/dL 10/09/18 10/09/18 10/09/18 Range/Units 05:09 05:09 08:22 Hgb (11.8-15.2) gm/dl Hct (35.5-45.6) % MCV (84-94) fl MCH (28-32) pg RDW (13.2-15.2) % [place] % (Auto) (0.0-7.3) % Eos % (Auto) (0.0-4.3) % Eos # (0.0-0.4) K/mm3 PT 15.1 H (12.2-14.9) Sec. POC Glucose 120 H (70-105) Iron 29 L (49-181) ug/dL TIBC 240 L (250-450) mcg/dL
--- NOTE | 2018-10-09 10:49 | Event Note ---
Date: 10/09/18 pt did not complete prep for colonoscopy; suspect his anemia source is from colon and explained to pt in detail. he agrees to complete prep today/overnight and will reschedule egd/colonoscopy for tomorrow morning.
[2018-10-09] MEDS: HumaLOG SUB-Q SCH ×3 (12:00→22:52)
--- NOTE | 2018-10-09 12:59 | Progress Note ---
Assessment and Plan Acute Respiratory failure with Hypoxia/hypercapnea s/p MVS Hypertensive urgency Acute Systolic Congestive heart failure with possible combined diastolic dysfunction Sepsis COPD with acute exacerbation Thrombocytopenia, improved Cardiomyopathy with EF OF 25-30% s/p CABG Atrial Fibrillation with RVR Leukocytosis Hyperkalemia DM with Hyperglycemia Iron deficiency anemia History of CVA -Continue with supplemental oxygen to keep O2 sats 88-90% -Bronchodilators -VTE prophylaxis( SCDs) -PT/OT -Heart failure measures -Glycemic control to keep blood glucose 140-180mg/dL -Complete antibiotics per ID recommendations -Follow up stress testing results -Bowel regimen -Aspiration precautions -Colonoscopy rescheduled for tomorrow -Updated POA at the bedside -Out patient pulmonary follow up on discharge Subjective Date of service: 10/09/18 Principal diagnosis: Ac on Ch Hypoxemic Hypercapnic Resp failure; AECOPD; CHF exacerbation; Afib Interval history: Patient is seen today for: Acute on chronic hypoxemic and hypercapnic respirato ry failure; Acute chronic obstructive pulmonary disease exacerbation; Acute congestive heart failure exacerbation; History of cerebrovascular accident; Atrial fibrillation with rapid ventricular response. Seen and examined at bedside; 24hour events reviewed; nursing and respiratory care staff consulted; no adverse overnight events reported to me; resting peacefully in bed; denies acute chest pains or palpitations;No N/V/F/C; has ongoing shortness of breath, continues to require supplemental oxygen at 3L/min.Unable to get colonoscopy this morning, secondary to poor bowel prep. POA at the bedside Objective Vital Signs - 12hr 10/09/18 10/09/18 10/09/18 01:01 02:00 03:00 Temperature Pulse Rate 68 80 80 Pulse Rate [ Anterior Bilateral] Pulse Rate [ From Monitor] Respiratory 30 H 16 22 Rate Respiratory Rate [Anterior Bilateral] Blood Pressure 77/33 94/48 119/46 O2 Sat by Pulse 97 96 92 Oximetry 10/09/18 10/09/18 10/09/18 03:50 04:00 05:01 Temperature 98.5 F Pulse Rate 79 83 Pulse Rate [ Anterior Bilateral] Pulse Rate [ 89 From Monitor] Respiratory 21 13 12 Rate Respiratory Rate [Anterior Bilateral] Blood Pressure 118/58 118/58 O2 Sat by Pulse 94 95 96 Oximetry 10/09/18 10/09/18 10/09/18 07:45 07:46 07:47 Temperature Pulse Rate Pulse Rate [ 75 75 Anterior Bilateral] Pulse Rate [ From Monitor] Respiratory Rate Respiratory 32 H 28 H Rate [Anterior Bilateral] Blood Pressure O2 Sat by Pulse 95 Oximetry 10/09/18 10/09/18 10/09/18 09:34 10:32 10:38 Temperature 98.1 F 98.1 F Pulse Rate 79 77 77 Pulse Rate [ Anterior Bilateral] Pulse Rate [ From Monitor] Respiratory 11 L 11 L Rate Respiratory Rate [Anterior Bilateral] Blood Pressure 119/58 106/67 106/67 O2 Sat by Pulse 94 94 Oximetry Constitutional: appears uncomfortable, other (elderly looking CM, normocephalic and atraumatic with increased resp effort) Eyes: non-icteric ENT: oropharynx moist Neck: supple, no lymphadenopathy, no JVD, other (no thyromegaly) Effort: mildly labored Ascultation: Bilateral: clear, diminished breath sounds, rhonchi, other (+ barrel chest) Percussion: Bilateral: not dull Cardiovascular: irregular rhythm, other (S1,S2) Gastrointestinal: normoactive bowel sounds, soft, non-tender, non-distended Integumentary: normal, other (post CABG sternotomy scar) Extremities: no cyanosis, no edema, pink and warm, pulses normal, no ischemia or petechiae Neurologic: normal mental status, non-focal exam (grossly), pupils equal and round, motor strength normal and Psychiatric: mood appropriate, affect normal CBC and BMP: 10/09/18 05:09 10/08/18 04:11 ABG, PT/INR, D-dimer: ABG POC ABG pH 7.462 (7.35-7.45) H 10/05/18 12:06 POC ABG pCO2 35.8 (35-45) 10/05/18 12:06 POC ABG pO2 66 (80-105) L 10/05/18 12:06 POC ABG HCO3 25.6 10/05/18 12:06 POC ABG Total CO2 27 10/05/18 12:06 POC ABG O2 Sat 94 10/05/18 12:06 PT/INR, D-dimer PT 15.1 Sec. (12.2-14.9) H 10/09/18 05:09 INR 1.12 (0.87-1.13) 10/09/18 05:09 D-Dimer 1039.91 ng/mlDDU (0-234) H 10/02/18 21:01 Abnormal lab findings: Abnormal Labs 10/02/18 10/02/18 10/02/18 07:13 07:20 07:22 WBC 19.7 H Hgb 10.9 L Hct MCV 75 L MCH 23 L MCHC 31 L RDW 21.7 H Plt Count Lymph % (Auto) [place] % (Auto) Eos % (Auto) Lymph # [place] # Eos # Seg Neutrophils % Seg Neutrophils # Seg Neutrophils # Man 13.2 H Monocytes # (Manual) 1.2 H PT 15.0 H D-Dimer POC ABG pH POC ABG pCO2 POC ABG pO2 Sodium Potassium 5.2 H D Carbon Dioxide 19 L BUN Creatinine Glucose 340 H POC Glucose Lactic Acid Calcium Iron TIBC C-Reactive Protein NT-Pro-B Natriuret Pep 3102 H 10/02/18 10/02/18 10/02/18 08:32 09:26 12:28 WBC Hgb Hct MCV MCH MCHC RDW Plt Count Lymph % (Auto) [place] % (Auto) Eos % (Auto) Lymph # [place] # Eos # Seg Neutrophils % Seg Neutrophils # Seg Neutrophils # Man Monocytes # (Manual) PT D-Dimer POC ABG pH 7.201 L 7.254 L POC ABG pCO2 61.2 H 54.3 H POC ABG pO2 150 H 196 H Sodium Potassium Carbon Dioxide BUN Creatinine Glucose POC Glucose Lactic Acid 3.00 H* Calcium Iron TIBC C-Reactive Protein NT-Pro-B Natriuret Pep 10/02/18 10/02/18 10/02/18 20:43 21:01 21:01 WBC Hgb Hct MCV MCH MCHC RDW Plt Count Lymph % (Auto) [place] % (Auto) Eos % (Auto) Lymph # [place] # Eos # Seg Neutrophils % Seg Neutrophils # Seg Neutrophils # Man Monocytes # (Manual) PT D-Dimer 1039.91 H POC ABG pH 7.307 L POC ABG pCO2 45.6 H POC ABG pO2 107 H Sodium Potassium Carbon Dioxide BUN Creatinine Glucose POC Glucose Lactic Acid Calcium Iron TIBC C-Reactive Protein 3.40 H NT-Pro-B Natriuret Pep 10/02/18 10/03/18 10/03/18 21:01 00:14 04:13 WBC 13.6 H Hgb 10.6 L Hct 34.5 L MCV 74 L MCH 23 L MCHC 31 L RDW 21.3 H Plt Count 134 L Lymph % (Auto) 6.0 L [place] % (Auto) 10.6 H Eos % (Auto) Lymph # 0.8 L [place] # 1.4 H Eos # Seg Neutrophils % 83.1 H Seg Neutrophils # 11.3 H Seg Neutrophils # Man Monocytes # (Manual) PT D-Dimer POC ABG pH POC ABG pCO2 POC ABG pO2 Sodium Potassium Carbon Dioxide BUN Creatinine Glucose POC Glucose 164 H Lactic Acid 2.80 H* Calcium Iron TIBC C-Reactive Protein NT-Pro-B Natriuret Pep 10/03/18 10/03/18 10/03/18 04:13 04:13 04:47 WBC Hgb Hct MCV MCH MCHC RDW Plt Count Lymph % (Auto) [place] % (Auto) Eos % (Auto) Lymph # [place] # Eos # Seg Neutrophils % Seg Neutrophils # Seg Neutrophils # Man Monocytes # (Manual) PT D-Dimer POC ABG pH POC ABG pCO2 POC ABG pO2 Sodium 136 L Potassium Carbon Dioxide 18 L BUN 29 H Creatinine Glucose 168 H POC Glucose 182 H Lactic Acid 2.60 H* Calcium 8.3 L Iron TIBC C-Reactive Protein NT-Pro-B Natriuret Pep 10/03/18 10/03/18 10/03/18 05:47 11:39 16:56 WBC Hgb Hct MCV MCH MCHC RDW Plt Count Lymph % (Auto) [place] % (Auto) Eos % (Auto) Lymph # [place] # Eos # Seg Neutrophils % Seg Neutrophils # Seg Neutrophils # Man Monocytes # (Manual) PT D-Dimer POC ABG pH 7.314 L POC ABG pCO2 45.9 H POC ABG pO2 Sodium Potassium Carbon Dioxide BUN Creatinine Glucose POC Glucose 134 H 118 H Lactic Acid Calcium Iron TIBC C-Reactive Protein NT-Pro-B Natriuret Pep 10/03/18 10/04/18 10/04/18 23:13 05:20 05:44 WBC Hgb Hct MCV MCH MCHC RDW Plt Count Lymph % (Auto) [place] % (Auto) Eos % (Auto) Lymph # [place] # Eos # Seg Neutrophils % Seg Neutrophils # Seg Neutrophils # Man Monocytes # (Manual) PT D-Dimer POC ABG pH POC ABG pCO2 POC ABG pO2 68 L Sodium Potassium Carbon Dioxide BUN Creatinine Glucose POC Glucose 129 H 166 H Lactic Acid Calcium Iron TIBC C-Reactive Protein NT-Pro-B Natriuret Pep 10/04/18 10/04/18 10/04/18 08:04 08:04 11:56 WBC Hgb 9.1 L Hct 28.7 L MCV 72 L MCH 23 L MCHC RDW 21.6 H Plt Count 126 L Lymph % (Auto) [place] % (Auto) Eos % (Auto) Lymph # [place] # Eos # Seg Neutrophils % Seg Neutrophils # Seg Neutrophils # Man Monocytes # (Manual) PT D-Dimer POC ABG pH POC ABG pCO2 POC ABG pO2 Sodium Potassium Carbon Dioxide BUN 26 H Creatinine Glucose 167 H POC Glucose 176 H Lactic Acid Calcium 8.2 L Iron TIBC C-Reactive Protein NT-Pro-B Natriuret Pep 10/04/18 10/04/18 10/05/18 13:21 17:12 00:02 WBC Hgb Hct MCV MCH MCHC RDW Plt Count Lymph % (Auto) [place] % (Auto) Eos % (Auto) Lymph # [place] # Eos # Seg Neutrophils % Seg Neutrophils # Seg Neutrophils # Man Monocytes # (Manual) PT D-Dimer POC ABG pH 7.462 H POC ABG pCO2 33.5 L POC ABG pO2 59 L Sodium Potassium Carbon Dioxide BUN Creatinine Glucose POC Glucose 164 H 211 H Lactic Acid Calcium Iron TIBC C-Reactive Protein NT-Pro-B Natriuret Pep 10/05/18 10/05/18 10/05/18 05:13 12:06 12:11 WBC Hgb Hct MCV MCH MCHC RDW Plt Count Lymph % (Auto) [place] % (Auto) Eos % (Auto) Lymph # [place] # Eos # Seg Neutrophils % Seg Neutrophils # Seg Neutrophils # Man Monocytes # (Manual) PT D-Dimer POC ABG pH 7.462 H POC ABG pCO2 POC ABG pO2 66 L Sodium Potassium Carbon Dioxide BUN Creatinine Glucose POC Glucose 190 H 185 H Lactic Acid Calcium Iron TIBC C-Reactive Protein NT-Pro-B Natriuret Pep 10/05/18 10/05/18 10/06/18 18:13 23:49 04:19 WBC Hgb 9.8 L Hct 30.5 L MCV 73 L MCH 23 L MCHC RDW 21.0 H Plt Count Lymph % (Auto) [place] % (Auto) Eos % (Auto) Lymph # [place] # Eos # Seg Neutrophils % Seg Neutrophils # Seg Neutrophils # Man Monocytes # (Manual) PT D-Dimer POC ABG pH POC ABG pCO2 POC ABG pO2 Sodium Potassium Carbon Dioxide BUN Creatinine Glucose POC Glucose 177 H 192 H Lactic Acid Calcium Iron TIBC C-Reactive Protein NT-Pro-B Natriuret Pep 10/06/18 10/06/18 10/06/18 04:19 05:00 12:05 WBC Hgb Hct MCV MCH MCHC RDW Plt Count Lymph % (Auto) [place] % (Auto) Eos % (Auto) Lymph # [place] # Eos # Seg Neutrophils % Seg Neutrophils # Seg Neutrophils # Man Monocytes # (Manual) PT D-Dimer POC ABG pH POC ABG pCO2 POC ABG pO2 Sodium Potassium 3.4 L Carbon Dioxide BUN 21 H Creatinine 0.7 L Glucose 133 H POC Glucose 135 H 206 H Lactic Acid Calcium Iron TIBC C-Reactive Protein NT-Pro-B Natriuret Pep 10/06/18 10/06/18 10/06/18 12:12 16:31 21:13 WBC Hgb Hct MCV MCH MCHC RDW Plt Count Lymph % (Auto) [place] % (Auto) Eos % (Auto) Lymph # [place] # Eos # Seg Neutrophils % Seg Neutrophils # Seg Neutrophils # Man Monocytes # (Manual) PT D-Dimer POC ABG pH POC ABG pCO2 POC ABG pO2 Sodium Potassium Carbon Dioxide BUN Creatinine Glucose POC Glucose 216 H 141 H 308 H Lactic Acid Calcium Iron TIBC C-Reactive Protein NT-Pro-B Natriuret Pep 10/07/18 10/07/18 10/08/18 08:37 11:32 04:11 WBC Hgb 9.3 L Hct 29.4 L MCV 72 L MCH 23 L MCHC RDW 20.9 H Plt Count Lymph % (Auto) [place] % (Auto) Eos % (Auto) Lymph # [place] # Eos # Seg Neutrophils % Seg Neutrophils # Seg Neutrophils # Man Monocytes # (Manual) PT D-Dimer POC ABG pH POC ABG pCO2 POC ABG pO2 Sodium Potassium Carbon Dioxide BUN Creatinine Glucose POC Glucose 233 H 220 H Lactic Acid Calcium Iron TIBC C-Reactive Protein NT-Pro-B Natriuret Pep 10/08/18 10/08/18 10/08/18 04:11 16:20 20:28 WBC Hgb Hct MCV MCH MCHC RDW Plt Count Lymph % (Auto) [place] % (Auto) Eos % (Auto) Lymph # [place] # Eos # Seg Neutrophils % Seg Neutrophils # Seg Neutrophils # Man Monocytes # (Manual) PT D-Dimer POC ABG pH POC ABG pCO2 POC ABG pO2 Sodium Potassium 3.5 L Carbon Dioxide 21 L BUN 21 H Creatinine 0.7 L Glucose 123 H POC Glucose 157 H 210 H Lactic Acid Calcium 8.0 L Iron TIBC C-Reactive Protein NT-Pro-B Natriuret Pep 10/09/18 10/09/18 10/09/18 05:09 05:09 05:09 WBC Hgb 9.1 L Hct 28.6 L MCV 71 L MCH 23 L MCHC RDW 20.2 H Plt Count Lymph % (Auto) [place] % (Auto) 10.2 H Eos % (Auto) 6.7 H Lymph # [place] # Eos # 0.5 H Seg Neutrophils % Seg Neutrophils # Seg Neutrophils # Man Monocytes # (Manual) PT 15.1 H D-Dimer POC ABG pH POC ABG pCO2 POC ABG pO2 Sodium Potassium Carbon Dioxide BUN Creatinine Glucose POC Glucose Lactic Acid Calcium Iron 29 L TIBC 240 L C-Reactive Protein NT-Pro-B Natriuret Pep 10/09/18 10/09/18 08:22 12:26 WBC Hgb Hct MCV MCH MCHC RDW Plt Count Lymph % (Auto) [place] % (Auto) Eos % (Auto) Lymph # [place] # Eos # Seg Neutrophils % Seg Neutrophils # Seg Neutrophils # Man Monocytes # (Manual) PT D-Dimer POC ABG pH POC ABG pCO2 POC ABG pO2 Sodium Potassium Carbon Dioxide BUN Creatinine Glucose POC Glucose 120 H 319 H Lactic Acid Calcium Iron TIBC C-Reactive Protein NT-Pro-B Natriuret Pep Allied health notes reviewed: nursing
[2018-10-10] MEDS: DUONEB *Not for PRN Use IH SCH ×5 (08:57→20:51)
[2018-10-10] MEDS: PULMICORT IH SCH ×3 (08:57→21:09)
[2018-10-10] MEDS: BROVANA NEBU IH SCH ×3 (08:57→21:09)
--- NOTE | 2018-10-10 08:57 | Progress Note ---
Assessment and Plan Assessment and plan: Patient is a 68-year-old male with past medical history from records shows COPD, chronic systolic CHF, CVA, atrial fibrillation, iron deficiency anemia and CAD s/p CABG who presents with severe respiratory distress. Patient was noted to be lethargic with severe increased work of breathing and was intubated in the ER and placed on mechanical ventilation. Review of records is also off HPI. The record shows that the patient has been in the ED about 2 days prior to this visit. He also had affirm that he has been on mechanical ventilation on previous occasions for currently follows at the [facility]. The ED documentation the medication list reveals the patient also lives in a custodial house. On arrival he was noted to have a saturation of 60% and was difficult to oxygenate with CPAP despite Solu-Medrol and magnesium given enroute and mechanical ventilation in the ED. * Patient was intubated and placed on mechanical ventilation, now extubated * X-ray was consistent with COPD also showed a right upper lobe nodular opacity * Echocardiogram revealed an EF of 20-25% with abnormal left ventricular diastolic function also observed * Cardiology acknowledged patient was in atrial fibrillation IV Lopressor was converted to by mouth Lopressor and lisinopril following extubation. The patient is frail and lives in a custodial house. Acute Respiratory failure with Hypoxia/hypercapneia ON Mechanical ventilation, now extubated Hypertensive urgency Acute Systolic Congestive heart failure with possible combined diastolic dysfunction-Precluding fluids administration Sepsis-POA secondary PNA Acute Bronchitis. CT scan not showing any infiltrates. COPD with acute exacerbation secondary to above Thrombocytopenia, resolved Cardiomyopathy with EF OF 25-30% s/p CABG Atrial Fibrillation with RVR Leukocytosis Hyperkalemia,resolved DM with Hyperglycemia Iron deficiency anemia History of CVA Plan Continue supportive care Patient successfully extubated Blood cultures growing in to drug-resistant pseudomonas aeruginosa. Patient on isolation. ID consulted SCD. HIT Antibodies neg. Continue abx protocol Judicious use of lasix considering low BP Sepsis Protocol Handbag Frames Inspector and cardiology consult INPUT NOTED Blood cultures NO GROWTH SO FAR DVT/GI prophylaxis Discussed with Pulm , GI, cardiology. Patient needs systemic anticoag for afib. Patient refused colonoscopy but agreed to EGD, so procedures not done Discussed with Dr. Segovia, GI T History Interval history: Refuses colonoscopy No chest pain No SOB Hospitalist Physical - Physical exam Narrative exam: GEN: Not in acute distress, lying in bed HEENT: Normocephalic, atraumatic, Neck: supple, No JVD Lungs: Clear to auscultation bilaterally, no crackles or wheeze Heart:S1 and S2 irreg, irreg, no rubs or gallop, Abd:soft, non tender, non distended, normal bowel sounds Ext: No edema, no clubbing or cyanosis Neuro: awake,alert,oriented, no focal signs - Constitutional Vitals: Temp Pulse Resp BP Pulse Ox 98.2 F 73 23 136/73 100 10/10/18 04:34 10/10/18 08:00 10/10/18 08:00 10/10/18 06:01 10/10/18 08:54 General appearance: Present: other (intubated, sedated ) Results - Labs CBC & Chem 7: 10/09/18 05:09 10/08/18 04:11 Labs: Laboratory Last Values WBC 7.4 K/mm3 (4.5-11.0) 10/09/18 05:09 RBC 4.00 M/mm3 (3.65-5.03) 10/09/18 05:09 Hgb 9.1 gm/dl (11.8-15.2) L 10/09/18 05:09 Hct 28.6 % (35.5-45.6) L 10/09/18 05:09 MCV 71 fl (84-94) L 10/09/18 05:09 MCH 23 pg (28-32) L 10/09/18 05:09 MCHC 32 % (32-34) 10/09/18 05:09 RDW 20.2 % (13.2-15.2) H 10/09/18 05:09 Plt Count 154 K/mm3 (140-440) 10/09/18 05:09 Lymph % (Auto) 21.9 % (13.4-35.0) 10/09/18 05:09 [place] % (Auto) 10.2 % (0.0-7.3) H 10/09/18 05:09 Eos % (Auto) 6.7 % (0.0-4.3) H 10/09/18 05:09 Baso % (Auto) 0.6 % (0.0-1.8) 10/09/18 05:09 Lymph # 1.6 K/mm3 (1.2-5.4) 10/09/18 05:09 [place] # 0.8 K/mm3 (0.0-0.8) 10/09/18 05:09 Eos # 0.5 K/mm3 (0.0-0.4) H 10/09/18 05:09 Baso # 0.0 K/mm3 (0.0-0.1) 10/09/18 05:09 Add Manual Diff Complete 10/02/18 07:20 Total Counted 100 10/02/18 07:20 Seg Neutrophils % 60.6 % (40.0-70.0) 10/09/18 05:09 Seg Neuts % (Manual) 67.0 % (40.0-70.0) 10/02/18 07:20 Band Neutrophils % 1.0 % 10/02/18 07:20 Lymphocytes % (Manual) 26.0 % (13.4-35.0) 10/02/18 07:20 Reactive Lymphs % (Man) 0 % 10/02/18 07:20 Monocytes % (Manual) 6.0 % (0.0-7.3) 10/02/18 07:20 Eosinophils % (Manual) 0 % (0.0-4.3) 10/02/18 07:20 Basophils % (Manual) 0 % (0.0-1.8) 10/02/18 07:20 Metamyelocytes % 0 % 10/02/18 07:20 Myelocytes % 0 % 10/02/18 07:20 Promyelocytes % 0 % 10/02/18 07:20 Blast Cells % 0 % 10/02/18 07:20 Nucleated RBC % Not Reportable 10/02/18 07:20 Seg Neutrophils # 4.5 K/mm3 (1.8-7.7) 10/09/18 05:09 Seg Neutrophils # Man 13.2 K/mm3 (1.8-7.7) H 10/02/18 07:20 Band Neutrophils # 0.2 K/mm3 10/02/18 07:20 Lymphocytes # (Manual) 5.1 K/mm3 (1.2-5.4) 10/02/18 07:20 Abs React Lymphs (Man) 0.0 K/mm3 10/02/18 07:20 Monocytes # (Manual) 1.2 K/mm3 (0.0-0.8) H 10/02/18 07:20 Eosinophils # (Manual) 0.0 K/mm3 (0.0-0.4) 10/02/18 07:20 Basophils # (Manual) 0.0 K/mm3 (0.0-0.1) 10/02/18 07:20 Metamyelocytes # 0.0 K/mm3 10/02/18 07:20 Myelocytes # 0.0 K/mm3 10/02/18 07:20 Promyelocytes # 0.0 K/mm3 10/02/18 07:20 Blast Cells # 0.0 K/mm3 10/02/18 07:20 WBC Morphology Not Reportable 10/02/18 07:20 Hypersegmented Neuts Not Reportable 10/02/18 07:20 Hyposegmented Neuts Not Reportable 10/02/18 07:20 Hypogranular Neuts Not Reportable 10/02/18 07:20 Smudge Cells Not Reportable 10/02/18 07:20 Toxic Granulation Not Reportable 10/02/18 07:20 Toxic Vacuolation Not Reportable 10/02/18 07:20 Dohle Bodies Not Reportable 10/02/18 07:20 Pelger-Huet Anomaly Not Reportable 10/02/18 07:20 Markie Rods Not Reportable 10/02/18 07:20 Platelet Estimate Consistent w auto 10/02/18 07:20 Clumped Platelets Not Reportable 10/02/18 07:20 Plt Clumps, EDTA Not Reportable 10/02/18 07:20 Large Platelets Not Reportable 10/02/18 07:20 Giant Platelets Not Reportable 10/02/18 07:20 Platelet Satelliting Not Reportable 10/02/18 07:20 Plt Morphology Comment Not Reportable 10/02/18 07:20 RBC Morphology Not Reportable 10/02/18 07:20 Dimorphic RBCs Not Reportable 10/02/18 07:20 Polychromasia Not Reportable 10/02/18 07:20 Hypochromasia 1+ 10/02/18 07:20 Poikilocytosis Not Reportable 10/02/18 07:20 Anisocytosis 2+ 10/02/18 07:20 Microcytosis 2+ 10/02/18 07:20 Macrocytosis Not Reportable 10/02/18 07:20 Spherocytes Not Reportable 10/02/18 07:20 Pappenheimer Bodies Not Reportable 10/02/18 07:20 Sickle Cells Not Reportable 10/02/18 07:20 Target Cells Not Reportable 10/02/18 07:20 Tear Drop Cells Not Reportable 10/02/18 07:20 Ovalocytes 1+ 10/02/18 07:20 Helmet Cells Not Reportable 10/02/18 07:20 [place] Bodies Not Reportable 10/02/18 07:20 [place] Rings Not Reportable 10/02/18 07:20 [place] Cells Not Reportable 10/02/18 07:20 Bite Cells Not Reportable 10/02/18 07:20 Crenated Cell Not Reportable 10/02/18 07:20 Elliptocytes Not Reportable 10/02/18 07:20 Acanthocytes (Spur) Not Reportable 10/02/18 07:20 Rouleaux Not Reportable 10/02/18 07:20 Hemoglobin C Crystals Not Reportable 10/02/18 07:20 Schistocytes Not Reportable 10/02/18 07:20 Malaria parasites Not Reportable 10/02/18 07:20 [place] Bodies Not Reportable 10/02/18 07:20 Hem Pathologist Commnt No 10/02/18 07:20 PT 15.1 Sec. (12.2-14.9) H 10/09/18 05:09 INR 1.12 (0.87-1.13) 10/09/18 05:09 D-Dimer 1039.91 ng/mlDDU (0-234) H 10/02/18 21:01 Heparin Anti-Xa, Unfract Negative (Negative) 10/03/18 09:36 POC ABG pH 7.462 (7.35-7.45) H 10/05/18 12:06 POC ABG pCO2 35.8 (35-45) 10/05/18 12:06 POC ABG pO2 66 (80-105) L 10/05/18 12:06 POC ABG HCO3 25.6 10/05/18 12:06 POC ABG Total CO2 27 10/05/18 12:06 POC ABG O2 Sat 94 10/05/18 12:06 POC ABG Base Excess 2 10/05/18 12:06 FiO2 30 % 10/05/18 12:06 Sodium 142 mmol/L (137-145) 10/08/18 04:11 Potassium 3.5 mmol/L (3.6-5.0) L 10/08/18 04:11 Chloride 106.4 mmol/L (98-107) 10/08/18 04:11 Carbon Dioxide 21 mmol/L (22-30) L 10/08/18 04:11 Anion Gap 18 mmol/L 10/08/18 04:11 BUN 21 mg/dL (9-20) H 10/08/18 04:11 Creatinine 0.7 mg/dL (0.8-1.5) L 10/08/18 04:11 Estimated GFR > 60 ml/min 10/08/18 04:11 BUN/Creatinine Ratio 30 % 10/08/18 04:11 Glucose 123 mg/dL (75-100) H 10/08/18 04:11 POC Glucose 130 (70-105) H 10/09/18 22:49 Lactic Acid 2.60 mmol/L (0.7-2.0) H* 10/03/18 04:13 Calcium 8.0 mg/dL (8.4-10.2) L 10/08/18 04:11 Magnesium 2.30 mg/dL (1.7-2.3) 10/02/18 18:04 Iron 29 ug/dL (49-181) L 10/09/18 05:09 TIBC 240 mcg/dL (250-450) L 10/09/18 05:09 Ferritin 124.9 ng/mL (13.0-400.0) 10/09/18 05:09 Total Bilirubin 0.50 mg/dL (0.1-1.2) 10/02/18 07:13 AST 20 units/L (5-40) 10/02/18 07:13 ALT 11 units/L (7-56) 10/02/18 07:13 Alkaline Phosphatase 100 units/L (35-129) 10/02/18 07:13 Troponin T < 0.010 ng/mL (0.00-0.029) 10/02/18 07:13 C-Reactive Protein 3.40 mg/dL (0.00-1.30) H 10/02/18 21:01 NT-Pro-B Natriuret Pep 3102 pg/mL (0-900) H 10/02/18 07:13 Total Protein 7.8 g/dL (6.3-8.2) 10/02/18 07:13 Albumin 3.9 g/dL (3.9-5) 10/02/18 07:13 Albumin/Globulin Ratio 1.0 % 10/02/18 07:13 TSH 0.417 mlU/mL (0.270-4.200) 10/02/18 18:04 Free T4 0.92 ng/dL (0.76-1.46) 10/02/18 18:04 Urine Color Straw (Yellow) 10/02/18 09:12 Urine Turbidity Clear (Clear) 10/02/18 09:12 Urine pH 5.0 (5.0-7.0) 10/02/18 09:12 Ur Specific [place] 1.006 (1.003-1.030) 10/02/18 09:12 Urine Protein 30 mg/dl mg/dL (Negative) 10/02/18 09:12 Urine Glucose (UA) 50 mg/dL (Negative) 10/02/18 09:12 Urine Ketones Neg mg/dL (Negative) 10/02/18 09:12 Urine Blood Neg (Negative) 10/02/18 09:12 Urine Nitrite Neg (Negative) 10/02/18 09:12 Urine Bilirubin Neg (Negative) 10/02/18 09:12 Urine Urobilinogen < 2.0 mg/dL (<2.0) 10/02/18 09:12 Ur Leukocyte Esterase Neg (Negative) 10/02/18 09:12 Urine WBC (Auto) 2.0 /HPF (0.0-6.0) 10/02/18 09:12 Urine RBC (Auto) 2.0 /HPF (0.0-6.0) 10/02/18 09:12 Urine Bacteria (Auto) 1+ /HPF (Negative) 10/02/18 09:12 Urine Yeast (Budding) Few /HPF 10/02/18 09:12 Heparin-induced Plt Ab Negative (Negative) 10/03/18 09:36 UF Heparin High Dose 0 % Release 10/03/18 09:36 JULES UFH Low Dose 0.1 0 % Release 10/03/18 09:36 JULES UFH Low Dose 0.5 0 % Release 10/03/18 09:36 Urine Legionella Ag Not detected (Not Detected) 10/03/18 14:32 Blood Type A NEGATIVE 10/02/18 08:51 Antibody Screen Negative 10/02/18 08:51 Nutrition/Malnutrition Assess - Dietary Evaluation Nutrition/Malnutrition Findings: Nutrition Notes Start: 10/03/18 12:55 Freq: Status: Active Protocol: Document 10/09/18 15:42 RM (Rec: 10/09/18 15:50 RM [email or web address]) Nutrition Notes Initial or Follow up Reassessment Current Diagnosis COPD Coronary Artery Disease Diabetes Sepsis Hypertension Heart Failure Respiratory Failure Stroke Other Pertinent Diagnosis Pneu Current Diet Consistent Carbohydrate Labs/Tests Reviewed Pertinent Medications Lasix Height 6 ft 2 in Weight 76.7 kg [place] Body Weight (kg) 86.36 BMI 21.7 Subjective/Other Information Pt NPO for upper endoscopy and colonoscopy. Pt confused at time of visit. Per tech pt ate 100% of meals before NPO status. Percent of energy/protein needs met: 31%/17% Burn Absent Trauma Absent #1 Nutrition Diagnosis Inadequate oral intake Diagnosis Progress(for reassessment Continues documentation) Is patient on ventilator? No Is Patient Ambulatory and/or Out of Bed No REE-([place]-[facility] Jeor-confined to bed) [phone] [facility]culation [facility] Additional Notes Pro needs 1.2-2g/k-153g/ day Fluid needs 1ml/kcal Nutrition Intervention Change Diet Order: Advance when medically able Add Supplement/Snack (indicate name/kcal Was not added previously. /protein ) Glucerna 1 daily Provides kCal: 220 Provides Protein (gm) 10 Goal #1 Meet at least 75% of kcal and pro needs via PO and ONS intakes Goal #2 Wt maintenance Anticipated Discharge Needs: Consistent CHO Follow-Up By: 10/13/18 Additional Comments F/U: PO and ONS intakes
--- NOTE | 2018-10-10 09:24 | Progress Note ---
Assessment and Plan Acute Respiratory failure with Hypoxia/hypercapnea s/p MVS Hypertensive urgency Acute Systolic Congestive heart failure with possible combined diastolic dysfunction Sepsis COPD with acute exacerbation Thrombocytopenia, improved Cardiomyopathy with EF OF 25-30% s/p CABG Atrial Fibrillation with RVR Leukocytosis Hyperkalemia DM with Hyperglycemia Iron deficiency anemia History of CVA Tobacco use disorder -Continue with supplemental oxygen to keep O2 sats 88-90% -Bronchodilators -VTE prophylaxis( SCDs) -PT/OT -Heart failure measures -Glycemic control to keep blood glucose 140-180mg/dL -Complete antibiotics per ID recommendations -Bowel regimen -Aspiration precautions -Colonoscopy rescheduled for Friday, prior to initiation of therapeutic anticoagulation. Ainsley has microcytic anemia -Smoking cessation counseling done at the bedside -Out patient pulmonary follow up on discharge Subjective Date of service: 10/10/18 Principal diagnosis: Ac on Ch Hypoxemic Hypercapnic Resp failure; AECOPD; CHF exacerbation; Afib Interval history: Patient is seen today for: Acute on chronic hypoxemic and hypercapnic respiratory failure; Acute chronic obstructive pulmonary disease exacerbation; Acute congestive heart failure exacerbation; History of cerebrovascular accident; Atrial fibrillation with rapid ventricular response. Seen and examined at bedside; 24hour events reviewed; nursing and respiratory care staff consulted; no adverse overnight events reported to me; resting pe acefully in bed; denies acute chest pains or palpitations;No N/V/F/C; has ongoing shortness of breath, continues to require supplemental oxygen at 3L/min.Unable to get colonoscopy this morning, patient refused. wants to eat and does not believe he needs it. Objective Vital Signs - 12hr 10/09/18 10/09/18 10/09/18 22:00 22:54 23:01 Temperature Pulse Rate 79 74 78 Pulse Rate [ Anterior Bilateral] Pulse Rate [ From Monitor] Respiratory 34 H 15 Rate Respiratory Rate [Anterior Bilateral] Blood Pressure 113/46 119/59 O2 Sat by Pulse 97 96 Oximetry 10/09/18 10/10/18 10/10/18 23:42 00:00 00:01 Temperature 98.4 F Pulse Rate 69 75 Pulse Rate [ Anterior Bilateral] Pulse Rate [ 69 From Monitor] Respiratory 29 H 25 H 30 H Rate Respiratory Rate [Anterior Bilateral] Blood Pressure 119/59 82/41 O2 Sat by Pulse 98 98 97 Oximetry 10/10/18 10/10/18 10/10/18 01:01 01:07 02:00 Temperature Pulse Rate 64 63 74 Pulse Rate [ Anterior Bilateral] Pulse Rate [ From Monitor] Respiratory 11 L 32 H 18 Rate Respiratory Rate [Anterior Bilateral] Blood Pressure 86/47 86/47 93/42 O2 Sat by Pulse 99 98 99 Oximetry 10/10/18 10/10/18 10/10/18 03:00 04:00 04:34 Temperature 98.2 F Pulse Rate 66 67 Pulse Rate [ Anterior Bilateral] Pulse Rate [ 72 From Monitor] Respiratory 24 27 H Rate Respiratory Rate [Anterior Bilateral] Blood Pressure 110/58 95/44 O2 Sat by Pulse 98 98 Oximetry 10/10/18 10/10/18 10/10/18 05:00 06:01 08:00 Temperature Pulse Rate 69 87 Pulse Rate [ 73 Anterior Bilateral] Pulse Rate [ From Monitor] Respiratory 23 16 Rate Respiratory 23 Rate [Anterior Bilateral] Blood Pressure 95/44 136/73 O2 Sat by Pulse 97 93 Oximetry 10/10/18 10/10/18 08:54 09:10 Temperature Pulse Rate Pulse Rate [ 75 Anterior Bilateral] Pulse Rate [ From Monitor] Respiratory Rate Respiratory 22 Rate [Anterior Bilateral] Blood Pressure O2 Sat by Pulse 100 Oximetry Constitutional: appears uncomfortable, other (elderly looking CM, normocephalic and atraumatic with increased resp effort) Eyes: non-icteric ENT: oropharynx moist Neck: supple, no lymphadenopathy, no JVD, other (no thyromegaly) Effort: mildly labored Ascultation: Bilateral: clear, diminished breath sounds, rhonchi, other (+ barrel chest) Percussion: Bilateral: not dull Cardiovascular: irregular rhythm, other (S1,S2) Gastrointestinal: normoactive bowel sounds, soft, non-tender, non-distended Integumentary: normal, other (post CABG sternotomy scar) Extremities: no cyanosis, no edema, pink and warm, pulses normal, no ischemia or petechiae Neurologic: normal mental status, non-focal exam (grossly), pupils equal and round, motor strength normal and Psychiatric: mood appropriate, affect normal CBC and BMP: 10/09/18 05:09 10/08/18 04:11 ABG, PT/INR, D-dimer: ABG POC ABG pH 7.462 (7.35-7.45) H 10/05/18 12:06 POC ABG pCO2 35.8 (35-45) 10/05/18 12:06 POC ABG pO2 66 (80-105) L 10/05/18 12:06 POC ABG HCO3 25.6 10/05/18 12:06 POC ABG Total CO2 27 10/05/18 12:06 POC ABG O2 Sat 94 10/05/18 12:06 PT/INR, D-dimer PT 15.1 Sec. (12.2-14.9) H 10/09/18 05:09 INR 1.12 (0.87-1.13) 10/09/18 05:09 D-Dimer 1039.91 ng/mlDDU (0-234) H 10/02/18 21:01 Abnormal lab findings: Abnormal Labs 10/02/18 10/02/18 10/02/18 07:13 07:20 07:22 WBC 19.7 H Hgb 10.9 L Hct MCV 75 L MCH 23 L MCHC 31 L RDW 21.7 H Plt Count Lymph % (Auto) [place] % (Auto) Eos % (Auto) Lymph # [place] # Eos # Seg Neutrophils % Seg Neutrophils # Seg Neutrophils # Man 13.2 H Monocytes # (Manual) 1.2 H PT 15.0 H D-Dimer POC ABG pH POC ABG pCO2 POC ABG pO2 Sodium Potassium 5.2 H D Carbon Dioxide 19 L BUN Creatinine Glucose 340 H POC Glucose Lactic Acid Calcium Iron TIBC C-Reactive Protein NT-Pro-B Natriuret Pep 3102 H 10/02/18 10/02/18 10/02/18 08:32 09:26 12:28 WBC Hgb Hct MCV MCH MCHC RDW Plt Count Lymph % (Auto) [place] % (Auto) Eos % (Auto) Lymph # [place] # Eos # Seg Neutrophils % Seg Neutrophils # Seg Neutrophils # Man Monocytes # (Manual) PT D-Dimer POC ABG pH 7.201 L 7.254 L POC ABG pCO2 61.2 H 54.3 H POC ABG pO2 150 H 196 H Sodium Potassium Carbon Dioxide BUN Creatinine Glucose POC Glucose Lactic Acid 3.00 H* Calcium Iron TIBC C-Reactive Protein NT-Pro-B Natriuret Pep 10/02/18 10/02/18 10/02/18 20:43 21:01 21:01 WBC Hgb Hct MCV MCH MCHC RDW Plt Count Lymph % (Auto) [place] % (Auto) Eos % (Auto) Lymph # [place] # Eos # Seg Neutrophils % Seg Neutrophils # Seg Neutrophils # Man Monocytes # (Manual) PT D-Dimer 1039.91 H POC ABG pH 7.307 L POC ABG pCO2 45.6 H POC ABG pO2 107 H Sodium Potassium Carbon Dioxide BUN Creatinine Glucose POC Glucose Lactic Acid Calcium Iron TIBC C-Reactive Protein 3.40 H NT-Pro-B Natriuret Pep 10/02/18 10/03/18 10/03/18 21:01 00:14 04:13 WBC 13.6 H Hgb 10.6 L Hct 34.5 L MCV 74 L MCH 23 L MCHC 31 L RDW 21.3 H Plt Count 134 L Lymph % (Auto) 6.0 L [place] % (Auto) 10.6 H Eos % (Auto) Lymph # 0.8 L [place] # 1.4 H Eos # Seg Neutrophils % 83.1 H Seg Neutrophils # 11.3 H Seg Neutrophils # Man Monocytes # (Manual) PT D-Dimer POC ABG pH POC ABG pCO2 POC ABG pO2 Sodium Potassium Carbon Dioxide BUN Creatinine Glucose POC Glucose 164 H Lactic Acid 2.80 H* Calcium Iron TIBC C-Reactive Protein NT-Pro-B Natriuret Pep 10/03/18 10/03/18 10/03/18 04:13 04:13 04:47 WBC Hgb Hct MCV MCH MCHC RDW Plt Count Lymph % (Auto) [place] % (Auto) Eos % (Auto) Lymph # [place] # Eos # Seg Neutrophils % Seg Neutrophils # Seg Neutrophils # Man Monocytes # (Manual) PT D-Dimer POC ABG pH POC ABG pCO2 POC ABG pO2 Sodium 136 L Potassium Carbon Dioxide 18 L BUN 29 H Creatinine Glucose 168 H POC Glucose 182 H Lactic Acid 2.60 H* Calcium 8.3 L Iron TIBC C-Reactive Protein NT-Pro-B Natriuret Pep 10/03/18 10/03/18 10/03/18 05:47 11:39 16:56 WBC Hgb Hct MCV MCH MCHC RDW Plt Count Lymph % (Auto) [place] % (Auto) Eos % (Auto) Lymph # [place] # Eos # Seg Neutrophils % Seg Neutrophils # Seg Neutrophils # Man Monocytes # (Manual) PT D-Dimer POC ABG pH 7.314 L POC ABG pCO2 45.9 H POC ABG pO2 Sodium Potassium Carbon Dioxide BUN Creatinine Glucose POC Glucose 134 H 118 H Lactic Acid Calcium Iron TIBC C-Reactive Protein NT-Pro-B Natriuret Pep 10/03/18 10/04/18 10/04/18 23:13 05:20 05:44 WBC Hgb Hct MCV MCH MCHC RDW Plt Count Lymph % (Auto) [place] % (Auto) Eos % (Auto) Lymph # [place] # Eos # Seg Neutrophils % Seg Neutrophils # Seg Neutrophils # Man Monocytes # (Manual) PT D-Dimer POC ABG pH POC ABG pCO2 POC ABG pO2 68 L Sodium Potassium Carbon Dioxide BUN Creatinine Glucose POC Glucose 129 H 166 H Lactic Acid Calcium Iron TIBC C-Reactive Protein NT-Pro-B Natriuret Pep 10/04/18 10/04/18 10/04/18 08:04 08:04 11:56 WBC Hgb 9.1 L Hct 28.7 L MCV 72 L MCH 23 L MCHC RDW 21.6 H Plt Count 126 L Lymph % (Auto) [place] % (Auto) Eos % (Auto) Lymph # [place] # Eos # Seg Neutrophils % Seg Neutrophils # Seg Neutrophils # Man Monocytes # (Manual) PT D-Dimer POC ABG pH POC ABG pCO2 POC ABG pO2 Sodium Potassium Carbon Dioxide BUN 26 H Creatinine Glucose 167 H POC Glucose 176 H Lactic Acid Calcium 8.2 L Iron TIBC C-Reactive Protein NT-Pro-B Natriuret Pep 10/04/18 10/04/18 10/05/18 13:21 17:12 00:02 WBC Hgb Hct MCV MCH MCHC RDW Plt Count Lymph % (Auto) [place] % (Auto) Eos % (Auto) Lymph # [place] # Eos # Seg Neutrophils % Seg Neutrophils # Seg Neutrophils # Man Monocytes # (Manual) PT D-Dimer POC ABG pH 7.462 H POC ABG pCO2 33.5 L POC ABG pO2 59 L Sodium Potassium Carbon Dioxide BUN Creatinine Glucose POC Glucose 164 H 211 H Lactic Acid Calcium Iron TIBC C-Reactive Protein NT-Pro-B Natriuret Pep 10/05/18 10/05/18 10/05/18 05:13 12:06 12:11 WBC Hgb Hct MCV MCH MCHC RDW Plt Count Lymph % (Auto) [place] % (Auto) Eos % (Auto) Lymph # [place] # Eos # Seg Neutrophils % Seg Neutrophils # Seg Neutrophils # Man Monocytes # (Manual) PT D-Dimer POC ABG pH 7.462 H POC ABG pCO2 POC ABG pO2 66 L Sodium Potassium Carbon Dioxide BUN Creatinine Glucose POC Glucose 190 H 185 H Lactic Acid Calcium Iron TIBC C-Reactive Protein NT-Pro-B Natriuret Pep 10/05/18 10/05/18 10/06/18 18:13 23:49 04:19 WBC Hgb 9.8 L Hct 30.5 L MCV 73 L MCH 23 L MCHC RDW 21.0 H Plt Count Lymph % (Auto) [place] % (Auto) Eos % (Auto) Lymph # [place] # Eos # Seg Neutrophils % Seg Neutrophils # Seg Neutrophils # Man Monocytes # (Manual) PT D-Dimer POC ABG pH POC ABG pCO2 POC ABG pO2 Sodium Potassium Carbon Dioxide BUN Creatinine Glucose POC Glucose 177 H 192 H Lactic Acid Calcium Iron TIBC C-Reactive Protein NT-Pro-B Natriuret Pep 10/06/18 10/06/18 10/06/18 04:19 05:00 12:05 WBC Hgb Hct MCV MCH MCHC RDW Plt Count Lymph % (Auto) [place] % (Auto) Eos % (Auto) Lymph # [place] # Eos # Seg Neutrophils % Seg Neutrophils # Seg Neutrophils # Man Monocytes # (Manual) PT D-Dimer POC ABG pH POC ABG pCO2 POC ABG pO2 Sodium Potassium 3.4 L Carbon Dioxide BUN 21 H Creatinine 0.7 L Glucose 133 H POC Glucose 135 H 206 H Lactic Acid Calcium Iron TIBC C-Reactive Protein NT-Pro-B Natriuret Pep 10/06/18 10/06/18 10/06/18 12:12 16:31 21:13 WBC Hgb Hct MCV MCH MCHC RDW Plt Count Lymph % (Auto) [place] % (Auto) Eos % (Auto) Lymph # [place] # Eos # Seg Neutrophils % Seg Neutrophils # Seg Neutrophils # Man Monocytes # (Manual) PT D-Dimer POC ABG pH POC ABG pCO2 POC ABG pO2 Sodium Potassium Carbon Dioxide BUN Creatinine Glucose POC Glucose 216 H 141 H 308 H Lactic Acid Calcium Iron TIBC C-Reactive Protein NT-Pro-B Natriuret Pep 10/07/18 10/07/18 10/08/18 08:37 11:32 04:11 WBC Hgb 9.3 L Hct 29.4 L MCV 72 L MCH 23 L MCHC RDW 20.9 H Plt Count Lymph % (Auto) [place] % (Auto) Eos % (Auto) Lymph # [place] # Eos # Seg Neutrophils % Seg Neutrophils # Seg Neutrophils # Man Monocytes # (Manual) PT D-Dimer POC ABG pH POC ABG pCO2 POC ABG pO2 Sodium Potassium Carbon Dioxide BUN Creatinine Glucose POC Glucose 233 H 220 H Lactic Acid Calcium Iron TIBC C-Reactive Protein NT-Pro-B Natriuret Pep 10/08/18 10/08/18 10/08/18 04:11 16:20 20:28 WBC Hgb Hct MCV MCH MCHC RDW Plt Count Lymph % (Auto) [place] % (Auto) Eos % (Auto) Lymph # [place] # Eos # Seg Neutrophils % Seg Neutrophils # Seg Neutrophils # Man Monocytes # (Manual) PT D-Dimer POC ABG pH POC ABG pCO2 POC ABG pO2 Sodium Potassium 3.5 L Carbon Dioxide 21 L BUN 21 H Creatinine 0.7 L Glucose 123 H POC Glucose 157 H 210 H Lactic Acid Calcium 8.0 L Iron TIBC C-Reactive Protein NT-Pro-B Natriuret Pep 10/09/18 10/09/18 10/09/18 05:09 05:09 05:09 WBC Hgb 9.1 L Hct 28.6 L MCV 71 L MCH 23 L MCHC RDW 20.2 H Plt Count Lymph % (Auto) [place] % (Auto) 10.2 H Eos % (Auto) 6.7 H Lymph # [place] # Eos # 0.5 H Seg Neutrophils % Seg Neutrophils # Seg Neutrophils # Man Monocytes # (Manual) PT 15.1 H D-Dimer POC ABG pH POC ABG pCO2 POC ABG pO2 Sodium Potassium Carbon Dioxide BUN Creatinine Glucose POC Glucose Lactic Acid Calcium Iron 29 L TIBC 240 L C-Reactive Protein NT-Pro-B Natriuret Pep 10/09/18 10/09/18 10/09/18 08:22 12:26 16:02 WBC Hgb Hct MCV MCH MCHC RDW Plt Count Lymph % (Auto) [place] % (Auto) Eos % (Auto) Lymph # [place] # Eos # Seg Neutrophils % Seg Neutrophils # Seg Neutrophils # Man Monocytes # (Manual) PT D-Dimer POC ABG pH POC ABG pCO2 POC ABG pO2 Sodium Potassium Carbon Dioxide BUN Creatinine Glucose POC Glucose 120 H 319 H 138 H Lactic Acid Calcium Iron TIBC C-Reactive Protein NT-Pro-B Natriuret Pep 10/09/18 22:49 WBC Hgb Hct MCV MCH MCHC RDW Plt Count Lymph % (Auto) [place] % (Auto) Eos % (Auto) Lymph # [place] # Eos # Seg Neutrophils % Seg Neutrophils # Seg Neutrophils # Man Monocytes # (Manual) PT D-Dimer POC ABG pH POC ABG pCO2 POC ABG pO2 Sodium Potassium Carbon Dioxide BUN Creatinine Glucose POC Glucose 130 H Lactic Acid Calcium Iron TIBC C-Reactive Protein NT-Pro-B Natriuret Pep Allied health notes reviewed: nursing
[2018-10-10] MEDS: LASIX PO SCH (10:49)
[2018-10-10] MEDS: HABITROL TD SCH (10:49)
[2018-10-10] MEDS: PROTONIX PO SCH (10:49)
--- NOTE | 2018-10-10 10:49 | Event Note ---
Date: 10/10/18 pt did not drink prep and had solids yesterday; still with brown formed stool. will f/u in 1-2 days and re-evaluate for egd/colonoscopy. suspect source is in the colon and will discuss with pt again if he would like to have procedure done (possibly Friday); if not, then would document pt's refusal and proceed cardiology work-up as needed
[2018-10-10] MEDS: SODIUM CHLORIDE FLUSH SYRINGE 10 ML IV SCH ×2 (10:58→21:43)
[2018-10-10] MEDS: ZESTRIL PO SCH (11:00)
[2018-10-10] MEDS: SENOKOT PO SCH ×2 (11:02→21:42)
[2018-10-10] MEDS: PEPCID PO SCH ×2 (11:03→21:42)
[2018-10-10] MEDS: LOPRESSOR PO SCH ×2 (11:03→21:42)
--- NOTE | 2018-10-10 12:00 | Progress Note ---
Assessment and Plan Patient appears to be comfortable but complains about some difficulty in breathing. Cardiac exam is unchanged. Waiting for endoscopy - Patient Problems (1) Acute HFrEF (heart failure with reduced ejection fraction) Current Visit: Yes Status: Acute (2) Acute respiratory failure Current Visit: Yes Status: Acute (3) COPD with acute exacerbation Current Visit: Yes Status: Acute (4) Thrombocytopenia Current Visit: Yes Status: Acute (5) CAD (coronary artery disease) Current Visit: Yes Status: Chronic (6) S/P CABG (coronary artery bypass graft) Current Visit: Yes Status: Chronic (7) Pneumonia Current Visit: Yes Status: Suspected (8) CHF (congestive heart failure) Current Visit: No Status: Acute (9) COPD exacerbation Current Visit: No Status: Acute Subjective Date of service: 10/10/18 Principal diagnosis: Ac on Ch Hypoxemic Hypercapnic Resp failure; AECOPD; CHF exacerbation; Afib Interval history: Patient did not have endoscopy. This is because they've Pleasant adequate. Patient has no chest pain has occasional difficulty in breathing. Patient is anxious to go home. Objective Vital Signs Temp Pulse Pulse Pulse Resp Resp BP 10/10/18 11:01 72 14 110/51 10/10/18 11:00 107/62 10/10/18 10:00 79 16 107/62 10/10/18 09:10 75 22 10/10/18 09:01 78 17 102/70 10/10/18 08:54 10/10/18 08:00 73 73 27 H 23 96/48 10/10/18 07:01 67 24 85/39 10/10/18 06:01 87 16 136/73 10/10/18 05:00 69 23 95/44 10/10/18 04:34 98.2 F 10/10/18 04:00 67 72 27 H 95/44 10/10/18 03:00 66 24 110/58 10/10/18 02:00 74 18 93/42 10/10/18 01:07 63 32 H 86/47 10/10/18 01:01 64 11 L 86/47 10/10/18 00:01 75 30 H 82/41 10/10/18 00:00 98.4 F 69 25 H 10/09/18 23:42 69 29 H 119/59 10/09/18 23:01 78 15 119/59 10/09/18 22:54 74 10/09/18 22:00 79 34 H 113/46 10/09/18 21:00 81 27 H 105/55 10/09/18 20:01 90 19 104/69 10/09/18 20:00 98.9 F 76 18 10/09/18 19:01 86 33 H 104/69 10/09/18 18:01 84 34 H 104/69 10/09/18 17:01 88 14 104/69 10/09/18 16:01 85 20 104/69 10/09/18 16:00 98.6 F 83 18 10/09/18 15:01 82 17 104/69 10/09/18 14:01 82 23 104/69 10/09/18 13:01 80 15 104/69 10/09/18 12:01 76 33 H 104/69 10/09/18 12:00 96 H 20 Pulse Ox 10/10/18 11:01 96 10/10/18 11:00 10/10/18 10:00 88 10/10/18 09:10 10/10/18 09:01 97 10/10/18 08:54 100 10/10/18 08:00 100 10/10/18 07:01 100 10/10/18 06:01 93 10/10/18 05:00 97 10/10/18 04:34 10/10/18 04:00 98 10/10/18 03:00 98 10/10/18 02:00 99 10/10/18 01:07 98 10/10/18 01:01 99 10/10/18 00:01 97 10/10/18 00:00 98 10/09/18 23:42 98 10/09/18 23:01 96 10/09/18 22:54 10/09/18 22:00 97 10/09/18 21:00 96 10/09/18 20:01 94 10/09/18 20:00 98 10/09/18 19:01 95 10/09/18 18:01 95 10/09/18 17:01 94 10/09/18 16:01 95 10/09/18 16:00 98 10/09/18 15:01 94 10/09/18 14:01 95 10/09/18 13:01 94 10/09/18 12:01 93 10/09/18 12:00 100 - Physical Examination General: No Apparent Distress HEENT: Positive: PERRL, Normocephaly, Mucus Membranes Moist Neck: Positive: neck supple Cardiac: Positive: irregularly irregular Lungs: Positive: clear to auscultation Neuro: Positive: Grossly Intact Abdomen: Positive: Soft. Negative: Tender Skin: Negative: Rash Extremities: Absent: edema - Imaging and Cardiology EKG: report reviewed, image reviewed Echo: report reviewed (09/2018: EF 25-30%, abnormal diastolic function, trace MR. ) - Allied health notes Allied health notes reviewed: nursing
[2018-10-10] MEDS: HumaLOG SUB-Q SCH ×3 (18:31→21:46)
[2018-10-11] MEDS: DUONEB *Not for PRN Use IH SCH ×4 (07:50→19:59)
[2018-10-11] MEDS: PULMICORT IH SCH ×2 (07:51→19:59)
[2018-10-11] MEDS: BROVANA NEBU IH SCH ×2 (07:51→19:59)
--- NOTE | 2018-10-11 08:42 | Progress Note ---
Assessment and Plan Assessment and plan: Patient is a 68-year-old male with past medical history from records shows COPD, chronic systolic CHF, CVA, atrial fibrillation, iron deficiency anemia and CAD s/p CABG who presents with severe respiratory distress. Patient was noted to be lethargic with severe increased work of breathing and was intubated in the ER and placed on mechanical ventilation. Review of records is also off HPI. The record shows that the patient has been in the ED about 2 days prior to this visit. He also had affirm that he has been on mechanical ventilation on previous occasions for currently follows at the [facility]. The ED documentation the medication list reveals the patient also lives in a [facility]. On arrival he was noted to have a saturation of 60% and was difficult to oxygenate with CPAP despite Solu-Medrol and magnesium given enroute and mechanical ventilation in the ED. * Patient was intubated and placed on mechanical ventilation, now extubated * X-ray was consistent with COPD also showed a right upper lobe nodular opacity * Echocardiogram revealed an EF of 20-25% with abnormal left ventricular diastolic function also observed * Cardiology acknowledged patient was in atrial fibrillation IV Lopressor was converted to by mouth Lopressor and lisinopril following extubation. The patient is frail and lives in a [facility] house. Acute Respiratory failure with Hypoxia/hypercapneia ON Mechanical ventilation, now extubated Hypertensive urgency Acute Systolic Congestive heart failure with possible combined diastolic dysfunction-Precluding fluids administration Sepsis-POA secondary PNA Acute Bronchitis. CT scan not showing any infiltrates. COPD with acute exacerbation secondary to above Thrombocytopenia, resolved Cardiomyopathy with EF OF 25-30% s/p CABG Atrial Fibrillation with RVR Leukocytosis Hyperkalemia,resolved DM with Hyperglycemia Iron deficiency anemia History of CVA Plan Continue supportive care Patient successfully extubated Blood cultures growing in to drug-resistant pseudomonas aeruginosa. Patient on isolation. SCD. HIT Antibodies neg. 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 Patient needs systemic anticoag for afib. Patient refused to drink prep for colonoscopy but agreed to EGD, so procedures not done I discussed with him again, today, 10/11/18 but he still refuses to drink prep T History Interval history: Still refuses to drink prep for colonoscopy No chest pain No SOB Hospitalist Physical - Physical exam Narrative exam: GEN: Not in acute distress, lying in bed HEENT: Normocephalic, atraumatic, Neck: supple, No JVD Lungs: Clear to auscultation bilaterally, no crackles or wheeze Heart:S1 and S2 irreg, irreg, no rubs or gallop, Abd:soft, non tender, non distended, normal bowel sounds Ext: No edema, no clubbing or cyanosis Neuro: awake,alert,oriented, no focal signs - Constitutional Vitals: Temp Pulse Resp BP Pulse Ox 98.4 F 73 11 L 123/66 95 10/11/18 04:00 10/11/18 06:01 10/11/18 06:01 10/11/18 06:01 10/11/18 04:00 General appearance: Present: other (intubated, sedated ) Results - Labs CBC & Chem 7: 10/09/18 05:09 10/08/18 04:11 Labs: Laboratory Last Values WBC 7.4 K/mm3 (4.5-11.0) 10/09/18 05:09 RBC 4.00 M/mm3 (3.65-5.03) 10/09/18 05:09 Hgb 9.1 gm/dl (11.8-15.2) L 10/09/18 05:09 Hct 28.6 % (35.5-45.6) L 10/09/18 05:09 MCV 71 fl (84-94) L 10/09/18 05:09 MCH 23 pg (28-32) L 10/09/18 05:09 MCHC 32 % (32-34) 10/09/18 05:09 RDW 20.2 % (13.2-15.2) H 10/09/18 05:09 Plt Count 154 K/mm3 (140-440) 10/09/18 05:09 Lymph % (Auto) 21.9 % (13.4-35.0) 10/09/18 05:09 [place] % (Auto) 10.2 % (0.0-7.3) H 10/09/18 05:09 Eos % (Auto) 6.7 % (0.0-4.3) H 10/09/18 05:09 Baso % (Auto) 0.6 % (0.0-1.8) 10/09/18 05:09 Lymph # 1.6 K/mm3 (1.2-5.4) 10/09/18 05:09 [place] # 0.8 K/mm3 (0.0-0.8) 10/09/18 05:09 Eos # 0.5 K/mm3 (0.0-0.4) H 10/09/18 05:09 Baso # 0.0 K/mm3 (0.0-0.1) 10/09/18 05:09 Add Manual Diff Complete 10/02/18 07:20 Total Counted 100 10/02/18 07:20 Seg Neutrophils % 60.6 % (40.0-70.0) 10/09/18 05:09 Seg Neuts % (Manual) 67.0 % (40.0-70.0) 10/02/18 07:20 Band Neutrophils % 1.0 % 10/02/18 07:20 Lymphocytes % (Manual) 26.0 % (13.4-35.0) 10/02/18 07:20 Reactive Lymphs % (Man) 0 % 10/02/18 07:20 Monocytes % (Manual) 6.0 % (0.0-7.3) 10/02/18 07:20 Eosinophils % (Manual) 0 % (0.0-4.3) 10/02/18 07:20 Basophils % (Manual) 0 % (0.0-1.8) 10/02/18 07:20 Metamyelocytes % 0 % 10/02/18 07:20 Myelocytes % 0 % 10/02/18 07:20 Promyelocytes % 0 % 10/02/18 07:20 Blast Cells % 0 % 10/02/18 07:20 Nucleated RBC % Not Reportable 10/02/18 07:20 Seg Neutrophils # 4.5 K/mm3 (1.8-7.7) 10/09/18 05:09 Seg Neutrophils # Man 13.2 K/mm3 (1.8-7.7) H 10/02/18 07:20 Band Neutrophils # 0.2 K/mm3 10/02/18 07:20 Lymphocytes # (Manual) 5.1 K/mm3 (1.2-5.4) 10/02/18 07:20 Abs React Lymphs (Man) 0.0 K/mm3 10/02/18 07:20 Monocytes # (Manual) 1.2 K/mm3 (0.0-0.8) H 10/02/18 07:20 Eosinophils # (Manual) 0.0 K/mm3 (0.0-0.4) 10/02/18 07:20 Basophils # (Manual) 0.0 K/mm3 (0.0-0.1) 10/02/18 07:20 Metamyelocytes # 0.0 K/mm3 10/02/18 07:20 Myelocytes # 0.0 K/mm3 10/02/18 07:20 Promyelocytes # 0.0 K/mm3 10/02/18 07:20 Blast Cells # 0.0 K/mm3 10/02/18 07:20 WBC Morphology Not Reportable 10/02/18 07:20 Hypersegmented Neuts Not Reportable 10/02/18 07:20 Hyposegmented Neuts Not Reportable 10/02/18 07:20 Hypogranular Neuts Not Reportable 10/02/18 07:20 Smudge Cells Not Reportable 10/02/18 07:20 Toxic Granulation Not Reportable 10/02/18 07:20 Toxic Vacuolation Not Reportable 10/02/18 07:20 Dohle Bodies Not Reportable 10/02/18 07:20 Pelger-Huet Anomaly Not Reportable 10/02/18 07:20 Markie Rods Not Reportable 10/02/18 07:20 Platelet Estimate Consistent w auto 10/02/18 07:20 Clumped Platelets Not Reportable 10/02/18 07:20 Plt Clumps, EDTA Not Reportable 10/02/18 07:20 Large Platelets Not Reportable 10/02/18 07:20 Giant Platelets Not Reportable 10/02/18 07:20 Platelet Satelliting Not Reportable 10/02/18 07:20 Plt Morphology Comment Not Reportable 10/02/18 07:20 RBC Morphology Not Reportable 10/02/18 07:20 Dimorphic RBCs Not Reportable 10/02/18 07:20 Polychromasia Not Reportable 10/02/18 07:20 Hypochromasia 1+ 10/02/18 07:20 Poikilocytosis Not Reportable 10/02/18 07:20 Anisocytosis 2+ 10/02/18 07:20 Microcytosis 2+ 10/02/18 07:20 Macrocytosis Not Reportable 10/02/18 07:20 Spherocytes Not Reportable 10/02/18 07:20 Pappenheimer Bodies Not Reportable 10/02/18 07:20 Sickle Cells Not Reportable 10/02/18 07:20 Target Cells Not Reportable 10/02/18 07:20 Tear Drop Cells Not Reportable 10/02/18 07:20 Ovalocytes 1+ 10/02/18 07:20 Helmet Cells Not Reportable 10/02/18 07:20 [place] Bodies Not Reportable 10/02/18 07:20 [place] Rings Not Reportable 10/02/18 07:20 Benld Cells Not Reportable 10/02/18 07:20 Bite Cells Not Reportable 10/02/18 07:20 Crenated Cell Not Reportable 10/02/18 07:20 Elliptocytes Not Reportable 10/02/18 07:20 Acanthocytes (Spur) Not Reportable 10/02/18 07:20 Rouleaux Not Reportable 10/02/18 07:20 Hemoglobin C Crystals Not Reportable 10/02/18 07:20 Schistocytes Not Reportable 10/02/18 07:20 Malaria parasites Not Reportable 10/02/18 07:20 Nicholas Bodies Not Reportable 10/02/18 07:20 Hem Pathologist Commnt No 10/02/18 07:20 PT 15.1 Sec. (12.2-14.9) H 10/09/18 05:09 INR 1.12 (0.87-1.13) 10/09/18 05:09 D-Dimer 1039.91 ng/mlDDU (0-234) H 10/02/18 21:01 Heparin Anti-Xa, Unfract Negative (Negative) 10/03/18 09:36 POC ABG pH 7.462 (7.35-7.45) H 10/05/18 12:06 POC ABG pCO2 35.8 (35-45) 10/05/18 12:06 POC ABG pO2 66 (80-105) L 10/05/18 12:06 POC ABG HCO3 25.6 10/05/18 12:06 POC ABG Total CO2 27 10/05/18 12:06 POC ABG O2 Sat 94 10/05/18 12:06 POC ABG Base Excess 2 10/05/18 12:06 FiO2 30 % 10/05/18 12:06 Sodium 142 mmol/L (137-145) 10/08/18 04:11 Potassium 3.5 mmol/L (3.6-5.0) L 10/08/18 04:11 Chloride 106.4 mmol/L (98-107) 10/08/18 04:11 Carbon Dioxide 21 mmol/L (22-30) L 10/08/18 04:11 Anion Gap 18 mmol/L 10/08/18 04:11 BUN 21 mg/dL (9-20) H 10/08/18 04:11 Creatinine 0.7 mg/dL (0.8-1.5) L 10/08/18 04:11 Estimated GFR > 60 ml/min 10/08/18 04:11 BUN/Creatinine Ratio 30 % 10/08/18 04:11 Glucose 123 mg/dL (75-100) H 10/08/18 04:11 POC Glucose 122 (70-105) H 10/10/18 21:40 Lactic Acid 2.60 mmol/L (0.7-2.0) H* 10/03/18 04:13 Calcium 8.0 mg/dL (8.4-10.2) L 10/08/18 04:11 Magnesium 2.30 mg/dL (1.7-2.3) 10/02/18 18:04 Iron 29 ug/dL (49-181) L 10/09/18 05:09 TIBC 240 mcg/dL (250-450) L 10/09/18 05:09 Ferritin 124.9 ng/mL (13.0-400.0) 10/09/18 05:09 Total Bilirubin 0.50 mg/dL (0.1-1.2) 10/02/18 07:13 AST 20 units/L (5-40) 10/02/18 07:13 ALT 11 units/L (7-56) 10/02/18 07:13 Alkaline Phosphatase 100 units/L (35-129) 10/02/18 07:13 Troponin T < 0.010 ng/mL (0.00-0.029) 10/02/18 07:13 C-Reactive Protein 3.40 mg/dL (0.00-1.30) H 10/02/18 21:01 NT-Pro-B Natriuret Pep 3102 pg/mL (0-900) H 10/02/18 07:13 Total Protein 7.8 g/dL (6.3-8.2) 10/02/18 07:13 Albumin 3.9 g/dL (3.9-5) 10/02/18 07:13 Albumin/Globulin Ratio 1.0 % 10/02/18 07:13 TSH 0.417 mlU/mL (0.270-4.200) 10/02/18 18:04 Free T4 0.92 ng/dL (0.76-1.46) 10/02/18 18:04 Urine Color Straw (Yellow) 10/02/18 09:12 Urine Turbidity Clear (Clear) 10/02/18 09:12 Urine pH 5.0 (5.0-7.0) 10/02/18 09:12 Ur Specific [place] 1.006 (1.003-1.030) 10/02/18 09:12 Urine Protein 30 mg/dl mg/dL (Negative) 10/02/18 09:12 Urine Glucose (UA) 50 mg/dL (Negative) 10/02/18 09:12 Urine Ketones Neg mg/dL (Negative) 10/02/18 09:12 Urine Blood Neg (Negative) 10/02/18 09:12 Urine Nitrite Neg (Negative) 10/02/18 09:12 Urine Bilirubin Neg (Negative) 10/02/18 09:12 Urine Urobilinogen < 2.0 mg/dL (<2.0) 10/02/18 09:12 Ur Leukocyte Esterase Neg (Negative) 10/02/18 09:12 Urine WBC (Auto) 2.0 /HPF (0.0-6.0) 10/02/18 09:12 Urine RBC (Auto) 2.0 /HPF (0.0-6.0) 10/02/18 09:12 Urine Bacteria (Auto) 1+ /HPF (Negative) 10/02/18 09:12 Urine Yeast (Budding) Few /HPF 10/02/18 09:12 Heparin-induced Plt Ab Negative (Negative) 10/03/18 09:36 UF Heparin High Dose 0 % Release 10/03/18 09:36 JULES UFH Low Dose 0.1 0 % Release 10/03/18 09:36 JULES UFH Low Dose 0.5 0 % Release 10/03/18 09:36 Urine Legionella Ag Not detected (Not Detected) 10/03/18 14:32 Blood Type A NEGATIVE 10/02/18 08:51 Antibody Screen Negative 10/02/18 08:51 Nutrition/Malnutrition Assess - Dietary Evaluation Nutrition/Malnutrition Findings: Nutrition Notes Start: 10/03/18 12:55 Freq: Status: Active Protocol: Document 10/09/18 15:42 RM (Rec: 10/09/18 15:50 RM [id number]) Nutrition Notes Initial or Follow up Reassessment Current Diagnosis COPD Coronary Artery Disease Diabetes Sepsis Hypertension Heart Failure Respiratory Failure Stroke Other Pertinent Diagnosis Pneu Current Diet Consistent Carbohydrate Labs/Tests Reviewed Pertinent Medications Lasix Height 6 ft 2 in Weight 76.7 kg [place] Body Weight (kg) 86.36 BMI 21.7 Subjective/Other Information Pt NPO for upper endoscopy and colonoscopy. Pt confused at time of visit. Per tech pt ate 100% of meals before NPO status. Percent of energy/protein needs met: 31%/17% Burn Absent Trauma Absent #1 Nutrition Diagnosis Inadequate oral intake Diagnosis Progress(for reassessment Continues documentation) Is patient on ventilator? No Is Patient Ambulatory and/or Out of Bed No REE-([facility]-confined to bed) 1921.897 Calculation Used for Recommendations [facility] Additional Notes Pro needs 1.2-2g/k-153g/ day Fluid needs 1ml/kcal Nutrition Intervention Change Diet Order: Advance when medically able Add Supplement/Snack (indicate name/kcal Was not added previously. /protein ) Glucerna 1 daily Provides kCal: 220 Provides Protein (gm) 10 Goal #1 Meet at least 75% of kcal and pro needs via PO and ONS intakes Goal #2 Wt maintenance Anticipated Discharge Needs: Consistent CHO Follow-Up By: 10/13/18 Additional Comments F/U: PO and ONS intakes
[2018-10-11] MEDS: HumaLOG SUB-Q SCH ×4 (09:30→21:38)
[2018-10-11] MEDS: HABITROL TD SCH (10:05)
[2018-10-11] MEDS: LASIX PO SCH (10:07)
--- NOTE | 2018-10-11 10:11 | Progress Note ---
Assessment and Plan Cultures: Blood culture 10/02/2018 negative Tracheal asp 10/02/2018 Pseudomonas MDR sensitive to cefepime, resistant to FQ, AG and aztreonam. Urine culture 10/02/2018 no growth Assessment: 68 y/o male with history of COPD, chronic systolic CHF, CVA, atrial fibrillation, anemia and CAD s/p CAB; admitted on 09/30/2018 due to worsening respiratory distress and AMS / lethargy: 1) SIRS versus Sepsis: Resolved, no fevers in > 48 h, likely from COPD exacerbation with presumed pneumonia +/- heart failure. CRP 3.4. UA neg. Blood cultures negative so far. 2) COPD exacerbation with presumed pneumonia: CXR initially with severe emphysema and no infiltrates, but repeat CXR showed bilateral pneumonitis CT chest: No evidence of pulmonary arterial emboli. Bilateral lower lung infiltrates are identified, more pronounced on the right. Mild bilateral effusions. 3) Acute on chronic respiratory failure: from COPD/pneumonia/CHF, extubated 4) Acute encephalopathy: improving Recommendations: - contact isolation due to MDR Pseudomonas - continue cefepime 2 gm IV q8h D8 - Anticipate discharge on cefepime 2 gm IV q8h until 10/15/2018. -Order placed with case management Leanna Holder NP [facility] M: [phone] O:[phone] Subjective Date of service: 10/11/18 Principal diagnosis: Ac on Ch Hypoxemic Hypercapnic Resp failure; AECOPD; CHF exacerbation; Afib Interval history: Patient seen and examined. no acute distress observed. no family at bedside Objective - Exam Narrative Exam: Constitutional: Asleep, easily arousable . No acute distress Head, Ears, Nose: Normocephalic, atraumatic. External ears, nose normal Eyes: Conjunctivae/corneas clear. No icterus. No ptosis. Neck: Supple, no meningeal signs Oral: no thrush Cardiovascular: S1, S2 normal. Respiratory: Good air entry, clear to auscultation bilaterally GI: Soft, non-tender; bowel sounds normal. No peritoneal signs Musculoskeletal: No pedal edema, no cyanosis. Skin: No rash or abscess. Hem/Lymphatic: No palpable cervical or supraclavicular nodes. No lymphangitis Psych: asleep, easily arousable Neurological: Asleep, easily arousable - Constitutional Vitals: Vital Signs Temp Pulse Resp BP Pulse Ox 98.4 F 72 18 123/66 94 10/11/18 04:00 10/11/18 09:07 10/11/18 09:07 10/11/18 06:01 10/11/18 09:11 Temperature -Last 24 Hours Temperature 98.4 F Temperature 98 F Temperature 97.7 F - Labs CBC & Chem 7: 10/09/18 05:09 10/08/18 04:11 Labs: Abnormal lab results 10/10/18 Range/Units 21:40 POC Glucose 122 H (70-105)
[2018-10-11] MEDS: PROTONIX PO SCH (10:14)
[2018-10-11] MEDS: SENOKOT PO SCH ×2 (10:14→21:29)
[2018-10-11] MEDS: PEPCID PO SCH ×2 (10:14→21:29)
[2018-10-11] MEDS: SODIUM CHLORIDE FLUSH SYRINGE 10 ML IV SCH ×2 (10:16→21:30)
[2018-10-11] MEDS: ZESTRIL PO SCH (11:00)
[2018-10-11] MEDS: LOPRESSOR PO SCH ×2 (11:00→21:30)
--- NOTE | 2018-10-11 11:51 | Progress Note ---
Assessment and Plan Acute Respiratory failure with Hypoxia/hypercapnea s/p MVS Hypertensive urgency Acute Systolic Congestive heart failure with possible combined diastolic dysfunction Sepsis COPD with acute exacerbation Thrombocytopenia, improved Cardiomyopathy with EF OF 25-30% s/p CABG Atrial Fibrillation with RVR Leukocytosis Hyperkalemia DM with Hyperglycemia Iron deficiency anemia History of CVA Tobacco use disorder Medical decision making Discussed the need with him for the scope, he still states he will not get it done. Discussed with hospitalist, may have to continue systemic anticoagulation for atrial fibrillation, and monitor for bleeding. Patient needs home oxygen evaluation prior to discharge, ABG on room air has been ordered. Discharge planning. All other care as outlined below -Continue with supplemental oxygen to keep O2 sats 88-90% -Bronchodilators -VTE prophylaxis( SCDs) -PT/OT -Heart failure measures -Glycemic control to keep blood glucose 140-180mg/dL -Complete antibiotics per ID recommendations -Bowel regimen -Aspiration precautions -Out patient pulmonary follow up on discharge Subjective Date of service: 10/11/18 Principal diagnosis: Ac on Ch Hypoxemic Hypercapnic Resp failure; AECOPD; CHF exacerbation; Afib Interval history: Patient is seen today for: Acute on chronic hypoxemic and hypercapnic respiratory failure; Acute chronic obstructive pulmonary disease exacerbation; Acute congestive heart failure exacerbation; History of cerebrovascular accide nt; Atrial fibrillation with rapid ventricular response. Seen and examined at bedside; 24hour events reviewed; nursing and respiratory care staff consulted; no adverse overnight events reported to me; resting peacefully in bed; denies acute chest pains or palpitations;No N/V/F/C; has ongoing shortness of breath, continues to require supplemental oxygen at 3L/min. Sitting up in chair, having breakfast. Adamant that he will not get any GI endoscopies Objective Vital Signs - 12hr 10/11/18 10/11/18 10/11/18 00:00 00:01 01:01 Temperature 98 F Pulse Rate 72 69 Pulse Rate [ Anterior Bilateral] Pulse Rate [ 72 From Monitor] Respiratory 22 29 H 16 Rate Respiratory Rate [Anterior Bilateral] Blood Pressure 101/60 83/27 O2 Sat by Pulse 94 Oximetry 10/11/18 10/11/18 10/11/18 02:01 03:01 04:00 Temperature 98.4 F Pulse Rate 74 79 72 Pulse Rate [ Anterior Bilateral] Pulse Rate [ 70 From Monitor] Respiratory 14 30 H 29 H Rate Respiratory Rate [Anterior Bilateral] Blood Pressure 83/27 97/47 117/61 O2 Sat by Pulse 95 Oximetry 10/11/18 10/11/18 10/11/18 05:00 06:01 07:01 Temperature Pulse Rate 70 73 76 Pulse Rate [ Anterior Bilateral] Pulse Rate [ From Monitor] Respiratory 19 11 L 20 Rate Respiratory Rate [Anterior Bilateral] Blood Pressure 123/66 123/66 127/71 O2 Sat by Pulse Oximetry 10/11/18 10/11/18 10/11/18 07:50 08:01 09:01 Temperature Pulse Rate 78 76 Pulse Rate [ 72 Anterior Bilateral] Pulse Rate [ From Monitor] Respiratory 16 15 Rate Respiratory 18 Rate [Anterior Bilateral] Blood Pressure 127/71 125/62 O2 Sat by Pulse Oximetry 10/11/18 10/11/18 10/11/18 09:06 09:07 09:11 Temperature Pulse Rate Pulse Rate [ 72 Anterior Bilateral] Pulse Rate [ From Monitor] Respiratory Rate Respiratory 18 Rate [Anterior Bilateral] Blood Pressure O2 Sat by Pulse 94 94 Oximetry 10/11/18 10:01 Temperature Pulse Rate 85 Pulse Rate [ Anterior Bilateral] Pulse Rate [ From Monitor] Respiratory 19 Rate Respiratory Rate [Anterior Bilateral] Blood Pressure 125/62 O2 Sat by Pulse Oximetry Constitutional: appears uncomfortable, other (elderly looking CM, normocephalic and atraumatic with increased resp effort) Eyes: non-icteric ENT: oropharynx moist Neck: supple, no lymphadenopathy, no JVD, other (no thyromegaly) Effort: mildly labored Ascultation: Bilateral: clear, diminished breath sounds, rhonchi, other (+ barrel chest) Percussion: Bilateral: not dull Cardiovascular: irregular rhythm, other (S1,S2) Gastrointestinal: normoactive bowel sounds, soft, non-tender, non-distended Integumentary: normal, other (post CABG sternotomy scar) Extremities: no cyanosis, no edema, pink and warm, pulses normal, no ischemia or petechiae Neurologic: normal mental status, non-focal exam (grossly), pupils equal and round, motor strength normal and Psychiatric: mood appropriate, affect normal CBC and BMP: 10/09/18 05:09 10/08/18 04:11 ABG, PT/INR, D-dimer: ABG POC ABG pH 7.462 (7.35-7.45) H 10/05/18 12:06 POC ABG pCO2 35.8 (35-45) 10/05/18 12:06 POC ABG pO2 66 (80-105) L 10/05/18 12:06 POC ABG HCO3 25.6 10/05/18 12:06 POC ABG Total CO2 27 10/05/18 12:06 POC ABG O2 Sat 94 10/05/18 12:06 PT/INR, D-dimer PT 15.1 Sec. (12.2-14.9) H 10/09/18 05:09 INR 1.12 (0.87-1.13) 10/09/18 05:09 D-Dimer 1039.91 ng/mlDDU (0-234) H 10/02/18 21:01 Abnormal lab findings: Abnormal Labs 10/02/18 10/02/18 10/02/18 07:13 07:20 07:22 WBC 19.7 H Hgb 10.9 L Hct MCV 75 L MCH 23 L MCHC 31 L RDW 21.7 H Plt Count Lymph % (Auto) Coleman % (Auto) Eos % (Auto) Lymph # Coleman # Eos # Seg Neutrophils % Seg Neutrophils # Seg Neutrophils # Man 13.2 H Monocytes # (Manual) 1.2 H PT 15.0 H D-Dimer POC ABG pH POC ABG pCO2 POC ABG pO2 Sodium Potassium 5.2 H D Carbon Dioxide 19 L BUN Creatinine Glucose 340 H POC Glucose Lactic Acid Calcium Iron TIBC C-Reactive Protein NT-Pro-B Natriuret Pep 3102 H 10/02/18 10/02/18 10/02/18 08:32 09:26 12:28 WBC Hgb Hct MCV MCH MCHC RDW Plt Count Lymph % (Auto) Coleman % (Auto) Eos % (Auto) Lymph # Coleman # Eos # Seg Neutrophils % Seg Neutrophils # Seg Neutrophils # Man Monocytes # (Manual) PT D-Dimer POC ABG pH 7.201 L 7.254 L POC ABG pCO2 61.2 H 54.3 H POC ABG pO2 150 H 196 H Sodium Potassium Carbon Dioxide BUN Creatinine Glucose POC Glucose Lactic Acid 3.00 H* Calcium Iron TIBC C-Reactive Protein NT-Pro-B Natriuret Pep 10/02/18 10/02/18 10/02/18 20:43 21:01 21:01 WBC Hgb Hct MCV MCH MCHC RDW Plt Count Lymph % (Auto) Coleman % (Auto) Eos % (Auto) Lymph # Coleman # Eos # Seg Neutrophils % Seg Neutrophils # Seg Neutrophils # Man Monocytes # (Manual) PT D-Dimer 1039.91 H POC ABG pH 7.307 L POC ABG pCO2 45.6 H POC ABG pO2 107 H Sodium Potassium Carbon Dioxide BUN Creatinine Glucose POC Glucose Lactic Acid Calcium Iron TIBC C-Reactive Protein 3.40 H NT-Pro-B Natriuret Pep 10/02/18 10/03/18 10/03/18 21:01 00:14 04:13 WBC 13.6 H Hgb 10.6 L Hct 34.5 L MCV 74 L MCH 23 L MCHC 31 L RDW 21.3 H Plt Count 134 L Lymph % (Auto) 6.0 L Coleman % (Auto) 10.6 H Eos % (Auto) Lymph # 0.8 L Coleman # 1.4 H Eos # Seg Neutrophils % 83.1 H Seg Neutrophils # 11.3 H Seg Neutrophils # Man Monocytes # (Manual) PT D-Dimer POC ABG pH POC ABG pCO2 POC ABG pO2 Sodium Potassium Carbon Dioxide BUN Creatinine Glucose POC Glucose 164 H Lactic Acid 2.80 H* Calcium Iron TIBC C-Reactive Protein NT-Pro-B Natriuret Pep 10/03/18 10/03/18 10/03/18 04:13 04:13 04:47 WBC Hgb Hct MCV MCH MCHC RDW Plt Count Lymph % (Auto) Coleman % (Auto) Eos % (Auto) Lymph # Coleman # Eos # Seg Neutrophils % Seg Neutrophils # Seg Neutrophils # Man Monocytes # (Manual) PT D-Dimer POC ABG pH POC ABG pCO2 POC ABG pO2 Sodium 136 L Potassium Carbon Dioxide 18 L BUN 29 H Creatinine Glucose 168 H POC Glucose 182 H Lactic Acid 2.60 H* Calcium 8.3 L Iron TIBC C-Reactive Protein NT-Pro-B Natriuret Pep 10/03/18 10/03/18 10/03/18 05:47 11:39 16:56 WBC Hgb Hct MCV MCH MCHC RDW Plt Count Lymph % (Auto) Coleman % (Auto) Eos % (Auto) Lymph # Coleman # Eos # Seg Neutrophils % Seg Neutrophils # Seg Neutrophils # Man Monocytes # (Manual) PT D-Dimer POC ABG pH 7.314 L POC ABG pCO2 45.9 H POC ABG pO2 Sodium Potassium Carbon Dioxide BUN Creatinine Glucose POC Glucose 134 H 118 H Lactic Acid Calcium Iron TIBC C-Reactive Protein NT-Pro-B Natriuret Pep 10/03/18 10/04/18 10/04/18 23:13 05:20 05:44 WBC Hgb Hct MCV MCH MCHC RDW Plt Count Lymph % (Auto) Coleman % (Auto) Eos % (Auto) Lymph # Coleman # Eos # Seg Neutrophils % Seg Neutrophils # Seg Neutrophils # Man Monocytes # (Manual) PT D-Dimer POC ABG pH POC ABG pCO2 POC ABG pO2 68 L Sodium Potassium Carbon Dioxide BUN Creatinine Glucose POC Glucose 129 H 166 H Lactic Acid Calcium Iron TIBC C-Reactive Protein NT-Pro-B Natriuret Pep 10/04/18 10/04/18 10/04/18 08:04 08:04 11:56 WBC Hgb 9.1 L Hct 28.7 L MCV 72 L MCH 23 L MCHC RDW 21.6 H Plt Count 126 L Lymph % (Auto) Coleman % (Auto) Eos % (Auto) Lymph # Coleman # Eos # Seg Neutrophils % Seg Neutrophils # Seg Neutrophils # Man Monocytes # (Manual) PT D-Dimer POC ABG pH POC ABG pCO2 POC ABG pO2 Sodium Potassium Carbon Dioxide BUN 26 H Creatinine Glucose 167 H POC Glucose 176 H Lactic Acid Calcium 8.2 L Iron TIBC C-Reactive Protein NT-Pro-B Natriuret Pep 10/04/18 10/04/18 10/05/18 13:21 17:12 00:02 WBC Hgb Hct MCV MCH MCHC RDW Plt Count Lymph % (Auto) Coleman % (Auto) Eos % (Auto) Lymph # Coleman # Eos # Seg Neutrophils % Seg Neutrophils # Seg Neutrophils # Man Monocytes # (Manual) PT D-Dimer POC ABG pH 7.462 H POC ABG pCO2 33.5 L POC ABG pO2 59 L Sodium Potassium Carbon Dioxide BUN Creatinine Glucose POC Glucose 164 H 211 H Lactic Acid Calcium Iron TIBC C-Reactive Protein NT-Pro-B Natriuret Pep 10/05/18 10/05/18 10/05/18 05:13 12:06 12:11 WBC Hgb Hct MCV MCH MCHC RDW Plt Count Lymph % (Auto) Coleman % (Auto) Eos % (Auto) Lymph # Coleman # Eos # Seg Neutrophils % Seg Neutrophils # Seg Neutrophils # Man Monocytes # (Manual) PT D-Dimer POC ABG pH 7.462 H POC ABG pCO2 POC ABG pO2 66 L Sodium Potassium Carbon Dioxide BUN Creatinine Glucose POC Glucose 190 H 185 H Lactic Acid Calcium Iron TIBC C-Reactive Protein NT-Pro-B Natriuret Pep 10/05/18 10/05/18 10/06/18 18:13 23:49 04:19 WBC Hgb 9.8 L Hct 30.5 L MCV 73 L MCH 23 L MCHC RDW 21.0 H Plt Count Lymph % (Auto) Coleman % (Auto) Eos % (Auto) Lymph # Coleman # Eos # Seg Neutrophils % Seg Neutrophils # Seg Neutrophils # Man Monocytes # (Manual) PT D-Dimer POC ABG pH POC ABG pCO2 POC ABG pO2 Sodium Potassium Carbon Dioxide BUN Creatinine Glucose POC Glucose 177 H 192 H Lactic Acid Calcium Iron TIBC C-Reactive Protein NT-Pro-B Natriuret Pep 10/06/18 10/06/18 10/06/18 04:19 05:00 12:05 WBC Hgb Hct MCV MCH MCHC RDW Plt Count Lymph % (Auto) Coleman % (Auto) Eos % (Auto) Lymph # Coleman # Eos # Seg Neutrophils % Seg Neutrophils # Seg Neutrophils # Man Monocytes # (Manual) PT D-Dimer POC ABG pH POC ABG pCO2 POC ABG pO2 Sodium Potassium 3.4 L Carbon Dioxide BUN 21 H Creatinine 0.7 L Glucose 133 H POC Glucose 135 H 206 H Lactic Acid Calcium Iron TIBC C-Reactive Protein NT-Pro-B Natriuret Pep 10/06/18 10/06/18 10/06/18 12:12 16:31 21:13 WBC Hgb Hct MCV MCH MCHC RDW Plt Count Lymph % (Auto) Coleman % (Auto) Eos % (Auto) Lymph # Coleman # Eos # Seg Neutrophils % Seg Neutrophils # Seg Neutrophils # Man Monocytes # (Manual) PT D-Dimer POC ABG pH POC ABG pCO2 POC ABG pO2 Sodium Potassium Carbon Dioxide BUN Creatinine Glucose POC Glucose 216 H 141 H 308 H Lactic Acid Calcium Iron TIBC C-Reactive Protein NT-Pro-B Natriuret Pep 10/07/18 10/07/18 10/08/18 08:37 11:32 04:11 WBC Hgb 9.3 L Hct 29.4 L MCV 72 L MCH 23 L MCHC RDW 20.9 H Plt Count Lymph % (Auto) Coleman % (Auto) Eos % (Auto) Lymph # Coleman # Eos # Seg Neutrophils % Seg Neutrophils # Seg Neutrophils # Man Monocytes # (Manual) PT D-Dimer POC ABG pH POC ABG pCO2 POC ABG pO2 Sodium Potassium Carbon Dioxide BUN Creatinine Glucose POC Glucose 233 H 220 H Lactic Acid Calcium Iron TIBC C-Reactive Protein NT-Pro-B Natriuret Pep 10/08/18 10/08/18 10/08/18 04:11 16:20 20:28 WBC Hgb Hct MCV MCH MCHC RDW Plt Count Lymph % (Auto) Coleman % (Auto) Eos % (Auto) Lymph # Coleman # Eos # Seg Neutrophils % Seg Neutrophils # Seg Neutrophils # Man Monocytes # (Manual) PT D-Dimer POC ABG pH POC ABG pCO2 POC ABG pO2 Sodium Potassium 3.5 L Carbon Dioxide 21 L BUN 21 H Creatinine 0.7 L Glucose 123 H POC Glucose 157 H 210 H Lactic Acid Calcium 8.0 L Iron TIBC C-Reactive Protein NT-Pro-B Natriuret Pep 10/09/18 10/09/18 10/09/18 05:09 05:09 05:09 WBC Hgb 9.1 L Hct 28.6 L MCV 71 L MCH 23 L MCHC RDW 20.2 H Plt Count Lymph % (Auto) Coleman % (Auto) 10.2 H Eos % (Auto) 6.7 H Lymph # Coleman # Eos # 0.5 H Seg Neutrophils % Seg Neutrophils # Seg Neutrophils # Man Monocytes # (Manual) PT 15.1 H D-Dimer POC ABG pH POC ABG pCO2 POC ABG pO2 Sodium Potassium Carbon Dioxide BUN Creatinine Glucose POC Glucose Lactic Acid Calcium Iron 29 L TIBC 240 L C-Reactive Protein NT-Pro-B Natriuret Pep 10/09/18 10/09/18 10/09/18 08:22 12:26 16:02 WBC Hgb Hct MCV MCH MCHC RDW Plt Count Lymph % (Auto) Coleman % (Auto) Eos % (Auto) Lymph # Coleman # Eos # Seg Neutrophils % Seg Neutrophils # Seg Neutrophils # Man Monocytes # (Manual) PT D-Dimer POC ABG pH POC ABG pCO2 POC ABG pO2 Sodium Potassium Carbon Dioxide BUN Creatinine Glucose POC Glucose 120 H 319 H 138 H Lactic Acid Calcium Iron TIBC C-Reactive Protein NT-Pro-B Natriuret Pep 10/09/18 10/10/18 10/11/18 22:49 21:40 10:05 WBC Hgb Hct MCV MCH MCHC RDW Plt Count Lymph % (Auto) Coleman % (Auto) Eos % (Auto) Lymph # Coleman # Eos # Seg Neutrophils % Seg Neutrophils # Seg Neutrophils # Man Monocytes # (Manual) PT D-Dimer POC ABG pH POC ABG pCO2 POC ABG pO2 Sodium Potassium Carbon Dioxide BUN Creatinine Glucose POC Glucose 130 H 122 H 191 H Lactic Acid Calcium Iron TIBC C-Reactive Protein NT-Pro-B Natriuret Pep Allied health notes reviewed: nursing
--- NOTE | 2018-10-11 12:59 | Gastroenterology Progress Note ---
Assessment and Plan - Patient Problems (1) Anemia Current Visit: Yes Status: Acute Qualifiers: Anemia type: iron deficiency Plan to address problem: Patient would benefit from EGD/Colon prior to needing anticoagulation, however despite multiple discussions he declines. We will therefore sign off as patient has refused endoscopic evaluation, please feel free to call us back with any issues or questions Subjective Principal diagnosis: Ac on Ch Hypoxemic Hypercapnic Resp failure; AECOPD; CHF exacerbation; Afib Interval history: patient reports he is tired of being in the hospital and wants to go home and has no desire for colonoscopy or endoscopy Objective - Constitutional Vitals: Temp Pulse Resp BP Pulse Ox 98.6 F 94 H 17 88/51 94 10/11/18 12:00 10/11/18 12:01 10/11/18 12:01 10/11/18 12:01 10/11/18 09:11 General appearance: no acute distress - Labs CBC & Chem 7: 10/09/18 05:09 10/08/18 04:11 Labs: Laboratory Results - last 24 hr 10/10/18 10/11/18 10/11/18 21:40 10:05 11:55 POC Glucose 122 H 191 H 158 H
--- NOTE | 2018-10-11 13:04 | Progress Note ---
Assessment and Plan Patient is still refusing the prep for endoscopy and they cannot do the endoscopy. GI note and pulmonary note are noted. Patient denies chest pain or significant difficulty in breathing. Cardiac examination is stable today. Patient needs anticoagulation for atrial fibrillation but the risk of bleeding is high and needs close monitoring. Agree with the discharge plans. Prognosis is guarded. - Patient Problems (1) Acute HFrEF (heart failure with reduced ejection fraction) Current Visit: Yes Status: Acute (2) Acute respiratory failure Current Visit: Yes Status: Acute (3) COPD with acute exacerbation Current Visit: Yes Status: Acute (4) Thrombocytopenia Current Visit: Yes Status: Acute (5) CAD (coronary artery disease) Current Visit: Yes Status: Chronic (6) S/P CABG (coronary artery bypass graft) Current Visit: Yes Status: Chronic (7) Pneumonia Current Visit: Yes Status: Suspected (8) CHF (congestive heart failure) Current Visit: No Status: Acute (9) COPD exacerbation Current Visit: No Status: Acute Subjective Date of service: 10/11/18 Principal diagnosis: Ac on Ch Hypoxemic Hypercapnic Resp failure; AECOPD; CHF exacerbation; Afib Interval history: Patient did not have endoscopy. Patient refused the prep. Patient has no chest pain has occasional difficulty in breathing. Patient is anxious to go home. Prior notes noted. Objective Vital Signs Temp Pulse Pulse Pulse Resp Resp BP 10/11/18 12:01 94 H 17 88/51 10/11/18 12:00 98.6 F 10/11/18 11:01 77 21 88/51 10/11/18 10:01 85 19 125/62 10/11/18 10:00 96 H 10/11/18 09:11 10/11/18 09:07 72 18 10/11/18 09:06 10/11/18 09:01 76 15 125/62 10/11/18 08:01 78 16 127/71 10/11/18 08:00 98.7 F 10/11/18 07:50 72 18 10/11/18 07:01 76 20 127/71 10/11/18 06:01 73 11 L 123/66 10/11/18 05:00 70 19 123/66 10/11/18 04:00 98.4 F 72 70 29 H 117/61 10/11/18 03:01 79 30 H 97/47 10/11/18 02:01 74 14 83/27 10/11/18 01:01 69 16 83/27 10/11/18 00:01 72 29 H 101/60 10/11/18 00:00 98 F 72 22 10/10/18 23:11 74 14 84/40 10/10/18 23:01 68 15 84/40 10/10/18 22:00 77 19 109/58 10/10/18 21:42 77 100/56 10/10/18 21:00 74 9 L 100/56 10/10/18 20:21 84 13 113/49 10/10/18 20:00 97.7 F 74 15 10/10/18 19:46 72 18 10/10/18 17:01 99 H 14 113/49 10/10/18 16:01 95 H 22 113/49 10/10/18 15:25 85 18 10/10/18 15:18 83 17 10/10/18 15:01 87 22 113/49 10/10/18 14:01 81 21 105/52 10/10/18 13:01 92 H 19 105/52 Pulse Ox 10/11/18 12:01 10/11/18 12:00 10/11/18 11:01 10/11/18 10:01 10/11/18 10:00 10/11/18 09:11 94 10/11/18 09:07 10/11/18 09:06 94 10/11/18 09:01 10/11/18 08:01 10/11/18 08:00 10/11/18 07:50 10/11/18 07:01 10/11/18 06:01 10/11/18 05:00 10/11/18 04:00 95 10/11/18 03:01 10/11/18 02:01 10/11/18 01:01 10/11/18 00:01 10/11/18 00:00 94 10/10/18 23:11 92 10/10/18 23:01 97 10/10/18 22:00 96 10/10/18 21:42 10/10/18 21:00 95 10/10/18 20:21 10/10/18 20:00 94 10/10/18 19:46 10/10/18 17:01 10/10/18 16:01 10/10/18 15:25 10/10/18 15:18 10/10/18 15:01 10/10/18 14:01 10/10/18 13:01 - Physical Examination General: No Apparent Distress HEENT: Positive: PERRL, Normocephaly, Mucus Membranes Moist Neck: Positive: neck supple Cardiac: Positive: irregularly irregular Lungs: Positive: clear to auscultation Neuro: Positive: Grossly Intact Abdomen: Positive: Soft. Negative: Tender Skin: Negative: Rash Extremities: Absent: edema - Imaging and Cardiology EKG: report reviewed, image reviewed Echo: report reviewed (09/2018: EF 25-30%, abnormal diastolic function, trace MR. ) - Allied health notes Allied health notes reviewed: nursing
[2018-10-12] MEDS: DUONEB *Not for PRN Use IH SCH ×3 (08:05→20:31)
[2018-10-12] MEDS: BROVANA NEBU IH SCH ×2 (08:05→19:52)
[2018-10-12] MEDS: PULMICORT IH SCH ×2 (08:05→19:52)
--- NOTE | 2018-10-12 09:27 | Progress Note ---
Assessment and Plan Assessment and plan: Patient is a 68-year-old male with past medical history from records shows COPD, chronic systolic CHF, CVA, atrial fibrillation, iron deficiency anemia and CAD s/p CABG who presents with severe respiratory distress. Patient was noted to be lethargic with severe increased work of breathing and was intubated in the ED and placed on mechanical ventilation. The ED documentation the medication list reveals the patient also lives in a alf house. He improved was extubated. Cardiology recommends full anticoagulation but he is anemic therefore GI consulted for workup. However after multiple attempts patient refuses to drink prep for colonoscopy.He will be dc on anticoag per cardiology. Also needs C efepime iv for 3 weeks until 10/15/18 Acute Respiratory failure with Hypoxia/hypercapneia ON Mechanical ventilation, now extubated Hypertensive urgency Acute Systolic Congestive heart failure with possible combined diastolic dysfunction-Precluding fluids administration Sepsis-POA secondary PNA Acute Bronchitis. CT scan not showing any infiltrates. COPD with acute exacerbation secondary to above Thrombocytopenia, resolved Cardiomyopathy with EF OF 25-30% s/p CABG Atrial Fibrillation with RVR Leukocytosis Hyperkalemia,resolved DM with Hyperglycemia Iron deficiency anemia History of CVA Plan Continue supportive care Patient successfully extubated Blood cultures growing in to drug-resistant pseudomonas aeruginosa. Patient on isolation. SCD. HIT Antibodies neg. Sepsis Protocol Service Delivery Analyst and cardiology consult INPUT NOTED Blood cultures NO GROWTH DVT/GI prophylaxis Discussed with Pulm , GI, cardiology. Patient needs systemic anticoag for afib. Patient refused to drink prep for colonoscopy but agreed to EGD, so procedures not done I discussed with him multiple times and GI Physician discussed with him but he still refuses to drink prep Plan is to start full anticoag and dc back to alf house. Plan is Cefepime iv until 10/15/18 T History Interval history: Still refuses to drink prep for colonoscopy, says he wants to go home No chest pain No SOB Hospitalist Physical - Physical exam Narrative exam: GEN: Not in acute distress, lying in bed HEENT: Normocephalic, atraumatic, Neck: supple, No JVD Lungs: Clear to auscultation bilaterally, no crackles or wheeze Heart:S1 and S2 irreg, irreg, no rubs or gallop, Abd:soft, non tender, non distended, normal bowel sounds Ext: No edema, no clubbing or cyanosis Neuro: awake,alert,oriented, no focal signs - Constitutional Vitals: Temp Pulse Resp BP Pulse Ox 97.4 F L 83 16 123/63 98 10/12/18 09:00 10/12/18 08:08 10/12/18 08:08 10/12/18 08:01 10/12/18 08:08 General appearance: Present: other (intubated, sedated ) Results - Labs CBC & Chem 7: 10/09/18 05:09 10/08/18 04:11 Labs: Laboratory Last Values WBC 7.4 K/mm3 (4.5-11.0) 10/09/18 05:09 RBC 4.00 M/mm3 (3.65-5.03) 10/09/18 05:09 Hgb 9.1 gm/dl (11.8-15.2) L 10/09/18 05:09 Hct 28.6 % (35.5-45.6) L 10/09/18 05:09 MCV 71 fl (84-94) L 10/09/18 05:09 MCH 23 pg (28-32) L 10/09/18 05:09 MCHC 32 % (32-34) 10/09/18 05:09 RDW 20.2 % (13.2-15.2) H 10/09/18 05:09 Plt Count 154 K/mm3 (140-440) 10/09/18 05:09 Lymph % (Auto) 21.9 % (13.4-35.0) 10/09/18 05:09 [place] % (Auto) 10.2 % (0.0-7.3) H 10/09/18 05:09 Eos % (Auto) 6.7 % (0.0-4.3) H 10/09/18 05:09 Baso % (Auto) 0.6 % (0.0-1.8) 10/09/18 05:09 Lymph # 1.6 K/mm3 (1.2-5.4) 10/09/18 05:09 [place] # 0.8 K/mm3 (0.0-0.8) 10/09/18 05:09 Eos # 0.5 K/mm3 (0.0-0.4) H 10/09/18 05:09 Baso # 0.0 K/mm3 (0.0-0.1) 10/09/18 05:09 Add Manual Diff Complete 10/02/18 07:20 Total Counted 100 10/02/18 07:20 Seg Neutrophils % 60.6 % (40.0-70.0) 10/09/18 05:09 Seg Neuts % (Manual) 67.0 % (40.0-70.0) 10/02/18 07:20 Band Neutrophils % 1.0 % 10/02/18 07:20 Lymphocytes % (Manual) 26.0 % (13.4-35.0) 10/02/18 07:20 Reactive Lymphs % (Man) 0 % 10/02/18 07:20 Monocytes % (Manual) 6.0 % (0.0-7.3) 10/02/18 07:20 Eosinophils % (Manual) 0 % (0.0-4.3) 10/02/18 07:20 Basophils % (Manual) 0 % (0.0-1.8) 10/02/18 07:20 Metamyelocytes % 0 % 10/02/18 07:20 Myelocytes % 0 % 10/02/18 07:20 Promyelocytes % 0 % 10/02/18 07:20 Blast Cells % 0 % 10/02/18 07:20 Nucleated RBC % Not Reportable 10/02/18 07:20 Seg Neutrophils # 4.5 K/mm3 (1.8-7.7) 10/09/18 05:09 Seg Neutrophils # Man 13.2 K/mm3 (1.8-7.7) H 10/02/18 07:20 Band Neutrophils # 0.2 K/mm3 10/02/18 07:20 Lymphocytes # (Manual) 5.1 K/mm3 (1.2-5.4) 10/02/18 07:20 Abs React Lymphs (Man) 0.0 K/mm3 10/02/18 07:20 Monocytes # (Manual) 1.2 K/mm3 (0.0-0.8) H 10/02/18 07:20 Eosinophils # (Manual) 0.0 K/mm3 (0.0-0.4) 10/02/18 07:20 Basophils # (Manual) 0.0 K/mm3 (0.0-0.1) 10/02/18 07:20 Metamyelocytes # 0.0 K/mm3 10/02/18 07:20 Myelocytes # 0.0 K/mm3 10/02/18 07:20 Promyelocytes # 0.0 K/mm3 10/02/18 07:20 Blast Cells # 0.0 K/mm3 10/02/18 07:20 WBC Morphology Not Reportable 10/02/18 07:20 Hypersegmented Neuts Not Reportable 10/02/18 07:20 Hyposegmented Neuts Not Reportable 10/02/18 07:20 Hypogranular Neuts Not Reportable 10/02/18 07:20 Smudge Cells Not Reportable 10/02/18 07:20 Toxic Granulation Not Reportable 10/02/18 07:20 Toxic Vacuolation Not Reportable 10/02/18 07:20 Dohle Bodies Not Reportable 10/02/18 07:20 Pelger-Huet Anomaly Not Reportable 10/02/18 07:20 Markie Rods Not Reportable 10/02/18 07:20 Platelet Estimate Consistent w auto 10/02/18 07:20 Clumped Platelets Not Reportable 10/02/18 07:20 Plt Clumps, EDTA Not Reportable 10/02/18 07:20 Large Platelets Not Reportable 10/02/18 07:20 Giant Platelets Not Reportable 10/02/18 07:20 Platelet Satelliting Not Reportable 10/02/18 07:20 Plt Morphology Comment Not Reportable 10/02/18 07:20 RBC Morphology Not Reportable 10/02/18 07:20 Dimorphic RBCs Not Reportable 10/02/18 07:20 Polychromasia Not Reportable 10/02/18 07:20 Hypochromasia 1+ 10/02/18 07:20 Poikilocytosis Not Reportable 10/02/18 07:20 Anisocytosis 2+ 10/02/18 07:20 Microcytosis 2+ 10/02/18 07:20 Macrocytosis Not Reportable 10/02/18 07:20 Spherocytes Not Reportable 10/02/18 07:20 Pappenheimer Bodies Not Reportable 10/02/18 07:20 Sickle Cells Not Reportable 10/02/18 07:20 Target Cells Not Reportable 10/02/18 07:20 Tear Drop Cells Not Reportable 10/02/18 07:20 Ovalocytes 1+ 10/02/18 07:20 Helmet Cells Not Reportable 10/02/18 07:20 [place] Bodies Not Reportable 10/02/18 07:20 [place] Rings Not Reportable 10/02/18 07:20 [place] Cells Not Reportable 10/02/18 07:20 Bite Cells Not Reportable 10/02/18 07:20 Crenated Cell Not Reportable 10/02/18 07:20 Elliptocytes Not Reportable 10/02/18 07:20 Acanthocytes (Spur) Not Reportable 10/02/18 07:20 Rouleaux Not Reportable 10/02/18 07:20 Hemoglobin C Crystals Not Reportable 10/02/18 07:20 Schistocytes Not Reportable 10/02/18 07:20 Malaria parasites Not Reportable 10/02/18 07:20 Nicholas Bodies Not Reportable 10/02/18 07:20 Hem Pathologist Commnt No 10/02/18 07:20 PT 15.1 Sec. (12.2-14.9) H 10/09/18 05:09 INR 1.12 (0.87-1.13) 10/09/18 05:09 D-Dimer 1039.91 ng/mlDDU (0-234) H 10/02/18 21:01 Heparin Anti-Xa, Unfract Negative (Negative) 10/03/18 09:36 POC ABG pH 7.461 (7.35-7.45) H 10/12/18 08:36 POC ABG pCO2 32.3 (35-45) L 10/12/18 08:36 POC ABG pO2 54 (80-105) L 10/12/18 08:36 POC ABG HCO3 23.0 10/12/18 08:36 POC ABG Total CO2 24 10/12/18 08:36 POC ABG O2 Sat 90 10/12/18 08:36 POC ABG Base Excess -1 10/12/18 08:36 FiO2 21 % 10/12/18 08:36 Sodium 142 mmol/L (137-145) 10/08/18 04:11 Potassium 3.5 mmol/L (3.6-5.0) L 10/08/18 04:11 Chloride 106.4 mmol/L (98-107) 10/08/18 04:11 Carbon Dioxide 21 mmol/L (22-30) L 10/08/18 04:11 Anion Gap 18 mmol/L 10/08/18 04:11 BUN 21 mg/dL (9-20) H 10/08/18 04:11 Creatinine 0.7 mg/dL (0.8-1.5) L 10/08/18 04:11 Estimated GFR > 60 ml/min 10/08/18 04:11 BUN/Creatinine Ratio 30 % 10/08/18 04:11 Glucose 123 mg/dL (75-100) H 10/08/18 04:11 POC Glucose 171 (70-105) H 10/11/18 21:38 Lactic Acid 2.60 mmol/L (0.7-2.0) H* 10/03/18 04:13 Calcium 8.0 mg/dL (8.4-10.2) L 10/08/18 04:11 Magnesium 2.30 mg/dL (1.7-2.3) 10/02/18 18:04 Iron 29 ug/dL (49-181) L 10/09/18 05:09 TIBC 240 mcg/dL (250-450) L 10/09/18 05:09 Ferritin 124.9 ng/mL (13.0-400.0) 10/09/18 05:09 Total Bilirubin 0.50 mg/dL (0.1-1.2) 10/02/18 07:13 AST 20 units/L (5-40) 10/02/18 07:13 ALT 11 units/L (7-56) 10/02/18 07:13 Alkaline Phosphatase 100 units/L (35-129) 10/02/18 07:13 Troponin T < 0.010 ng/mL (0.00-0.029) 10/02/18 07:13 C-Reactive Protein 3.40 mg/dL (0.00-1.30) H 10/02/18 21:01 NT-Pro-B Natriuret Pep 3102 pg/mL (0-900) H 10/02/18 07:13 Total Protein 7.8 g/dL (6.3-8.2) 10/02/18 07:13 Albumin 3.9 g/dL (3.9-5) 10/02/18 07:13 Albumin/Globulin Ratio 1.0 % 10/02/18 07:13 TSH 0.417 mlU/mL (0.270-4.200) 10/02/18 18:04 Free T4 0.92 ng/dL (0.76-1.46) 10/02/18 18:04 Urine Color Straw (Yellow) 10/02/18 09:12 Urine Turbidity Clear (Clear) 10/02/18 09:12 Urine pH 5.0 (5.0-7.0) 10/02/18 09:12 Ur Specific [place] 1.006 (1.003-1.030) 10/02/18 09:12 Urine Protein 30 mg/dl mg/dL (Negative) 10/02/18 09:12 Urine Glucose (UA) 50 mg/dL (Negative) 10/02/18 09:12 Urine Ketones Neg mg/dL (Negative) 10/02/18 09:12 Urine Blood Neg (Negative) 10/02/18 09:12 Urine Nitrite Neg (Negative) 10/02/18 09:12 Urine Bilirubin Neg (Negative) 10/02/18 09:12 Urine Urobilinogen < 2.0 mg/dL (<2.0) 10/02/18 09:12 Ur Leukocyte Esterase Neg (Negative) 10/02/18 09:12 Urine WBC (Auto) 2.0 /HPF (0.0-6.0) 10/02/18 09:12 Urine RBC (Auto) 2.0 /HPF (0.0-6.0) 10/02/18 09:12 Urine Bacteria (Auto) 1+ /HPF (Negative) 10/02/18 09:12 Urine Yeast (Budding) Few /HPF 10/02/18 09:12 Heparin-induced Plt Ab Negative (Negative) 10/03/18 09:36 UF Heparin High Dose 0 % Release 10/03/18 09:36 JULES UFH Low Dose 0.1 0 % Release 10/03/18 09:36 JULES UFH Low Dose 0.5 0 % Release 10/03/18 09:36 Urine Legionella Ag Not detected (Not Detected) 10/03/18 14:32 Blood Type A NEGATIVE 10/02/18 08:51 Antibody Screen Negative 10/02/18 08:51 Nutrition/Malnutrition Assess - Dietary Evaluation Nutrition/Malnutrition Findings: Nutrition Notes Start: 10/03/18 12:55 Freq: Status: Active Protocol: Document 10/09/18 15:42 RM (Rec: 10/09/18 15:50 RM [email or web address]) Nutrition Notes Initial or Follow up Reassessment Current Diagnosis COPD Coronary Artery Disease Diabetes Sepsis Hypertension Heart Failure Respiratory Failure Stroke Other Pertinent Diagnosis Pneu Current Diet Consistent Carbohydrate Labs/Tests Reviewed Pertinent Medications Lasix Height 6 ft 2 in Weight 76.7 kg [place] Body Weight (kg) 86.36 BMI 21.7 Subjective/Other Information Pt NPO for upper endoscopy and colonoscopy. Pt confused at time of visit. Per tech pt ate 100% of meals before NPO status. Percent of energy/protein needs met: 31%/17% Burn Absent Trauma Absent #1 Nutrition Diagnosis Inadequate oral intake Diagnosis Progress(for reassessment Continues documentation) Is patient on ventilator? No Is Patient Ambulatory and/or Out of Bed No REE-([facility]-confined to bed) [phone] Calculation Used for Recommendations [facility] Additional Notes Pro needs 1.2-2g/k-153g/ day Fluid needs 1ml/kcal Nutrition Intervention Change Diet Order: Advance when medically able Add Supplement/Snack (indicate name/kcal Was not added previously. /protein ) Glucerna 1 daily Provides kCal: 220 Provides Protein (gm) 10 Goal #1 Meet at least 75% of kcal and pro needs via PO and ONS intakes Goal #2 Wt maintenance Anticipated Discharge Needs: Consistent CHO Follow-Up By: 10/13/18 Additional Comments F/U: PO and ONS intakes
[2018-10-12] MEDS: HumaLOG SUB-Q SCH ×4 (09:33→22:47)
[2018-10-12] MEDS: HABITROL TD SCH (09:34)
[2018-10-12] MEDS: LOPRESSOR PO SCH ×2 (09:34→22:47)
[2018-10-12] MEDS: LASIX PO SCH (09:34)
[2018-10-12] MEDS: PROTONIX PO SCH (09:36)
[2018-10-12] MEDS: ZESTRIL PO SCH (09:36)
[2018-10-12] MEDS: SENOKOT PO SCH ×3 (09:36→22:48)
[2018-10-12] MEDS: PEPCID PO SCH ×3 (09:36→22:48)
--- NOTE | 2018-10-12 11:02 | Progress Note ---
Assessment and Plan Cultures: Blood culture 10/02/2018 negative Tracheal asp 10/02/2018 Pseudomonas MDR sensitive to cefepime, resistant to FQ, AG and aztreonam. Urine culture 10/02/2018 no growth Assessment: 68 y/o male with history of COPD, chronic systolic CHF, CVA, atrial fibrillation, anemia and CAD s/p CAB; admitted on 09/30/2018 due to worsening respiratory distress and AMS / lethargy: 1) SIRS versus Sepsis: Resolved, no fevers in > 48 h, likely from COPD exacerbation with presumed pneumonia +/- heart failure. CRP 3.4. UA neg. Blood cultures negative so far. 2) COPD exacerbation with presumed pneumonia: CXR initially with severe emphysema and no infiltrates, but repeat CXR showed bilateral pneumonitis CT chest: No evidence of pulmonary arterial emboli. Bilateral lower lung infiltrates are identified, more pronounced on the right. Mild bilateral effusions. 3) Acute on chronic respiratory failure: from COPD/pneumonia/CHF, extubated 4) Acute encephalopathy: improving Recommendations: - contact isolation due to MDR Pseudomonas - continue cefepime 2 gm IV q8h D9 - Anticipate discharge on cefepime 2 gm IV q8h until 10/15/2018. -Order placed with case management Leanna Holder NP [facility] M: [phone] O:[phone] Subjective Date of service: 10/12/18 Principal diagnosis: Ac on Ch Hypoxemic Hypercapnic Resp failure; AECOPD; CHF exacerbation; Afib Interval history: Patient seen and examined. no acute distress observed. no family at bedside Objective - Exam Narrative Exam: Constitutional: Asleep, easily arousable . No acute distress Head, Ears, Nose: Normocephalic, atraumatic. External ears, nose normal Eyes: Conjunctivae/corneas clear. No icterus. No ptosis. Neck: Supple, no meningeal signs Oral: no thrush Cardiovascular: S1, S2 normal. Respiratory: Good air entry, clear to auscultation bilaterally GI: Soft, non-tender; bowel sounds normal. No peritoneal signs Musculoskeletal: No pedal edema, no cyanosis. Skin: No rash or abscess. Hem/Lymphatic: No palpable cervical or supraclavicular nodes. No lymphangitis Psych: asleep, easily arousable Neurological: Asleep, easily arousable - Constitutional Vitals: Vital Signs Temp Pulse Resp BP Pulse Ox 97.4 F L 92 H 13 129/69 91 10/12/18 09:00 10/12/18 09:36 10/12/18 09:00 10/12/18 09:36 10/12/18 09:00 Temperature -Last 24 Hours Temperature 97.4 F Temperature 98.2 F Temperature 98.2 F Temperature 97.7 F Temperature 98.4 F Temperature 98.5 F Temperature 98.6 F - Labs CBC & Chem 7: 10/09/18 05:09 10/08/18 04:11 Labs: Abnormal lab results 10/11/18 10/11/18 10/11/18 Range/Units 11:55 16:13 21:38 POC ABG pH (7.35-7.45) POC ABG pCO2 (35-45) POC ABG pO2 (80-105) POC Glucose 158 H 168 H 171 H (70-105) 10/12/18 Range/Units 08:36 POC ABG pH 7.461 H (7.35-7.45) POC ABG pCO2 32.3 L (35-45) POC ABG pO2 54 L (80-105) POC Glucose (70-105)
--- NOTE | 2018-10-12 11:37 | Progress Note ---
Assessment and Plan Currently stable cardiac status. Per GI team, patient would benefit from EGD/Colon prior to needing anticoagulation, however despite multiple discussions he declines. Pt would benefit from systemic AC (Eliquis 5mg BID) in regards to atrial fibrillation. He is currently agitated and we are unable to have a productive conversation regarding the indications, potential risks and benefits of AC at this time. Will reattempt to readdress this topic at a later time. Cont present cardiac management. The patient has been seen in conjunction with Dr. Larsen who agrees with the assessment and plan of care. - Patient Problems (1) Acute respiratory failure Current Visit: Yes Status: Acute (2) Atrial fibrillation with rapid ventricular response Current Visit: Yes Status: Acute (3) Acute HFrEF (heart failure with reduced ejection fraction) Current Visit: Yes Status: Acute (4) Cardiomyopathy Current Visit: Yes Status: Chronic (5) COPD with acute exacerbation Current Visit: Yes Status: Acute (6) Pneumonia Current Visit: Yes Status: Suspected (7) CAD (coronary artery disease) Current Visit: Yes Status: Chronic (8) S/P CABG (coronary artery bypass graft) Current Visit: Yes Status: Chronic (9) Anemia Current Visit: Yes Status: Acute Qualifiers: Anemia type: iron deficiency (10) Thrombocytopenia Current Visit: Yes Status: Acute Subjective Date of service: 10/12/18 Principal diagnosis: Ac on Ch Hypoxemic Hypercapnic Resp failure; AECOPD; CHF exacerbation; Afib Interval history: pt resting in bed, no current cardiac complaints. in AFib with CVR. Objective Last Vital Signs Temp 97.4 F L 10/12/18 09:00 Pulse 92 H 10/12/18 09:36 Resp 13 10/12/18 09:00 BP 129/69 10/12/18 09:36 Pulse Ox 91 10/12/18 09:00 - Physical Examination General: No Apparent Distress HEENT: Positive: PERRL, Normocephaly, Mucus Membranes Moist Neck: Positive: neck supple Cardiac: Positive: irregularly irregular, S1/S2 Lungs: Positive: Decreased Breath Sounds Neuro: Positive: Grossly Intact Abdomen: Positive: Soft. Negative: Tender Skin: Negative: Rash Extremities: Absent: edema - Imaging and Cardiology EKG: report reviewed, image reviewed Echo: report reviewed (09/2018: EF 25-30%, abnormal diastolic function, trace MR. ) - Allied health notes Allied health notes reviewed: nursing
--- NOTE | 2018-10-12 14:19 | Progress Note ---
Assessment and Plan Patient awake. Resting on room air. No acute respiratory distress. Denies chest pain, shortness of breath or cough. OC ABG pH 7.461 (7.35-7.45) H 10/12/18 08:36 POC ABG pCO2 32.3 (35-45) L 10/12/18 08:36 POC ABG pO2 54 (80-105) L 10/12/18 08:36 POC ABG HCO3 23.0 10/12/18 08:36 POC ABG Total CO2 24 10/12/18 08:36 POC ABG O2 Sat 90 10/12/18 08:36 Recommend O2 2 litres via nasal canula. Patient is also candidate for home O2. Recommend O2 2 litres via nasal canula. - Patient Problems (1) Acute HFrEF (heart failure with reduced ejection fraction) Current Visit: Yes Status: Acute Plan to address problem: Management as per primary care and cardiology. (2) Acute respiratory failure with hypoxia Current Visit: Yes Status: Acute Plan to address problem: O2 2 litres via nasal canula. Brovanna/budesonide aerosol treatments q 12 hours. Albuterol/atrovent aerosol treatments q 6 hours prn for shortness of breath. SCDs. Continue famotidine. (3) Atrial fibrillation with rapid ventricular response Current Visit: Yes Status: Acute Plan to address problem: Management as per cardiology. (4) COPD with acute exacerbation Current Visit: Yes Status: Acute Plan to address problem: O2 2 litres via nasal canula. Brovanna/budesonide aerosol treatments q 12 hours. Albuterol/atrovent aerosol treatments q 6 hours prn for shortness of breath. SCDs. Continue famotidine Counselled to stop smoking. Recommend PFTs as out patient. (5) S/P CABG (coronary artery bypass graft) Current Visit: Yes Status: Chronic Plan to address problem: Management as per cardiology (6) Anemia Current Visit: Yes Status: Acute Qualifiers: Anemia type: iron deficiency Plan to address problem: Management as per primary care. Subjective Date of service: 10/12/18 Principal diagnosis: Ac on Ch Hypoxemic Hypercapnic Resp failure; AECOPD; CHF exacerbation; Afib Interval history: Patient awake. Resting on room air. No acute respiratory distress. Denies chest pain, shortness of breath or cough. OC ABG pH 7.461 (7.35-7.45) H 10/12/18 08:36 POC ABG pCO2 32.3 (35-45) L 10/12/18 08:36 POC ABG pO2 54 (80-105) L 10/12/18 08:36 POC ABG HCO3 23.0 10/12/18 08:36 POC ABG Total CO2 24 10/12/18 08:36 POC ABG O2 Sat 90 10/12/18 08:36 Recommend O2 2 litres via nasal canula. Patient is also candidate for home O2. Recommend O2 2 litres via nasal canula. Objective Vital Signs - 12hr 10/12/18 10/12/18 10/12/18 03:00 04:00 05:01 Temperature 98.2 F Pulse Rate 71 67 66 Pulse Rate [ Anterior Bilateral] Pulse Rate [ 74 From Monitor] Respiratory 25 H 22 19 Rate Respiratory Rate [Anterior Bilateral] Blood Pressure 86/51 83/46 83/46 O2 Sat by Pulse 99 99 100 Oximetry 10/12/18 10/12/18 10/12/18 06:00 07:00 08:00 Temperature 98.2 F Pulse Rate 79 77 Pulse Rate [ Anterior Bilateral] Pulse Rate [ 74 From Monitor] Respiratory 15 22 20 Rate Respiratory Rate [Anterior Bilateral] Blood Pressure 108/78 108/78 O2 Sat by Pulse 98 97 98 Oximetry 10/12/18 10/12/18 10/12/18 08:01 08:08 08:18 Temperature Pulse Rate 80 Pulse Rate [ 83 82 Anterior Bilateral] Pulse Rate [ From Monitor] Respiratory 24 Rate Respiratory 16 18 Rate [Anterior Bilateral] Blood Pressure 123/63 O2 Sat by Pulse 100 98 Oximetry 10/12/18 10/12/18 10/12/18 09:00 09:34 09:36 Temperature 97.4 F L Pulse Rate 79 92 H 92 H Pulse Rate [ Anterior Bilateral] Pulse Rate [ From Monitor] Respiratory 13 Rate Respiratory Rate [Anterior Bilateral] Blood Pressure 129/69 129/69 129/69 O2 Sat by Pulse 91 Oximetry 10/12/18 10/12/18 10/12/18 10:00 11:01 12:00 Temperature Pulse Rate 90 Pulse Rate [ Anterior Bilateral] Pulse Rate [ 74 From Monitor] Respiratory 20 Rate Respiratory Rate [Anterior Bilateral] Blood Pressure 90/35 129/69 129/69 O2 Sat by Pulse 96 97 98 Oximetry Constitutional: no acute distress, alert Eyes: non-icteric ENT: oropharynx moist Neck: supple, no lymphadenopathy, no JVD, other (no thyromegaly) Effort: mildly labored Ascultation: Bilateral: diminished breath sounds, other (+ barrel chest) Percussion: Bilateral: not dull Cardiovascular: irregular rhythm, other (S1,S2) Gastrointestinal: normoactive bowel sounds, soft, non-tender, non-distended Integumentary: normal, other (post CABG sternotomy scar) Extremities: no cyanosis, no edema, pink and warm, pulses normal, no ischemia or petechiae Neurologic: normal mental status, non-focal exam (grossly), pupils equal and round Psychiatric: depressed CBC and BMP: 10/09/18 05:09 10/08/18 04:11 ABG, PT/INR, D-dimer: ABG POC ABG pH 7.461 (7.35-7.45) H 10/12/18 08:36 POC ABG pCO2 32.3 (35-45) L 10/12/18 08:36 POC ABG pO2 54 (80-105) L 10/12/18 08:36 POC ABG HCO3 23.0 10/12/18 08:36 POC ABG Total CO2 24 10/12/18 08:36 POC ABG O2 Sat 90 10/12/18 08:36 PT/INR, D-dimer PT 15.1 Sec. (12.2-14.9) H 10/09/18 05:09 INR 1.12 (0.87-1.13) 10/09/18 05:09 D-Dimer 1039.91 ng/mlDDU (0-234) H 10/02/18 21:01 Abnormal lab findings: Abnormal Labs 10/02/18 10/02/18 10/02/18 07:13 07:20 07:22 WBC 19.7 H Hgb 10.9 L Hct MCV 75 L MCH 23 L MCHC 31 L RDW 21.7 H Plt Count Lymph % (Auto) Loving % (Auto) Eos % (Auto) Lymph # Loving # Eos # Seg Neutrophils % Seg Neutrophils # Seg Neutrophils # Man 13.2 H Monocytes # (Manual) 1.2 H PT 15.0 H D-Dimer POC ABG pH POC ABG pCO2 POC ABG pO2 Sodium Potassium 5.2 H D Carbon Dioxide 19 L BUN Creatinine Glucose 340 H POC Glucose Lactic Acid Calcium Iron TIBC C-Reactive Protein NT-Pro-B Natriuret Pep 3102 H 10/02/18 10/02/18 10/02/18 08:32 09:26 12:28 WBC Hgb Hct MCV MCH MCHC RDW Plt Count Lymph % (Auto) Loving % (Auto) Eos % (Auto) Lymph # Loving # Eos # Seg Neutrophils % Seg Neutrophils # Seg Neutrophils # Man Monocytes # (Manual) PT D-Dimer POC ABG pH 7.201 L 7.254 L POC ABG pCO2 61.2 H 54.3 H POC ABG pO2 150 H 196 H Sodium Potassium Carbon Dioxide BUN Creatinine Glucose POC Glucose Lactic Acid 3.00 H* Calcium Iron TIBC C-Reactive Protein NT-Pro-B Natriuret Pep 10/02/18 10/02/18 10/02/18 20:43 21:01 21:01 WBC Hgb Hct MCV MCH MCHC RDW Plt Count Lymph % (Auto) Loving % (Auto) Eos % (Auto) Lymph # Loving # Eos # Seg Neutrophils % Seg Neutrophils # Seg Neutrophils # Man Monocytes # (Manual) PT D-Dimer 1039.91 H POC ABG pH 7.307 L POC ABG pCO2 45.6 H POC ABG pO2 107 H Sodium Potassium Carbon Dioxide BUN Creatinine Glucose POC Glucose Lactic Acid Calcium Iron TIBC C-Reactive Protein 3.40 H NT-Pro-B Natriuret Pep 10/02/18 10/03/18 10/03/18 21:01 00:14 04:13 WBC 13.6 H Hgb 10.6 L Hct 34.5 L MCV 74 L MCH 23 L MCHC 31 L RDW 21.3 H Plt Count 134 L Lymph % (Auto) 6.0 L Loving % (Auto) 10.6 H Eos % (Auto) Lymph # 0.8 L Loving # 1.4 H Eos # Seg Neutrophils % 83.1 H Seg Neutrophils # 11.3 H Seg Neutrophils # Man Monocytes # (Manual) PT D-Dimer POC ABG pH POC ABG pCO2 POC ABG pO2 Sodium Potassium Carbon Dioxide BUN Creatinine Glucose POC Glucose 164 H Lactic Acid 2.80 H* Calcium Iron TIBC C-Reactive Protein NT-Pro-B Natriuret Pep 10/03/18 10/03/18 10/03/18 04:13 04:13 04:47 WBC Hgb Hct MCV MCH MCHC RDW Plt Count Lymph % (Auto) [place] % (Auto) Eos % (Auto) Lymph # Loving # Eos # Seg Neutrophils % Seg Neutrophils # Seg Neutrophils # Man Monocytes # (Manual) PT D-Dimer POC ABG pH POC ABG pCO2 POC ABG pO2 Sodium 136 L Potassium Carbon Dioxide 18 L BUN 29 H Creatinine Glucose 168 H POC Glucose 182 H Lactic Acid 2.60 H* Calcium 8.3 L Iron TIBC C-Reactive Protein NT-Pro-B Natriuret Pep 10/03/18 10/03/18 10/03/18 05:47 11:39 16:56 WBC Hgb Hct MCV MCH MCHC RDW Plt Count Lymph % (Auto) [place] % (Auto) Eos % (Auto) Lymph # Loving # Eos # Seg Neutrophils % Seg Neutrophils # Seg Neutrophils # Man Monocytes # (Manual) PT D-Dimer POC ABG pH 7.314 L POC ABG pCO2 45.9 H POC ABG pO2 Sodium Potassium Carbon Dioxide BUN Creatinine Glucose POC Glucose 134 H 118 H Lactic Acid Calcium Iron TIBC C-Reactive Protein NT-Pro-B Natriuret Pep 10/03/18 10/04/18 10/04/18 23:13 05:20 05:44 WBC Hgb Hct MCV MCH MCHC RDW Plt Count Lymph % (Auto) [place] % (Auto) Eos % (Auto) Lymph # Loving # Eos # Seg Neutrophils % Seg Neutrophils # Seg Neutrophils # Man Monocytes # (Manual) PT D-Dimer POC ABG pH POC ABG pCO2 POC ABG pO2 68 L Sodium Potassium Carbon Dioxide BUN Creatinine Glucose POC Glucose 129 H 166 H Lactic Acid Calcium Iron TIBC C-Reactive Protein NT-Pro-B Natriuret Pep 10/04/18 10/04/18 10/04/18 08:04 08:04 11:56 WBC Hgb 9.1 L Hct 28.7 L MCV 72 L MCH 23 L MCHC RDW 21.6 H Plt Count 126 L Lymph % (Auto) [place] % (Auto) Eos % (Auto) Lymph # Loving # Eos # Seg Neutrophils % Seg Neutrophils # Seg Neutrophils # Man Monocytes # (Manual) PT D-Dimer POC ABG pH POC ABG pCO2 POC ABG pO2 Sodium Potassium Carbon Dioxide BUN 26 H Creatinine Glucose 167 H POC Glucose 176 H Lactic Acid Calcium 8.2 L Iron TIBC C-Reactive Protein NT-Pro-B Natriuret Pep 10/04/18 10/04/18 10/05/18 13:21 17:12 00:02 WBC Hgb Hct MCV MCH MCHC RDW Plt Count Lymph % (Auto) [place] % (Auto) Eos % (Auto) Lymph # Loving # Eos # Seg Neutrophils % Seg Neutrophils # Seg Neutrophils # Man Monocytes # (Manual) PT D-Dimer POC ABG pH 7.462 H POC ABG pCO2 33.5 L POC ABG pO2 59 L Sodium Potassium Carbon Dioxide BUN Creatinine Glucose POC Glucose 164 H 211 H Lactic Acid Calcium Iron TIBC C-Reactive Protein NT-Pro-B Natriuret Pep 10/05/18 10/05/18 10/05/18 05:13 12:06 12:11 WBC Hgb Hct MCV MCH MCHC RDW Plt Count Lymph % (Auto) [place] % (Auto) Eos % (Auto) Lymph # Loving # Eos # Seg Neutrophils % Seg Neutrophils # Seg Neutrophils # Man Monocytes # (Manual) PT D-Dimer POC ABG pH 7.462 H POC ABG pCO2 POC ABG pO2 66 L Sodium Potassium Carbon Dioxide BUN Creatinine Glucose POC Glucose 190 H 185 H Lactic Acid Calcium Iron TIBC C-Reactive Protein NT-Pro-B Natriuret Pep 10/05/18 10/05/18 10/06/18 18:13 23:49 04:19 WBC Hgb 9.8 L Hct 30.5 L MCV 73 L MCH 23 L MCHC RDW 21.0 H Plt Count Lymph % (Auto) [place] % (Auto) Eos % (Auto) Lymph # Loving # Eos # Seg Neutrophils % Seg Neutrophils # Seg Neutrophils # Man Monocytes # (Manual) PT D-Dimer POC ABG pH POC ABG pCO2 POC ABG pO2 Sodium Potassium Carbon Dioxide BUN Creatinine Glucose POC Glucose 177 H 192 H Lactic Acid Calcium Iron TIBC C-Reactive Protein NT-Pro-B Natriuret Pep 10/06/18 10/06/18 10/06/18 04:19 05:00 12:05 WBC Hgb Hct MCV MCH MCHC RDW Plt Count Lymph % (Auto) [place]oving % (Auto) Eos % (Auto) Lymph # Loving # Eos # Seg Neutrophils % Seg Neutrophils # Seg Neutrophils # Man Monocytes # (Manual) PT D-Dimer POC ABG pH POC ABG pCO2 POC ABG pO2 Sodium Potassium 3.4 L Carbon Dioxide BUN 21 H Creatinine 0.7 L Glucose 133 H POC Glucose 135 H 206 H Lactic Acid Calcium Iron TIBC C-Reactive Protein NT-Pro-B Natriuret Pep 10/06/18 10/06/18 10/06/18 12:12 16:31 21:13 WBC Hgb Hct MCV MCH MCHC RDW Plt Count Lymph % (Auto) [place] % (Auto) Eos % (Auto) Lymph # Loving # Eos # Seg Neutrophils % Seg Neutrophils # Seg Neutrophils # Man Monocytes # (Manual) PT D-Dimer POC ABG pH POC ABG pCO2 POC ABG pO2 Sodium Potassium Carbon Dioxide BUN Creatinine Glucose POC Glucose 216 H 141 H 308 H Lactic Acid Calcium Iron TIBC C-Reactive Protein NT-Pro-B Natriuret Pep 10/07/18 10/07/18 10/08/18 08:37 11:32 04:11 WBC Hgb 9.3 L Hct 29.4 L MCV 72 L MCH 23 L MCHC RDW 20.9 H Plt Count Lymph % (Auto) Loving % (Auto) Eos % (Auto) Lymph # Loving # Eos # Seg Neutrophils % Seg Neutrophils # Seg Neutrophils # Man Monocytes # (Manual) PT D-Dimer POC ABG pH POC ABG pCO2 POC ABG pO2 Sodium Potassium Carbon Dioxide BUN Creatinine Glucose POC Glucose 233 H 220 H Lactic Acid Calcium Iron TIBC C-Reactive Protein NT-Pro-B Natriuret Pep 10/08/18 10/08/18 10/08/18 04:11 16:20 20:28 WBC Hgb Hct MCV MCH MCHC RDW Plt Count Lymph % (Auto) [place] % (Auto) Eos % (Auto) Lymph # Loving # Eos # Seg Neutrophils % Seg Neutrophils # Seg Neutrophils # Man Monocytes # (Manual) PT D-Dimer POC ABG pH POC ABG pCO2 POC ABG pO2 Sodium Potassium 3.5 L Carbon Dioxide 21 L BUN 21 H Creatinine 0.7 L Glucose 123 H POC Glucose 157 H 210 H Lactic Acid Calcium 8.0 L Iron TIBC C-Reactive Protein NT-Pro-B Natriuret Pep 10/09/18 10/09/18 10/09/18 05:09 05:09 05:09 WBC Hgb 9.1 L Hct 28.6 L MCV 71 L MCH 23 L MCHC RDW 20.2 H Plt Count Lymph % (Auto) [place]oving % (Auto) 10.2 H Eos % (Auto) 6.7 H Lymph # Loving # Eos # 0.5 H Seg Neutrophils % Seg Neutrophils # Seg Neutrophils # Man Monocytes # (Manual) PT 15.1 H D-Dimer POC ABG pH POC ABG pCO2 POC ABG pO2 Sodium Potassium Carbon Dioxide BUN Creatinine Glucose POC Glucose Lactic Acid Calcium Iron 29 L TIBC 240 L C-Reactive Protein NT-Pro-B Natriuret Pep 10/09/18 10/09/18 10/09/18 08:22 12:26 16:02 WBC Hgb Hct MCV MCH MCHC RDW Plt Count Lymph % (Auto) Loving % (Auto) Eos % (Auto) Lymph # Loving # Eos # Seg Neutrophils % Seg Neutrophils # Seg Neutrophils # Man Monocytes # (Manual) PT D-Dimer POC ABG pH POC ABG pCO2 POC ABG pO2 Sodium Potassium Carbon Dioxide BUN Creatinine Glucose POC Glucose 120 H 319 H 138 H Lactic Acid Calcium Iron TIBC C-Reactive Protein NT-Pro-B Natriuret Pep 10/09/18 10/10/18 10/11/18 22:49 21:40 10:05 WBC Hgb Hct MCV MCH MCHC RDW Plt Count Lymph % (Auto) Loving % (Auto) Eos % (Auto) Lymph # Loving # Eos # Seg Neutrophils % Seg Neutrophils # Seg Neutrophils # Man Monocytes # (Manual) PT D-Dimer POC ABG pH POC ABG pCO2 POC ABG pO2 Sodium Potassium Carbon Dioxide BUN Creatinine Glucose POC Glucose 130 H 122 H 191 H Lactic Acid Calcium Iron TIBC C-Reactive Protein NT-Pro-B Natriuret Pep 10/11/18 10/11/18 10/11/18 11:55 16:13 21:38 WBC Hgb Hct MCV MCH MCHC RDW Plt Count Lymph % (Auto) Loving % (Auto) Eos % (Auto) Lymph # Loving # Eos # Seg Neutrophils % Seg Neutrophils # Seg Neutrophils # Man Monocytes # (Manual) PT D-Dimer POC ABG pH POC ABG pCO2 POC ABG pO2 Sodium Potassium Carbon Dioxide BUN Creatinine Glucose POC Glucose 158 H 168 H 171 H Lactic Acid Calcium Iron TIBC C-Reactive Protein NT-Pro-B Natriuret Pep 10/12/18 10/12/18 08:36 09:03 WBC Hgb Hct MCV MCH MCHC RDW Plt Count Lymph % (Auto) Loving % (Auto) Eos % (Auto) Lymph # Loving # Eos # Seg Neutrophils % Seg Neutrophils # Seg Neutrophils # Man Monocytes # (Manual) PT D-Dimer POC ABG pH 7.461 H POC ABG pCO2 32.3 L POC ABG pO2 54 L Sodium Potassium Carbon Dioxide BUN Creatinine Glucose POC Glucose 122 H Lactic Acid Calcium Iron TIBC C-Reactive Protein NT-Pro-B Natriuret Pep Chest x-ray: report reviewed (Pulmonary venous congestion.), image reviewed Allied health notes reviewed: nursing
--- NOTE | 2018-10-12 14:33 | Progress Note ---
Hospitalist Physical - Constitutional Vitals: Temp Pulse Resp BP Pulse Ox 97.5 F L 74 20 129/69 98 10/12/18 14:22 10/12/18 12:00 10/12/18 12:00 10/12/18 12:00 10/12/18 12:00 General appearance: Present: other (intubated, sedated ) Results - Labs CBC & Chem 7: 10/09/18 05:09 10/08/18 04:11 Labs: Laboratory Last Values WBC 7.4 K/mm3 (4.5-11.0) 10/09/18 05:09 RBC 4.00 M/mm3 (3.65-5.03) 10/09/18 05:09 Hgb 9.1 gm/dl (11.8-15.2) L 10/09/18 05:09 Hct 28.6 % (35.5-45.6) L 10/09/18 05:09 MCV 71 fl (84-94) L 10/09/18 05:09 MCH 23 pg (28-32) L 10/09/18 05:09 MCHC 32 % (32-34) 10/09/18 05:09 RDW 20.2 % (13.2-15.2) H 10/09/18 05:09 Plt Count 154 K/mm3 (140-440) 10/09/18 05:09 Lymph % (Auto) 21.9 % (13.4-35.0) 10/09/18 05:09 [place] % (Auto) 10.2 % (0.0-7.3) H 10/09/18 05:09 Eos % (Auto) 6.7 % (0.0-4.3) H 10/09/18 05:09 Baso % (Auto) 0.6 % (0.0-1.8) 10/09/18 05:09 Lymph # 1.6 K/mm3 (1.2-5.4) 10/09/18 05:09 [place] # 0.8 K/mm3 (0.0-0.8) 10/09/18 05:09 Eos # 0.5 K/mm3 (0.0-0.4) H 10/09/18 05:09 Baso # 0.0 K/mm3 (0.0-0.1) 10/09/18 05:09 Add Manual Diff Complete 10/02/18 07:20 Total Counted 100 10/02/18 07:20 Seg Neutrophils % 60.6 % (40.0-70.0) 10/09/18 05:09 Seg Neuts % (Manual) 67.0 % (40.0-70.0) 10/02/18 07:20 Band Neutrophils % 1.0 % 10/02/18 07:20 Lymphocytes % (Manual) 26.0 % (13.4-35.0) 10/02/18 07:20 Reactive Lymphs % (Man) 0 % 10/02/18 07:20 Monocytes % (Manual) 6.0 % (0.0-7.3) 10/02/18 07:20 Eosinophils % (Manual) 0 % (0.0-4.3) 10/02/18 07:20 Basophils % (Manual) 0 % (0.0-1.8) 10/02/18 07:20 Metamyelocytes % 0 % 10/02/18 07:20 Myelocytes % 0 % 10/02/18 07:20 Promyelocytes % 0 % 10/02/18 07:20 Blast Cells % 0 % 10/02/18 07:20 Nucleated RBC % Not Reportable 10/02/18 07:20 Seg Neutrophils # 4.5 K/mm3 (1.8-7.7) 10/09/18 05:09 Seg Neutrophils # Man 13.2 K/mm3 (1.8-7.7) H 10/02/18 07:20 Band Neutrophils # 0.2 K/mm3 10/02/18 07:20 Lymphocytes # (Manual) 5.1 K/mm3 (1.2-5.4) 10/02/18 07:20 Abs React Lymphs (Man) 0.0 K/mm3 10/02/18 07:20 Monocytes # (Manual) 1.2 K/mm3 (0.0-0.8) H 10/02/18 07:20 Eosinophils # (Manual) 0.0 K/mm3 (0.0-0.4) 10/02/18 07:20 Basophils # (Manual) 0.0 K/mm3 (0.0-0.1) 10/02/18 07:20 Metamyelocytes # 0.0 K/mm3 10/02/18 07:20 Myelocytes # 0.0 K/mm3 10/02/18 07:20 Promyelocytes # 0.0 K/mm3 10/02/18 07:20 Blast Cells # 0.0 K/mm3 10/02/18 07:20 WBC Morphology Not Reportable 10/02/18 07:20 Hypersegmented Neuts Not Reportable 10/02/18 07:20 Hyposegmented Neuts Not Reportable 10/02/18 07:20 Hypogranular Neuts Not Reportable 10/02/18 07:20 Smudge Cells Not Reportable 10/02/18 07:20 Toxic Granulation Not Reportable 10/02/18 07:20 Toxic Vacuolation Not Reportable 10/02/18 07:20 Dohle Bodies Not Reportable 10/02/18 07:20 Pelger-Huet Anomaly Not Reportable 10/02/18 07:20 Markie Rods Not Reportable 10/02/18 07:20 Platelet Estimate Consistent w auto 10/02/18 07:20 Clumped Platelets Not Reportable 10/02/18 07:20 Plt Clumps, EDTA Not Reportable 10/02/18 07:20 Large Platelets Not Reportable 10/02/18 07:20 Giant Platelets Not Reportable 10/02/18 07:20 Platelet Satelliting Not Reportable 10/02/18 07:20 Plt Morphology Comment Not Reportable 10/02/18 07:20 RBC Morphology Not Reportable 10/02/18 07:20 Dimorphic RBCs Not Reportable 10/02/18 07:20 Polychromasia Not Reportable 10/02/18 07:20 Hypochromasia 1+ 10/02/18 07:20 Poikilocytosis Not Reportable 10/02/18 07:20 Anisocytosis 2+ 10/02/18 07:20 Microcytosis 2+ 10/02/18 07:20 Macrocytosis Not Reportable 10/02/18 07:20 Spherocytes Not Reportable 10/02/18 07:20 Pappenheimer Bodies Not Reportable 10/02/18 07:20 Sickle Cells Not Reportable 10/02/18 07:20 Target Cells Not Reportable 10/02/18 07:20 Tear Drop Cells Not Reportable 10/02/18 07:20 Ovalocytes 1+ 10/02/18 07:20 Helmet Cells Not Reportable 10/02/18 07:20 [place] Bodies Not Reportable 10/02/18 07:20 [place] Rings Not Reportable 10/02/18 07:20 [place] Cells Not Reportable 10/02/18 07:20 Bite Cells Not Reportable 10/02/18 07:20 Crenated Cell Not Reportable 10/02/18 07:20 Elliptocytes Not Reportable 10/02/18 07:20 Acanthocytes (Spur) Not Reportable 10/02/18 07:20 Rouleaux Not Reportable 10/02/18 07:20 Hemoglobin C Crystals Not Reportable 10/02/18 07:20 Schistocytes Not Reportable 10/02/18 07:20 Malaria parasites Not Reportable 10/02/18 07:20 Nicholas Bodies Not Reportable 10/02/18 07:20 Hem Pathologist Commnt No 10/02/18 07:20 PT 15.1 Sec. (12.2-14.9) H 10/09/18 05:09 INR 1.12 (0.87-1.13) 10/09/18 05:09 D-Dimer 1039.91 ng/mlDDU (0-234) H 10/02/18 21:01 Heparin Anti-Xa, Unfract Negative (Negative) 10/03/18 09:36 POC ABG pH 7.461 (7.35-7.45) H 10/12/18 08:36 POC ABG pCO2 32.3 (35-45) L 10/12/18 08:36 POC ABG pO2 54 (80-105) L 10/12/18 08:36 POC ABG HCO3 23.0 10/12/18 08:36 POC ABG Total CO2 24 10/12/18 08:36 POC ABG O2 Sat 90 10/12/18 08:36 POC ABG Base Excess -1 10/12/18 08:36 FiO2 21 % 10/12/18 08:36 Sodium 142 mmol/L (137-145) 10/08/18 04:11 Potassium 3.5 mmol/L (3.6-5.0) L 10/08/18 04:11 Chloride 106.4 mmol/L (98-107) 10/08/18 04:11 Carbon Dioxide 21 mmol/L (22-30) L 10/08/18 04:11 Anion Gap 18 mmol/L 10/08/18 04:11 BUN 21 mg/dL (9-20) H 10/08/18 04:11 Creatinine 0.7 mg/dL (0.8-1.5) L 10/08/18 04:11 Estimated GFR > 60 ml/min 10/08/18 04:11 BUN/Creatinine Ratio 30 % 10/08/18 04:11 Glucose 123 mg/dL (75-100) H 10/08/18 04:11 POC Glucose 122 (70-105) H 10/12/18 09:03 Lactic Acid 2.60 mmol/L (0.7-2.0) H* 10/03/18 04:13 Calcium 8.0 mg/dL (8.4-10.2) L 10/08/18 04:11 Magnesium 2.30 mg/dL (1.7-2.3) 10/02/18 18:04 Iron 29 ug/dL (49-181) L 10/09/18 05:09 TIBC 240 mcg/dL (250-450) L 10/09/18 05:09 Ferritin 124.9 ng/mL (13.0-400.0) 10/09/18 05:09 Total Bilirubin 0.50 mg/dL (0.1-1.2) 10/02/18 07:13 AST 20 units/L (5-40) 10/02/18 07:13 ALT 11 units/L (7-56) 10/02/18 07:13 Alkaline Phosphatase 100 units/L (35-129) 10/02/18 07:13 Troponin T < 0.010 ng/mL (0.00-0.029) 10/02/18 07:13 C-Reactive Protein 3.40 mg/dL (0.00-1.30) H 10/02/18 21:01 NT-Pro-B Natriuret Pep 3102 pg/mL (0-900) H 10/02/18 07:13 Total Protein 7.8 g/dL (6.3-8.2) 10/02/18 07:13 Albumin 3.9 g/dL (3.9-5) 10/02/18 07:13 Albumin/Globulin Ratio 1.0 % 10/02/18 07:13 TSH 0.417 mlU/mL (0.270-4.200) 10/02/18 18:04 Free T4 0.92 ng/dL (0.76-1.46) 10/02/18 18:04 Urine Color Straw (Yellow) 10/02/18 09:12 Urine Turbidity Clear (Clear) 10/02/18 09:12 Urine pH 5.0 (5.0-7.0) 10/02/18 09:12 Ur Specific [place] 1.006 (1.003-1.030) 10/02/18 09:12 Urine Protein 30 mg/dl mg/dL (Negative) 10/02/18 09:12 Urine Glucose (UA) 50 mg/dL (Negative) 10/02/18 09:12 Urine Ketones Neg mg/dL (Negative) 10/02/18 09:12 Urine Blood Neg (Negative) 10/02/18 09:12 Urine Nitrite Neg (Negative) 10/02/18 09:12 Urine Bilirubin Neg (Negative) 10/02/18 09:12 Urine Urobilinogen < 2.0 mg/dL (<2.0) 10/02/18 09:12 Ur Leukocyte Esterase Neg (Negative) 10/02/18 09:12 Urine WBC (Auto) 2.0 /HPF (0.0-6.0) 10/02/18 09:12 Urine RBC (Auto) 2.0 /HPF (0.0-6.0) 10/02/18 09:12 Urine Bacteria (Auto) 1+ /HPF (Negative) 10/02/18 09:12 Urine Yeast (Budding) Few /HPF 10/02/18 09:12 Heparin-induced Plt Ab Negative (Negative) 10/03/18 09:36 UF Heparin High Dose 0 % Release 10/03/18 09:36 JULES UFH Low Dose 0.1 0 % Release 10/03/18 09:36 JULES UFH Low Dose 0.5 0 % Release 10/03/18 09:36 Urine Legionella Ag Not detected (Not Detected) 10/03/18 14:32 Blood Type A NEGATIVE 10/02/18 08:51 Antibody Screen Negative 10/02/18 08:51 Nutrition/Malnutrition Assess - Dietary Evaluation Nutrition/Malnutrition Findings: Nutrition Notes Start: 10/03/18 12:55 Freq: Status: Active Protocol: Document 10/09/18 15:42 RM (Rec: 10/09/18 15:50 RM [id number]) Nutrition Notes Initial or Follow up Reassessment Current Diagnosis COPD Coronary Artery Disease Diabetes Sepsis Hypertension Heart Failure Respiratory Failure Stroke Other Pertinent Diagnosis Pneu Current Diet Consistent Carbohydrate Labs/Tests Reviewed Pertinent Medications Lasix Height 6 ft 2 in Weight 76.7 kg [place] Body Weight (kg) 86.36 BMI 21.7 Subjective/Other Information Pt NPO for upper endoscopy and colonoscopy. Pt confused at time of visit. Per tech pt ate 100% of meals before NPO status. Percent of energy/protein needs met: 31%/17% Burn Absent Trauma Absent #1 Nutrition Diagnosis Inadequate oral intake Diagnosis Progress(for reassessment Continues documentation) Is patient on ventilator? No Is Patient Ambulatory and/or Out of Bed No REE-([facility]-confined to bed) [phone] Calculation Used for Recommendations [facility] Additional Notes Pro needs 1.2-2g/k-153g/ day Fluid needs 1ml/kcal Nutrition Intervention Change Diet Order: Advance when medically able Add Supplement/Snack (indicate name/kcal Was not added previously. /protein ) Glucerna 1 daily Provides kCal: 220 Provides Protein (gm) 10 Goal #1 Meet at least 75% of kcal and pro needs via PO and ONS intakes Goal #2 Wt maintenance Anticipated Discharge Needs: Consistent CHO Follow-Up By: 10/13/18 Additional Comments F/U: PO and ONS intakes
[2018-10-12] MEDS: SODIUM CHLORIDE FLUSH SYRINGE 10 ML IV SCH ×3 (14:44→22:48)
[2018-10-12] MEDS: HEPARIN SUB-Q SCH ×2 (20:52→22:47)
[2018-10-13] MEDS: HEPARIN SUB-Q SCH ×4 (05:11→22:39)
[2018-10-13] MEDS: HumaLOG SUB-Q SCH ×4 (07:14→21:38)
--- NOTE | 2018-10-13 08:45 | Progress Note ---
Assessment and Plan Cultures: Blood culture 10/02/2018 negative Tracheal asp 10/02/2018 Pseudomonas MDR sensitive to cefepime, resistant to FQ, AG and aztreonam. Urine culture 10/02/2018 no growth Assessment: 68 y/o male with history of COPD, chronic systolic CHF, CVA, atrial fibrillation, anemia and CAD s/p CAB; admitted on 09/30/2018 due to worsening respiratory distress and AMS / lethargy: 1) SIRS versus Sepsis: Resolved. likely from COPD exacerbation with presumed pneumonia +/- heart failure. CRP 3.4. UA neg. Blood cultures negative so far. 2) COPD exacerbation with presumed pneumonia: CXR initially with severe emphysema and no infiltrates, but repeat CXR showed bilateral pneumonitis CT chest: No evidence of pulmonary arterial emboli. Bilateral lower lung infiltrates are identified, more pronounced on the right. Mild bilateral effusions. 3) Acute on chronic respiratory failure: from COPD/pneumonia/CHF, extubated 4) Acute encephalopathy: resolved Recommendations: - contact isolation due to MDR Pseudomonas - continue cefepime 2 gm IV q8h D9 - Anticipate discharge on cefepime 2 gm IV q8h until 10/19/18 - order revised and discussed with case management -Midline ordered [facility] M: [id number] O:[phone] Subjective Date of service: 10/13/18 Principal diagnosis: Ac on Ch Hypoxemic Hypercapnic Resp failure; AECOPD; CHF exacerbation; Afib Interval history: Patient seen and examined. Increased anxiety observed, wants to be discharged home. Discussion about outpatient antibiotic treatment, verbalized understanding. Objective - Exam Narrative Exam: Constitutional: Awake, alert, agitated. No acute distress Head, Ears, Nose: Normocephalic, atraumatic. External ears, nose normal Eyes: Conjunctivae/corneas clear. No icterus. No ptosis. Neck: Supple, no meningeal signs Oral: no thrush Cardiovascular: S1, S2 normal. Respiratory: Good air entry, clear to auscultation bilaterally GI: Soft, non-tender; bowel sounds normal. No peritoneal signs Musculoskeletal: No pedal edema, no cyanosis. Skin: No rash or abscess. Hem/Lymphatic: No palpable cervical or supraclavicular nodes. No lymphangitis Psych: Agitated Neurological: Awake, alert, oriented to person, place and time - Constitutional Vitals: Vital Signs Temp Pulse Resp BP Pulse Ox 97.8 F 93 H 20 93/50 96 10/12/18 20:07 10/12/18 22:58 10/12/18 22:58 10/12/18 22:47 10/12/18 22:58 Temperature -Last 24 Hours Temperature 97.8 F Temperature 97.9 F Temperature 97.5 F Temperature 97.4 F - Labs CBC & Chem 7: 10/09/18 05:09 10/08/18 04:11 Labs: Abnormal lab results 10/12/18 10/12/18 10/12/18 Range/Units 08:36 09:03 21:43 POC ABG pH 7.461 H (7.35-7.45) POC ABG pCO2 32.3 L (35-45) POC ABG pO2 54 L (80-105) POC Glucose 122 H 136 H (70-105)
[2018-10-13] MEDS: MAXIPIME/NS 2 GM/100 ML 2 GM/100 ML BAG IV SCH ×3 (08:54→22:40)
[2018-10-13] MEDS: SODIUM CHLORIDE FLUSH SYRINGE 10 ML IV SCH ×3 (09:02→22:41)
[2018-10-13] MEDS: PEPCID PO SCH ×3 (09:02→22:40)
[2018-10-13] MEDS: PROTONIX PO SCH (09:02)
[2018-10-13] MEDS: SENOKOT PO SCH ×2 (09:02→21:48)
[2018-10-13] MEDS: LASIX PO SCH (09:03)
[2018-10-13] MEDS: HABITROL TD SCH (09:04)
[2018-10-13] MEDS: LOPRESSOR PO SCH ×3 (09:08→22:40)
[2018-10-13] MEDS: ZESTRIL PO SCH (09:08)
[2018-10-13] MEDS: DUONEB *Not for PRN Use IH SCH ×3 (09:53→20:30)
[2018-10-13] MEDS: PULMICORT IH SCH ×2 (09:56→20:28)
[2018-10-13] MEDS: BROVANA NEBU IH SCH ×2 (09:56→20:28)
--- NOTE | 2018-10-13 10:34 | Progress Note ---
Assessment and Plan Currently stable cardiac status. Per GI team, patient would benefit from EGD/Colon prior to needing anticoagulation, however despite multiple discussions he declines. Pt would benefit from systemic AC (Eliquis 5mg BID) in regards to atrial fibrillation. This morning, we attempted again to discuss this topic and pt states "I don't want nothing. I want to be left alone." Will not initiate AC at this time. Currently stable cardiac status. Cont present cardiac management. Will follow on as needed basis. Recommend pt follow up with Dr. Keller within 3-5 days of hospital discharge ([phone]). The patient has been seen in conjunction with Dr. Larsen who agrees with the assessment and plan of care. - Patient Problems (1) Acute respiratory failure Current Visit: Yes Status: Acute (2) Atrial fibrillation with rapid ventricular response Current Visit: Yes Status: Acute (3) Acute HFrEF (heart failure with reduced ejection fraction) Current Visit: Yes Status: Acute (4) Cardiomyopathy Current Visit: Yes Status: Chronic (5) COPD with acute exacerbation Current Visit: Yes Status: Acute (6) Pneumonia Current Visit: Yes Status: Suspected (7) CAD (coronary artery disease) Current Visit: Yes Status: Chronic (8) S/P CABG (coronary artery bypass graft) Current Visit: Yes Status: Chronic (9) Anemia Current Visit: Yes Status: Acute Qualifiers: Anemia type: iron deficiency (10) Thrombocytopenia Current Visit: Yes Status: Acute Subjective Date of service: 10/13/18 Principal diagnosis: Ac on Ch Hypoxemic Hypercapnic Resp failure; AECOPD; CHF exacerbation; Afib Interval history: pt resting in bed, agitated. Objective Last Vital Signs Temp 97.8 F 10/12/18 20:07 Pulse 88 10/13/18 09:53 Resp 18 10/13/18 09:53 BP 93/50 10/12/18 22:47 Pulse Ox 96 10/12/18 22:58 - Physical Examination General: No Apparent Distress HEENT: Positive: PERRL, Normocephaly, Mucus Membranes Moist Neck: Positive: neck supple Cardiac: Positive: irregularly irregular, S1/S2 Lungs: Positive: Decreased Breath Sounds Neuro: Positive: Grossly Intact Abdomen: Positive: Soft. Negative: Tender Skin: Negative: Rash Extremities: Absent: edema - Imaging and Cardiology EKG: report reviewed, image reviewed Echo: report reviewed (09/2018: EF 25-30%, abnormal diastolic function, trace MR. ) - Allied health notes Allied health notes reviewed: nursing
--- NOTE | 2018-10-13 13:42 | Progress Note ---
Assessment and Plan Patient awake. Resting on 2 litres O2. O2 saturation 98%. No acute respiratory distress.Says feeling tired. Denies chest pain, shortness of breath or cough. OC ABG pH 7.461 (7.35-7.45) H 10/12/18 08:36 POC ABG pCO2 32.3 (35-45) L 10/12/18 08:36 POC ABG pO2 54 (80-105) L 10/12/18 08:36 POC ABG HCO3 23.0 10/12/18 08:36 POC ABG Total CO2 24 10/12/18 08:36 POC ABG O2 Sat 90 10/12/18 08:36 Patient is also candidate for home O2. Recommend O2 2 litres via nasal canula. - Patient Problems (1) Acute HFrEF (heart failure with reduced ejection fraction) Current Visit: Yes Status: Acute Plan to address problem: Management as per primary care and cardiology. (2) Acute respiratory failure with hypoxia Current Visit: Yes Status: Acute Plan to address problem: O2 2 litres via nasal canula. Brovanna/budesonide aerosol treatments q 12 hours. Albuterol/atrovent aerosol treatments q 6 hours prn for shortness of breath. SCDs. Continue famotidine. (3) Atrial fibrillation with rapid ventricular response Current Visit: Yes Status: Acute Plan to address problem: Management as per cardiology. (4) COPD with acute exacerbation Current Visit: Yes Status: Acute Plan to address problem: O2 2 litres via nasal canula. Brovanna/budesonide aerosol treatments q 12 hours. Albuterol/atrovent aerosol treatments q 6 hours prn for shortness of breath. SCDs. Continue famotidine Counselled to stop smoking. Recommend PFTs as out patient. (5) S/P CABG (coronary artery bypass graft) Current Visit: Yes Status: Chronic Plan to address problem: Management as per cardiology (6) Anemia Current Visit: Yes Status: Acute Qualifiers: Anemia type: iron deficiency Plan to address problem: Management as per primary care. Subjective Date of service: 10/13/18 Principal diagnosis: Ac on Ch Hypoxemic Hypercapnic Resp failure; AECOPD; CHF exacerbation; Afib Interval history: Patient awake. Resting on 2 litres O2. O2 saturation 98%. No acute respiratory distress.Says feeling tired. Denies chest pain, shortness of breath or cough. OC ABG pH 7.461 (7.35-7.45) H 10/12/18 08:36 POC ABG pCO2 32.3 (35-45) L 10/12/18 08:36 POC ABG pO2 54 (80-105) L 10/12/18 08:36 POC ABG HCO3 23.0 10/12/18 08:36 POC ABG Total CO2 24 10/12/18 08:36 POC ABG O2 Sat 90 10/12/18 08:36 Patient is also candidate for home O2. Recommend O2 2 litres via nasal canula. Objective Vital Signs - 12hr 10/13/18 10/13/18 07:45 09:53 Temperature 98.0 F Pulse Rate 77 Pulse Rate [ 88 Right Dorsalis Pedis] Respiratory 20 18 Rate Blood Pressure 94/54 O2 Sat by Pulse 99 Oximetry Constitutional: no acute distress, alert Eyes: non-icteric ENT: oropharynx moist Neck: supple, no lymphadenopathy, no JVD, other (no thyromegaly) Effort: mildly labored Ascultation: Bilateral: diminished breath sounds, rhonchi, other (+ barrel chest) Percussion: Bilateral: not dull Cardiovascular: irregular rhythm, other (S1,S2) Gastrointestinal: normoactive bowel sounds, soft, non-tender, non-distended Integumentary: normal, other (post CABG sternotomy scar) Extremities: no cyanosis, no edema, pink and warm, pulses normal, no ischemia or petechiae Neurologic: normal mental status, non-focal exam (grossly), pupils equal and round Psychiatric: depressed CBC and BMP: 10/09/18 05:09 10/08/18 04:11 ABG, PT/INR, D-dimer: ABG POC ABG pH 7.461 (7.35-7.45) H 10/12/18 08:36 POC ABG pCO2 32.3 (35-45) L 10/12/18 08:36 POC ABG pO2 54 (80-105) L 10/12/18 08:36 POC ABG HCO3 23.0 10/12/18 08:36 POC ABG Total CO2 24 10/12/18 08:36 POC ABG O2 Sat 90 10/12/18 08:36 PT/INR, D-dimer PT 15.1 Sec. (12.2-14.9) H 10/09/18 05:09 INR 1.12 (0.87-1.13) 10/09/18 05:09 D-Dimer 1039.91 ng/mlDDU (0-234) H 10/02/18 21:01 Abnormal lab findings: Abnormal Labs 10/02/18 10/02/18 10/02/18 07:13 07:20 07:22 WBC 19.7 H Hgb 10.9 L Hct MCV 75 L MCH 23 L MCHC 31 L RDW 21.7 H Plt Count Lymph % (Auto) [place] % (Auto) Eos % (Auto) Lymph # [place] # Eos # Seg Neutrophils % Seg Neutrophils # Seg Neutrophils # Man 13.2 H Monocytes # (Manual) 1.2 H PT 15.0 H D-Dimer POC ABG pH POC ABG pCO2 POC ABG pO2 Sodium Potassium 5.2 H D Carbon Dioxide 19 L BUN Creatinine Glucose 340 H POC Glucose Lactic Acid Calcium Iron TIBC C-Reactive Protein NT-Pro-B Natriuret Pep 3102 H 10/02/18 10/02/18 10/02/18 08:32 09:26 12:28 WBC Hgb Hct MCV MCH MCHC RDW Plt Count Lymph % (Auto) [place] % (Auto) Eos % (Auto) Lymph # [place] # Eos # Seg Neutrophils % Seg Neutrophils # Seg Neutrophils # Man Monocytes # (Manual) PT D-Dimer POC ABG pH 7.201 L 7.254 L POC ABG pCO2 61.2 H 54.3 H POC ABG pO2 150 H 196 H Sodium Potassium Carbon Dioxide BUN Creatinine Glucose POC Glucose Lactic Acid 3.00 H* Calcium Iron TIBC C-Reactive Protein NT-Pro-B Natriuret Pep 10/02/18 10/02/18 10/02/18 20:43 21:01 21:01 WBC Hgb Hct MCV MCH MCHC RDW Plt Count Lymph % (Auto) [place] % (Auto) Eos % (Auto) Lymph # [place] # Eos # Seg Neutrophils % Seg Neutrophils # Seg Neutrophils # Man Monocytes # (Manual) PT D-Dimer 1039.91 H POC ABG pH 7.307 L POC ABG pCO2 45.6 H POC ABG pO2 107 H Sodium Potassium Carbon Dioxide BUN Creatinine Glucose POC Glucose Lactic Acid Calcium Iron TIBC C-Reactive Protein 3.40 H NT-Pro-B Natriuret Pep 10/02/18 10/03/18 10/03/18 21:01 00:14 04:13 WBC 13.6 H Hgb 10.6 L Hct 34.5 L MCV 74 L MCH 23 L MCHC 31 L RDW 21.3 H Plt Count 134 L Lymph % (Auto) 6.0 L [place] % (Auto) 10.6 H Eos % (Auto) Lymph # 0.8 L [place] # 1.4 H Eos # Seg Neutrophils % 83.1 H Seg Neutrophils # 11.3 H Seg Neutrophils # Man Monocytes # (Manual) PT D-Dimer POC ABG pH POC ABG pCO2 POC ABG pO2 Sodium Potassium Carbon Dioxide BUN Creatinine Glucose POC Glucose 164 H Lactic Acid 2.80 H* Calcium Iron TIBC C-Reactive Protein NT-Pro-B Natriuret Pep 10/03/18 10/03/18 10/03/18 04:13 04:13 04:47 WBC Hgb Hct MCV MCH MCHC RDW Plt Count Lymph % (Auto) [place] % (Auto) Eos % (Auto) Lymph # [place] # Eos # Seg Neutrophils % Seg Neutrophils # Seg Neutrophils # Man Monocytes # (Manual) PT D-Dimer POC ABG pH POC ABG pCO2 POC ABG pO2 Sodium 136 L Potassium Carbon Dioxide 18 L BUN 29 H Creatinine Glucose 168 H POC Glucose 182 H Lactic Acid 2.60 H* Calcium 8.3 L Iron TIBC C-Reactive Protein NT-Pro-B Natriuret Pep 10/03/18 10/03/18 10/03/18 05:47 11:39 16:56 WBC Hgb Hct MCV MCH MCHC RDW Plt Count Lymph % (Auto) [place] % (Auto) Eos % (Auto) Lymph # [place] # Eos # Seg Neutrophils % Seg Neutrophils # Seg Neutrophils # Man Monocytes # (Manual) PT D-Dimer POC ABG pH 7.314 L POC ABG pCO2 45.9 H POC ABG pO2 Sodium Potassium Carbon Dioxide BUN Creatinine Glucose POC Glucose 134 H 118 H Lactic Acid Calcium Iron TIBC C-Reactive Protein NT-Pro-B Natriuret Pep 10/03/18 10/04/18 10/04/18 23:13 05:20 05:44 WBC Hgb Hct MCV MCH MCHC RDW Plt Count Lymph % (Auto) [place] % (Auto) Eos % (Auto) Lymph # [place] # Eos # Seg Neutrophils % Seg Neutrophils # Seg Neutrophils # Man Monocytes # (Manual) PT D-Dimer POC ABG pH POC ABG pCO2 POC ABG pO2 68 L Sodium Potassium Carbon Dioxide BUN Creatinine Glucose POC Glucose 129 H 166 H Lactic Acid Calcium Iron TIBC C-Reactive Protein NT-Pro-B Natriuret Pep 10/04/18 10/04/18 10/04/18 08:04 08:04 11:56 WBC Hgb 9.1 L Hct 28.7 L MCV 72 L MCH 23 L MCHC RDW 21.6 H Plt Count 126 L Lymph % (Auto) [place] % (Auto) Eos % (Auto) Lymph # [place] # Eos # Seg Neutrophils % Seg Neutrophils # Seg Neutrophils # Man Monocytes # (Manual) PT D-Dimer POC ABG pH POC ABG pCO2 POC ABG pO2 Sodium Potassium Carbon Dioxide BUN 26 H Creatinine Glucose 167 H POC Glucose 176 H Lactic Acid Calcium 8.2 L Iron TIBC C-Reactive Protein NT-Pro-B Natriuret Pep 10/04/18 10/04/18 10/05/18 13:21 17:12 00:02 WBC Hgb Hct MCV MCH MCHC RDW Plt Count Lymph % (Auto) [place] % (Auto) Eos % (Auto) Lymph # [place] # Eos # Seg Neutrophils % Seg Neutrophils # Seg Neutrophils # Man Monocytes # (Manual) PT D-Dimer POC ABG pH 7.462 H POC ABG pCO2 33.5 L POC ABG pO2 59 L Sodium Potassium Carbon Dioxide BUN Creatinine Glucose POC Glucose 164 H 211 H Lactic Acid Calcium Iron TIBC C-Reactive Protein NT-Pro-B Natriuret Pep 10/05/18 10/05/18 10/05/18 05:13 12:06 12:11 WBC Hgb Hct MCV MCH MCHC RDW Plt Count Lymph % (Auto) [place] % (Auto) Eos % (Auto) Lymph # [place] # Eos # Seg Neutrophils % Seg Neutrophils # Seg Neutrophils # Man Monocytes # (Manual) PT D-Dimer POC ABG pH 7.462 H POC ABG pCO2 POC ABG pO2 66 L Sodium Potassium Carbon Dioxide BUN Creatinine Glucose POC Glucose 190 H 185 H Lactic Acid Calcium Iron TIBC C-Reactive Protein NT-Pro-B Natriuret Pep 10/05/18 10/05/18 10/06/18 18:13 23:49 04:19 WBC Hgb 9.8 L Hct 30.5 L MCV 73 L MCH 23 L MCHC RDW 21.0 H Plt Count Lymph % (Auto) [place] % (Auto) Eos % (Auto) Lymph # [place] # Eos # Seg Neutrophils % Seg Neutrophils # Seg Neutrophils # Man Monocytes # (Manual) PT D-Dimer POC ABG pH POC ABG pCO2 POC ABG pO2 Sodium Potassium Carbon Dioxide BUN Creatinine Glucose POC Glucose 177 H 192 H Lactic Acid Calcium Iron TIBC C-Reactive Protein NT-Pro-B Natriuret Pep 10/06/18 10/06/18 10/06/18 04:19 05:00 12:05 WBC Hgb Hct MCV MCH MCHC RDW Plt Count Lymph % (Auto) [place] % (Auto) Eos % (Auto) Lymph # [place] # Eos # Seg Neutrophils % Seg Neutrophils # Seg Neutrophils # Man Monocytes # (Manual) PT D-Dimer POC ABG pH POC ABG pCO2 POC ABG pO2 Sodium Potassium 3.4 L Carbon Dioxide BUN 21 H Creatinine 0.7 L Glucose 133 H POC Glucose 135 H 206 H Lactic Acid Calcium Iron TIBC C-Reactive Protein NT-Pro-B Natriuret Pep 10/06/18 10/06/18 10/06/18 12:12 16:31 21:13 WBC Hgb Hct MCV MCH MCHC RDW Plt Count Lymph % (Auto) [place] % (Auto) Eos % (Auto) Lymph # [place] # Eos # Seg Neutrophils % Seg Neutrophils # Seg Neutrophils # Man Monocytes # (Manual) PT D-Dimer POC ABG pH POC ABG pCO2 POC ABG pO2 Sodium Potassium Carbon Dioxide BUN Creatinine Glucose POC Glucose 216 H 141 H 308 H Lactic Acid Calcium Iron TIBC C-Reactive Protein NT-Pro-B Natriuret Pep 10/07/18 10/07/18 10/08/18 08:37 11:32 04:11 WBC Hgb 9.3 L Hct 29.4 L MCV 72 L MCH 23 L MCHC RDW 20.9 H Plt Count Lymph % (Auto) [place] % (Auto) Eos % (Auto) Lymph # [place] # Eos # Seg Neutrophils % Seg Neutrophils # Seg Neutrophils # Man Monocytes # (Manual) PT D-Dimer POC ABG pH POC ABG pCO2 POC ABG pO2 Sodium Potassium Carbon Dioxide BUN Creatinine Glucose POC Glucose 233 H 220 H Lactic Acid Calcium Iron TIBC C-Reactive Protein NT-Pro-B Natriuret Pep 10/08/18 10/08/18 10/08/18 04:11 16:20 20:28 WBC Hgb Hct MCV MCH MCHC RDW Plt Count Lymph % (Auto) [place] % (Auto) Eos % (Auto) Lymph # [place] # Eos # Seg Neutrophils % Seg Neutrophils # Seg Neutrophils # Man Monocytes # (Manual) PT D-Dimer POC ABG pH POC ABG pCO2 POC ABG pO2 Sodium Potassium 3.5 L Carbon Dioxide 21 L BUN 21 H Creatinine 0.7 L Glucose 123 H POC Glucose 157 H 210 H Lactic Acid Calcium 8.0 L Iron TIBC C-Reactive Protein NT-Pro-B Natriuret Pep 10/09/18 10/09/18 10/09/18 05:09 05:09 05:09 WBC Hgb 9.1 L Hct 28.6 L MCV 71 L MCH 23 L MCHC RDW 20.2 H Plt Count Lymph % (Auto) [place] % (Auto) 10.2 H Eos % (Auto) 6.7 H Lymph # [place] # Eos # 0.5 H Seg Neutrophils % Seg Neutrophils # Seg Neutrophils # Man Monocytes # (Manual) PT 15.1 H D-Dimer POC ABG pH POC ABG pCO2 POC ABG pO2 Sodium Potassium Carbon Dioxide BUN Creatinine Glucose POC Glucose Lactic Acid Calcium Iron 29 L TIBC 240 L C-Reactive Protein NT-Pro-B Natriuret Pep 10/09/18 10/09/18 10/09/18 08:22 12:26 16:02 WBC Hgb Hct MCV MCH MCHC RDW Plt Count Lymph % (Auto) [place] % (Auto) Eos % (Auto) Lymph # [place] # Eos # Seg Neutrophils % Seg Neutrophils # Seg Neutrophils # Man Monocytes # (Manual) PT D-Dimer POC ABG pH POC ABG pCO2 POC ABG pO2 Sodium Potassium Carbon Dioxide BUN Creatinine Glucose POC Glucose 120 H 319 H 138 H Lactic Acid Calcium Iron TIBC C-Reactive Protein NT-Pro-B Natriuret Pep 10/09/18 10/10/18 10/11/18 22:49 21:40 10:05 WBC Hgb Hct MCV MCH MCHC RDW Plt Count Lymph % (Auto) [place] % (Auto) Eos % (Auto) Lymph # [place] # Eos # Seg Neutrophils % Seg Neutrophils # Seg Neutrophils # Man Monocytes # (Manual) PT D-Dimer POC ABG pH POC ABG pCO2 POC ABG pO2 Sodium Potassium Carbon Dioxide BUN Creatinine Glucose POC Glucose 130 H 122 H 191 H Lactic Acid Calcium Iron TIBC C-Reactive Protein NT-Pro-B Natriuret Pep 10/11/18 10/11/18 10/11/18 11:55 16:13 21:38 WBC Hgb Hct MCV MCH MCHC RDW Plt Count Lymph % (Auto) [place] % (Auto) Eos % (Auto) Lymph # [place] # Eos # Seg Neutrophils % Seg Neutrophils # Seg Neutrophils # Man Monocytes # (Manual) PT D-Dimer POC ABG pH POC ABG pCO2 POC ABG pO2 Sodium Potassium Carbon Dioxide BUN Creatinine Glucose POC Glucose 158 H 168 H 171 H Lactic Acid Calcium Iron TIBC C-Reactive Protein NT-Pro-B Natriuret Pep 10/12/18 10/12/18 10/12/18 08:36 09:03 21:43 WBC Hgb Hct MCV MCH MCHC RDW Plt Count Lymph % (Auto) [place] % (Auto) Eos % (Auto) Lymph # [place] # Eos # Seg Neutrophils % Seg Neutrophils # Seg Neutrophils # Man Monocytes # (Manual) PT D-Dimer POC ABG pH 7.461 H POC ABG pCO2 32.3 L POC ABG pO2 54 L Sodium Potassium Carbon Dioxide BUN Creatinine Glucose POC Glucose 122 H 136 H Lactic Acid Calcium Iron TIBC C-Reactive Protein NT-Pro-B Natriuret Pep Allied health notes reviewed: nursing
--- NOTE | 2018-10-13 14:19 | Progress Note ---
Assessment and Plan Acute Respiratory failure with Hypoxia/hypercapneia s./p Mechanical ventilation, now extubated - Likely due to COPD exacerbation and pseudomonas pneumonia - Continue duo nebs and supplemental oxygen as needed Hypertensive urgency, BP much stable now on current medications Acute Systolic Congestive heart failure with possible combined diastolic dysfunction-Precluding fluids administration - History of Cardiomyopathy with EF OF 25-30% s/p CABG Sepsis-POA secondary PNA with pseudomonas, - ID following plan to treat with cefepime until 10/19/2018 - Blood cultures NO GROWTH COPD with acute exacerbation secondary to pneumonia - Continue nebs/supplemental oxygen as needed and continue to treat underlying pneumonia Thrombocytopenia, resolved Atrial Fibrillation with RVR - Rate controlled, not a suitable candidate for anticoagulation because of risk of noncompliance and GI bleeding - Cardiology following Leukocytosis, due to sepsis, trended down Hyperkalemia,resolved DM with Hyperglycemia, continue consistent carb diet and SSI Iron deficiency anemia, monitor H&H, continue to replace iron - Patient refuses to get prepped for colonoscopy History of CVA, continue aspirin and statin Brief history: Patient is a 68-year-old male with past medical history from records shows COPD, chronic systolic CHF, CVA, atrial fibrillation, iron deficiency anemia and CAD s/p CABG who presents with severe respiratory distress. Patient was noted to be lethargic with severe increased work of breathing and was intubated in the ED and placed on mechanical ventilation. The ED documentation the medication list reveals the patient also lives in a senior living house. Patient clinically and symptomatically improved, was extubated. Cardiology recommends full anticoagulation for his atrial fibrillation but he is anemic therefore GI consulted for workup. However after multiple attempts patient refuses to drink prep for colonoscopy.He will be dc on anticoag per cardiology. Also needs Cefepime iv for 3 weeks until 10/19/18. He has been refusing the discussion for anticoagulation and risk remains to be very noncompliant. His disposition now pending on insurance approval for IV antibiotic and home health services following discharge. Hospitalist Physical GEN: Not in acute distress, lying in bed HEENT: Normocephalic, atraumatic, Neck: supple, No JVD Lungs: Clear to auscultation bilaterally, no crackles or wheeze Heart:S1 and S2 irreg, irreg, no rubs or gallop, Abd:soft, non tender, non distended, normal bowel sounds Ext: No edema, no clubbing or cyanosis Neuro: awake,alert,oriented, no focal signs Psych: Appears irritated Skin: No rash Subjective Date of service: 10/13/18 Principal diagnosis: Ac on Ch Hypoxemic Hypercapnic Resp failure; AECOPD; CHF exacerbation; Afib Interval history: Patient seen and examined. Medical records and medication list reviewed. No acute event overnight noted by the RN. Patient denies any chest pain or difficulty breathing. Patient is tolerating diet. Appears very irritated and wants to go home Does not to want to discuss about anticoagulation Objective - Constitutional Vitals: Vital Signs - 12hr 10/13/18 10/13/18 10/13/18 07:45 09:53 10:00 Temperature 98.0 F Pulse Rate 77 Pulse Rate [ Anterior Bilateral] Pulse Rate [ 88 Right Dorsalis Pedis] Pulse Rate [ Throughout] Respiratory 20 18 Rate Respiratory Rate [Anterior Bilateral] Respiratory Rate [ Throughout] Blood Pressure 94/54 O2 Sat by Pulse 99 94 Oximetry 10/13/18 14:00 Temperature Pulse Rate Pulse Rate [ 84 Anterior Bilateral] Pulse Rate [ Right Dorsalis Pedis] Pulse Rate [ 88 Throughout] Respiratory Rate Respiratory 18 Rate [Anterior Bilateral] Respiratory 16 Rate [ Throughout] Blood Pressure O2 Sat by Pulse Oximetry - Labs CBC & Chem 7: 10/09/18 05:09 10/08/18 04:11 Labs: Abnormal lab results 10/12/18 Range/Units 21:43 POC Glucose 136 H (70-105)
[2018-10-14] MEDS: HEPARIN SUB-Q SCH ×3 (06:00→22:37)
[2018-10-14] MEDS: MAXIPIME/NS 2 GM/100 ML 2 GM/100 ML BAG IV SCH ×3 (06:00→22:36)
[2018-10-14] MEDS: HumaLOG SUB-Q SCH ×4 (07:40→22:51)
[2018-10-14] MEDS: BROVANA NEBU IH SCH ×2 (08:00→19:50)
[2018-10-14] MEDS: DUONEB *Not for PRN Use IH SCH ×3 (08:01→19:50)
[2018-10-14] MEDS: PULMICORT IH SCH ×2 (08:01→19:49)
[2018-10-14] MEDS: SENOKOT PO SCH ×2 (08:59→22:40)
[2018-10-14] MEDS: PROTONIX PO SCH (08:59)
[2018-10-14] MEDS: LOPRESSOR PO SCH ×2 (08:59→22:36)
[2018-10-14] MEDS: LASIX PO SCH (08:59)
[2018-10-14] MEDS: PEPCID PO SCH ×2 (08:59→22:40)
[2018-10-14] MEDS: HABITROL TD SCH (08:59)
[2018-10-14] MEDS: ZESTRIL PO SCH (09:00)
[2018-10-14] MEDS: SODIUM CHLORIDE FLUSH SYRINGE 10 ML IV SCH ×2 (09:00→22:36)
--- NOTE | 2018-10-14 09:21 | Progress Note ---
Assessment and Plan Cultures: Blood culture 10/02/2018 negative Tracheal asp 10/02/2018 Pseudomonas MDR sensitive to cefepime, resistant to FQ, AG and aztreonam. Urine culture 10/02/2018 no growth Assessment: 68 y/o male with history of COPD, chronic systolic CHF, CVA, atrial fibrillation, anemia and CAD s/p CAB; admitted on 09/30/2018 due to worsening respiratory distress and AMS / lethargy: 1) SIRS versus Sepsis: Resolved. likely from COPD exacerbation with presumed pneumonia +/- heart failure. CRP 3.4. UA neg. Blood cultures negative so far. 2) COPD exacerbation with presumed pneumonia: CXR initially with severe emphysema and no infiltrates, but repeat CXR showed bilateral pneumonitis CT chest: No evidence of pulmonary arterial emboli. Bilateral lower lung infiltrates are identified, more pronounced on the right. Mild bilateral effusions. 3) Acute on chronic respiratory failure: from COPD/pneumonia/CHF, extubated 4) Acute encephalopathy: resolved Recommendations: - contact isolation due to MDR Pseudomonas - continue cefepime 2 gm IV q8h D8 - Anticipate discharge on cefepime 2 gm IV q8h until 10/19/18 - order revised and discussed with case management [facility] M: [id number] O:[phone] Subjective Date of service: 10/14/18 Principal diagnosis: Ac on Ch Hypoxemic Hypercapnic Resp failure; AECOPD; CHF exacerbation; Afib Interval history: Patient seen and examined. Asleep, easily arousable, no acute distress observed. Objective - Exam Narrative Exam: Constitutional: Asleep, easily arousable. No acute distress Head, Ears, Nose: Normocephalic, atraumatic. External ears, nose normal Eyes: Conjunctivae/corneas clear. No icterus. No ptosis. Neck: Supple, no meningeal signs Oral: no thrush Cardiovascular: S1, S2 normal. Respiratory: Good air entry, clear to auscultation bilaterally GI: Soft, non-tender; bowel sounds normal. No peritoneal signs Musculoskeletal: No pedal edema, no cyanosis. Skin: No rash or abscess. Hem/Lymphatic: No palpable cervical or supraclavicular nodes. No lymphangitis Psych:affect: flat Neurological: Awake, alert, oriented to person, place and time Lines: Right PICC - Constitutional Vitals: Vital Signs Temp Pulse Resp BP Pulse Ox 98.0 F 74 20 107/50 95 10/14/18 07:59 10/14/18 08:59 10/14/18 08:12 10/14/18 08:59 10/14/18 08:13 Temperature -Last 24 Hours Temperature 98.0 F Temperature 98.5 F Temperature 98.1 F - Labs CBC & Chem 7: 10/09/18 05:09 10/08/18 04:11
--- NOTE | 2018-10-14 13:15 | Progress Note ---
Assessment and Plan Patient awake. Not using his O2.. O2 saturation 97% on 2 litres O2. No acute respiratory distress.Says feeling tired. Denies chest pain, shortness of breath or cough. OC ABG pH 7.461 (7.35-7.45) H 10/12/18 08:36 POC ABG pCO2 32.3 (35-45) L 10/12/18 08:36 POC ABG pO2 54 (80-105) L 10/12/18 08:36 POC ABG HCO3 23.0 10/12/18 08:36 POC ABG Total CO2 24 10/12/18 08:36 POC ABG O2 Sat 90 10/12/18 08:36 Patient is also candidate for home O2. Recommend O2 2 litres via nasal canula. - Patient Problems (1) Acute HFrEF (heart failure with reduced ejection fraction) Current Visit: Yes Status: Acute Plan to address problem: Management as per primary care and cardiology. (2) Acute respiratory failure with hypoxia Current Visit: Yes Status: Acute Plan to address problem: O2 2 litres via nasal canula. Brovanna/budesonide aerosol treatments q 12 hours. Albuterol/atrovent aerosol treatments q 6 hours prn for shortness of breath. SCDs. Continue famotidine. (3) Atrial fibrillation with rapid ventricular response Current Visit: Yes Status: Acute Plan to address problem: Management as per cardiology. (4) COPD with acute exacerbation Current Visit: Yes Status: Acute Plan to address problem: O2 2 litres via nasal canula. Brovanna/budesonide aerosol treatments q 12 hours. Albuterol/atrovent aerosol treatments q 6 hours prn for shortness of breath. SCDs. Continue famotidine Counselled to stop smoking. Recommend PFTs as out patient. (5) S/P CABG (coronary artery bypass graft) Current Visit: Yes Status: Chronic Plan to address problem: Management as per cardiology (6) Anemia Current Visit: Yes Status: Acute Qualifiers: Anemia type: iron deficiency Plan to address problem: Management as per primary care. Subjective Date of service: 10/14/18 Principal diagnosis: Ac on Ch Hypoxemic Hypercapnic Resp failure; AECOPD; CHF exacerbation; Afib Interval history: Patient awake. Not using his O2.. O2 saturation 97% on 2 litres O2. No acute respiratory distress.Says feeling tired. Denies chest pain, shortness of breath or cough. OC ABG pH 7.461 (7.35-7.45) H 10/12/18 08:36 POC ABG pCO2 32.3 (35-45) L 10/12/18 08:36 POC ABG pO2 54 (80-105) L 10/12/18 08:36 POC ABG HCO3 23.0 10/12/18 08:36 POC ABG Total CO2 24 10/12/18 08:36 POC ABG O2 Sat 90 10/12/18 08:36 Patient is also candidate for home O2. Recommend O2 2 litres via nasal canula. Objective Vital Signs - 12hr 10/14/18 10/14/18 10/14/18 07:59 08:01 08:12 Temperature 98.0 F Pulse Rate 94 H Pulse Rate [ Right Radial] Pulse Rate [ 94 H 96 H Throughout] Respiratory 18 Rate Respiratory 20 20 Rate [ Throughout] Blood Pressure 127/74 O2 Sat by Pulse 95 Oximetry 10/14/18 10/14/18 10/14/18 08:13 08:59 09:53 Temperature Pulse Rate 74 Pulse Rate [ 72 Right Radial] Pulse Rate [ Throughout] Respiratory 18 Rate Respiratory Rate [ Throughout] Blood Pressure 107/50 O2 Sat by Pulse 95 95 Oximetry Constitutional: no acute distress, alert Eyes: non-icteric ENT: oropharynx moist Neck: supple, no lymphadenopathy, no JVD, other (no thyromegaly) Effort: mildly labored Ascultation: Bilateral: diminished breath sounds, rhonchi, other (+ barrel chest) Percussion: Bilateral: not dull Cardiovascular: irregular rhythm, other (S1,S2) Gastrointestinal: normoactive bowel sounds, soft, non-tender, non-distended Integumentary: normal, other (post CABG sternotomy scar) Extremities: no cyanosis, no edema, pink and warm, pulses normal, no ischemia or petechiae Neurologic: normal mental status, non-focal exam (grossly), pupils equal and round Psychiatric: depressed CBC and BMP: 10/09/18 05:09 10/08/18 04:11 ABG, PT/INR, D-dimer: ABG POC ABG pH 7.461 (7.35-7.45) H 10/12/18 08:36 POC ABG pCO2 32.3 (35-45) L 10/12/18 08:36 POC ABG pO2 54 (80-105) L 10/12/18 08:36 POC ABG HCO3 23.0 10/12/18 08:36 POC ABG Total CO2 24 10/12/18 08:36 POC ABG O2 Sat 90 10/12/18 08:36 PT/INR, D-dimer PT 15.1 Sec. (12.2-14.9) H 10/09/18 05:09 INR 1.12 (0.87-1.13) 10/09/18 05:09 D-Dimer 1039.91 ng/mlDDU (0-234) H 10/02/18 21:01 Abnormal lab findings: Abnormal Labs 10/02/18 10/02/18 10/02/18 07:13 07:20 07:22 WBC 19.7 H Hgb 10.9 L Hct MCV 75 L MCH 23 L MCHC 31 L RDW 21.7 H Plt Count Lymph % (Auto) Miner % (Auto) Eos % (Auto) Lymph # Miner # Eos # Seg Neutrophils % Seg Neutrophils # Seg Neutrophils # Man 13.2 H Monocytes # (Manual) 1.2 H PT 15.0 H D-Dimer POC ABG pH POC ABG pCO2 POC ABG pO2 Sodium Potassium 5.2 H D Carbon Dioxide 19 L BUN Creatinine Glucose 340 H POC Glucose Lactic Acid Calcium Iron TIBC C-Reactive Protein NT-Pro-B Natriuret Pep 3102 H 10/02/18 10/02/18 10/02/18 08:32 09:26 12:28 WBC Hgb Hct MCV MCH MCHC RDW Plt Count Lymph % (Auto) Miner % (Auto) Eos % (Auto) Lymph # Miner # Eos # Seg Neutrophils % Seg Neutrophils # Seg Neutrophils # Man Monocytes # (Manual) PT D-Dimer POC ABG pH 7.201 L 7.254 L POC ABG pCO2 61.2 H 54.3 H POC ABG pO2 150 H 196 H Sodium Potassium Carbon Dioxide BUN Creatinine Glucose POC Glucose Lactic Acid 3.00 H* Calcium Iron TIBC C-Reactive Protein NT-Pro-B Natriuret Pep 10/02/18 10/02/18 10/02/18 20:43 21:01 21:01 WBC Hgb Hct MCV MCH MCHC RDW Plt Count Lymph % (Auto) Miner % (Auto) Eos % (Auto) Lymph # Miner # Eos # Seg Neutrophils % Seg Neutrophils # Seg Neutrophils # Man Monocytes # (Manual) PT D-Dimer 1039.91 H POC ABG pH 7.307 L POC ABG pCO2 45.6 H POC ABG pO2 107 H Sodium Potassium Carbon Dioxide BUN Creatinine Glucose POC Glucose Lactic Acid Calcium Iron TIBC C-Reactive Protein 3.40 H NT-Pro-B Natriuret Pep 10/02/18 10/03/18 10/03/18 21:01 00:14 04:13 WBC 13.6 H Hgb 10.6 L Hct 34.5 L MCV 74 L MCH 23 L MCHC 31 L RDW 21.3 H Plt Count 134 L Lymph % (Auto) 6.0 L Miner % (Auto) 10.6 H Eos % (Auto) Lymph # 0.8 L Miner # 1.4 H Eos # Seg Neutrophils % 83.1 H Seg Neutrophils # 11.3 H Seg Neutrophils # Man Monocytes # (Manual) PT D-Dimer POC ABG pH POC ABG pCO2 POC ABG pO2 Sodium Potassium Carbon Dioxide BUN Creatinine Glucose POC Glucose 164 H Lactic Acid 2.80 H* Calcium Iron TIBC C-Reactive Protein NT-Pro-B Natriuret Pep 10/03/18 10/03/18 10/03/18 04:13 04:13 04:47 WBC Hgb Hct MCV MCH MCHC RDW Plt Count Lymph % (Auto) Miner % (Auto) Eos % (Auto) Lymph # Miner # Eos # Seg Neutrophils % Seg Neutrophils # Seg Neutrophils # Man Monocytes # (Manual) PT D-Dimer POC ABG pH POC ABG pCO2 POC ABG pO2 Sodium 136 L Potassium Carbon Dioxide 18 L BUN 29 H Creatinine Glucose 168 H POC Glucose 182 H Lactic Acid 2.60 H* Calcium 8.3 L Iron TIBC C-Reactive Protein NT-Pro-B Natriuret Pep 10/03/18 10/03/18 10/03/18 05:47 11:39 16:56 WBC Hgb Hct MCV MCH MCHC RDW Plt Count Lymph % (Auto) Miner % (Auto) Eos % (Auto) Lymph # Miner # Eos # Seg Neutrophils % Seg Neutrophils # Seg Neutrophils # Man Monocytes # (Manual) PT D-Dimer POC ABG pH 7.314 L POC ABG pCO2 45.9 H POC ABG pO2 Sodium Potassium Carbon Dioxide BUN Creatinine Glucose POC Glucose 134 H 118 H Lactic Acid Calcium Iron TIBC C-Reactive Protein NT-Pro-B Natriuret Pep 10/03/18 10/04/18 10/04/18 23:13 05:20 05:44 WBC Hgb Hct MCV MCH MCHC RDW Plt Count Lymph % (Auto) Miner % (Auto) Eos % (Auto) Lymph # Miner # Eos # Seg Neutrophils % Seg Neutrophils # Seg Neutrophils # Man Monocytes # (Manual) PT D-Dimer POC ABG pH POC ABG pCO2 POC ABG pO2 68 L Sodium Potassium Carbon Dioxide BUN Creatinine Glucose POC Glucose 129 H 166 H Lactic Acid Calcium Iron TIBC C-Reactive Protein NT-Pro-B Natriuret Pep 10/04/18 10/04/18 10/04/18 08:04 08:04 11:56 WBC Hgb 9.1 L Hct 28.7 L MCV 72 L MCH 23 L MCHC RDW 21.6 H Plt Count 126 L Lymph % (Auto) Miner % (Auto) Eos % (Auto) Lymph # Miner # Eos # Seg Neutrophils % Seg Neutrophils # Seg Neutrophils # Man Monocytes # (Manual) PT D-Dimer POC ABG pH POC ABG pCO2 POC ABG pO2 Sodium Potassium Carbon Dioxide BUN 26 H Creatinine Glucose 167 H POC Glucose 176 H Lactic Acid Calcium 8.2 L Iron TIBC C-Reactive Protein NT-Pro-B Natriuret Pep 10/04/18 10/04/18 10/05/18 13:21 17:12 00:02 WBC Hgb Hct MCV MCH MCHC RDW Plt Count Lymph % (Auto) Miner % (Auto) Eos % (Auto) Lymph # Miner # Eos # Seg Neutrophils % Seg Neutrophils # Seg Neutrophils # Man Monocytes # (Manual) PT D-Dimer POC ABG pH 7.462 H POC ABG pCO2 33.5 L POC ABG pO2 59 L Sodium Potassium Carbon Dioxide BUN Creatinine Glucose POC Glucose 164 H 211 H Lactic Acid Calcium Iron TIBC C-Reactive Protein NT-Pro-B Natriuret Pep 10/05/18 10/05/18 10/05/18 05:13 12:06 12:11 WBC Hgb Hct MCV MCH MCHC RDW Plt Count Lymph % (Auto) Miner % (Auto) Eos % (Auto) Lymph # Miner # Eos # Seg Neutrophils % Seg Neutrophils # Seg Neutrophils # Man Monocytes # (Manual) PT D-Dimer POC ABG pH 7.462 H POC ABG pCO2 POC ABG pO2 66 L Sodium Potassium Carbon Dioxide BUN Creatinine Glucose POC Glucose 190 H 185 H Lactic Acid Calcium Iron TIBC C-Reactive Protein NT-Pro-B Natriuret Pep 10/05/18 10/05/18 10/06/18 18:13 23:49 04:19 WBC Hgb 9.8 L Hct 30.5 L MCV 73 L MCH 23 L MCHC RDW 21.0 H Plt Count Lymph % (Auto) Miner % (Auto) Eos % (Auto) Lymph # Miner # Eos # Seg Neutrophils % Seg Neutrophils # Seg Neutrophils # Man Monocytes # (Manual) PT D-Dimer POC ABG pH POC ABG pCO2 POC ABG pO2 Sodium Potassium Carbon Dioxide BUN Creatinine Glucose POC Glucose 177 H 192 H Lactic Acid Calcium Iron TIBC C-Reactive Protein NT-Pro-B Natriuret Pep 10/06/18 10/06/18 10/06/18 04:19 05:00 12:05 WBC Hgb Hct MCV MCH MCHC RDW Plt Count Lymph % (Auto) Miner % (Auto) Eos % (Auto) Lymph # Miner # Eos # Seg Neutrophils % Seg Neutrophils # Seg Neutrophils # Man Monocytes # (Manual) PT D-Dimer POC ABG pH POC ABG pCO2 POC ABG pO2 Sodium Potassium 3.4 L Carbon Dioxide BUN 21 H Creatinine 0.7 L Glucose 133 H POC Glucose 135 H 206 H Lactic Acid Calcium Iron TIBC C-Reactive Protein NT-Pro-B Natriuret Pep 10/06/18 10/06/18 10/06/18 12:12 16:31 21:13 WBC Hgb Hct MCV MCH MCHC RDW Plt Count Lymph % (Auto) Miner % (Auto) Eos % (Auto) Lymph # Miner # Eos # Seg Neutrophils % Seg Neutrophils # Seg Neutrophils # Man Monocytes # (Manual) PT D-Dimer POC ABG pH POC ABG pCO2 POC ABG pO2 Sodium Potassium Carbon Dioxide BUN Creatinine Glucose POC Glucose 216 H 141 H 308 H Lactic Acid Calcium Iron TIBC C-Reactive Protein NT-Pro-B Natriuret Pep 10/07/18 10/07/18 10/08/18 08:37 11:32 04:11 WBC Hgb 9.3 L Hct 29.4 L MCV 72 L MCH 23 L MCHC RDW 20.9 H Plt Count Lymph % (Auto) Miner % (Auto) Eos % (Auto) Lymph # Miner # Eos # Seg Neutrophils % Seg Neutrophils # Seg Neutrophils # Man Monocytes # (Manual) PT D-Dimer POC ABG pH POC ABG pCO2 POC ABG pO2 Sodium Potassium Carbon Dioxide BUN Creatinine Glucose POC Glucose 233 H 220 H Lactic Acid Calcium Iron TIBC C-Reactive Protein NT-Pro-B Natriuret Pep 10/08/18 10/08/18 10/08/18 04:11 16:20 20:28 WBC Hgb Hct MCV MCH MCHC RDW Plt Count Lymph % (Auto) Miner % (Auto) Eos % (Auto) Lymph # Miner # Eos # Seg Neutrophils % Seg Neutrophils # Seg Neutrophils # Man Monocytes # (Manual) PT D-Dimer POC ABG pH POC ABG pCO2 POC ABG pO2 Sodium Potassium 3.5 L Carbon Dioxide 21 L BUN 21 H Creatinine 0.7 L Glucose 123 H POC Glucose 157 H 210 H Lactic Acid Calcium 8.0 L Iron TIBC C-Reactive Protein NT-Pro-B Natriuret Pep 10/09/18 10/09/18 10/09/18 05:09 05:09 05:09 WBC Hgb 9.1 L Hct 28.6 L MCV 71 L MCH 23 L MCHC RDW 20.2 H Plt Count Lymph % (Auto) Miner % (Auto) 10.2 H Eos % (Auto) 6.7 H Lymph # Miner # Eos # 0.5 H Seg Neutrophils % Seg Neutrophils # Seg Neutrophils # Man Monocytes # (Manual) PT 15.1 H D-Dimer POC ABG pH POC ABG pCO2 POC ABG pO2 Sodium Potassium Carbon Dioxide BUN Creatinine Glucose POC Glucose Lactic Acid Calcium Iron 29 L TIBC 240 L C-Reactive Protein NT-Pro-B Natriuret Pep 10/09/18 10/09/18 10/09/18 08:22 12:26 16:02 WBC Hgb Hct MCV MCH MCHC RDW Plt Count Lymph % (Auto) Miner % (Auto) Eos % (Auto) Lymph # Miner # Eos # Seg Neutrophils % Seg Neutrophils # Seg Neutrophils # Man Monocytes # (Manual) PT D-Dimer POC ABG pH POC ABG pCO2 POC ABG pO2 Sodium Potassium Carbon Dioxide BUN Creatinine Glucose POC Glucose 120 H 319 H 138 H Lactic Acid Calcium Iron TIBC C-Reactive Protein NT-Pro-B Natriuret Pep 10/09/18 10/10/18 10/11/18 22:49 21:40 10:05 WBC Hgb Hct MCV MCH MCHC RDW Plt Count Lymph % (Auto) Miner % (Auto) Eos % (Auto) Lymph # Miner # Eos # Seg Neutrophils % Seg Neutrophils # Seg Neutrophils # Man Monocytes # (Manual) PT D-Dimer POC ABG pH POC ABG pCO2 POC ABG pO2 Sodium Potassium Carbon Dioxide BUN Creatinine Glucose POC Glucose 130 H 122 H 191 H Lactic Acid Calcium Iron TIBC C-Reactive Protein NT-Pro-B Natriuret Pep 10/11/18 10/11/18 10/11/18 11:55 16:13 21:38 WBC Hgb Hct MCV MCH MCHC RDW Plt Count Lymph % (Auto) Miner % (Auto) Eos % (Auto) Lymph # Miner # Eos # Seg Neutrophils % Seg Neutrophils # Seg Neutrophils # Man Monocytes # (Manual) PT D-Dimer POC ABG pH POC ABG pCO2 POC ABG pO2 Sodium Potassium Carbon Dioxide BUN Creatinine Glucose POC Glucose 158 H 168 H 171 H Lactic Acid Calcium Iron TIBC C-Reactive Protein NT-Pro-B Natriuret Pep 10/12/18 10/12/18 10/12/18 08:36 09:03 21:43 WBC Hgb Hct MCV MCH MCHC RDW Plt Count Lymph % (Auto) Miner % (Auto) Eos % (Auto) Lymph # Miner # Eos # Seg Neutrophils % Seg Neutrophils # Seg Neutrophils # Man Monocytes # (Manual) PT D-Dimer POC ABG pH 7.461 H POC ABG pCO2 32.3 L POC ABG pO2 54 L Sodium Potassium Carbon Dioxide BUN Creatinine Glucose POC Glucose 122 H 136 H Lactic Acid Calcium Iron TIBC C-Reactive Protein NT-Pro-B Natriuret Pep Allied health notes reviewed: nursing
--- NOTE | 2018-10-14 13:45 | Progress Note ---
Assessment and Plan Acute Respiratory failure with Hypoxia/hypercapneia s./p Mechanical ventilation, now extubated - Likely due to COPD exacerbation and pseudomonas pneumonia - Continue duo nebs and supplemental oxygen as needed Hypertensive urgency, BP much stable now on current medications Acute Systolic Congestive heart failure with possible combined diastolic dysfunction-Precluding fluids administration - History of Cardiomyopathy with EF OF 25-30% s/p CABG Sepsis-POA secondary PNA with pseudomonas, - ID following plan to treat with cefepime until 10/19/2018 - Blood cultures NO GROWTH COPD with acute exacerbation secondary to pneumonia - Continue nebs/supplemental oxygen as needed and continue to treat underlying pneumonia Thrombocytopenia, resolved Atrial Fibrillation with RVR - Rate controlled, not a suitable candidate for anticoagulation because of risk of noncompliance and GI bleeding - Cardiology following Leukocytosis, due to sepsis, trended down Hyperkalemia,resolved DM with Hyperglycemia, continue consistent carb diet and SSI Iron deficiency anemia, monitor H&H, continue to replace iron - Patient refuses to get prepped for colonoscopy History of CVA, continue aspirin and statin Brief history: Patient is a 68-year-old male with past medical history from records shows COPD, chronic systolic CHF, CVA, atrial fibrillation, iron deficiency anemia and CAD s/p CABG who presents with severe respiratory distress. Patient was noted to be lethargic with severe increased work of breathing and was intubated in the ED and placed on mechanical ventilation. The ED documentation the medication list reveals the patient also lives in a correction house. Patient clinically and symptomatically improved, was extubated. Cardiology recommends full anticoagulation for his atrial fibrillation but he is anemic therefore GI consulted for workup. However after multiple attempts patient refuses to drink prep for colonoscopy.He will be dc on anticoag per cardiology. Also needs Cefepime iv for 3 weeks until 10/19/18. He has been refusing the discussion for anticoagulation and risk remains to be very noncompliant. His disposition now pending on insurance approval for IV antibiotic and home health services following discharge. Hospitalist Physical GEN: Not in acute distress, lying in bed HEENT: Normocephalic, atraumatic, Neck: supple, No JVD Lungs: Clear to auscultation bilaterally, no crackles or wheeze Heart:S1 and S2 irreg, irreg, no rubs or gallop, Abd:soft, non tender, non distended, normal bowel sounds Ext: No edema, no clubbing or cyanosis Neuro: awake,alert,oriented, no focal signs Psych: Appears irritated Skin: No rash Subjective Date of service: 10/14/18 Principal diagnosis: Ac on Ch Hypoxemic Hypercapnic Resp failure; AECOPD; CHF exacerbation; Afib Interval history: Patient seen and examined. Medical records and medication list reviewed. No acute event overnight noted by the RN. Patient denies any chest pain or difficulty breathing. Patient is tolerating diet. Wants to go home, Does not to want to discuss about anticoagulation Objective - Constitutional Vitals: Vital Signs - 12hr 10/14/18 10/14/18 10/14/18 07:59 08:01 08:12 Temperature 98.0 F Pulse Rate 94 H Pulse Rate [ Right Radial] Pulse Rate [ 94 H 96 H Throughout] Respiratory 18 Rate Respiratory 20 20 Rate [ Throughout] Blood Pressure 127/74 O2 Sat by Pulse 95 Oximetry 10/14/18 10/14/18 10/14/18 08:13 08:59 09:53 Temperature Pulse Rate 74 Pulse Rate [ 72 Right Radial] Pulse Rate [ Throughout] Respiratory 18 Rate Respiratory Rate [ Throughout] Blood Pressure 107/50 O2 Sat by Pulse 95 95 Oximetry - Labs CBC & Chem 7: 10/09/18 05:09 10/08/18 04:11
[2018-10-15] MEDS: MAXIPIME/NS 2 GM/100 ML 2 GM/100 ML BAG IV SCH (06:03)
[2018-10-15] MEDS: HEPARIN SUB-Q SCH (06:03)
[2018-10-15] MEDS: PULMICORT IH SCH ×2 (08:35→15:44)
[2018-10-15] MEDS: DUONEB *Not for PRN Use IH SCH ×2 (08:35→15:44)
[2018-10-15] MEDS: BROVANA NEBU IH SCH ×2 (08:35→15:43)
--- NOTE | 2018-10-15 09:11 | Progress Note ---
Assessment and Plan Cultures: Blood culture 10/02/2018 negative Tracheal asp 10/02/2018 Pseudomonas MDR sensitive to cefepime, resistant to FQ, AG and aztreonam. Urine culture 10/02/2018 no growth Assessment: 68 y/o male with history of COPD, chronic systolic CHF, CVA, atrial fibrillation, anemia and CAD s/p CAB; admitted on 09/30/2018 due to worsening respiratory distress and AMS / lethargy: 1) SIRS versus Sepsis: Resolved. likely from COPD exacerbation with presumed pneumonia +/- heart failure. CRP 3.4. UA neg. Blood cultures negative so far. 2) COPD exacerbation with presumed pneumonia: CXR initially with severe emphysema and no infiltrates, but repeat CXR showed bilateral pneumonitis CT chest: No evidence of pulmonary arterial emboli. Bilateral lower lung infiltrates are identified, more pronounced on the right. Mild bilateral effusions. 3) Acute on chronic respiratory failure: from COPD/pneumonia/CHF, extubated 4) Acute encephalopathy: resolved Recommendations: - contact isolation due to MDR Pseudomonas - continue cefepime 2 gm IV q8h D8 - Anticipate discharge on cefepime 2 gm IV q8h until 10/19/18 - order revised and discussed with case management [facility] M: [id number] O:[phone] Subjective Date of service: 10/15/18 Principal diagnosis: Ac on Ch Hypoxemic Hypercapnic Resp failure; AECOPD; CHF exacerbation; Afib Interval history: Patient seen and examined. Awake, alert, no acute distress. Discussion about discharge and OPAT. Objective - Exam Narrative Exam: Constitutional: Awake, alert, No acute distress Head, Ears, Nose: Normocephalic, atraumatic. External ears, nose normal Eyes: Conjunctivae/corneas clear. No icterus. No ptosis. Neck: Supple, no meningeal signs Oral: no thrush Cardiovascular: S1, S2 normal. Respiratory: Good air entry, clear to auscultation bilaterally GI: Soft, non-tender; bowel sounds normal. No peritoneal signs Musculoskeletal: No pedal edema, no cyanosis. Skin: No rash or abscess. Hem/Lymphatic: No palpable cervical or supraclavicular nodes. No lymphangitis Psych:affect: flat Neurological: Awake, alert, oriented to person, place and time Lines: Right PICC - Constitutional Vitals: Vital Signs Temp Pulse Resp BP Pulse Ox 97.9 F 72 20 98/54 96 10/15/18 08:31 10/15/18 08:31 10/15/18 08:31 10/15/18 08:31 10/15/18 08:31 Temperature -Last 24 Hours Temperature 97.9 F Temperature 97.6 F Temperature 98.6 F Temperature 97.6 F - Labs CBC & Chem 7: 10/09/18 05:09 10/08/18 04:11 Labs: Abnormal lab results 10/14/18 10/15/18 Range/Units 22:22 07:36 POC Glucose 226 H 150 H (70-105)
[2018-10-15] MEDS: HumaLOG SUB-Q SCH (09:55)
[2018-10-15] MEDS: LASIX PO SCH (09:56)
[2018-10-15] MEDS: SENOKOT PO SCH (09:56)
[2018-10-15] MEDS: HABITROL TD SCH (09:56)
[2018-10-15] MEDS: PEPCID PO SCH (09:57)
[2018-10-15] MEDS: LOPRESSOR PO SCH (09:57)
[2018-10-15] MEDS: PROTONIX PO SCH (09:57)
[2018-10-15] MEDS: ZESTRIL PO SCH (09:58)
[2018-10-15] MEDS: SODIUM CHLORIDE FLUSH SYRINGE 10 ML IV SCH (09:58)
--- NOTE | 2018-10-15 11:41 | Discharge Summary ---
Providers - Providers Date of Admission: 10/02/18 08:23 Date of discharge: 10/15/18 Attending physician: EDDY PALACIOS 10/02/18 07:06 Consult to Dietitian/Nutrition [CONS] Routine Physician Instructions: Reason For Exam: Reason for Consult: Write/Manage Tube Feeding 10/02/18 08:40 Consult to Physician [CONS] Routine Comment: Consulting Provider: PEEWEE MCINTOSH Physician Instructions: Reason For Exam: Acute Respiratory failure Consult to Physician [CONS] Routine Comment: Consulting Provider: DAVID LOFTON Physician Instructions: Reason For Exam: Afib with RVR 10/02/18 09:16 Consult to Physician [CONS] Stat Comment: Consulting Provider: PEEWEE MCINTOSH Physician Instructions: Reason For Exam: critical intubated patient 10/03/18 12:21 Consult to Dietitian/Nutrition [CONS] Stat Physician Instructions: Reason For Exam: Reason for Consult: Write/Manage Tube Feeding 10/05/18 14:25 Consult to Physician [CONS] Routine Comment: Consulting Provider: ALIE SLATER Physician Instructions: Reason For Exam: Pneumonia with Acute hypoxemic Resp failure 10/08/18 10:33 Consult to Physician [CONS] Routine Comment: Consulting Provider: ROSEANN GRIFFIN Physician Instructions: Reason For Exam: Microcytic anemia, GI workup before full anticoag 10/09/18 10:40 Consult to Case Management [CONS] Stat Services Needed at Discharge: Other Notified:: telecommunications clerk Phone number called:: [phone] Was contact made?: Yes If yes, spoke with:: Migdalia Time called:: 14:15 Additional Physician Instructions: [facility] M [phone] O [phone] F [phone] OUTPATIENT PARENTERAL ANTIBIOTIC THERAPY ORDERS Diagnoses: MDR PSeudomonas pneumonia Antimicrobial administration: cefepime 2 gm IV q8h until 10/19/18 . Remove line after last dose unless otherwise instructed. Order revised to extend antibiotic therapy. Lab monitoring: CBC, AST, ALT, creatinine, CRP once a week preferly on Friday morning. Please fax results to [phone] and call [phone] for critical lab results. Alie Mahoney Date: 10/13/18 10/12/18 09:27 Physical Therapy Evaluation and Treat [CONS] Routine Comment: Reason For Exam: Generalized weakness 10/12/18 09:28 Consult to Case Management [CONS] Routine Services Needed at Discharge: Home O2 Notified:: BROOKE 10/13/18 08:52 PICC Line Insertion [Consult to PICC Line RN] [CONS] Urgent Reason For Exam: outpatient antibiotic therapy Type Line:: Midline Primary care physician: SALES DEVELOPMENT EXECUTIVE Hospitalization Condition: Stable Pertinent studies: CTA chest CXR 2d echo Myocardial stress test Hospital course: Brief history: Patient is a 68-year-old male with past medical history from records shows COPD, chronic systolic CHF, CVA, atrial fibrillation, iron deficiency anemia and CAD s/p CABG who presents with severe respiratory distress. Patient was noted to be lethargic with severe increased work of breathing and was intubated in the ED and placed on mechanical ventilation. The ED documentation the medication list reveals the patient also lives in a long term house. Patient clinically and sy mptomatically improved, was extubated. Cardiology recommends full anticoagulation for his atrial fibrillation but he is anemic therefore GI consulted for workup. However after multiple attempts patient refuses to drink prep for colonoscopy. He has been refusing the discussion for anticoagulation and risk remains to be high for AC as he is very noncompliant. He was then discharged to his long term house with IV antibiotic and home health services following discharge. Discharge diagnosis and management: Acute Respiratory failure with Hypoxia/hypercapneia s./p Mechanical ventilation, now extubated - Likely due to COPD exacerbation and pseudomonas pneumonia - Treated with iv abx, duo nebs and supplemental oxygen as needed Hypertensive urgency, BP much stable now on current medications Acute Systolic Congestive heart failure with possible combined diastolic dysfunction - History of Cardiomyopathy with EF OF 25-30% s/p CABG Sepsis-POA secondary PNA with pseudomonas MDR, - ID following plan to treat with cefepime until 10/19/2018 - Blood cultures NO GROWTH COPD with acute exacerbation secondary to pneumonia - Treated with nebs/supplemental oxygen as needed and abx to treat underlying pneumonia Thrombocytopenia, resolved Atrial Fibrillation with RVR - Rate controlled, not a suitable candidate for anticoagulation because of risk of noncompliance and GI bleeding - Cardiology following Leukocytosis, due to sepsis, trended down Hyperkalemia, resolved DM with Hyperglycemia, managed with consistent carb diet and SSI Iron deficiency anemia, monitor H&H, continue to replace iron - Patient refuses to get prepped for colonoscopy History of CVA, continue aspirin and statin Hospitalist Physical GEN: Not in acute distress, lying in bed HEENT: Normocephalic, atraumatic, Neck: supple, No JVD Lungs: Clear to auscultation bilaterally, no crackles or wheeze Heart:S1 and S2 irreg, irreg, no rubs or gallop, Abd:soft, non tender, non distended, normal bowel sounds Ext: No edema, no clubbing or cyanosis Neuro: awake,alert,oriented, no focal signs Psych: Appears irritated Skin: No rash Disposition: [id number] HOME UNDER [facility] Time spent for discharge: 34 minutes Core Measure Documentation - Palliative Care Palliative Care/ Comfort Measures: Not Applicable - Core Measures Any of the following diagnoses?: none Exam - Constitutional Vitals: Temp Pulse Resp BP Pulse Ox 97.9 F 72 20 98/54 96 10/15/18 08:31 10/15/18 08:31 10/15/18 08:31 10/15/18 08:31 10/15/18 08:31 Plan Activity: advance as tolerated, fall precautions Weight Bearing Status: Non-Weight Bearing Diet: low fat, low salt Additional Instructions: F/U at ID clinic with Dr Mahoney in two weeks. Continue cefepime till 10/19/18 Follow up with: PRIMARY CARE, [Primary Care Provider] - 3-5 Days Prescriptions: AtorvaSTATin [Lipitor] 20 mg PO QHS #30 tab Aspirin EC [Aspirin Enteric Coated TAB] 81 mg PO QDAY #30 tablet. Furosemide [Lasix TAB] 20 mg PO QAM #30 tablet Metoprolol [Lopressor TAB] 12.5 mg PO BID #60 tablet ALBUTEROL Inhaler (OR & NICU) [ProAir HFA Inhaler] 2 puff IH Q4HR PRN 30 Days #1 inhalation PRN Reason: Shortness Of Breath Pantoprazole [Protonix TAB] 40 mg PO QDAY #30 tablet QUEtiapine [SEROquel] 50 mg PO BID #30 tablet Budesonide/Formoterol Fumarate [Symbicort 80-4.5 Mcg Inhaler] 10.2 gm IH BID 30 Days hfa.aer.ad Lisinopril [Zestril TAB] 5 mg PO QDAY #30 tablet
--- NOTE | 2018-10-15 13:59 | Progress Note ---
Assessment and Plan Acute likely on chronic hypoxemic and hypercapnic respiratory failure. Acute chronic obstructive pulmonary disease exacerbation. Acute congestive heart failure exacerbation. History of cerebrovascular accident. Atrial fibrillation with rapid ventricular response. Anemia, iron deficiency. Coronary artery disease. Leukocytosis. Hypokalemia, mild. Hyperglycemia. Lactic acidosis. Elevated serum BNP. - bolus 250 mls IVNS over 1 hour re: CHF - reduce lisinopril to 5mg qd - reduce metoprolol to 12.5 mg bid - reduce lasik to 20 mg qd - continue scheduled BIPAP 07/16 qhs - change CT chest with IV contrast to CTA to also evaluate for P.E. - Add incentive spirometry - continue supplemental oxygen to keep sats > 90% - continue bronchodilators with pulmonary hygiene per RT - continue AB's and de-escalate per ID recs (input appreciated) - continue aspiration precautions - PT/OT/ROM exercises as tolerated - mobility protocol for pressure ulcer prophylaxis - continue GI & VTE prophylaxis - continue other care per attending / other consultants ...... re-evaluate in am & prn Subjective Date of service: 10/15/18 Principal diagnosis: Ac on Ch Hypoxemic Hypercapnic Resp failure; AECOPD; CHF exacerbation; Afib Interval history: Patient is seen today for: Acute likely on chronic hypoxemic and hypercapnic respiratory failure; Acute chronic obstructive pulmonary disease exacerbation; Acute congestive heart failure exacerbation; History of cerebrovascular accident; Atrial fibrillation with rapid ventricular response. Seen and examined at bedside; 24hour events reviewed; nursing and respiratory care staff consulted; no adverse overnight events reported to me; resting peacefully in bed; Objective Vital Signs - 12hr 10/15/18 10/15/18 08:31 10:00 Temperature 97.9 F Pulse Rate 72 Pulse Rate [ 72 From Monitor] Respiratory 20 18 Rate Blood Pressure 98/54 [Right] O2 Sat by Pulse 96 96 Oximetry Constitutional: no acute distress, alert Eyes: non-icteric ENT: oropharynx moist Neck: supple, no lymphadenopathy, no JVD, other (no thyromegaly) Effort: mildly labored Ascultation: Bilateral: clear, diminished breath sounds, rhonchi, other (+ barrel chest) Percussion: Bilateral: not dull Cardiovascular: irregular rhythm, other (S1,S2) Gastrointestinal: normoactive bowel sounds, soft, non-tender, non-distended Integumentary: normal, other (post CABG sternotomy scar) Extremities: no cyanosis, no edema, pink and warm, pulses normal, no ischemia or petechiae Neurologic: normal mental status, non-focal exam (grossly), pupils equal and round Psychiatric: depressed CBC and BMP: 10/09/18 05:09 10/08/18 04:11 ABG, PT/INR, D-dimer: ABG POC ABG pH 7.461 (7.35-7.45) H 10/12/18 08:36 POC ABG pCO2 32.3 (35-45) L 10/12/18 08:36 POC ABG pO2 54 (80-105) L 10/12/18 08:36 POC ABG HCO3 23.0 10/12/18 08:36 POC ABG Total CO2 24 10/12/18 08:36 POC ABG O2 Sat 90 10/12/18 08:36 PT/INR, D-dimer PT 15.1 Sec. (12.2-14.9) H 10/09/18 05:09 INR 1.12 (0.87-1.13) 10/09/18 05:09 D-Dimer 1039.91 ng/mlDDU (0-234) H 10/02/18 21:01 Abnormal lab findings: Abnormal Labs 10/02/18 10/02/18 10/02/18 07:13 07:20 07:22 WBC 19.7 H Hgb 10.9 L Hct MCV 75 L MCH 23 L MCHC 31 L RDW 21.7 H Plt Count Lymph % (Auto) Vance % (Auto) Eos % (Auto) Lymph # Vance # Eos # Seg Neutrophils % Seg Neutrophils # Seg Neutrophils # Man 13.2 H Monocytes # (Manual) 1.2 H PT 15.0 H D-Dimer POC ABG pH POC ABG pCO2 POC ABG pO2 Sodium Potassium 5.2 H D Carbon Dioxide 19 L BUN Creatinine Glucose 340 H POC Glucose Lactic Acid Calcium Iron TIBC C-Reactive Protein NT-Pro-B Natriuret Pep 3102 H 10/02/18 10/02/18 10/02/18 08:32 09:26 12:28 WBC Hgb Hct MCV MCH MCHC RDW Plt Count Lymph % (Auto) Vance % (Auto) Eos % (Auto) Lymph # Vance # Eos # Seg Neutrophils % Seg Neutrophils # Seg Neutrophils # Man Monocytes # (Manual) PT D-Dimer POC ABG pH 7.201 L 7.254 L POC ABG pCO2 61.2 H 54.3 H POC ABG pO2 150 H 196 H Sodium Potassium Carbon Dioxide BUN Creatinine Glucose POC Glucose Lactic Acid 3.00 H* Calcium Iron TIBC C-Reactive Protein NT-Pro-B Natriuret Pep 10/02/18 10/02/18 10/02/18 20:43 21:01 21:01 WBC Hgb Hct MCV MCH MCHC RDW Plt Count Lymph % (Auto) Vance % (Auto) Eos % (Auto) Lymph # Vance # Eos # Seg Neutrophils % Seg Neutrophils # Seg Neutrophils # Man Monocytes # (Manual) PT D-Dimer 1039.91 H POC ABG pH 7.307 L POC ABG pCO2 45.6 H POC ABG pO2 107 H Sodium Potassium Carbon Dioxide BUN Creatinine Glucose POC Glucose Lactic Acid Calcium Iron TIBC C-Reactive Protein 3.40 H NT-Pro-B Natriuret Pep 10/02/18 10/03/18 10/03/18 21:01 00:14 04:13 WBC 13.6 H Hgb 10.6 L Hct 34.5 L MCV 74 L MCH 23 L MCHC 31 L RDW 21.3 H Plt Count 134 L Lymph % (Auto) 6.0 L Vance % (Auto) 10.6 H Eos % (Auto) Lymph # 0.8 L Vance # 1.4 H Eos # Seg Neutrophils % 83.1 H Seg Neutrophils # 11.3 H Seg Neutrophils # Man Monocytes # (Manual) PT D-Dimer POC ABG pH POC ABG pCO2 POC ABG pO2 Sodium Potassium Carbon Dioxide BUN Creatinine Glucose POC Glucose 164 H Lactic Acid 2.80 H* Calcium Iron TIBC C-Reactive Protein NT-Pro-B Natriuret Pep 10/03/18 10/03/18 10/03/18 04:13 04:13 04:47 WBC Hgb Hct MCV MCH MCHC RDW Plt Count Lymph % (Auto) Vance % (Auto) Eos % (Auto) Lymph # Vance # Eos # Seg Neutrophils % Seg Neutrophils # Seg Neutrophils # Man Monocytes # (Manual) PT D-Dimer POC ABG pH POC ABG pCO2 POC ABG pO2 Sodium 136 L Potassium Carbon Dioxide 18 L BUN 29 H Creatinine Glucose 168 H POC Glucose 182 H Lactic Acid 2.60 H* Calcium 8.3 L Iron TIBC C-Reactive Protein NT-Pro-B Natriuret Pep 10/03/18 10/03/18 10/03/18 05:47 11:39 16:56 WBC Hgb Hct MCV MCH MCHC RDW Plt Count Lymph % (Auto) Vance % (Auto) Eos % (Auto) Lymph # Vance # Eos # Seg Neutrophils % Seg Neutrophils # Seg Neutrophils # Man Monocytes # (Manual) PT D-Dimer POC ABG pH 7.314 L POC ABG pCO2 45.9 H POC ABG pO2 Sodium Potassium Carbon Dioxide BUN Creatinine Glucose POC Glucose 134 H 118 H Lactic Acid Calcium Iron TIBC C-Reactive Protein NT-Pro-B Natriuret Pep 10/03/18 10/04/18 10/04/18 23:13 05:20 05:44 WBC Hgb Hct MCV MCH MCHC RDW Plt Count Lymph % (Auto) Vance % (Auto) Eos % (Auto) Lymph # Vance # Eos # Seg Neutrophils % Seg Neutrophils # Seg Neutrophils # Man Monocytes # (Manual) PT D-Dimer POC ABG pH POC ABG pCO2 POC ABG pO2 68 L Sodium Potassium Carbon Dioxide BUN Creatinine Glucose POC Glucose 129 H 166 H Lactic Acid Calcium Iron TIBC C-Reactive Protein NT-Pro-B Natriuret Pep 10/04/18 10/04/18 10/04/18 08:04 08:04 11:56 WBC Hgb 9.1 L Hct 28.7 L MCV 72 L MCH 23 L MCHC RDW 21.6 H Plt Count 126 L Lymph % (Auto) Vance % (Auto) Eos % (Auto) Lymph # Vance # Eos # Seg Neutrophils % Seg Neutrophils # Seg Neutrophils # Man Monocytes # (Manual) PT D-Dimer POC ABG pH POC ABG pCO2 POC ABG pO2 Sodium Potassium Carbon Dioxide BUN 26 H Creatinine Glucose 167 H POC Glucose 176 H Lactic Acid Calcium 8.2 L Iron TIBC C-Reactive Protein NT-Pro-B Natriuret Pep 10/04/18 10/04/18 10/05/18 13:21 17:12 00:02 WBC Hgb Hct MCV MCH MCHC RDW Plt Count Lymph % (Auto) Vance % (Auto) Eos % (Auto) Lymph # Vance # Eos # Seg Neutrophils % Seg Neutrophils # Seg Neutrophils # Man Monocytes # (Manual) PT D-Dimer POC ABG pH 7.462 H POC ABG pCO2 33.5 L POC ABG pO2 59 L Sodium Potassium Carbon Dioxide BUN Creatinine Glucose POC Glucose 164 H 211 H Lactic Acid Calcium Iron TIBC C-Reactive Protein NT-Pro-B Natriuret Pep 10/05/18 10/05/18 10/05/18 05:13 12:06 12:11 WBC Hgb Hct MCV MCH MCHC RDW Plt Count Lymph % (Auto) Vance % (Auto) Eos % (Auto) Lymph # Vance # Eos # Seg Neutrophils % Seg Neutrophils # Seg Neutrophils # Man Monocytes # (Manual) PT D-Dimer POC ABG pH 7.462 H POC ABG pCO2 POC ABG pO2 66 L Sodium Potassium Carbon Dioxide BUN Creatinine Glucose POC Glucose 190 H 185 H Lactic Acid Calcium Iron TIBC C-Reactive Protein NT-Pro-B Natriuret Pep 10/05/18 10/05/18 10/06/18 18:13 23:49 04:19 WBC Hgb 9.8 L Hct 30.5 L MCV 73 L MCH 23 L MCHC RDW 21.0 H Plt Count Lymph % (Auto) Vance % (Auto) Eos % (Auto) Lymph # Vance # Eos # Seg Neutrophils % Seg Neutrophils # Seg Neutrophils # Man Monocytes # (Manual) PT D-Dimer POC ABG pH POC ABG pCO2 POC ABG pO2 Sodium Potassium Carbon Dioxide BUN Creatinine Glucose POC Glucose 177 H 192 H Lactic Acid Calcium Iron TIBC C-Reactive Protein NT-Pro-B Natriuret Pep 10/06/18 10/06/18 10/06/18 04:19 05:00 12:05 WBC Hgb Hct MCV MCH MCHC RDW Plt Count Lymph % (Auto) Vance % (Auto) Eos % (Auto) Lymph # Vance # Eos # Seg Neutrophils % Seg Neutrophils # Seg Neutrophils # Man Monocytes # (Manual) PT D-Dimer POC ABG pH POC ABG pCO2 POC ABG pO2 Sodium Potassium 3.4 L Carbon Dioxide BUN 21 H Creatinine 0.7 L Glucose 133 H POC Glucose 135 H 206 H Lactic Acid Calcium Iron TIBC C-Reactive Protein NT-Pro-B Natriuret Pep 10/06/18 10/06/18 10/06/18 12:12 16:31 21:13 WBC Hgb Hct MCV MCH MCHC RDW Plt Count Lymph % (Auto) Vance % (Auto) Eos % (Auto) Lymph # Vance # Eos # Seg Neutrophils % Seg Neutrophils # Seg Neutrophils # Man Monocytes # (Manual) PT D-Dimer POC ABG pH POC ABG pCO2 POC ABG pO2 Sodium Potassium Carbon Dioxide BUN Creatinine Glucose POC Glucose 216 H 141 H 308 H Lactic Acid Calcium Iron TIBC C-Reactive Protein NT-Pro-B Natriuret Pep 10/07/18 10/07/18 10/08/18 08:37 11:32 04:11 WBC Hgb 9.3 L Hct 29.4 L MCV 72 L MCH 23 L MCHC RDW 20.9 H Plt Count Lymph % (Auto) Vance % (Auto) Eos % (Auto) Lymph # Vance # Eos # Seg Neutrophils % Seg Neutrophils # Seg Neutrophils # Man Monocytes # (Manual) PT D-Dimer POC ABG pH POC ABG pCO2 POC ABG pO2 Sodium Potassium Carbon Dioxide BUN Creatinine Glucose POC Glucose 233 H 220 H Lactic Acid Calcium Iron TIBC C-Reactive Protein NT-Pro-B Natriuret Pep 10/08/18 10/08/18 10/08/18 04:11 16:20 20:28 WBC Hgb Hct MCV MCH MCHC RDW Plt Count Lymph % (Auto) Vance % (Auto) Eos % (Auto) Lymph # Vance # Eos # Seg Neutrophils % Seg Neutrophils # Seg Neutrophils # Man Monocytes # (Manual) PT D-Dimer POC ABG pH POC ABG pCO2 POC ABG pO2 Sodium Potassium 3.5 L Carbon Dioxide 21 L BUN 21 H Creatinine 0.7 L Glucose 123 H POC Glucose 157 H 210 H Lactic Acid Calcium 8.0 L Iron TIBC C-Reactive Protein NT-Pro-B Natriuret Pep 10/09/18 10/09/18 10/09/18 05:09 05:09 05:09 WBC Hgb 9.1 L Hct 28.6 L MCV 71 L MCH 23 L MCHC RDW 20.2 H Plt Count Lymph % (Auto) Vance % (Auto) 10.2 H Eos % (Auto) 6.7 H Lymph # Vance # Eos # 0.5 H Seg Neutrophils % Seg Neutrophils # Seg Neutrophils # Man Monocytes # (Manual) PT 15.1 H D-Dimer POC ABG pH POC ABG pCO2 POC ABG pO2 Sodium Potassium Carbon Dioxide BUN Creatinine Glucose POC Glucose Lactic Acid Calcium Iron 29 L TIBC 240 L C-Reactive Protein NT-Pro-B Natriuret Pep 10/09/18 10/09/18 10/09/18 08:22 12:26 16:02 WBC Hgb Hct MCV MCH MCHC RDW Plt Count Lymph % (Auto) Vance % (Auto) Eos % (Auto) Lymph # Vance # Eos # Seg Neutrophils % Seg Neutrophils # Seg Neutrophils # Man Monocytes # (Manual) PT D-Dimer POC ABG pH POC ABG pCO2 POC ABG pO2 Sodium Potassium Carbon Dioxide BUN Creatinine Glucose POC Glucose 120 H 319 H 138 H Lactic Acid Calcium Iron TIBC C-Reactive Protein NT-Pro-B Natriuret Pep 10/09/18 10/10/18 10/11/18 22:49 21:40 10:05 WBC Hgb Hct MCV MCH MCHC RDW Plt Count Lymph % (Auto) Vance % (Auto) Eos % (Auto) Lymph # Vance # Eos # Seg Neutrophils % Seg Neutrophils # Seg Neutrophils # Man Monocytes # (Manual) PT D-Dimer POC ABG pH POC ABG pCO2 POC ABG pO2 Sodium Potassium Carbon Dioxide BUN Creatinine Glucose POC Glucose 130 H 122 H 191 H Lactic Acid Calcium Iron TIBC C-Reactive Protein NT-Pro-B Natriuret Pep 10/11/18 10/11/18 10/11/18 11:55 16:13 21:38 WBC Hgb Hct MCV MCH MCHC RDW Plt Count Lymph % (Auto) Vance % (Auto) Eos % (Auto) Lymph # Vance # Eos # Seg Neutrophils % Seg Neutrophils # Seg Neutrophils # Man Monocytes # (Manual) PT D-Dimer POC ABG pH POC ABG pCO2 POC ABG pO2 Sodium Potassium Carbon Dioxide BUN Creatinine Glucose POC Glucose 158 H 168 H 171 H Lactic Acid Calcium Iron TIBC C-Reactive Protein NT-Pro-B Natriuret Pep 10/12/18 10/12/18 10/12/18 08:36 09:03 21:43 WBC Hgb Hct MCV MCH MCHC RDW Plt Count Lymph % (Auto) Vance % (Auto) Eos % (Auto) Lymph # Vance # Eos # Seg Neutrophils % Seg Neutrophils # Seg Neutrophils # Man Monocytes # (Manual) PT D-Dimer POC ABG pH 7.461 H POC ABG pCO2 32.3 L POC ABG pO2 54 L Sodium Potassium Carbon Dioxide BUN Creatinine Glucose POC Glucose 122 H 136 H Lactic Acid Calcium Iron TIBC C-Reactive Protein NT-Pro-B Natriuret Pep 10/14/18 10/15/18 10/15/18 22:22 07:36 11:07 WBC Hgb Hct MCV MCH MCHC RDW Plt Count Lymph % (Auto) Vance % (Auto) Eos % (Auto) Lymph # Vance # Eos # Seg Neutrophils % Seg Neutrophils # Seg Neutrophils # Man Monocytes # (Manual) PT D-Dimer POC ABG pH POC ABG pCO2 POC ABG pO2 Sodium Potassium Carbon Dioxide BUN Creatinine Glucose POC Glucose 226 H 150 H 189 H Lactic Acid Calcium Iron TIBC C-Reactive Protein NT-Pro-B Natriuret Pep Allied health notes reviewed: nursing
[2018-10-15 14:48] VITALS: BP 94/62
== END 2018-10-15 14:30 | disposition home health service (06) | DRG 871 ==
LOC: ED 06:51 → CC1 08:23 → IMCU 10-06 17:49 → 2B-ACE 10-12 15:55
PROVIDERS: ADMIT Internal Medicine; ATTEND Internal Medicine
PROC: 5A1945Z Respiratory Ventilation, 24-96 Consecutive Hours (ICD-10-PCS; principal; 2018-10-02)
PROC: 0BH17EZ Insertion of Endotracheal Airway into Trachea, Via Natural or Artificial Opening (ICD-10-PCS; 2018-10-02)
PROC: 4A033R1 Measurement of Arterial Saturation, Peripheral, Percutaneous Approach (ICD-10-PCS; 2018-10-02)
PROC: 5A09357 Assistance with Respiratory Ventilation, Less than 24 Consecutive Hours, Continuous Positive Airway Pressure (ICD-10-PCS; 2018-10-06)
PROC: 5A09357 Assistance with Respiratory Ventilation, Less than 24 Consecutive Hours, Continuous Positive Airway Pressure (ICD-10-PCS; 2018-10-08)
PROC: 5A09357 Assistance with Respiratory Ventilation, Less than 24 Consecutive Hours, Continuous Positive Airway Pressure (ICD-10-PCS; 2018-10-10)
PROC: 5A09357 Assistance with Respiratory Ventilation, Less than 24 Consecutive Hours, Continuous Positive Airway Pressure (ICD-10-PCS; 2018-10-12)
DX: A41.9 Sepsis, unspecified organism (principal); J15.1 Pneumonia due to Pseudomonas; I50.43 Acute on chronic combined systolic (congestive) and diastolic (congestive) heart failure; J96.21 Acute and chronic respiratory failure with hypoxia; J96.22 Acute and chronic respiratory failure with hypercapnia; J44.1 Chronic obstructive pulmonary disease with (acute) exacerbation; J44.0 Chronic obstructive pulmonary disease with (acute) lower respiratory infection; G93.40 Encephalopathy, unspecified; I42.9 Cardiomyopathy, unspecified; I48.91 Unspecified atrial fibrillation; I12.9 Hypertensive chronic kidney disease with stage 1 through stage 4 chronic kidney disease, or unspecified chronic kidney disease; I25.10 Atherosclerotic heart disease of native coronary artery without angina pectoris; I16.0 Hypertensive urgency; D69.6 Thrombocytopenia, unspecified; E87.5 Hyperkalemia; E11.65 Type 2 diabetes mellitus with hyperglycemia; D50.9 Iron deficiency anemia, unspecified; M19.90 Unspecified osteoarthritis, unspecified site; Z96.641 Presence of right artificial hip joint; Z96.653 Presence of artificial knee joint, bilateral; J20.9 Acute bronchitis, unspecified; Z87.01 Personal history of pneumonia (recurrent); I25.2 Old myocardial infarction; Z86.73 Personal history of transient ischemic attack (TIA), and cerebral infarction without residual deficits; Z95.1 Presence of aortocoronary bypass graft; Z79.899 Other long term (current) drug therapy; Z86.718 Personal history of other venous thrombosis and embolism
CPT/HCPCS: 36415; 36600; 71045; 71275; 78452; 80048; 80053; 81001; 82140; 82728; 82803; 82962; 83550; 83735; 83880; 84439; 84443; 84484; 85007; 85025; 85027; 85379; 85610; 86022; 86140; 86850; 86900; 86901; 87040; 87070; 87076; 87086; 87186; 87205; 87400; 87449; 93005; 93010; 93017; 93306; 93970; 94002; 94003; 94640; 94660; 94760; G0378; A9502; J0330; J0692; J1644; J1815; J1940; J1956; J2543; J2704; J2785; J3010; J3370; J7030; J7040; J7050; Q9967